=== PATIENT | female | born 1950 | race Two or more races ===

== ENCOUNTER 2017-01-02 18:52 | Emergency (ER) | payer OTHER ==
[2017-01-02 18:59] VITALS: BMI 28.9
--- NOTE | 2017-01-02 20:38 | PDOC ---
History of Present Illness - General History Source: Patient Exam Limitations: No Limitations - History of Present Illness Initial Comments: 01/02/17 21:14 The patient is a 66 year old female, with a significant past medical history of IBS, Diverticulitis, Fibromyalgia, who presents to the emergency department with LLQ abdominal pain for the past 2 days. Patient reports intermittent LLQ abdominal pain, 9/10 in severity, radiating to lower back with associated subjective fevers and nausea. Patient denies taking any medications for relief. Patient reports her pain has progressively worsened today and presents to the ED for further evaluation. Upon evaluation, patients vital signs are within normal limits. She denies chest pain, headache or dizziness. She denies fever, chills, vomit, diarrhea or constipation. She denies dysuria, frequency, urgency or hematuria. Patient denies sick contacts or recent travel. Allergies: NKA Past surgical history: Tubal ligation, Pilonidal cyst, Hysterectomy Social history: None PCP: Dr. Willingham <Nikkie Mccauley - Last Filed: 01/02/17 21:14> <Niraj Li - Last Filed: 01/03/17 01:41> - General Chief Complaint: Pain Stated Complaint: EVALUATION Time Seen by Provider: 01/02/17 20:20 Past History <Nikkie Mccauley - Last Filed: 01/02/17 21:14> - Past Medical History COPD: No GI Disorders: Yes (IBS, DIVERTICULITIS) Other medical history: FIBROMYALGIA, ARTHRITIS - Suicide/Smoking/Psychosocial Hx Smoking History: Never smoked Hx Alcohol Use: No Drug/Substance Use Hx: No Substance Use Type: None <Niraj Li - Last Filed: 01/03/17 01:41> - Past Medical History Allergies/Adverse Reactions: Allergies Allergy/AdvReac Type Severity Reaction Status Date / Time No Known Allergies Allergy Verified 01/02/17 18:59 Home Medications: Ambulatory Orders Ciprofloxacin [Cipro] 500 mg PO BID #14 tablet 10/07/15 Ibuprofen [Advil -] 400 mg PO TID 10/07/15 Metronidazole [Flagyl] 500 mg PO BID #14 tablet 10/07/15 [place]-3 Fatty Acids/Fish Oil [Fish Oil 1,000 mg Softgel] 1 each PO DAILY Oxycodone HCl/Acetaminophen [Percocet 5-325 mg Tablet] 1 - 2 tab PO Q6H #20 tablet MDD 4 10/07/15 Vit B Comp/C/FA/Iron/Vit E [Vitamin B Complex Tablet] 1 each PO DAILY 10/07/15 Levofloxacin [Levaquin -] 500 mg PO DAILY #10 tablet 01/03/17 Metronidazole [Flagyl -] 500 mg PO Q4HWA #40 tablet 01/03/17 Oxycodone HCl/Acetaminophen [Percocet 5-325 mg Tablet] 1 tab PO Q6H #10 tablet MDD 3 01/03/17 Review of Systems - Review of Systems Able to Perform ROS?: Yes Comments:: 01/02/17 21:14 CONSTITUTIONAL: No fever, no chills, no fatigue EYES: No visual changes ENT: No ear pain, no sore throat CARDIOVASCULAR: No chest pain, no palpitations RESPIRATORY: No cough, no SOB GI: +LLQ abdominal pain. + nausea, no vomiting, no constipation, no diarrhea GENITOURINARY: No dysuria, no frequency, no hematuria MUSKULOSKELETAL: No back pain, no joint pain, no myalgias SKIN: No rash NEURO: No headache <Nikkie Mccauley - Last Filed: 01/02/17 21:14> *Physical Exam - Vital Signs Last Vital Signs Temp Pulse Resp BP Pulse Ox 98.7 F 83 20 151/71 99 01/02/17 18:56 01/02/17 18:56 01/02/17 18:56 01/02/17 18:56 01/02/17 18:56 - Physical Exam Comments: 01/02/17 21:14 CONSTITUTIONAL: Well-appearing; well-nourished; in no apparent distress HEAD: Normocephalic; atraumatic EYES: PERRL; EOM intact ENMT: External appears normal; normal oropharynx NECK: Supple; nontender; no cervical lymphadenopathy CARD: Normal S1, S2; no murmurs, rubs, or gallops RESP: Normal chest excursion with respiration; breath sounds clear and equal bilaterally; no wheezes, rhonchi, or rales ABD:+Mild epigastric tenderness.+Moderate LLQ tenderness with voluntary guarding. Soft, non-distended; no palpable organomegaly, no palpable hernias EXT: Normal ROM in all four extremities; non-tender to palpation; distal pulses intact SKIN: Warm, dry, no rash NEURO: No focal neurological deficiencies. <Nikkie Mccauley - Last Filed: 01/02/17 21:14> - Vital Signs Last Vital Signs Temp Pulse Resp BP Pulse Ox 98.7 F 83 20 151/71 99 01/02/17 18:56 01/02/17 18:56 01/02/17 18:56 01/02/17 18:56 01/02/17 18:56 <Niraj Li - Last Filed: 01/03/17 01:41> ED Treatment Course - LABORATORY CBC & Chemistry Diagram: 01/02/17 22:00 01/02/17 22:00 <Niraj Li - Last Filed: 01/03/17 01:41> Medical Decision Making - Medical Decision Making 01/03/17 01:34 pt is awell apearing 66 y/o female who presentswith llq pain. cbc shows moderate leukocytosis. cmp shows minimal ast elev and alk phosh. ct of abd/ pelvis shows mild diverticulitis w/o fa or collection. pt nilsa po, pain well controled, will administer iv abx, will d/c w clears diet, po abx gi f/u. <Niraj Li - Last Filed: 01/03/17 01:41> *DC/Admit/Observation/Transfer - Attestations Scribe Attestion: 01/02/17 21:14 Documentation prepared by Nikkie Mccauley, acting as medical doctor nuclear medicine for Niraj Li MD <Nikkie Mccauley - Last Filed: 01/02/17 21:14> <Niraj Li - Last Filed: 01/03/17 01:41> Diagnosis at time of Disposition: Diverticulitis Qualifiers: Diverticulitis site: large intestine Diverticulitis bleeding: without bleeding Diverticulitis complication: without perforation or abscess Qualified Code(s): K57.32 - Diverticulitis of large intestine without perforation or abscess without bleeding - Discharge Dispostion Disposition: HOME Condition at time of disposition: Stable - Referrals Referrals: GI, three-4 days [Other] - Patient Instructions Printed Discharge Instructions: DI for Diverticulitis Additional Instructions: please keep clear diet, take medication as prescribed, f/u with GI, return for fever, persistant vomiting, severe pain Print Language: ALBANIAN
[2017-01-02] MEDS ORDERED: SODIUM CHLORIDE 1,000 ML IV STA (20:59)
[2017-01-02 22:12] LABS: BASOPHIL 0.7 % (0-2.0); MCH 31.1 pg (25.7-33.7); MCHC 33.3 g/dl (32.0-36.0); MEAN CELL VOLUME 93.5 fl (80-96); MEAN PLT VOLUME 9.2 fl (7.5-11.1); RDW 13.5 % (11.6-15.6); WHITE BLOOD COUNT 15.8 K/mm3 (4.0-10.0)
[2017-01-02 22:15] LABS: URINE APPEARANCE CLEAR; URINE BILIRUBIN NEGATIVE (NEGATIVE); URINE BLOOD NEGATIVE (NEGATIVE); URINE COLOR LTYELLOW; URINE GLUCOSE (UA) NEGATIVE (NEGATIVE); URINE KETONE NEGATIVE (NEGATIVE); URINE NITRITE NEGATIVE (NEGATIVE); URINE PROTEIN NEGATIVE (NEGATIVE); URINE UROBILINOGEN NEGATIVE mg/dL (0.2-1.0)
[2017-01-02 22:21] LABS: INR 0.96 (0.82-1.09); PROTHROMBIN TIME (PATIENT) 10.8 SEC (9.98-11.88)
[2017-01-02 22:35] LABS: ALBUMIN 3.6 g/dl (3.4-5.0); ANION GAP 8 (8-16); CO2 23 mmol/L (21-32); CREATININE 0.6 mg/dL (0.55-1.02); GLUCOSE,RANDOM 121 mg/dL (74-106); SGPT/ALT 53 U/L (12-78)
[2017-01-02 22:37] LABS: ALK PHOS 122 U/L (45-117); BILIRUBIN,TOTAL 0.4 mg/dL (0.2-1.0); TOT PROT 7.3 g/dl (6.4-8.2)
[2017-01-02 22:51] LABS: SGOT/AST 66 U/L (15-37)
[2017-01-02 23:03] LABS: PLATELET COUNT 374 K/MM3 (134-434)
[2017-01-02] MEDS ORDERED: ACETAMINOPHEN 325 MG TABLET (FP) PO ONE (23:54)
[2017-01-03] MEDS ORDERED: ACETAMINOPHEN 325 MG TABLET (FP) ONE (01:02)
[2017-01-03] MEDS ORDERED: PIPERACIL/TAZOB 3.375 GM 3.375 GM/50 ML PREMIX IVPB ONE (01:31)
[2017-01-03 02:54] VITALS: BP 103/57; PULSE 76; TEMP 98.6
--- NOTE | 2017-01-03 11:08 | EKG ---
Test Reason : Blood Pressure : / mmHG Vent. Rate : 072 BPM Atrial Rate : 072 BPM P-R Int : 140 ms QRS Dur : 080 ms QT Int : 410 ms P-R-T Axes : 020 063 061 degrees QTc Int : 448 ms POOR DATA QUALITY, INTERPRETATION MAY BE ADVERSELY AFFECTED NORMAL SINUS RHYTHM NONSPECIFIC ST ABNORMALITY ABNORMAL ECG WHEN COMPARED WITH ECG OF 15-OCT-2006 02:26, VENT. RATE HAS DECREASED BY 42 BPM Confirmed by YENI CONNELL MD ([id number]) on 01/03/2017 11:07:53 AM Referred By: Confirmed By:YENI CONNELL MD
[2017-01-03 11:33] LABS: URINE LEUK ESTERASE Negative (NEGATIVE)
== END 2017-01-03 02:54 | disposition home or self-care (01) ==
LOC: JER 18:52
PROC: 3E0337Z Introduction of Electrolytic and Water Balance Substance into Peripheral Vein, Percutaneous Approach (ICD-10-PCS; principal; 2017-01-02)
DX: K57.32 Diverticulitis of large intestine without perforation or abscess without bleeding (principal); K58.9 Irritable bowel syndrome, unspecified
CPT/HCPCS: 36415; 74176-TC; 80053; 81003; 83690; 85025; 85610; 87086; 93005; 93010; 99282-25

== ENCOUNTER 2017-01-14 13:12 | Emergency (ER) | payer OTHER ==
[2017-01-14 13:25] VITALS: PULSE 72; BMI 28.9
--- NOTE | 2017-01-14 13:34 | PDOC ---
History of Present Illness - General Chief Complaint: Pain, Acute Stated Complaint: abd pain Time Seen by Provider: 01/14/17 13:14 History Source: Patient Exam Limitations: No Limitations - History of Present Illness Initial Comments: 01/14/17 13:30 66-year-old female here today complaining of persistent left lower quadrant pain. Patient was seen on 01/03 and diagnosed with focal colitis at that time started on Cipro Flagyl. Since then patient states the pain is gotten progressively worse. Last night it became unbearable mostly in the left lower quadrant. Did have 1 episode of vomiting today. Nonbloody nonbilious. Does also have some dysuria and frequency as well as discoloration of her urine. No back pain no fevers or chills. Patient's primary doctor is Dr. jimenez Past History - Past Medical History Allergies/Adverse Reactions: Allergies Allergy/AdvReac Type Severity Reaction Status Date / Time No Known Allergies Allergy Verified 01/14/17 13:13 Home Medications: Ambulatory Orders Metronidazole [Flagyl] 500 mg PO BID #14 tablet 10/07/15 Amoxicillin/Potassium Clav [Augmentin 875-125 Tablet] 1 each PO BID #20 tablet 01/14/17 Oxycodone HCl/Acetaminophen [Percocet 5-325 mg Tablet] 1 tab PO Q6H PRN #15 tablet MDD 4 01/14/17 COPD: No GI Disorders: Yes (IBS, DIVERTICULITIS) - Suicide/Smoking/Psychosocial Hx Smoking History: Never smoked Information on smoking cessation initiated: No Hx Alcohol Use: No Drug/Substance Use Hx: No Substance Use Type: None Review of Systems - Review of Systems Constitutional: No: Chills, Diaphoresis, Fever Respiratory: No: Cough Cardiac (ROS): No: Chest Pain ABD/GI: Yes: Nausea (anything that so the story actually is a little ways that she was here), Vomiting ( 10 days ago to telemetry). No: Other : Yes: Burning, Dysuria ( okay and did a CAT scan and) Musculoskeletal: No: Back Pain, Gout, Joint Pain ( it showed colitis not diverticulitis or diverticulosis but no diverticulitis) Integumentary: No: Bruising Neurological: No: Headache, Numbness (. She thinks she thought she had diverticulitis several is right) All Other Systems: Reviewed and Negative (right) *Physical Exam - Vital Signs Last Vital Signs Temp Pulse Resp BP Pulse Ox 98.1 F 72 17 121/79 100 01/14/17 13:12 01/14/17 13:12 01/14/17 13:12 01/14/17 13:12 01/14/17 13:12 - Physical Exam General Appearance: Yes: Appropriately Dressed (so anything else in the history of a gallon of his) Respiratory/Chest: positive: Lungs Clear, Normal Breath Sounds. negative: Chest Tender (chills okay) Cardiovascular: positive: Regular Rhythm, Regular Rate, S1, S2 ( chills have salads) Female Pelvic Exam: negative: normal external exam Gastrointestinal/Abdominal: positive: Tender (E tenderness to the left lower quadrant), Flat, Soft Musculoskeletal: positive: Normal Inspection. negative: CVA Tenderness (, no rebound no guarding) Extremity: positive: Normal Capillary Refill Integumentary: positive: Normal Color, Dry, Warm Neurologic: positive: Fully Oriented, Alert, Normal Mood/Affect ED Treatment Course - LABORATORY CBC & Chemistry Diagram: 01/14/17 13:00 01/14/17 13:00 - RADIOLOGY Radiology Studies Ordered: Category Date Time Status ABDOMEN & PELVIS CT WITH CONTR [CT] Stat CT Scan 01/14/17 13:30 Ordered Medical Decision Making - Medical Decision Making 01/14/17 13:33 66-year-old female with recent diagnosis of colitis here with urinary symptoms persistent left lower quadrant pain nausea and vomiting 1. Differential is UTI or Hi-Lo, worsening colitis, development of diverticulitis or intra-abdominal abscess. Plan to repeat CT to evaluate for interval changes. UA and culture treat with fluids and antiemetics and reassessment will discuss with Dr. Mercedes *DC/Admit/Observation/Transfer Diagnosis at time of Disposition: Diverticulitis - Discharge Dispostion Disposition: HOME Condition at time of disposition: Improved - Prescriptions Prescriptions: Amoxicillin/Potassium Clav [Augmentin 875-125 Tablet] 1 each PO BID #20 tablet Oxycodone HCl/Acetaminophen [Percocet 5-325 mg Tablet] 1 tab PO Q6H PRN #15 tablet MDD 4 PRN Reason: Pain - Referrals Referrals: Seymour Meléndez MD [Staff Physician] - - Patient Instructions Printed Discharge Instructions: Diverticulitis Additional Instructions: clear liquid diet for 3 days. follow up with Dr. Rubio within 3 days, you do not need an appointment he can completely walk into the office. Discontinue Levaquin. You should start Augmentin 875 mg twice daily 10 days. Continue taking your Flagyl. Return for fever, vomiting, worsening pain or any symptoms or concerns - Post Discharge Activity
[2017-01-14 13:47] LABS: URINE APPEARANCE Clear; URINE BILIRUBIN 1+ (NEGATIVE); URINE BLOOD Negative (NEGATIVE); URINE GLUCOSE (UA) Negative (NEGATIVE); URINE KETONE Trace (NEGATIVE); URINE NITRITE Negative (NEGATIVE); URINE UROBILINOGEN 0.2 (0.2-1.0)
[2017-01-14 13:48] LABS: URINE COLOR YELLOW; URINE LEUK ESTERASE TRACE (NEGATIVE); URINE PROTEIN 1+ (NEGATIVE)
[2017-01-14 13:53] LABS: MCH 31.2 pg (25.7-33.7); MCHC 33.7 g/dl (32.0-36.0); MEAN CELL VOLUME 92.8 fl (80-96); MEAN PLT VOLUME 8.2 fl (7.5-11.1); PLATELET COUNT 568 K/MM3 (134-434); RDW 12.4 % (11.6-15.6); WHITE BLOOD COUNT 12.8 K/mm3 (4.0-10.8)
[2017-01-14] MEDS ORDERED: ONDANSETRON 4 MG/2 ML VIAL ONE (13:53)
[2017-01-14] MEDS ORDERED: ONDANSETRON 4 MG/2 ML VIAL IVPUSH ONE (13:54)
[2017-01-14] MEDS ORDERED: SODIUM CHLORIDE 0.9% 1000 ML INFUS.BAG IV ONE (13:54)
[2017-01-14] MEDS ORDERED: morphine SULFATE 4 MG/ML VIAL ONE (13:58)
[2017-01-14] MEDS ORDERED: morphine CARPU-JECT 4 MG/1 ML DISP.SYRIN IVPUSH ONE (14:10)
[2017-01-14 14:13] LABS: ALBUMIN 3.8 g/dl (3.5-5.0); ALK PHOS 99 U/L (32-92); ANION GAP 6 (8-16); BILIRUBIN,TOTAL 0.4 mg/dl (0.2-1.0); CALCIUM 9.6 mg/dl (8.4-10.2); CO2 26 mmol/L (22-28); CREATININE 0.6 mg/dl (0.6-1.3); GLUCOSE,RANDOM 107 mg/dl (74-106); SGOT/AST 14 U/L (10-42); SGPT/ALT 8 U/L (10-40); TOT PROT 6.6 g/dl (6.4-8.3)
[2017-01-14 15:28] LABS: URINE MUCUS 1+; URINE RBC 0-3 /hpf (0-3)
[2017-01-14] MEDS ORDERED: AMOX TR/POT CLAV 875MG/125MG TABLETS (FP) PO ONE (16:01)
[2017-01-14] MEDS ORDERED: metroNIDAZOLE 250 MG TABLET PO ONE (16:02)
[2017-01-14 16:05] VITALS: BP 156/70; TEMP 98.3
[2017-01-14] MEDS ORDERED: metroNIDAZOLE 250 MG TABLET ONE (16:06)
[2017-01-14] MEDS ORDERED: AMOX TR/POT CLAV 875MG/125MG TABLETS (FP) ONE (16:06)
[2017-01-14 19:08] LABS: PLATELET ESTIMATE INCREASED
[2017-01-14 19:11] LABS: PLATELET COMMENTS FEW LARGE PLATELETS
== END 2017-01-14 16:56 | disposition home or self-care (01) ==
LOC: FER 13:12
PROC: 3E0337Z Introduction of Electrolytic and Water Balance Substance into Peripheral Vein, Percutaneous Approach (ICD-10-PCS; principal; 2017-01-14)
PROC: 3E033NZ Introduction of Analgesics, Hypnotics, Sedatives into Peripheral Vein, Percutaneous Approach (ICD-10-PCS; 2017-01-14)
PROC: 3E033GC Introduction of Other Therapeutic Substance into Peripheral Vein, Percutaneous Approach (ICD-10-PCS; 2017-01-14)
DX: K57.92 Diverticulitis of intestine, part unspecified, without perforation or abscess without bleeding (principal)
CPT/HCPCS: 36415; 74177-TC; 80053; 81003; 81015; 85025; 87086; 99283-25

== ENCOUNTER 2017-01-18 09:05 | Inpatient (IN) | payer OTHER ==
--- NOTE | 2017-01-18 09:21 | PDOC ---
Attending Attestation - Resident Resident Name: LibradoIsaiah - HPI HPI: 01/18/17 18:35 Pt presents to the ED complaining of lower abdominal pain. Seen by PMD and diagnosed with diverticulitis, which has not improved at home despite levoquin and flagyl. - Physicial Exam PE: 01/18/17 18:36 Agree with resident exam. + mild diffuse abdominal tenderness. - Medical Decision Making 01/18/17 18:36 Pt presents to the ED with diverticulitis that failed outpatient management. Will check labs and admit to medicine for inpatient treatment of diverticulitis.
--- NOTE | 2017-01-18 09:22 | PDOC ---
History of Present Illness - General Chief Complaint: Pain, Acute Stated Complaint: ADMIT (PCP SENT) Time Seen by Provider: 01/18/17 09:18 - History of Present Illness Initial Comments: 01/18/17 09:19 66 yo F with h/o diverticulosis who presents with abdominal pain in setting of recently diagnosed diverticulitis. Patient reports persistent generalized, crampy, abdominal pain of one month with ongoing nausea of one month duration. Recently diagnosed with rectosigmoid diverticulitis (01/03) and descending colon diverticulitis (01/14). Denies fevers/chills, BPR, urinary complaints, dysuria, hematuria, flank pain, lightheadedness. Received Levaquin and Flagyl from first visit (01/03) , 01/14 augmentin 875 mg BID 10 days. Endorses allergy to Percocet with hives. CT AP x 2. Most recent () Development of diverticulitis in distal descending colon diverticutlitis. Improvement of rectosigmoid colon ( 01/03 ). PCP [facility]. Past History - Past Medical History Allergies/Adverse Reactions: Allergies Allergy/AdvReac Type Severity Reaction Status Date / Time codeine Allergy Intermediate Hives Verified 01/18/17 09:11 Home Medications: Ambulatory Orders Oxycodone HCl/Acetaminophen [Percocet 5-325 mg Tablet] 1 tab PO Q6H PRN #15 tablet MDD 4 01/14/17 Amoxicillin/Potassium Clav [Augmentin 875-125 Tablet] 1 each PO BID 01/18/17 COPD: No GI Disorders: Yes (IBS, DIVERTICULITIS) - Suicide/Smoking/Psychosocial Hx Smoking History: Never smoked Hx Alcohol Use: No Drug/Substance Use Hx: No Substance Use Type: None Review of Systems - Review of Systems Comments:: 01/18/17 09:20 GENERAL/CONSTITUTIONAL: No fever or chills. No weakness. HEAD, EYES, EARS, NOSE AND THROAT: No change in vision. No ear pain or discharge. No sore throat.- CARDIOVASCULAR: No chest pain or shortness of breath RESPIRATORY: No cough, wheezing, or hemoptysis. GASTROINTESTINAL: + Abdominal Pain and Nausea. Vomiting, diarrhea or constipation. GENITOURINARY: No dysuria, frequency, or change in urination. MUSCULOSKELETAL: No joint or muscle swelling or pain. No neck or back pain. SKIN: No rash NEUROLOGIC: No headache, vertigo, loss of consciousness, or change in strength/ sensation. ENDOCRINE: No increased thirst. No abnormal weight change HEMATOLOGIC/LYMPHATIC: No anemia, easy bleeding, or history of blood clots. ALLERGIC/IMMUNOLOGIC: No hives or skin allergy. *Physical Exam - Vital Signs Last Vital Signs Temp Pulse Resp BP Pulse Ox 97.7 F 58 L 19 133/69 99 01/18/17 09:12 01/18/17 09:12 01/18/17 09:12 01/18/17 09:12 01/18/17 09:12 - Physical Exam Comments: 01/18/17 09:20 GENERAL: Awake, alert, and fully oriented, in no acute distress HEAD: No signs of trauma, normocephalic, atraumatic EYES: PERRLA, EOMI, sclera anicteric, conjunctiva clear ENT: Hearing grossly normal, nares patent, oropharynx clear without exudates. Moist mucosa NECK: Normal ROM, no JVD, or masses LUNGS: No distress, speaks full sentences, clear to auscultation bilaterally HEART: Regular rate and rhythm, normal S1 and S2, no murmurs, rubs or gallops, peripheral pulses normal and equal bilaterally. ABDOMEN: LLQ>LUQ ttp. normoactive bowel sounds. No guarding, no rebound. No masses. Neg graf sign and McBurney point ttp. Neg CVA ttp. Neg suprpapubic ttp. EXTREMITIES : Normal inspection, Normal range of motion, no edema. No clubbing or cyanosis. SKIN: Warm, Dry, normal turgor, no rashes or lesions noted. ED Treatment Course - LABORATORY CBC & Chemistry Diagram: 01/18/17 09:50 01/18/17 09:50 Medical Decision Making - Medical Decision Making 01/18/17 11:45 66 yo F with h/o diverticulosis who presents with abdominal pain in setting of recently diagnosed diverticulitis. Reports persistent generalized, crampy, abdominal pain of one month with ongoing nausea of one month duration, despite multiple medication management. Received Levaquin and Flagyl from first visit ( 01/03), 01/14 Augmentin 875 mg BID [address] AP x 2 Most recent (01/14) Development of diverticulitis in distal descending colon diverticulitis. Improvement of rectosigmoid colon ( 01/03 ). Denies fevers/chills, BPR, urinary complaints, dysuria, hematuria, flank pain, lightheadedness. Physical exam with continued LLQ ttp. Will consult surgery, and ID for diverticulitis refractory to medical management. ED Course: CBC, CMP, PT/INR, CRP, ESR NS, NPO 01/18/17 11:[address] Fay and Dr. Wright Consulted/spoke to Dr. Willingham. 01/18/17 13:08 Dr. Willingham, Sumeet, and Adriana at bedside. Will admit to [facility]. Per Dr. Wright will order Zosyn 3.375 x 1. *DC/Admit/Observation/Transfer Diagnosis at time of Disposition: Diverticulitis - Discharge Dispostion Admit: Yes - Referrals - Patient Instructions - Post Discharge Activity
[2017-01-18 10:05] LABS: BASOPHIL 0.3 % (0-2.0); EOSINOPHIL 1.4 % (0-4.5); MCH 31.2 pg (25.7-33.7); MCHC 33.6 g/dl (32.0-36.0); MEAN CELL VOLUME 92.8 fl (80-96); MEAN PLT VOLUME 7.4 fl (7.5-11.1); NEUTROPHILS 55.6 % (42.8-82.8); PLATELET COUNT 592 K/MM3 (134-434); RDW 12.9 % (11.6-15.6); WHITE BLOOD COUNT 5.5 K/mm3 (4.0-10.0)
[2017-01-18 10:10] LABS: URINE APPEARANCE SLCLOUDY; URINE BILIRUBIN NEGATIVE (NEGATIVE); URINE BLOOD NEGATIVE (NEGATIVE); URINE COLOR AMBER; URINE GLUCOSE (UA) NEGATIVE (NEGATIVE); URINE KETONE NEGATIVE (NEGATIVE); URINE NITRITE NEGATIVE (NEGATIVE); URINE PROTEIN NEGATIVE (NEGATIVE)
[2017-01-18 10:30] LABS: ALBUMIN 3.4 g/dl (3.4-5.0); ALK PHOS 95 U/L (45-117); ANION GAP 7 (8-16); BILIRUBIN,TOTAL 0.8 mg/dL (0.2-1.0); CALCIUM 8.7 mg/dL (8.5-10.1); CO2 23 mmol/L (21-32); CREATININE 0.5 mg/dL (0.55-1.02); GLUCOSE,RANDOM 100 mg/dL (74-106); SGPT/ALT 13 U/L (12-78); TOT PROT 6.9 g/dl (6.4-8.2)
[2017-01-18 10:37] LABS: SGOT/AST 15 U/L (15-37)
[2017-01-18 10:45] LABS: INR 1.12 (0.82-1.09); PROTHROMBIN TIME (PATIENT) 12.6 SEC (9.98-11.88)
[2017-01-18 10:48] LABS: ACTIVATED PTT 32.1 SECONDS (26.9-34.4)
[2017-01-18] MEDS ORDERED: SODIUM CHLORIDE 1,000 ML IV STA (11:41)
[2017-01-18] MEDS ORDERED: ACETAMINOPHEN 1000 MG/100 ML VIAL (NON FORMULARY) IVPB PRN (12:11)
[2017-01-18] MEDS ORDERED: ONDANSETRON 4 MG/2 ML VIAL IVPB PRN (12:11)
--- NOTE | 2017-01-18 12:12 | HP ---
Admitting History and Physical - Primary Care Physician PCP: Rivera Willingham - Admission Chief Complaint: ABDOMINAL PAIN/ACUTE DIVERTICULITIS History of Present Illness: 66 YEAR OLD FEMALE WITH HISTORY OF FIBROMYALGIA, OATEOARTHRITIS, HERE WITH ABD PAIN CONTINUED OVER PAST 4 WEEKS WITH FAILURE ON ORAL ANTIBIOTICS FOR ACUTE DIVERTICULITIS. PATIENT WAS SENT FROM MY OFFICE BECAUSE SHE COULD NOT TOLERATE THE PAIN. History Source: Patient - Smoking History Smoking history: Never smoked - Alcohol/Substance Use Hx Alcohol Use: No Home Medications - Allergies Allergies/Adverse Reactions: Allergies Allergy/AdvReac Type Severity Reaction Status Date / Time codeine Allergy Intermediate Hives Verified 01/18/17 09:11 - Home Medications Home Medications: Ambulatory Orders Oxycodone HCl/Acetaminophen [Percocet 5-325 mg Tablet] 1 tab PO Q6H PRN #15 tablet MDD 4 01/14/17 Amoxicillin/Potassium Clav [Augmentin 875-125 Tablet] 1 each PO BID 01/18/17 Review of Systems - Review of Systems Constitutional: reports: Chills, Loss of Appetite, Night Sweats, Weakness Eyes: reports: No Symptoms HENT: reports: No Symptoms Neck: reports: No Symptoms Cardiovascular: reports: No Symptoms Respiratory: reports: No Symptoms Gastrointestinal: reports: Abdominal Pain, Indigestion Genitourinary: reports: No Symptoms Musculoskeletal: reports: No Symptoms Integumentary: reports: No Symptoms Neurological: reports: No Symptoms Endocrine: reports: No Symptoms Hematology/Lymphatic: reports: No Symptoms Psychiatric: reports: No Symptoms Physical Examination Vital Signs: Vital Signs Temperature 97.7 F 01/18/17 09:12 Pulse Rate 58 L 01/18/17 09:12 Respiratory Rate 19 01/18/17 09:12 Blood Pressure 133/69 01/18/17 09:12 O2 Sat by Pulse Oximetry (%) 99 01/18/17 09:12 Constitutional: Yes: Moderate Distress Eyes: Yes: WNL HENT: Yes: WNL Neck: Yes: WNL Cardiovascular: Yes: WNL Respiratory: Yes: WNL Gastrointestinal: Yes: Tenderness Renal/: Yes: WNL Musculoskeletal: Yes: Muscle Weakness Extremities: Yes: WNL Peripheral Pulses WNL: Yes Integumentary: Yes: WNL Wound/Incision: Yes: Clean/Dry Neurological: Yes: WNL ...Motor Strength: WNL Psychiatric: Yes: WNL Labs: CBC, BMP 01/18/17 09:50 01/18/17 09:50 Assessment/Plan ACUTE DIVERTICULITIS ABD PAIN PLAN: IV FLUIDS NO ANTIBIOTICS AT THIS TIME ID AND SURGERY EVAL PAIN CONTROL
[2017-01-18] MEDS ORDERED: FAMOTIDINE IV 20 MG/12 ML VIAL IVPUSH SCH ×2 (12:15→22:00)
[2017-01-18] MEDS ORDERED: FAMOTIDINE 20 MG/50 ML IVPB 20 MG/50 ML MG IVPB ONE (12:18)
[2017-01-18] MEDS ORDERED: PIPERACILLIN/TAZOB 3.375 GM/50 ML PRE-DOCKED IVPB ONE (12:26)
[2017-01-18] MEDS: DEXTROSE 5%-NORMAL SALINE 1,000 ML IV SCH ×2 (12:32→16:37)
--- NOTE | 2017-01-18 12:52 | CONSULT ---
Consult Consult Specialty:: General Surgery Referred by:: Dr. Willingham Reason for Consultation:: diverticulitis - History of Present Illness Chief Complaint: LLQ pain, chills, n/v History of Present Illness: 66yo F with fibromyalgia, IBS with constipation, diverticulosis, h/o diverticulitis 4-5 years ago, s/p tubal ligation and hysterectomy, had colonoscopy 12/11/16 with findings only of pandiverticulosis, then began having left lower quadrant pain a couple of weeks later. She does get this pain on and off; this time it's been for about a month. Initially, it was not associated with nausea or vomiting; she came to the ER 01/[address] scan showing rectosigmoid colitis but not clearly diverticulitis. WBC then was elevated, but she was afebrile. She was given Rx for Levaquin daily x10d and Flagyl q4H, which she finished. She still had pain, and then had an episode of vomiting, and returned to ER 01/14, when CT was repeated, showing some resolution of rectosigmoid inflammation but diverticulitis of the sigmoid and distal descending colon. She was given Augmentin bid and Percocet. She saw PMD Dr. Willingham yesterday with continued c/o LLQ pain, N/V and chills with night sweats. He gave her a Toradol injection, and she has felt somewhat better since, but still has LLQ pain. She was sent in for admission for IV antibiotics for failure of outpatient therapy for diverticulitis. She is also interested in surgery for colon resection to minimize her risk for recurrence in the future. She usually tends to constipation, and has not had stool for the last 3 days. She started a liquids-only diet 3 days ago as well. She also relates pain with urination recently, and sometimes very small amounts of urine. She endorses nausea recently with this illness, but only vomited yesterday a few times ( nonbilious, nonbloody) and a few days prior. She has not taken her usual medication for fibromyalgia for a couple days because of nausea, and threw up the Augmentin yesterday. Pain was excruciating before yesterday's shot, but is now about a 4-5. In the ER today, wbc is 5.5, lytes are normal, ESR/CRP are pending. UA is negative. ID Dr. Milligan and Dr. Willingham are also at bedside at the time of my exam. - History Source History Provided By: Patient, Caregiver (Dr. Willingham) Limitations to Obtaining History: Language Barrier (Andorran - Dr. Willingham assisted at bedside with some interpretation, pt does speak some Guyanese) - Past Medical History Gastrointestinal: Yes: Constipation, Diverticulitis, Diverticulosis, Irritable Bowel Disease Reproductive: Yes: Postmenopausal ...: No ...: 3 ...Para: 3 Musculoskeletal: Yes: Osteoarthritis Rheumatology: Yes: Fibromyalgia - Past Surgical History Past Surgical History: Yes: Colonoscopy (last 12/11/16 - found pandiverticulosis only), Hysterectomy, Tubal Ligation Additional Surgical History: pilonidal cyst many years ago - Alcohol/Substance Use Hx Alcohol Use: No History of Substance Use: reports: None - Smoking History Smoking history: Never smoked Have you smoked in the past 12 months: No - Social History ADL: Independent Home Medications - Allergies Allergies/Adverse Reactions: Allergies Allergy/AdvReac Type Severity Reaction Status Date / Time codeine Allergy Intermediate Hives Verified 01/18/17 09:11 - Home Medications Home Medications: Ambulatory Orders Oxycodone HCl/Acetaminophen [Percocet 5-325 mg Tablet] 1 tab PO Q6H PRN #15 tablet MDD 4 01/14/17 Amoxicillin/Potassium Clav [Augmentin 875-125 Tablet] 1 each PO BID 01/18/17 Home Medications (free text): and something for fibromyalgia, but not for last 2 -3 days with nausea and some vomiting Family Disease History - Family Disease History Family Disease History: [place]: Mother (colon - in [facility] now for tx, age 88) Review of Systems - Review of Systems Constitutional: reports: Chills, Diaphoresis, Fever (subjective), Night Sweats Eyes: denies: Blurred Vision, Recent Change in Vision HENT: denies: Difficult Swallowing, Hearing Loss, Nasal Congestion, Throat Pain Neck: denies: Swollen Glands, Tenderness Cardiovascular: denies: Chest Pain, Palpitations Respiratory: denies: Cough, SOB Gastrointestinal: reports: Abdominal Pain (with hpi), Constipation, Nausea ( with hpi), Vomiting (with hpi). denies: Diarrhea, Rectal Bleeding, Vomiting Blood Genitourinary: reports: Dysuria, Pain (with urination), Other (sometimes small amounts, sometimes more) Musculoskeletal: reports: Back Pain, Joint Pain (knees) Integumentary: denies: Change in Color, Rash Neurological: denies: Dizziness, Headache, Unsteady Gait Psychiatric: denies: Anxiety, Depression Pain Intensity: 5 (now, but was much worse yesterday) Physical Exam Vital Signs: Vital Signs Temperature 97.7 F 01/18/17 09:12 Pulse Rate 59 L 01/18/17 12:33 Respiratory Rate 16 01/18/17 12:33 Blood Pressure 121/50 01/18/17 12:33 O2 Sat by Pulse Oximetry (%) 96 01/18/17 12:33 Constitutional: Yes: Well Nourished, No Distress, Calm Eyes: Yes: Conjunctiva Clear, EOM Intact HENT: Yes: Atraumatic, Normocephalic Neck: Yes: Supple, Trachea Midline Cardiovascular: Yes: Regular Rate and Rhythm. No: Murmur Respiratory: Yes: Regular, CTA Bilaterally Gastrointestinal: Yes: Normal Bowel Sounds, Soft, Tenderness (LLQ, less suprapubic, some referred tenderness from RLQ to left side, no rebound/guarding) . No: Distention, Tenderness, Epigastrium, Tenderness, Rebound ...Rectal Exam: Yes: Deferred, Other (well-healed irregular scar in pilonidal area) Renal/: No: CVA Tenderness - Left, CVA Tenderness - Right Musculoskeletal: No: Joint Stiffness, Joint Swelling Extremities: No: Cool, Cyanosis Edema: No Peripheral Pulses WNL: Yes Integumentary: No: Jaundice, Rash Neurological: Yes: Alert, Oriented Psychiatric: Yes: Alert, Oriented Labs: CBC, BMP 01/18/17 09:50 01/18/17 09:50 CMP Sodium 139 mmol/L (136-145) 01/18/17 09:50 Potassium 4.4 mmol/L (3.5-5.1) 01/18/17 09:50 Chloride 109 mmol/L (98-107) H 01/18/17 09:50 Carbon Dioxide 23 mmol/L (21-32) 01/18/17 09:50 Anion Gap 7 (8-16) L 01/18/17 09:50 BUN 19 mg/dL (7-18) H 01/18/17 09:50 Creatinine 0.5 mg/dL (0.55-1.02) L 01/18/17 09:50 Creat Clearance w eGFR > 60 (>60) 01/18/17 09:50 Random Glucose 100 mg/dL (74-106) 01/18/17 09:50 Calcium 8.7 mg/dL (8.5-10.1) 01/18/17 09:50 Total Bilirubin 0.8 mg/dL (0.2-1.0) D 01/18/17 09:50 AST 15 U/L (15-37) D 01/18/17 09:50 ALT 13 U/L (12-78) D 01/18/17 09:50 Alkaline Phosphatase 95 U/L (45-117) D 01/18/17 09:50 Total Protein 6.9 g/dl (6.4-8.2) 01/18/17 09:50 Albumin 3.4 g/dl (3.4-5.0) 01/18/17 09:50 Urine Test Results Urine Color Antonia 01/18/17 09:50 Urine Appearance Slcloudy 01/18/17 09:50 Urine pH 5.0 (5.0-8.0) 01/18/17 09:50 Ur Specific [place] 1.020 (1.001-1.035) 01/18/17 09:50 Urine Protein Negative (NEGATIVE) 01/18/17 09:50 Urine Glucose (UA) Negative (NEGATIVE) 01/18/17 09:50 Urine Ketones Negative (NEGATIVE) 01/18/17 09:50 Urine Blood Negative (NEGATIVE) 01/18/17 09:50 Urine Nitrite Negative (NEGATIVE) 01/18/17 09:50 Urine Bilirubin Negative (NEGATIVE) 01/18/17 09:50 INR, PTT INR 1.12 (0.82-1.09) 01/18/17 09:50 ESR, CRP pending Imaging - Results Cat Scan: Report Reviewed (from 01/03 and 01/14 - diverticulitis with no abscess , appears slightly more proximal on second scan, from rectosigmoid area to sigmoid/distal descending), Image Reviewed Problem List - Problems (1) Diverticulitis large intestine w/o perforation or abscess w/o bleeding Assessment/Plan: Admitted to Dr. Tarsha keep NPO with IVF until pain/tenderness resolve IV antibiotics per ID - Zosyn GI/DVT prophylaxis pain meds prn ok for fibromyalgia med with few sips water daily pt had recent colonoscopy with findings only of diverticulosis pt is interested in surgery after resolution of acute episode to minimize risk of future attacks will need to have resolution of inflammation for at least several weeks prior to operation will follow in hospital and pt may then see me in office to discuss surgical options as outpatient gave her my card will put f/u info in d/c plan Code(s): K57.32 - DVTRCLI OF LG INT W/O PERFORATION OR ABSCESS W/O BLEEDING (2) Nausea and vomiting Assessment/Plan: zofran prn Code(s): R11.2 - NAUSEA WITH VOMITING, UNSPECIFIED Qualifiers: Vomiting type: unspecified Vomiting Intractability: non-intractable Qualified Code(s): R11.2 - Nausea with vomiting, unspecified (3) LLQ abdominal pain Code(s): R10.32 - LEFT LOWER QUADRANT PAIN (4) Irritable bowel syndrome with constipation Code(s): K58.1 - IRRITABLE BOWEL SYNDROME WITH CONSTIPATION (5) Fibromyalgia Assessment/Plan: ok for home med with sips water Code(s): M79.7 - FIBROMYALGIA
[2017-01-18] MEDS ORDERED: PIPERACILLIN/TAZOB 3.375 GM 3.375 GM/50 ML BAG IVPB ONE (13:43)
[2017-01-18 15:06] VITALS: BMI 29.0
--- NOTE | 2017-01-18 16:08 | CON.ID ---
Consult Consult Specialty:: Infectious Disease Reason for Consultation:: abd pain/nausea/chills - History of Present Illness History of Present Illness: This is a 66 y.o. female with history of fibromyalgia, diverticulosis, and OA with c/o persistent left lower abdominal pain that began approx. one month ago. At that time patient did not have n/v or diarrhea and was afebrile. Prior to that she had a colonoscopy on 12/11/16 with showed only diverticulosis. She was seen in the ER on 01/02/17 where she had leukocytosis and CT Abd revealed rectosigmoid inflammation without clear diverticulitis. She completed a 10 day course of levaquin/flagyl po however her pain did not resolve. She was seen again in the ER for pain and repeat CT showed sigmoid and distal colon diverticulitis and was given Augmentin. In the past few days her abd pain has been severe and c/o persistent nausea. She vomited once which she attributes to the antibiotic. In addition to the abd pain and nausea she has developed chills. Is only able to tolerate liquids in the past few days. States that she has frequent constipation. Currently her pain is 5/10 intensity after Toradol. - History Source History Provided By: Patient Limitations to Obtaining History: No Limitations - Past Medical History Gastrointestinal: Yes: Constipation, Diverticulitis, Diverticulosis, Irritable Bowel Disease ...: No Musculoskeletal: Yes: Osteoarthritis Rheumatology: Yes: Fibromyalgia - Past Surgical History Past Surgical History: Yes: Colonoscopy (last 12/11/16 - found pandiverticulosis only), Hysterectomy, Tubal Ligation Additional Surgical History: pilonidal cyst many years ago - Alcohol/Substance Use Hx Alcohol Use: No History of Substance Use: reports: None - Smoking History Smoking history: Never smoked Have you smoked in the past 12 months: No - Social History Usual Living Arrangement: Other ADL: Independent Home Medications - Allergies Allergies/Adverse Reactions: Allergies Allergy/AdvReac Type Severity Reaction Status Date / Time codeine Allergy Intermediate Hives Verified 01/18/17 09:11 - Home Medications Home Medications: Ambulatory Orders Oxycodone HCl/Acetaminophen [Percocet 5-325 mg Tablet] 1 tab PO Q6H PRN #15 tablet MDD 4 01/14/17 Amoxicillin/Potassium Clav [Augmentin 875-125 Tablet] 1 each PO BID 01/18/17 Family Disease History - Family Disease History Family Disease History: CA: Mother (colon - in [facility] now for tx, age 88) Review of Systems - Review of Systems Constitutional: reports: Chills Eyes: reports: No Symptoms HENT: reports: No Symptoms Neck: reports: No Symptoms Cardiovascular: reports: No Symptoms Respiratory: reports: No Symptoms Gastrointestinal: reports: Abdominal Pain, Constipation, Nausea, Vomiting Genitourinary: reports: Dysuria Breasts: reports: No Symptoms Reported Musculoskeletal: reports: Other (chronic knee/lt hip pain) Integumentary: reports: No Symptoms Neurological: reports: No Symptoms Endocrine: reports: No Symptoms Hematology/Lymphatic: reports: No Symptoms Psychiatric: reports: No Symptoms Pain Intensity: 5 Physical Exam Vital Signs: Vital Signs Temperature 98.3 F 01/18/17 15:02 Pulse Rate 58 L 01/18/17 15:02 Respiratory Rate 20 01/18/17 15:02 Blood Pressure 136/62 01/18/17 15:02 O2 Sat by Pulse Oximetry (%) 97 01/18/17 13:56 Constitutional: Yes: No Distress, Calm HENT: Yes: Atraumatic Neck: Yes: Supple Cardiovascular: Yes: Regular Rate and Rhythm Respiratory: Yes: CTA Bilaterally Gastrointestinal: Yes: Normal Bowel Sounds, Soft, Tenderness (LLQ, mild suprapubic) ...Rectal Exam: Yes: Deferred Extremities: Yes: WNL Edema: No Integumentary: Yes: WNL Neurological: Yes: Alert, Oriented Psychiatric: Yes: Alert Labs: CBC, BMP 01/18/17 09:50 01/18/17 09:50 Laboratory Tests 01/18/17 01/18/17 01/18/17 09:50 09:50 09:50 WBC 5.5 D RBC 3.92 Hgb 12.2 Hct 36.4 MCV 92.8 MCH 31.2 MCHC 33.6 RDW 12.9 Plt Count 592 H D MPV 7.4 L D Neutrophils % 55.6 D Lymphocytes % 33.0 D Monocytes % 9.7 Eosinophils % 1.4 Basophils % 0.3 ESR PT with INR 12.60 H INR 1.12 PTT (Actin FS) 32.1 Sodium 139 Potassium 4.4 Chloride 109 H Carbon Dioxide 23 Anion Gap 7 L BUN 19 H Creatinine 0.5 L Creat Clearance w eGFR > 60 Random Glucose 100 Calcium 8.7 Total Bilirubin 0.8 D AST 15 D ALT 13 D Alkaline Phosphatase 95 D C-Reactive Protein Total Protein 6.9 Albumin 3.4 Urine Color Urine Appearance Urine pH Ur Specific Harper Urine Protein Urine Glucose (UA) Urine Ketones Urine Blood Urine Nitrite Urine Bilirubin Urine Urobilinogen Blood Type Antibody Screen 01/18/17 01/18/17 01/18/17 09:50 09:50 12:35 WBC RBC Hgb Hct MCV MCH MCHC RDW Plt Count MPV Neutrophils % Lymphocytes % Monocytes % Eosinophils % Basophils % ESR PT with INR INR PTT (Actin FS) Sodium Potassium Chloride Carbon Dioxide Anion Gap BUN Creatinine Creat Clearance w eGFR Random Glucose Calcium Total Bilirubin AST ALT Alkaline Phosphatase C-Reactive Protein 2.6 H Total Protein Albumin Urine Color Antonia Urine Appearance Slcloudy Urine pH 5.0 Ur Specific [place] 1.020 Urine Protein Negative Urine Glucose (UA) Negative Urine Ketones Negative Urine Blood Negative Urine Nitrite Negative Urine Bilirubin Negative Urine Urobilinogen 2.0 H Blood Type A POSITIVE Antibody Screen Negative 01/18/17 12:35 WBC RBC Hgb Hct MCV MCH MCHC RDW Plt Count MPV Neutrophils % Lymphocytes % Monocytes % Eosinophils % Basophils % ESR 45 H PT with INR INR PTT (Actin FS) Sodium Potassium Chloride Carbon Dioxide Anion Gap BUN Creatinine Creat Clearance w eGFR Random Glucose Calcium Total Bilirubin AST ALT Alkaline Phosphatase C-Reactive Protein Total Protein Albumin Urine Color Urine Appearance Urine pH Ur Specific Harper Urine Protein Urine Glucose (UA) Urine Ketones Urine Blood Urine Nitrite Urine Bilirubin Urine Urobilinogen Blood Type Antibody Screen Problem List - Problems (1) Diverticulitis large intestine w/o perforation or abscess w/o bleeding Code(s): K57.32 - DVTRCLI OF LG INT W/O PERFORATION OR ABSCESS W/O BLEEDING (2) Fibromyalgia Code(s): M79.7 - FIBROMYALGIA (3) Irritable bowel syndrome with constipation Code(s): K58.1 - IRRITABLE BOWEL SYNDROME WITH CONSTIPATION (4) LLQ abdominal pain Code(s): R10.32 - LEFT LOWER QUADRANT PAIN Assessment/Plan 66 y.o. female with history of pandiverticulosis with episodes of abd pain in the past, fibromyalgia, and OA admitted for persistent LLQ pain/chills/nausea for the past month despite outpatient oral antibiotics. Recent CT Abd with evidence of sigmoid/descending colon diverticulitis. -- empiric Zosyn IV started -- bowel rest, IVF -- surgery on case -- monitor vitals will f/u Thanks
[2017-01-18 19:00] LABS: URINE LEUK ESTERASE Negative (NEGATIVE)
[2017-01-18] MEDS ORDERED: PT OWN MED DRAWER 7, Y5N ONE (21:04)
[2017-01-18] MEDS: PIPERACILLIN/TAZOB 3.375 GM 3.375 GM in DEXTROSE 5%-WATER - 50 ML IVPB SCH (21:08)
[2017-01-18] MEDS: FAMOTIDINE IV 20 MG/12 ML VIAL IVPUSH SCH (22:09)
[2017-01-19] MEDS: PIPERACILLIN/TAZOB 3.375 GM 3.375 GM in DEXTROSE 5%-WATER - 50 ML IVPB SCH ×4 (02:50→21:09)
[2017-01-19] MEDS ORDERED: PT OWN MED DRAWER 7, Y5N ONE ×2 (09:59→11:22)
[2017-01-19] MEDS: FAMOTIDINE IV 20 MG/12 ML VIAL IVPUSH SCH ×2 (10:10→21:09)
--- NOTE | 2017-01-19 13:48 | PN ---
Progress Note, Physician Chief Complaint: AWAKE ALERT STILL HAVING PAIN - Current Medication List Current Medications: Active Medications Acetaminophen (Ofirmev Injection -) 1,000 mg IVPB Q6H PRN PRN Reason: FEVER OR PAIN Dextrose/Sodium Chloride (D5-Ns -) 1,000 mls @ 83 mls/hr IV ASDIR [facility] Last Admin: 01/18/17 16:37 Dose: 83 mls/hr Piperacillin Sod/Tazobactam (Sod 3.375 gm/ Dextrose) 50 mls @ 100 mls/hr IVPB Q6H-IV [facility] PRN Reason: Protocol Last Admin: 01/19/17 10:50 Dose: 100 mls/hr Famotidine (Pepcid 20 Mg/12 Ml Push) 20 mg in 12 mls @ 144 mls/hr IVPUSH BID [facility] Last Admin: 01/19/17 10:10 Dose: 144 mls/hr Ondansetron HCl (Zofran Injection) 8 mg IVPB Q6H PRN PRN Reason: NAUSEA - Objective Vital Signs: Vital Signs Temperature 97.8 F 01/19/17 09:03 Pulse Rate 64 01/19/17 09:03 Respiratory Rate 18 01/19/17 09:03 Blood Pressure 137/79 01/19/17 09:03 O2 Sat by Pulse Oximetry (%) 98 01/18/17 21:00 Constitutional: Yes: Mild Distress Eyes: Yes: WNL HENT: Yes: WNL Neck: Yes: WNL Cardiovascular: Yes: WNL Respiratory: Yes: WNL Gastrointestinal: Yes: Tenderness, Rebound Genitourinary: Yes: WNL Musculoskeletal: Yes: WNL Extremities: Yes: WNL Edema: No Peripheral Pulses WNL: Yes Integumentary: Yes: WNL Wound/Incision: Yes: Clean/Dry Neurological: Yes: WNL ...Motor Strength: WNL Psychiatric: Yes: WNL Labs: CBC, BMP 01/18/17 09:50 01/18/17 09:50 INR, PTT INR 1.12 (0.82-1.09) 01/18/17 09:50 Problem List - Problems (1) Diverticulitis Code(s): K57.92 - DVTRCLI OF INTEST, PART UNSP, W/O PERF OR ABSCESS W/O BLEED Qualifiers: Diverticulitis site: large intestine Diverticulitis complication: unspecified complication status (2) Diverticulitis large intestine w/o perforation or abscess w/o bleeding Code(s): K57.32 - DVTRCLI OF LG INT W/O PERFORATION OR ABSCESS W/O BLEEDING (3) Fibromyalgia Code(s): M79.7 - FIBROMYALGIA Assessment/Plan ACUTE DIVERTICULITIS ABD PAIN PLAN: IV FLUIDS NO ANTIBIOTICS AT THIS TIME ID AND SURGERY EVAL PAIN CONTROL DVT PROPHYLAXIS
--- NOTE | 2017-01-19 13:52 | PN ---
Progress Note, Physician Chief Complaint: LLQ pain History of Present Illness: Pt states her pain is better, getting less, but still has a little. Has not used any pain meds so far. Has felt urge for BM but not had one yet. Pt is hungry. No nausea, no fevers. - Current Medication List Current Medications: Active Medications Acetaminophen (Ofirmev Injection -) 1,000 mg IVPB Q6H PRN PRN Reason: FEVER OR PAIN Enoxaparin Sodium (Lovenox -) 40 mg SQ DAILY [facility] Dextrose/Sodium Chloride (D5-Ns -) 1,000 mls @ 83 mls/hr IV ASDIR [facility] Last Admin: 01/18/17 16:37 Dose: 83 mls/hr Piperacillin Sod/Tazobactam (Sod 3.375 gm/ Dextrose) 50 mls @ 100 mls/hr IVPB Q6H-IV [facility] PRN Reason: Protocol Last Admin: 01/19/17 10:50 Dose: 100 mls/hr Famotidine (Pepcid 20 Mg/12 Ml Push) 20 mg in 12 mls @ 144 mls/hr IVPUSH BID [facility] Last Admin: 01/19/17 10:10 Dose: 144 mls/hr Ondansetron HCl (Zofran Injection) 8 mg IVPB Q6H PRN PRN Reason: NAUSEA - Objective Vital Signs: Vital Signs Temperature 97.8 F 01/19/17 09:03 Pulse Rate 64 01/19/17 09:03 Respiratory Rate 18 01/19/17 09:03 Blood Pressure 137/79 01/19/17 09:03 O2 Sat by Pulse Oximetry (%) 98 01/18/17 21:00 Constitutional: Yes: Well Nourished, No Distress, Calm Eyes: Yes: Conjunctiva Clear, EOM Intact HENT: Yes: Atraumatic, Normocephalic Gastrointestinal: Yes: Soft, Tenderness (LLQ and slightly less suprapubic without rebound or guarding). No: Distention ...Rectal Exam: Yes: Deferred Musculoskeletal: No: Joint Stiffness, Joint Swelling Extremities: No: Cool, Cyanosis Edema: No Peripheral Pulses WNL: Yes Integumentary: No: Jaundice, Rash Neurological: Yes: Alert, Oriented Psychiatric: Yes: Alert, Oriented Labs: ESR 45, CRP 2.4 Problem List - Problems (1) Diverticulitis large intestine w/o perforation or abscess w/o bleeding Assessment/Plan: continue NPO with IVF until pain/tenderness resolve IV antibiotics per ID - Zosyn GI/DVT prophylaxis pain meds prn ok for fibromyalgia med with few sips water daily encouraged OOB/ambulation Code(s): K57.32 - DVTRCLI OF LG INT W/O PERFORATION OR ABSCESS W/O BLEEDING (2) Nausea and vomiting Assessment/Plan: zofran prn resolved Code(s): R11.2 - NAUSEA WITH VOMITING, UNSPECIFIED Qualifiers: Qualified Code(s): R11.2 - Nausea with vomiting, unspecified (3) LLQ abdominal pain Assessment/Plan: improving Code(s): R10.32 - LEFT LOWER QUADRANT PAIN (4) Irritable bowel syndrome with constipation Code(s): K58.1 - IRRITABLE BOWEL SYNDROME WITH CONSTIPATION (5) Fibromyalgia Assessment/Plan: ok for home med with sips water Code(s): M79.7 - FIBROMYALGIA
--- NOTE | 2017-01-19 15:31 | PN ---
Progress Note, Physician History of Present Illness: Pt states she feels better. Abdominal pain is less than yesterday. No current n/ v/d. No other complaints. - Current Medication List Current Medications: Active Medications Acetaminophen (Ofirmev Injection -) 1,000 mg IVPB Q6H PRN PRN Reason: FEVER OR PAIN Enoxaparin Sodium (Lovenox -) 40 mg SQ DAILY [facility] Dextrose/Sodium Chloride (D5-Ns -) 1,000 mls @ 83 mls/hr IV [facility] Last Admin: 01/18/17 16:37 Dose: 83 mls/hr Piperacillin Sod/Tazobactam (Sod 3.375 gm/ Dextrose) 50 mls @ 100 mls/hr IVPB Q6H-IV [facility] PRN Reason: Protocol Last Admin: 01/19/17 10:50 Dose: 100 mls/hr Famotidine (Pepcid 20 Mg/12 Ml Push) 20 mg in 12 mls @ 144 mls/hr IVPUSH BID [facility] Last Admin: 01/19/17 10:10 Dose: 144 mls/hr Ondansetron HCl (Zofran Injection) 8 mg IVPB Q6H PRN PRN Reason: NAUSEA - Objective Vital Signs: Vital Signs Temperature 97.8 F 01/19/17 09:03 Pulse Rate 64 01/19/17 09:03 Respiratory Rate 18 01/19/17 09:03 Blood Pressure 137/79 01/19/17 09:03 O2 Sat by Pulse Oximetry (%) 98 01/18/17 21:00 Constitutional: Yes: No Distress, Calm Neck: Yes: Supple Cardiovascular: Yes: Regular Rate and Rhythm Respiratory: Yes: CTA Bilaterally Gastrointestinal: Yes: Normal Bowel Sounds, Soft, Tenderness (LLQ pain with deep palpation) Genitourinary: Yes: WNL Musculoskeletal: Yes: WNL Extremities: Yes: WNL Edema: No Labs: CBC, BMP 01/18/17 09:50 01/18/17 09:50 INR, PTT INR 1.12 (0.82-1.09) 01/18/17 09:50 U/A - neg nitrites/leukocytosis Problem List - Problems (1) Diverticulitis large intestine w/o perforation or abscess w/o bleeding Code(s): K57.32 - DVTRCLI OF LG INT W/O PERFORATION OR ABSCESS W/O BLEEDING (2) Fibromyalgia Code(s): M79.7 - FIBROMYALGIA (3) Irritable bowel syndrome with constipation Code(s): K58.1 - IRRITABLE BOWEL SYNDROME WITH CONSTIPATION (4) LLQ abdominal pain Code(s): R10.32 - LEFT LOWER QUADRANT PAIN Assessment/Plan 66 y.o. female with history of diverticulosis and persistent LLQ pain - feeling a bit better today - cont Zosyn IV - surgery following
[2017-01-19] MEDS: ENOXAPARIN NA (PORCINE) 40 MG/0.4 ML DISP.SYRIN SQ SCH (15:48)
[2017-01-19] MEDS: DEXTROSE 5%-NORMAL SALINE 1,000 ML IV SCH (15:48)
[2017-01-20] MEDS: PIPERACILLIN/TAZOB 3.375 GM 3.375 GM in DEXTROSE 5%-WATER - 50 ML IVPB SCH ×4 (02:54→21:22)
--- NOTE | 2017-01-20 05:24 | PN ---
Progress Note, Physician Chief Complaint: abdominal pain History of Present Illness: She reprots that pain is better "little by little". She reports normal flatus and she had a BM last night. She is hungry. She has been afebrile - Current Medication List Current Medications: Active Medications Acetaminophen (Ofirmev Injection -) 1,000 mg IVPB Q6H PRN PRN Reason: FEVER OR PAIN Enoxaparin Sodium (Lovenox -) 40 mg SQ DAILY [facility] Last Admin: 01/19/17 15:48 Dose: 40 mg Dextrose/Sodium Chloride (D5-Ns -) 1,000 mls @ 83 mls/hr IV ASDIR [facility] Last Admin: 01/19/17 15:48 Dose: 83 mls/hr Piperacillin Sod/Tazobactam (Sod 3.375 gm/ Dextrose) 50 mls @ 100 mls/hr IVPB Q6H-IV [facility] PRN Reason: Protocol Last Admin: 01/20/17 02:54 Dose: 100 mls/hr Famotidine (Pepcid 20 Mg/12 Ml Push) 20 mg in 12 mls @ 144 mls/hr IVPUSH BID [facility] Last Admin: 01/19/17 21:09 Dose: 144 mls/hr Ondansetron HCl (Zofran Injection) 8 mg IVPB Q6H PRN PRN Reason: NAUSEA - Objective Vital Signs: Vital Signs Temperature 97.8 F 01/19/17 22:00 Pulse Rate 68 01/19/17 22:00 Respiratory Rate 20 01/19/17 22:00 Blood Pressure 134/70 01/19/17 22:00 O2 Sat by Pulse Oximetry (%) 96 01/19/17 21:00 Vital Signs Period Temp Pulse Resp BP Sys/Valderrama Pulse Ox Last 24 Hr 97.8 F-98.2 F 50-72 18-20 133-149/67-81 96-96 Constitutional: Yes: Well Nourished, No Distress Eyes: Yes: Conjunctiva Clear, EOM Intact HENT: Yes: Atraumatic, Normocephalic Neck: Yes: Supple, Trachea Midline Cardiovascular: Yes: Regular Rate and Rhythm, S1, S2 Respiratory: Yes: Regular, CTA Bilaterally Gastrointestinal: Yes: Normal Bowel Sounds, Soft, Tenderness (minimal tenderness left abdomen on deep palpation). No: Tenderness, Epigastrium, Tenderness, Rebound ...Rectal Exam: Yes: Deferred Genitourinary: No: CVA Tenderness - Left, CVA Tenderness - Right Extremities: No: Cool, Cyanosis Edema: No Peripheral Pulses WNL: Yes Integumentary: No: Jaundice, Rash Neurological: Yes: Alert, Oriented Psychiatric: Yes: Alert, Oriented Labs: CBC, BMP 01/20/17 07:00 01/20/17 07:00 Problem List - Problems (1) Diverticulitis Assessment/Plan: Resolving episode of acute on chronic diverticulitis continue NPO with IVF until pain/tenderness resolves IV antibiotics per ID - Zosyn GI/DVT prophylaxis pain meds prn encouraged OOB/ambulation Clear liquids in AM Code(s): K57.92 - DVTRCLI OF INTEST, PART UNSP, W/O PERF OR ABSCESS W/O BLEED Qualifiers: Diverticulitis site: large intestine Diverticulitis complication: unspecified complication status (2) Diverticulitis large intestine w/o perforation or abscess w/o bleeding Code(s): K57.32 - DVTRCLI OF LG INT W/O PERFORATION OR ABSCESS W/O BLEEDING (3) Irritable bowel syndrome with constipation Code(s): K58.1 - IRRITABLE BOWEL SYNDROME WITH CONSTIPATION (4) LLQ abdominal pain Code(s): R10.32 - LEFT LOWER QUADRANT PAIN
[2017-01-20 08:42] LABS: BASOPHIL 1.9 % (0-2.0); EOSINOPHIL 3.1 % (0-4.5); MCH 31.4 pg (25.7-33.7); MCHC 33.5 g/dl (32.0-36.0); MEAN CELL VOLUME 93.7 fl (80-96); MEAN PLT VOLUME 7.7 fl (7.5-11.1); PLATELET COUNT 509 K/MM3 (134-434); RDW 12.9 % (11.6-15.6); WHITE BLOOD COUNT 4.6 K/mm3 (4.0-10.0)
[2017-01-20 08:49] LABS: ANION GAP 5 (8-16); CALCIUM 7.9 mg/dL (8.5-10.1); CO2 24 mmol/L (21-32); CREATININE 0.5 mg/dL (0.55-1.02); GLUCOSE,RANDOM 110 mg/dL (74-106); MAGNESIUM 2.1 mg/dL (1.8-2.4); PHOSPHOROUS 2.2 mg/dL (2.5-4.9)
[2017-01-20] MEDS ORDERED: PT OWN MED DRAWER 7, Y5N ONE ×2 (09:22→14:50)
[2017-01-20] MEDS: DEXTROSE 5%-NORMAL SALINE 1,000 ML IV SCH ×2 (09:28→14:58)
[2017-01-20] MEDS: ENOXAPARIN NA (PORCINE) 40 MG/0.4 ML DISP.SYRIN SQ SCH (09:34)
[2017-01-20] MEDS: FAMOTIDINE IV 20 MG/12 ML VIAL IVPUSH SCH ×2 (09:34→21:22)
--- NOTE | 2017-01-20 11:58 | PN ---
Progress Note, Physician Chief Complaint: AWAKE FEELING SLIGHTLY BETTER NO N/V - Current Medication List Current Medications: Active Medications Acetaminophen (Ofirmev Injection -) 1,000 mg IVPB Q6H PRN PRN Reason: FEVER OR PAIN Enoxaparin Sodium (Lovenox -) 40 mg SQ DAILY [facility] Last Admin: 01/20/17 09:34 Dose: 40 mg Dextrose/Sodium Chloride (D5-Ns -) 1,000 mls @ 83 mls/hr IV ASDIR [facility] Last Admin: 01/20/17 09:28 Dose: 83 mls/hr Piperacillin Sod/Tazobactam (Sod 3.375 gm/ Dextrose) 50 mls @ 100 mls/hr IVPB Q6H-IV [facility] PRN Reason: Protocol Last Admin: 01/20/17 09:34 Dose: 100 mls/hr Famotidine (Pepcid 20 Mg/12 Ml Push) 20 mg in 12 mls @ 144 mls/hr IVPUSH BID [facility] Last Admin: 01/20/17 09:34 Dose: 144 mls/hr Ondansetron HCl (Zofran Injection) 8 mg IVPB Q6H PRN PRN Reason: NAUSEA - Objective Vital Signs: Vital Signs Temperature 98.2 F 01/20/17 09:11 Pulse Rate 50 L 01/20/17 09:11 Respiratory Rate 18 01/20/17 09:11 Blood Pressure 133/74 01/20/17 09:11 O2 Sat by Pulse Oximetry (%) 96 01/19/17 21:00 Constitutional: Yes: Mild Distress Eyes: Yes: WNL HENT: Yes: WNL Neck: Yes: WNL Cardiovascular: Yes: WNL Respiratory: Yes: WNL Gastrointestinal: Yes: Tenderness Genitourinary: Yes: WNL Musculoskeletal: Yes: WNL Extremities: Yes: WNL Edema: No Peripheral Pulses WNL: Yes Integumentary: Yes: WNL Wound/Incision: Yes: Clean/Dry Neurological: Yes: WNL ...Motor Strength: WNL Psychiatric: Yes: WNL Labs: CBC, BMP 01/20/17 07:00 01/20/17 07:00 INR, PTT INR 1.12 (0.82-1.09) 01/18/17 09:50 Problem List - Problems (1) Diverticulitis Code(s): K57.92 - DVTRCLI OF INTEST, PART UNSP, W/O PERF OR ABSCESS W/O BLEED Qualifiers: Diverticulitis site: large intestine Diverticulitis complication: unspecified complication status (2) Diverticulitis large intestine w/o perforation or abscess w/o bleeding Code(s): K57.32 - DVTRCLI OF LG INT W/O PERFORATION OR ABSCESS W/O BLEEDING (3) Fibromyalgia Code(s): M79.7 - FIBROMYALGIA Assessment/Plan NPO BOWEL REST FOR TODAY CHECK ESR/CRP TOMORROW START CLEAR DIET IV ABX SURGERY EVAL AND F/U APPRECIATED
--- NOTE | 2017-01-20 16:07 | PN ---
Progress Note, Physician History of Present Illness: Pt feels better. Reports minimal abd pain. Had BM. No nausea, vomiting, fever, or chills - Current Medication List Current Medications: Active Medications Acetaminophen (Ofirmev Injection -) 1,000 mg IVPB Q6H PRN PRN Reason: FEVER OR PAIN Enoxaparin Sodium (Lovenox -) 40 mg SQ DAILY [facility] Last Admin: 01/20/17 09:34 Dose: 40 mg Dextrose/Sodium Chloride (D5-Ns -) 1,000 mls @ 83 mls/hr IV ASDIR [facility] Last Admin: 01/20/17 14:58 Dose: 83 mls/hr Piperacillin Sod/Tazobactam (Sod 3.375 gm/ Dextrose) 50 mls @ 100 mls/hr IVPB Q6H-IV [facility] PRN Reason: Protocol Last Admin: 01/20/17 14:59 Dose: 100 mls/hr Famotidine (Pepcid 20 Mg/12 Ml Push) 20 mg in 12 mls @ 144 mls/hr IVPUSH BID [facility] Last Admin: 01/20/17 09:34 Dose: 144 mls/hr Ondansetron HCl (Zofran Injection) 8 mg IVPB Q6H PRN PRN Reason: NAUSEA - Objective Vital Signs: Vital Signs Temperature 97.8 F 01/20/17 14:39 Pulse Rate 59 L 01/20/17 14:39 Respiratory Rate 18 01/20/17 14:39 Blood Pressure 146/74 01/20/17 14:39 O2 Sat by Pulse Oximetry (%) 96 01/20/17 09:00 Constitutional: Yes: No Distress, Calm Neck: Yes: Supple Cardiovascular: Yes: Regular Rate and Rhythm Respiratory: Yes: CTA Bilaterally Gastrointestinal: Yes: Normal Bowel Sounds, Soft Genitourinary: Yes: WNL Labs: CBC, BMP 01/20/17 07:00 01/20/17 07:00 INR, PTT INR 1.12 (0.82-1.09) 01/18/17 09:50 Problem List - Problems (1) Diverticulitis large intestine w/o perforation or abscess w/o bleeding Code(s): K57.32 - DVTRCLI OF LG INT W/O PERFORATION OR ABSCESS W/O BLEEDING (2) Fibromyalgia Code(s): M79.7 - FIBROMYALGIA (3) Irritable bowel syndrome with constipation Code(s): K58.1 - IRRITABLE BOWEL SYNDROME WITH CONSTIPATION (4) LLQ abdominal pain Code(s): R10.32 - LEFT LOWER QUADRANT PAIN Assessment/Plan 66 y.o. female with history of diverticulosis admitted for persistent LLQ pain despite po antibiotics - feeling better, abd pain resolved - cont Zosyn IV for now, plan switch to po antibiotics if continues to improve, tolerating diet - surgery following, to start liquid diet
[2017-01-21] MEDS: PIPERACILLIN/TAZOB 3.375 GM 3.375 GM in DEXTROSE 5%-WATER - 50 ML IVPB SCH ×4 (02:19→21:33)
[2017-01-21] MEDS: DEXTROSE 5%-NORMAL SALINE 1,000 ML IV SCH (03:39)
[2017-01-21 08:32] LABS: ANION GAP 7 (8-16); CO2 24 mmol/L (21-32); CREATININE 0.5 mg/dL (0.55-1.02); GLUCOSE,RANDOM 115 mg/dL (74-106)
[2017-01-21] MEDS ORDERED: PT OWN MED DRAWER 7, Y5N ONE ×3 (08:48→15:54)
[2017-01-21] MEDS: ENOXAPARIN NA (PORCINE) 40 MG/0.4 ML DISP.SYRIN SQ SCH (11:21)
[2017-01-21] MEDS: FAMOTIDINE IV 20 MG/12 ML VIAL IVPUSH SCH ×2 (11:25→22:00)
--- NOTE | 2017-01-21 12:03 | PN ---
Progress Note, Physician Chief Complaint: LLQ pain History of Present Illness: Pt states her pain is gone, not using any pain meds. Ambulated from bathroom to bed. No nausea, no fevers or chills. Had a little diarrhea, has had BMs. Tolerated clears for breakfast, lunch is just here. No increase in pain with po intake. - Current Medication List Current Medications: Active Medications Acetaminophen (Ofirmev Injection -) 1,000 mg IVPB Q6H PRN PRN Reason: FEVER OR PAIN Enoxaparin Sodium (Lovenox -) 40 mg SQ DAILY [facility] Last Admin: 01/21/17 11:21 Dose: 40 mg Dextrose/Sodium Chloride (D5-Ns -) 1,000 mls @ 83 mls/hr IV ASDIR [facility] Last Admin: 01/21/17 03:39 Dose: 83 mls/hr Piperacillin Sod/Tazobactam (Sod 3.375 gm/ Dextrose) 50 mls @ 100 mls/hr IVPB Q6H-IV [facility] PRN Reason: Protocol Last Admin: 01/21/17 08:48 Dose: 100 mls/hr Famotidine (Pepcid 20 Mg/12 Ml Push) 20 mg in 12 mls @ 144 mls/hr IVPUSH BID [facility] Last Admin: 01/21/17 11:25 Dose: 144 mls/hr Ondansetron HCl (Zofran Injection) 8 mg IVPB Q6H PRN PRN Reason: NAUSEA - Objective Vital Signs: Vital Signs Temperature 98.2 F 01/21/17 05:31 Pulse Rate 45 L 01/21/17 05:31 Respiratory Rate 20 01/21/17 05:31 Blood Pressure 115/45 01/21/17 05:31 O2 Sat by Pulse Oximetry (%) 99 01/20/17 21:00 Constitutional: Yes: Well Nourished, No Distress, Calm Eyes: Yes: Conjunctiva Clear, EOM Intact Gastrointestinal: Yes: Soft, Tenderness (minimal LLQ with no guarding or rebound , much improved). No: Distention, Tenderness, Epigastrium Musculoskeletal: No: Joint Stiffness, Joint Swelling Extremities: No: Cool, Cyanosis Edema: No Integumentary: No: Jaundice, Rash Neurological: Yes: Alert, Oriented Psychiatric: Yes: Alert, Oriented Labs: CBC, BMP 01/20/17 07:00 01/21/17 07:15 ESR 12, normal; CRP 0.5, almost normal Problem List - Problems (1) Diverticulitis large intestine w/o perforation or abscess w/o bleeding Assessment/Plan: tolerating clear liquids will advance to full liquids for dinner ok to stop IVF after lunch and encourage po hydration antibiotics per ID - Zosyn plan to change to Augmentin in am if doing well with po GI/DVT prophylaxis pain meds prn - would use tylenol/ibuprofen only at this point encourage OOB/ambulation Code(s): K57.32 - DVTRCLI OF LG INT W/O PERFORATION OR ABSCESS W/O BLEEDING (2) LLQ abdominal pain Assessment/Plan: significantly improved, nearly resolved Code(s): R10.32 - LEFT LOWER QUADRANT PAIN (3) Irritable bowel syndrome with constipation Code(s): K58.1 - IRRITABLE BOWEL SYNDROME WITH CONSTIPATION (4) Fibromyalgia Assessment/Plan: home meds ok Code(s): M79.7 - FIBROMYALGIA
--- NOTE | 2017-01-21 15:19 | PN ---
Progress Note, Physician History of Present Illness: Pt states she feels much better. No abd tenderness, no nausea, off pain meds. Has been having looser BMs but no abd cramping. Remains afebrile. Tolerating clear liquids. - Current Medication List Current Medications: Active Medications Acetaminophen (Ofirmev Injection -) 1,000 mg IVPB Q6H PRN PRN Reason: FEVER OR PAIN Enoxaparin Sodium (Lovenox -) 40 mg SQ DAILY [facility] Last Admin: 01/21/17 11:21 Dose: 40 mg Piperacillin Sod/Tazobactam (Sod 3.375 gm/ Dextrose) 50 mls @ 100 mls/hr IVPB Q6H-IV [facility] PRN Reason: Protocol Last Admin: 01/21/17 08:48 Dose: 100 mls/hr Famotidine (Pepcid 20 Mg/12 Ml Push) 20 mg in 12 mls @ 144 mls/hr IVPUSH BID [facility] Last Admin: 01/21/17 11:25 Dose: 144 mls/hr Ondansetron HCl (Zofran Injection) 8 mg IVPB Q6H PRN PRN Reason: NAUSEA - Objective Vital Signs: Vital Signs Temperature 97.9 F 01/21/17 15:02 Pulse Rate 64 01/21/17 15:02 Respiratory Rate 20 01/21/17 15:02 Blood Pressure 144/84 01/21/17 15:02 O2 Sat by Pulse Oximetry (%) 99 01/21/17 09:00 Constitutional: Yes: No Distress, Calm Neck: Yes: Supple Cardiovascular: Yes: Regular Rate and Rhythm Respiratory: Yes: Regular Gastrointestinal: Yes: Normal Bowel Sounds, Soft Genitourinary: Yes: WNL Extremities: Yes: WNL Integumentary: Yes: WNL Neurological: Yes: Alert, Oriented Labs: CBC, BMP 01/20/17 07:00 01/21/17 07:15 INR, PTT INR 1.12 (0.82-1.09) 01/18/17 09:50 Problem List - Problems (1) Diverticulitis large intestine w/o perforation or abscess w/o bleeding Code(s): K57.32 - DVTRCLI OF LG INT W/O PERFORATION OR ABSCESS W/O BLEEDING (2) Fibromyalgia Code(s): M79.7 - FIBROMYALGIA (3) Irritable bowel syndrome with constipation Code(s): K58.1 - IRRITABLE BOWEL SYNDROME WITH CONSTIPATION (4) LLQ abdominal pain Code(s): R10.32 - LEFT LOWER QUADRANT PAIN Assessment/Plan 66 y.o. female with history of diverticulosis admitted for persistent LLQ pain despite po antibiotics - feeling better, resolving abd pain - cont Zosyn IV . May switch to augmentin upon discharge once tolerates diet pt stable
[2017-01-21] MEDS ORDERED: POTASSIUM CHLORIDE TABS 20 MEQ TABLET.ER (FP) PO ONE (18:09)
--- NOTE | 2017-01-21 18:10 | PN ---
Progress Note, Physician Chief Complaint: AWAKE ALERT FEELING BETTER SAD BECAUSE HER MOTHER IS TERMINALLY ILL - Current Medication List Current Medications: Active Medications Acetaminophen (Ofirmev Injection -) 1,000 mg IVPB Q6H PRN PRN Reason: FEVER OR PAIN Enoxaparin Sodium (Lovenox -) 40 mg SQ DAILY [facility] Last Admin: 01/21/17 11:21 Dose: 40 mg Piperacillin Sod/Tazobactam (Sod 3.375 gm/ Dextrose) 50 mls @ 100 mls/hr IVPB Q6H-IV [facility] PRN Reason: Protocol Last Admin: 01/21/17 16:01 Dose: 100 mls/hr Famotidine (Pepcid 20 Mg/12 Ml Push) 20 mg in 12 mls @ 144 mls/hr IVPUSH BID [facility] Last Admin: 01/21/17 11:25 Dose: 144 mls/hr Ondansetron HCl (Zofran Injection) 8 mg IVPB Q6H PRN PRN Reason: NAUSEA - Objective Vital Signs: Vital Signs Temperature 97.9 F 01/21/17 15:02 Pulse Rate 64 01/21/17 15:02 Respiratory Rate 20 01/21/17 15:02 Blood Pressure 144/84 01/21/17 15:02 O2 Sat by Pulse Oximetry (%) 99 01/21/17 09:00 Constitutional: Yes: Mild Distress Eyes: Yes: WNL HENT: Yes: WNL Neck: Yes: WNL Cardiovascular: Yes: WNL Respiratory: Yes: WNL Gastrointestinal: Yes: Tenderness Genitourinary: Yes: WNL Musculoskeletal: Yes: WNL Extremities: Yes: WNL Edema: No Peripheral Pulses WNL: Yes Integumentary: Yes: WNL Wound/Incision: Yes: Clean/Dry Neurological: Yes: WNL Labs: CBC, BMP 01/20/17 07:00 01/21/17 07:15 INR, PTT INR 1.12 (0.82-1.09) 01/18/17 09:50 Problem List - Problems (1) Diverticulitis Code(s): K57.92 - DVTRCLI OF INTEST, PART UNSP, W/O PERF OR ABSCESS W/O BLEED Qualifiers: Diverticulitis site: large intestine Diverticulitis complication: unspecified complication status (2) Diverticulitis large intestine w/o perforation or abscess w/o bleeding Code(s): K57.32 - DVTRCLI OF LG INT W/O PERFORATION OR ABSCESS W/O BLEEDING (3) Fibromyalgia Code(s): M79.7 - FIBROMYALGIA Assessment/Plan IV ABX START DIET ADVANCE TOLERATED VALIUM 5MG X 1 FOR ANXIETY SURGICAL RESECTION IN 4-6 WEEKS
[2017-01-21] MEDS ORDERED: diazePAM 5 MG TABLET PO ONE ×2 (18:17→21:30)
[2017-01-21] MEDS: NAPH,MB-DB/K PH,MBDB POWDER PACKET PO SCH ×2 (18:46→22:00)
[2017-01-22] MEDS: PIPERACILLIN/TAZOB 3.375 GM 3.375 GM in DEXTROSE 5%-WATER - 50 ML IVPB SCH (02:56)
[2017-01-22 05:46] VITALS: BP 120/70; PULSE 60; TEMP 98.1
[2017-01-22] MEDS ORDERED: AMOX TR/POT CLAV 500MG/125MG TABLETS (FP) PO SCH (07:30)
[2017-01-22] MEDS ORDERED: LACTOBACILLUS ACIDOPHILUS 1 EACH TAB (FP) PO SCH ×2 (07:30→08:00)
--- NOTE | 2017-01-22 07:33 | DS ---
Physical Examination Vital Signs: Vital Signs Temperature 98.1 F 01/22/17 05:44 Pulse Rate 60 01/22/17 05:44 Respiratory Rate 20 01/22/17 05:44 Blood Pressure 120/70 01/22/17 05:44 O2 Sat by Pulse Oximetry (%) 96 01/21/17 20:30 Findings/Remarks: TOLERATING FULL DIET Constitutional: Yes: No Distress Eyes: Yes: WNL HENT: Yes: WNL Neck: Yes: WNL Cardiovascular: Yes: WNL Respiratory: Yes: WNL Gastrointestinal: Yes: WNL Renal/: Yes: WNL Musculoskeletal: Yes: WNL Extremities: Yes: WNL Edema: No Peripheral Pulses WNL: Yes Integumentary: Yes: WNL Wound/Incision: Yes: Clean/Dry Neurological: Yes: WNL ...Motor Strength: WNL Psychiatric: Yes: WNL Labs: CBC, BMP 01/20/17 07:00 01/21/17 07:15 Discharge Summary Reason For Visit: DIVERTICULITIS LARGE INTESTINE W/O PERFORATION Current Active Problems Diverticulitis (Acute) Diverticulitis large intestine w/o perforation or abscess w/o bleeding (Acute) Fibromyalgia (Acute) Irritable bowel syndrome with constipation (Acute) LLQ abdominal pain (Acute) Nausea and vomiting (Acute) Procedures: Principal: CT ABD Hospital Course: ADMITTED FOR ACUTE DIVERTICULITIS AND FAILED ON OUTPATIENT ORAL THERAPY, ADMITTED KEPT NPO, IVF AND IV ABX, IMPROVED AND WILL HAVE SURGICAL RESECTION IN 4-6 WEEKS Condition: Fair - Instructions Diet, Activity, Other Instructions: Drink plenty of noncaffeinated fluids daily. Eat lightly, advance slowly as tolerated to your usual diet. You should try to take in 25-30 grams of fiber daily with plenty of water. Call Dr. West Fay at [facility], , for an appointment in about a month to discuss surgical options for your diverticulitis. Clinic is held in the Diagnostic Center on the first floor of [facility] on Wednesdays. Referrals: West Fay MD [Staff Physician] - 1 Month Rivera Willingham MD [Primary Care Provider] - Disposition: HOME - Home Medications Comprehensive Discharge Medication List: Ambulatory Orders Oxycodone HCl/Acetaminophen [Percocet 5-325 mg Tablet] 1 tab PO Q6H PRN #15 tablet MDD 4 01/14/17 Amoxicillin/Potassium Clav [Augmentin 875-125 Tablet] 1 each PO BID 01/18/17
[2017-01-22 09:03] LABS: ANION GAP 6 (8-16); CALCIUM 8.3 mg/dL (8.5-10.1); CO2 26 mmol/L (21-32); CREATININE 0.5 mg/dL (0.55-1.02); GLUCOSE,RANDOM 92 mg/dL (74-106); MAGNESIUM 2.1 mg/dL (1.8-2.4); PHOSPHOROUS 2.9 mg/dL (2.5-4.9)
[2017-01-22] MEDS: FAMOTIDINE IV 20 MG/12 ML VIAL IVPUSH SCH (09:29)
== END 2017-01-22 10:10 | disposition home or self-care (01) | DRG 392 ==
LOC: JER 09:05 → JERBED 12:23 → J6S 14:53
PROVIDERS: ADMIT Family Medicine; ATTEND Family Medicine
DX: K57.32 Diverticulitis of large intestine without perforation or abscess without bleeding (principal); M79.7 Fibromyalgia; K58.1 Irritable bowel syndrome with constipation; Z98.51 Tubal ligation status
CPT/HCPCS: 36415; 80048; 80053; 81003; 83735; 84100; 85025; 85610; 85651; 85730; 86140; 86850; 86900; 86901; 99282-25

== ENCOUNTER 2017-05-24 08:00 | Inpatient (IN) | payer OTHER ==
[2017-05-30 08:34] VITALS: BMI 28.3
[2017-06-06 16:57] VITALS: BP 113/68; PULSE 87; TEMP 99.5
== END 2017-06-06 18:29 | disposition home health service (06) | DRG 330 ==
LOC: JSAMEDAYSX 05-31 06:43 → EDSTATUS 05-31 08:00 → J8W 06-01
PROVIDERS: ADMIT Family Medicine; ATTEND Family Medicine
PROC: 0DBM0ZZ Excision of Descending Colon, Open Approach (ICD-10-PCS; principal; 2017-05-31)
PROC: 0DBN4ZZ Excision of Sigmoid Colon, Percutaneous Endoscopic Approach (ICD-10-PCS; 2017-05-31)
PROC: 0DNN0ZZ Release Sigmoid Colon, Open Approach (ICD-10-PCS; 2017-05-31)
PROC: 0DTN0ZZ Resection of Sigmoid Colon, Open Approach (ICD-10-PCS; 2017-05-31)
PROC: 0DNN4ZZ Release Sigmoid Colon, Percutaneous Endoscopic Approach (ICD-10-PCS; 2017-05-31)
PROC: 0DNU4ZZ Release Omentum, Percutaneous Endoscopic Approach (ICD-10-PCS; 2017-05-31)
PROC: 0D1B0Z4 Bypass Ileum to Cutaneous, Open Approach (ICD-10-PCS; 2017-05-31)
PROC: 8E0W4CZ Robotic Assisted Procedure of Trunk Region, Percutaneous Endoscopic Approach (ICD-10-PCS; 2017-05-31)
DX: K57.32 Diverticulitis of large intestine without perforation or abscess without bleeding (principal); D62 Acute posthemorrhagic anemia; K63.2 Fistula of intestine; K66.0 Peritoneal adhesions (postprocedural) (postinfection); Z53.31 Laparoscopic surgical procedure converted to open procedure; K58.1 Irritable bowel syndrome with constipation; M79.7 Fibromyalgia; E78.5 Hyperlipidemia, unspecified; Z90.710 Acquired absence of both cervix and uterus
CPT/HCPCS: 36415; 74018-TC-FY; 80048; 80053; 81003; 82607; 82728; 82746; 83540; 83550; 84439; 84443; 85025; 85027; 86140; 86850; 86900; 86901; 88305-TC; 88307-TC; 94010; 94760; 97116-GP; 97161-GP; J0131

== ENCOUNTER 2017-06-12 13:34 | Inpatient (IN) | payer OTHER ==
[~2017-06-12 13:34] MED LIST: ONDANSETRON 4 MG/2 ML VIAL IVPUSH PRN
[2017-06-12 13:54] VITALS: BMI 27.9
[2017-06-12 15:19] LABS: BASO % 0.7 % (0-2.0); EOS % 1.5 % (0-4.5); HEMATOCRIT 28.4 % (32.4-45.2); HEMOGLOBIN 9.7 GM/dL (10.7-15.3); MCH 31.9 pg (25.7-33.7); MONO % 6.2 % (3.8-10.2); NEUT % 76.6 % (42.8-82.8); RBC 3.03 M/mm3 (3.60-5.2); RDW 13.8 % (11.6-15.6); WHITE BLOOD COUNT 10.8 K/mm3 (4.0-10.0)
[2017-06-12 15:37] LABS: INR 1.09 (0.82-1.09); PROTHROMBIN TIME (PATIENT) 12.3 SEC (9.7-13.0)
[2017-06-12 15:42] LABS: ANION GAP 6 (8-16); BILIRUBIN,TOTAL 0.3 mg/dL (0.2-1.0); BLOOD UREA NITROGEN 15 mg/dL (7-18); CALCIUM 9.3 mg/dL (8.5-10.1); CHLORIDE 109 mmol/L (98-107); CO2 25 mmol/L (21-32); CREATININE 0.4 mg/dL (0.55-1.02); GLUCOSE,RANDOM 108 mg/dL (74-106); POTASSIUM 4.6 mmol/L (3.5-5.1); SGOT/AST 25 U/L (15-37); SGPT/ALT 23 U/L (12-78); SODIUM 140 mmol/L (136-145)
[2017-06-12 15:43] LABS: ALK PHOS 229 U/L (45-117); TOT PROT 6.7 g/dl (6.4-8.2)
--- NOTE | 2017-06-12 15:51 | PDOC ---
Attending Attestation - HPI HPI: 06/12/17 15:51 The patient is a 66 year old female, with a significant past medical history of diverticulitis, who presents to the emergency department sent by PCP for evaluation of anemia s/p sigmoid colectomy and diverting loop ileostomy on . The patient reports she was evaluated by her PCP for pallor and weakness s/ p procedures on 05/31/17. At the time, patient had blood work done, which revealed a hemoglobin of 8, and was recommended to follow up in the ED for further evaluation. Patient reports mild abdominal discomfort, but denies any nausea, vomiting, diarrhea, or constipation. She denies any fever or chills. - Medical Decision Making 06/12/17 15:51 Documentation prepared by Vik Thomas, acting as certified medical technician assistant for Niraj Li MD. <Vik Thomas - Last Filed: 06/12/17 15:51> - Resident Resident Name: Rich [place] - ED Attending Attestation I have performed the following: I have examined & evaluated the patient, The case was reviewed & discussed with the resident, I agree w/resident's findings & plan, Exceptions are as noted - Physicial Exam PE: 06/16/17 01:55 pt seen and evaal on day of arrival. this H&P is being recorded after eval. pt awake, alert, afebrile nc, atr cta rrr sft, + mild rlq ttp, + colostmy in the rlq - Medical Decision Making 06/16/17 01:56 pt is 66 y/o female s/p partial colectomy presents with abd pain and anemia. pts cbc showsimroved hct. will obtain ct abd-pelvis. will reascess. <Niraj Li - Last Filed: 06/16/17 01:57>
--- NOTE | 2017-06-12 16:06 | PDOC ---
History of Present Illness - General Chief Complaint: Revisit, Lab Variance Stated Complaint: BLOOD TRANSFUSION (PCP SENT) Time Seen by Provider: 06/12/17 14:35 History Source: Patient, Family Exam Limitations: No Limitations - History of Present Illness Initial Comments: 06/12/17 16:01 66F with pmh of diverticulitis s/p sigmoid colectomy and diverting loop ileostomy and colostomy bag on 05/31/17, who presents to the emergency department sent by PCP for evaluation of anemia The patient reports she was evaluated by her surgeon Dr. Dragan Saldaña for pallor and weakness s/p procedures on . At the time, patient had blood work done on 06/05, which revealed a hemoglobin of 8, and was recommended to follow up in the ED for further evaluation. Patient reports mild abdominal discomfort, back pain, but denies any nausea, vomiting, diarrhea, or constipation. She denies any fever or chills. 06/12/17 16:08 Past History - Past Medical History Allergies/Adverse Reactions: Allergies Allergy/AdvReac Type Severity Reaction Status Date / Time codeine Allergy Intermediate Hives Verified 06/12/17 14:31 Home Medications: Ambulatory Orders Multivitamin [Poly-Vitamin] 1 each PO DAILY 05/30/17 Acetaminophen [Tylenol .Regular Strength -] 650 mg PO Q6H PRN #120 tablet Pantoprazole Sodium [Protonix -] 20 mg PO DAILY #30 tablet.ec 06/05/17 Pregabalin [Lyrica -] 100 mg PO BID #60 capsule MDD 2 06/05/17 Walker [Ultra-Light Rollator] 1 each MC PRN PRN #1 each 06/05/17 Oxycodone HCl 5 mg PO TID PRN #15 tablet MDD 3 06/06/17 Anemia: No Asthma: No Cancer: No Cardiac Disorders: No CVA: No COPD: No CHF: No Dementia: No Diabetes: No GI Disorders: Yes (IBS, DIVERTICULITIS) Disorders: No HTN: No Hypercholesterolemia: No Liver Disease: No Seizures: No Thyroid Disease: No - Surgical History Abdominal Surgery: No Appendectomy: No Cardiac Surgery: No Cholecystectomy: No Lung Surgery: No Neurologic Surgery: No Orthopedic Surgery: No - Immunization History Immunization Up to Date: Yes - Suicide/Smoking/Psychosocial Hx Smoking History: Never smoked Have you smoked in the past 12 months: No Information on smoking cessation initiated: No Hx Alcohol Use: No Drug/Substance Use Hx: No Substance Use Type: None Hx Substance Use Treatment: No Review of Systems - Review of Systems Able to Perform ROS?: Yes Is the patient limited Japanese proficient: No Constitutional: Yes: See HPI, Weakness HEENTM: No: Symptoms Reported Respiratory: No: Symptoms reported Cardiac (ROS): No: Symptoms Reported ABD/GI: Yes: See HPI : No: Symptoms Reported Musculoskeletal: No: Symptoms Reported Integumentary: No: Symptoms Reported Neurological: No: Symptoms reported *Physical Exam - Vital Signs Last Vital Signs Temp Pulse Resp BP Pulse Ox 97.9 F 79 17 110/65 99 06/12/17 13:49 06/12/17 13:49 06/12/17 13:49 06/12/17 13:49 06/12/17 13:49 - Physical Exam General Appearance: Yes: Mild Distress, Other (pale) HEENT: positive: EOMI, JERMAIN, Normal ENT Inspection Respiratory/Chest: positive: Lungs Clear, Normal Breath Sounds. negative: Chest Tender, Respiratory Distress Cardiovascular: positive: Regular Rhythm, Regular Rate, S1, S2 Gastrointestinal/Abdominal: positive: Normal Bowel Sounds, Tender (in LLQ), Flat , Soft. negative: Distended Musculoskeletal: positive: Normal Inspection Extremity: positive: Normal Inspection, Normal Range of Motion Integumentary: positive: Dry, Warm, Pale Neurologic: positive: Fully Oriented, Alert, Normal Mood/Affect ED Treatment Course - LABORATORY CBC & Chemistry Diagram: 06/12/17 15:08 06/12/17 15:08 - ADDITIONAL ORDERS Additional order review: Laboratory Results 06/12/17 15:08 Sodium 140 Potassium 4.6 Chloride 109 H Carbon Dioxide 25 Anion Gap 6 L BUN 15 Creatinine 0.4 L Creat Clearance w eGFR > 60 Random Glucose 108 H Calcium 9.3 Total Bilirubin 0.3 D AST 25 ALT 23 Alkaline Phosphatase 229 H Total Protein 6.7 Albumin 3.0 L 06/12/17 15:08 RBC 3.03 L D MCV 94.0 MCHC 34.0 RDW 13.8 MPV 7.0 L Neutrophils % 76.6 D Lymphocytes % 15.0 D Monocytes % 6.2 Eosinophils % 1.5 Basophils % 0.7 - RADIOLOGY Radiology Studies Ordered: Category Date Time Status ABDOMEN & PELVIS CT WITH CONTR [CT] Stat CT Scan 06/12/17 14:50 Ordered Medical Decision Making - Medical Decision Making 06/12/17 16:11 66F here for evaluation of anemia s/p bowel resection. Will order basic labs, PT/PTT, type and screen CT abdomen and pelvis pending with IV contrast. 06/12/17 18:27 CT abdomen and pelvis: IMPRESSION: Status post interval sigmoid surgery in comparison to a prior CT study of 2016. Right lower abdominal ostomy. An open wound is seen along the left lower anterior pelvis which appears to communicate with a small amount of nonspecific fluid within and immediately deep to the abdominal wall musculature. Nonspecific mesenteric soft tissue stranding is seen within the lower pelvis which may be on a postsurgical or infectious basis. Development of a 4.6 x 4.5 x 3 cm mildly lobulated slightly hypodense structure is seen within the right mid abdomen possibly representing a subacute hematoma or phlegmon. Interval development of mild Spoke to Dr Saldaña who ask for the patient to be admitted. Microblogged [facility] to admit. *DC/Admit/Observation/Transfer Diagnosis at time of Disposition: SBO (small bowel obstruction) - Discharge Dispostion Condition at time of disposition: Guarded Admit: Yes - Referrals Referrals: Rivera Willingham MD [Primary Care Provider] - - Patient Instructions - Post Discharge Activity
[2017-06-12] MEDS: LACTATED RINGERS SOLUTION 1,000 ML/1,000 ML INFUS.BAG IV SCH (17:00)
[2017-06-12] MEDS ORDERED: PIPERACILLIN/TAZOB 3.375 GM 3.375 GM in DEXTROSE 5%-WATER - 50 ML IVPB ONE (18:29)
[2017-06-12] MEDS ORDERED: ONDANSETRON 4 MG/2 ML VIAL IVPUSH ONE (18:32)
--- NOTE | 2017-06-12 18:34 | PDOC ---
*Physical Exam - Vital Signs Last Vital Signs Temp Pulse Resp BP Pulse Ox 97.9 F 79 17 110/65 99 06/12/17 13:49 06/12/17 13:49 06/12/17 13:49 06/12/17 13:49 06/12/17 13:49 - Physical Exam Comments: 06/12/17 18:30 Gen: awake, alert abd: ostomy RLQ with fluid and air in the bag, incisions c/d/i, well healing, no drainage from sites, no surroudning erythema, mild ttp over incisions ext: no edema ED Treatment Course - LABORATORY CBC & Chemistry Diagram: 06/12/17 15:08 06/12/17 15:08 - ADDITIONAL ORDERS Additional order review: Laboratory Results 06/12/17 06/12/17 06/12/17 15:08 15:08 14:50 PT with INR 12.30 INR 1.09 PTT (Actin FS) 22.0 L D Sodium 140 Potassium 4.6 Chloride 109 H Carbon Dioxide 25 Anion Gap 6 L BUN 15 Creatinine 0.4 L Creat Clearance w eGFR > 60 Random Glucose 108 H Calcium 9.3 Total Bilirubin 0.3 D AST 25 ALT 23 Alkaline Phosphatase 229 H Total Protein 6.7 Albumin 3.0 L Blood Type A POSITIVE Antibody Screen Negative 06/12/17 15:08 RBC 3.03 L D MCV 94.0 MCHC 34.0 RDW 13.8 MPV 7.0 L Neutrophils % 76.6 D Lymphocytes % 15.0 D Monocytes % 6.2 Eosinophils % 1.5 Basophils % 0.7 Medical Decision Making - Medical Decision Making 06/12/17 18:31 a/p: 66yo female signed out pending CT abd/pelvis -s/p colon surgery - diverting loop ileostomy with sigmoidectomy with Dr. Saldaña -abd pain, nausea -decreased flatus, last bm this AM -CT shows mild distal sbo -per Dr. saldaña - admit to medicine, zosyn, npo, LR, will see patient in consult -microblog sent to [facility] - austyn Willingham 06/12/17 19:06 pt accepted by [facility] *DC/Admit/Observation/Transfer Diagnosis at time of Disposition: SBO (small bowel obstruction) - Discharge Dispostion Condition at time of disposition: Guarded Admit: Yes - Referrals Referrals: Rivera Willingham MD [Primary Care Provider] - - Patient Instructions - Post Discharge Activity
[2017-06-12] MEDS ORDERED: PIPERACILLIN/TAZOB 3.375 GM 3.375 GM/50 ML BAG IVPB ONE (18:44)
[2017-06-12] MEDS ORDERED: ONDANSETRON 4 MG/2 ML VIAL ONE (18:44)
[2017-06-12 19:38] LABS: PLATELET COUNT 1040 K/MM3 (134-434); PLATELET ESTIMATE INCREASED
--- NOTE | 2017-06-12 20:04 | HP ---
CHIEF COMPLAINT: PCP: HISTORY OF PRESENT ILLNESS:The patient is a 66 year old female, with a significant past medical history of diverticulitis, who presents to the emergency department sent by PCP for evaluation of anemia s/p sigmoid colectomy and diverting loop ileostomy on 05/31/17. The patient reports she was evaluated by her PCP for pallor and weakness s/p procedures on 05/31/17. At the time, patient had blood work done, which revealed a hemoglobin of 8, and was recommended to follow up in the ED for further evaluation. Patient reports mild abdominal discomfort, but denies any nausea, vomiting, diarrhea, or constipation. She denies any fever or chills. While in the ER her hgb was found to be 9.7, v/s stable, and underwent a CT of abd/pelvic with a finding of a Status post interval sigmoid surgery in comparison to a prior CT study of 01/14/2017. Right lower abdominal ostomy. An open wound is seen along the left lower anterior pelvis which appears to communicate with a small amount of nonspecific fluid within and immediately deep to the abdominal wall musculature. Nonspecific mesenteric soft tissue stranding is seen within the lower pelvis which may be on a postsurgical or infectious basis. Development of a 4.6 x 4.5 x 3 cm mildly lobulated slightly hypodense structure is seen within the right mid abdomen possibly representing a subacute hematoma or phlegmon. Interval development of mild dilatation suggestive of a SBO. Recent Travel: none PAST MEDICAL HISTORY: diverticulosis, fibromylagia PAST SURGICAL HISTORY: diverterting colostomy Social History:none Smoking: Alcohol: Drugs: Family History: Allergies codeine Allergy (Intermediate, Verified 06/12/17 14:31) Hives pt was taking oxycodone for pain with no reaction per son and patient (was on T3 at home HOME MEDICATIONS: Home Medications Medication Instructions Recorded Multivitamin [Poly-Vitamin] 1 each PO DAILY 05/30/17 Acetaminophen [Tylenol .Regular 650 mg PO Q6H PRN #120 tablet 06/05/17 Strength -] Pantoprazole Sodium [Protonix -] 20 mg PO DAILY #30 tablet.ec 06/05/17 Pregabalin [Lyrica -] 100 mg PO BID #60 capsule MDD 2 06/05/17 Walker [Ultra-Light Rollator] 1 each MC PRN PRN #1 each 06/05/17 Oxycodone HCl 5 mg PO TID PRN #15 tablet MDD 3 06/06/17 REVIEW OF SYSTEMS CONSTITUTIONAL: Absent: fever, chills, diaphoresis, generalized weakness, malaise, loss of appetite, weight change HEENT: Absent: rhinorrhea, nasal congestion, throat pain, throat swelling, difficulty swallowing, mouth swelling, ear pain, eye pain, visual changes CARDIOVASCULAR: Absent: chest pain, syncope, palpitations, irregular heart rate, lightheadedness , peripheral edema RESPIRATORY: Absent: cough, shortness of breath, dyspnea with exertion, orthopnea, wheezing, stridor, hemoptysis GASTROINTESTINAL: Absent: +abdominal pain,- abdominal distension, -nausea, -vomiting, -diarrhea, - constipation, -melena, -hematochezia + ostomy bag GENITOURINARY: Absent: dysuria, frequency, urgency, hesitancy, hematuria, flank pain, genital pain MUSCULOSKELETAL: Absent: myalgia, arthralgia, joint swelling, back pain, neck pain SKIN: Absent: rash, itching, pallor HEMATOLOGIC/IMMUNOLOGIC: Absent: easy bleeding, easy bruising, lymphadenopathy, frequent infections ENDOCRINE: Absent: unexplained weight gain, unexplained weight loss, heat intolerance, cold intolerance NEUROLOGIC: Absent: headache, focal weakness or paresthesias, dizziness, unsteady gait, seizure, mental status changes, bladder or bowel incontinence PSYCHIATRIC: Absent: anxiety, depression, suicidal or homicidal ideation, hallucinations. PHYSICAL EXAMINATION Vital Signs - 24 hr 06/12/17 06/12/17 13:49 18:38 Temperature 97.9 F 97.8 F Pulse Rate 79 Pulse Rate [ 77 Right] Respiratory 17 18 Rate Blood Pressure 110/65 Blood Pressure 103/56 [Right Arm] O2 Sat by Pulse 99 96 Oximetry (%) GENERAL: Awake, alert, and fully oriented, in no acute distress. HEAD: Normal with no signs of trauma. EYES: Pupils equal, round and reactive to light, extraocular movements intact, sclera anicteric, conjunctiva clear. No lid lag. EARS, NOSE, THROAT: Ears normal, nares patent, oropharynx clear without exudates. Moist mucous membranes. NECK: Normal range of motion, supple without lymphadenopathy, JVD, or masses. LUNGS: Breath sounds equal, clear to auscultation bilaterally. No wheezes, and no crackles. No accessory muscle use. HEART: Regular rate and rhythm, normal S1 and S2 without murmur, rub or gallop. ABDOMEN: Soft, + diffuse tender, not distended, normoactive bowel sounds, no guarding, no rebound, no masses. with an ostomy bag with brownish liquid in it, No hepatomegaly or splenomegaly. MUSCULOSKELETAL: Normal range of motion at all joints. No bony deformities or tenderness. No CVA tenderness. UPPER EXTREMITIES: 2+ pulses, warm, well-perfused. No cyanosis. No clubbing. No peripheral edema. LOWER EXTREMITIES: 2+ pulses, warm, well-perfused. No calf tenderness. No peripheral edema. NEUROLOGICAL: Cranial nerves II-XII intact. Normal speech. Normal gait. PSYCHIATRIC: Cooperative. Good eye contact. Appropriate mood and affect. SKIN: Warm, dry, normal turgor, no rashes or lesions noted, normal capillary refill. Laboratory Results - last 24 hr 06/12/17 06/12/17 06/12/17 14:50 15:08 15:08 WBC 10.8 H RBC 3.03 L D Hgb 9.7 L D Hct 28.4 L D MCV 94.0 MCH 31.9 MCHC 34.0 RDW 13.8 Plt Count 1040 H D MPV 7.0 L Neutrophils % 76.6 D Lymphocytes % 15.0 D Monocytes % 6.2 Eosinophils % 1.5 Basophils % 0.7 Platelet Estimate Increased PT with INR 12.30 INR 1.09 PTT (Actin FS) 22.0 L D Sodium Potassium Chloride Carbon Dioxide Anion Gap BUN Creatinine Creat Clearance w eGFR Random Glucose Calcium Total Bilirubin AST ALT Alkaline Phosphatase Total Protein Albumin Blood Type A POSITIVE Antibody Screen Negative 06/12/17 15:08 WBC RBC Hgb Hct MCV MCH MCHC RDW Plt Count MPV Neutrophils % Lymphocytes % Monocytes % Eosinophils % Basophils % Platelet Estimate PT with INR INR PTT (Actin FS) Sodium 140 Potassium 4.6 Chloride 109 H Carbon Dioxide 25 Anion Gap 6 L BUN 15 Creatinine 0.4 L Creat Clearance w eGFR > 60 Random Glucose 108 H Calcium 9.3 Total Bilirubin 0.3 D AST 25 ALT 23 Alkaline Phosphatase 229 H Total Protein 6.7 Albumin 3.0 L Blood Type Antibody Screen ASSESSMENT/PLAN: Problem List - Problem (1) SBO (small bowel obstruction) Assessment/Plan: -NPO -IVF for hydration -monitor electrolytes in AM -serial abdominal exams -monitor colostomy output -monitor pain Code(s): K56.609 - UNSP INTESTNL OBST, UNSP TO PARTIAL VERSUS COMPLETE OBST (2) Colostomy present Assessment/Plan: -monitor output -strict I/P -to be seen in AM by Dr. Saldaña - Code(s): Z93.3 - COLOSTOMY STATUS (3) Diverticulitis Code(s): K57.92 - DVTRCLI OF INTEST, PART UNSP, W/O PERF OR ABSCESS W/O BLEED Qualifiers: Diverticulitis site: large intestine Diverticulitis complication: unspecified complication status (4) Fibromyalgia Assessment/Plan: -PRN pain management -had been seen by Dr. Hauser in the past Code(s): M79.7 - FIBROMYALGIA Visit type - Emergency Visit Emergency Visit: Yes ED Registration Date: 06/12/17 Care time: The patient presented to the Emergency Department on the above date and was hospitalized for further evaluation of their emergent condition. - New Patient This patient is new to me today: Yes Date on this admission: 06/12/17 - Critical Care Critical Care patient: No Hospitalist Screening - Colonoscopy Questionnaire Colonoscopy Questionnaire: Colonoscopy Questionnaire - Patient: 50 - 75 years old and never had a screening colonoscopy: Yes History of colon or rectal polyps, or CA: No History of IBD, Crohn's disease or UC: Yes History of abdominal radiation therapy as a child: No - Relative: 1 with colon or rectal CA, or polyps at age 60 or younger: No Colon or rectal CA diagnosed at age 45 or younger: No Multiple relatives with colon or rectal CA: No - Outcome: Screening Result: Positive Screen
[2017-06-12] MEDS: HEPARIN NA (PORCINE) 5,000 UNITS/ML 1ML VIAL SQ SCH (22:38)
[2017-06-12] MEDS: PREGABALIN 50 MG CAPSULE PO SCH (22:38)
[2017-06-13] MEDS ORDERED: PIPERACILLIN/TAZOB 3.375 GM 3.375 GM in DEXTROSE 5%-WATER - 50 ML IVPB SCH (02:00)
[2017-06-13] MEDS ORDERED: DEXTROSE 5%-WATER - 50 ML IVPB ONE ×4 (02:58→18:08)
[2017-06-13] MEDS ORDERED: PIPERACILLIN/TAZOBACTAM 3.375 GM VIAL IVPB ONE ×4 (02:58→18:08)
[2017-06-13] MEDS: PIPERACILLIN/TAZOB 3.375 GM 3.375 GM in DEXTROSE 5%-WATER - 50 ML IVPB SCH ×4 (03:02→19:40)
[2017-06-13] MEDS: HEPARIN NA (PORCINE) 5,000 UNITS/ML 1ML VIAL SQ SCH ×3 (06:08→22:39)
[2017-06-13] MEDS: LACTATED RINGERS SOLUTION 1,000 ML/1,000 ML INFUS.BAG IV SCH ×2 (06:09→17:00)
[2017-06-13 07:35] LABS: BASO % 1.2 % (0-2.0); EOS % 2.6 % (0-4.5); HEMOGLOBIN 9.1 GM/dL (10.7-15.3); LYMPH % 19.9 % (8-40); MCH 31.4 pg (25.7-33.7); MCHC 33.7 g/dl (32.0-36.0); MEAN CELL VOLUME 93.4 fl (80-96); MEAN PLT VOLUME 6.7 fl (7.5-11.1); NEUT % 68.3 % (42.8-82.8); PLATELET COUNT 1028 K/MM3 (134-434); RBC 2.89 M/mm3 (3.60-5.2); RDW 13.8 % (11.6-15.6); WHITE BLOOD COUNT 10.5 K/mm3 (4.0-10.0)
[2017-06-13 07:42] LABS: INR 1.09 (0.82-1.09); PROTHROMBIN TIME (PATIENT) 12.3 SEC (9.7-13.0)
[2017-06-13 07:46] LABS: ALBUMIN 2.6 g/dl (3.4-5.0); ANION GAP 8 (8-16); BLOOD UREA NITROGEN 10 mg/dL (7-18); CALCIUM 8.9 mg/dL (8.5-10.1); CHLORIDE 107 mmol/L (98-107); CO2 24 mmol/L (21-32); CREATININE 0.5 mg/dL (0.55-1.02); GLUCOSE,RANDOM 99 mg/dL (74-106); MAGNESIUM 2.3 mg/dL (1.8-2.4); PHOSPHOROUS 4.6 mg/dL (2.5-4.9); POTASSIUM 4.8 mmol/L (3.5-5.1); SGOT/AST 18 U/L (15-37); SGPT/ALT 17 U/L (12-78); SODIUM 139 mmol/L (136-145)
[2017-06-13 07:48] LABS: ALK PHOS 181 U/L (45-117); BILIRUBIN,TOTAL 0.4 mg/dL (0.2-1.0); TOT PROT 5.7 g/dl (6.4-8.2)
[2017-06-13 07:52] LABS: LIPASE 270 U/L (73-393)
[2017-06-13] MEDS ORDERED: FOLIC ACID INJECTION - 1 MG, THIAMINE HCL 100 MG, MULTIVIT INJECTION ADULT 10 ML in SOD... IVPB ONE (09:50)
--- NOTE | 2017-06-13 09:55 | PN ---
Progress Note, Physician Chief Complaint: AWAKE ALERT +DISTRESS NPO EVENTS REVIEWED - Current Medication List Current Medications: Active Medications Heparin Sodium (Porcine) (Heparin -) 5,000 unit SQ TID [facility] Last Admin: 06/13/17 06:08 Dose: 5,000 unit Lactated Ringer's (Lactated Ringers Solution) 1,000 ml in 1,000 mls @ 125 mls/ hr IV ASDIR [facility] Last Admin: 06/13/17 06:09 Dose: 125 mls/hr Piperacillin Sod/Tazobactam (Sod 3.375 gm/ Dextrose) 50 mls @ 100 mls/hr IVPB Q8H-IV [facility] PRN Reason: Protocol Piperacillin Sod/Tazobactam (Sod 3.375 gm/ Dextrose) 50 mls @ 100 mls/hr IVPB Q8H-IV [facility] Stop: 06/13/17 10:29 Last Admin: 06/13/17 03:02 Dose: 100 mls/hr Morphine Sulfate (Morphine Sulfate) 2 mg IVPUSH Q4H PRN PRN Reason: PAIN LEVEL 4 - 6 Ondansetron HCl (Zofran Injection) 4 mg IVPUSH Q6H PRN PRN Reason: NAUSEA Oxycodone HCl (Roxicodone -) 5 mg PO TID PRN PRN Reason: PAIN LEVEL 1 - 3 Pantoprazole Sodium (Protonix -) 20 mg PO DAILY [facility] Pregabalin (Lyrica -) 100 mg PO BID [facility] Last Admin: 06/12/17 22:38 Dose: 100 mg - Objective Vital Signs: Vital Signs Temperature 98.2 F 06/13/17 06:00 Pulse Rate 76 06/13/17 06:00 Respiratory Rate 18 06/13/17 06:00 Blood Pressure 126/68 06/13/17 06:00 O2 Sat by Pulse Oximetry (%) 97 06/12/17 20:00 Constitutional: Yes: Mild Distress Eyes: Yes: WNL HENT: Yes: WNL Neck: Yes: WNL Cardiovascular: Yes: WNL Respiratory: Yes: WNL Gastrointestinal: Yes: Other (COLOSTOMY LLQ ABD, =STOOL NO BLOOD) Genitourinary: Yes: WNL Musculoskeletal: Yes: Muscle Weakness Extremities: Yes: WNL Edema: No Peripheral Pulses WNL: Yes Integumentary: Yes: Pressure Ulcer, Rash, Skin Tear (COLOSTOMY SITE) Wound/Incision: Yes: Dressing Dry and Intact, Draining Neurological: Yes: WNL ...Motor Strength: WNL Psychiatric: Yes: Other Labs: CBC, BMP 06/13/17 06:26 06/13/17 06:26 INR, PTT INR 1.09 (0.82-1.09) 06/13/17 06:26 Problem List - Problems (1) Weakness Code(s): R53.1 - WEAKNESS (2) Infected wound Code(s): T14.8XXA - OTHER INJURY OF UNSPECIFIED BODY REGION, INITIAL ENCOUNTER; L08.9 - LOCAL INFECTION OF THE SKIN AND SUBCUTANEOUS TISSUE, UNSP (3) Anemia Code(s): D64.9 - ANEMIA, UNSPECIFIED Qualifiers: Anemia type: unspecified type Qualified Code(s): D64.9 - Anemia, unspecified (4) Colostomy present Code(s): Z93.3 - COLOSTOMY STATUS (5) Fibromyalgia Code(s): M79.7 - FIBROMYALGIA (6) LLQ abdominal pain Code(s): R10.32 - LEFT LOWER QUADRANT PAIN (7) Nausea and vomiting Code(s): R11.2 - NAUSEA WITH VOMITING, UNSPECIFIED Qualifiers: Vomiting type: unspecified Vomiting Intractability: non-intractable Qualified Code(s): R11.2 - Nausea with vomiting, unspecified Assessment/Plan BANANA BAG FOR VITAMINS START LOW FIBER DIET GIVEN IV ABX , AWAIT CULTURES NOT DONE ID CONSULT DVT PROPHYLAXIS INCENTIVE SPIROMETRY
[2017-06-13] MEDS: PANTOPRAZOLE 20 MG TABLET (FP) PO SCH (10:00)
[2017-06-13] MEDS: PREGABALIN 50 MG CAPSULE PO SCH ×2 (10:00→22:39)
--- NOTE | 2017-06-13 16:04 | CON.ID ---
Consult Consult Specialty:: infectious diseases Referred by:: Reason for Consultation:: wound infection - History of Present Illness Chief Complaint: weakness, fatigue History of Present Illness: 66 year old female, past medical history of diverticulitis, admitted for evaluation of anemia s/p sigmoid colectomy and diverting loop ileostomy on . patients family in the room who is giving most of the history. He laso mentions that there is a lot of drainage from the wound on the left side of the abdomen . Patient came in with elevation of wbc and weakness ,she does mention that she is not having flatus. denies any fever or chills but does mention that she was having abd discomfort - History Source History Provided By: Patient, Family Member Limitations to Obtaining History: Language Barrier - Past Medical History Gastrointestinal: Yes: Constipation, Diverticulitis, Diverticulosis, Irritable Bowel Disease ...: No Musculoskeletal: Yes: Osteoarthritis Rheumatology: Yes: Fibromyalgia - Past Surgical History Past Surgical History: Yes: Colonoscopy (last 12/11/16 - found pandiverticulosis only), Hysterectomy, Tubal Ligation - Alcohol/Substance Use Hx Alcohol Use: No History of Substance Use: reports: None - Smoking History Smoking history: Never smoked Have you smoked in the past 12 months: No - Social History Usual Living Arrangement: Other ADL: Independent Home Medications - Allergies Allergies/Adverse Reactions: Allergies Allergy/AdvReac Type Severity Reaction Status Date / Time codeine Allergy Intermediate Hives Verified 06/12/17 14:31 - Home Medications Home Medications: Ambulatory Orders Multivitamin [Poly-Vitamin] 1 each PO DAILY 05/30/17 Acetaminophen [Tylenol .Regular Strength -] 650 mg PO Q6H PRN #120 tablet Pantoprazole Sodium [Protonix -] 20 mg PO DAILY #30 tablet.ec 06/05/17 Pregabalin [Lyrica -] 100 mg PO BID #60 capsule MDD 2 06/05/17 Walker [Ultra-Light Rollator] 1 each MC PRN PRN #1 each 06/05/17 Oxycodone HCl 5 mg PO TID PRN #15 tablet MDD 3 06/06/17 Family Disease History - Family Disease History Family Disease History: CA: Mother (colon - in [facility] now for tx, age 88) Review of Systems - Review of Systems Constitutional: reports: No Symptoms Eyes: reports: No Symptoms HENT: reports: No Symptoms Neck: reports: No Symptoms Cardiovascular: reports: No Symptoms Respiratory: reports: No Symptoms Gastrointestinal: reports: Abdominal Pain, Other Genitourinary: reports: No Symptoms Musculoskeletal: reports: No Symptoms Integumentary: reports: No Symptoms Neurological: reports: No Symptoms Endocrine: reports: No Symptoms Hematology/Lymphatic: reports: No Symptoms Psychiatric: reports: No Symptoms Physical Exam Vital Signs: Vital Signs Temperature 98.0 F 06/13/17 14:17 Pulse Rate 81 06/13/17 14:17 Respiratory Rate 20 06/13/17 14:17 Blood Pressure 119/57 06/13/17 14:17 O2 Sat by Pulse Oximetry (%) 94 L 06/13/17 09:00 Constitutional: Yes: Well Nourished, Calm, Mild Distress Eyes: Yes: Conjunctiva Clear HENT: Yes: Atraumatic, Normocephalic Cardiovascular: Yes: Regular Rate and Rhythm Respiratory: Yes: Regular, CTA Bilaterally Gastrointestinal: Yes: Normal Bowel Sounds, Soft, Other (colostomy in place greenish discharge some gas in the bag mild cellulitits around the colostomy bag ) Musculoskeletal: Yes: WNL Extremities: Yes: WNL Wound/Incision: Yes: Other (left wound draining a lot) Neurological: Yes: Alert, Oriented Psychiatric: Yes: Alert, Oriented Labs: CBC, BMP 06/13/17 06:26 06/13/17 06:26 Imaging - Results Cat Scan: Report Reviewed, Image Reviewed Assessment/Plan patient coming with abd pain and anemia looking at the wound and the ct scan--patient has communication of the wound which is draining quite a lot of turbid fluid also abd sounds are very sluggish i suspect that there is a chance of infection and the fluid could be infected Problem List - Problems (1) Weakness Code(s): R53.1 - WEAKNESS (2) Infected wound Code(s): T14.8XXA - OTHER INJURY OF UNSPECIFIED BODY REGION, INITIAL ENCOUNTER; L08.9 - LOCAL INFECTION OF THE SKIN AND SUBCUTANEOUS TISSUE, UNSP (3) Anemia Code(s): D64.9 - ANEMIA, UNSPECIFIED Qualifiers: Anemia type: unspecified type Qualified Code(s): D64.9 - Anemia, unspecified (4) Colostomy present Code(s): Z93.3 - COLOSTOMY STATUS (5) Fibromyalgia Code(s): M79.7 - FIBROMYALGIA (6) LLQ abdominal pain Code(s): R10.32 - LEFT LOWER QUADRANT PAIN (7) Nausea and vomiting Code(s): R11.2 - NAUSEA WITH VOMITING, UNSPECIFIED Qualifiers: Vomiting type: unspecified Vomiting Intractability: non-intractable Qualified Code(s): R11.2 - Nausea with vomiting, unspecified plan i am going to start abx on the patient ordered cx from the wound once we have the report we will decide further mgmt might have to repeat imaging studies to see the status of collection in couple of days
[2017-06-13] MEDS: morphine SULFATE 4 MG/ML VIAL IVPUSH PRN (18:40)
--- NOTE | 2017-06-13 18:40 | CONSULT ---
Consult Consult Specialty:: Surgery - History of Present Illness Chief Complaint: abdominal wound drainage, anorexia,and weakness History of Present Illness: 66 y.o. female s/p robotic assisted partial colectomy converted to open completion colectomy and diverting loop ileostomy on 05/31/17. Admitted for generalized weakness and dizziness, nausea and anorexia, and persistent abdominal wound drainage of sanguinopurulent fluid for 7 days. Denies fever or vomiting. Noted reddish brown stool on day of admission. - History Source History Provided By: Patient, Family Member Limitations to Obtaining History: Language Barrier - Past Medical History Gastrointestinal: Yes: Constipation, Diverticulitis, Diverticulosis, Irritable Bowel Disease ...: No Musculoskeletal: Yes: Osteoarthritis Rheumatology: Yes: Fibromyalgia - Past Surgical History Past Surgical History: Yes: Colonoscopy (last 12/11/16 - found pandiverticulosis only), Hysterectomy, Tubal Ligation - Alcohol/Substance Use Hx Alcohol Use: No History of Substance Use: reports: None - Smoking History Smoking history: Never smoked Have you smoked in the past 12 months: No - Social History Usual Living Arrangement: Other ADL: Independent Home Medications - Allergies Allergies/Adverse Reactions: Allergies Allergy/AdvReac Type Severity Reaction Status Date / Time codeine Allergy Intermediate Hives Verified 06/12/17 14:31 - Home Medications Home Medications: Ambulatory Orders Multivitamin [Poly-Vitamin] 1 each PO DAILY 05/30/17 Acetaminophen [Tylenol .Regular Strength -] 650 mg PO Q6H PRN #120 tablet Pantoprazole Sodium [Protonix -] 20 mg PO DAILY #30 tablet.ec 06/05/17 Pregabalin [Lyrica -] 100 mg PO BID #60 capsule MDD 2 06/05/17 Walker [Ultra-Light Rollator] 1 each MC PRN PRN #1 each 06/05/17 Oxycodone HCl 5 mg PO TID PRN #15 tablet MDD 3 06/06/17 Family Disease History - Family Disease History Family Disease History: CA: Mother (colon - in [facility] now for tx, age 88) Physical Exam Vital Signs: Vital Signs Temperature 98.0 F 06/13/17 14:17 Pulse Rate 81 06/13/17 14:17 Respiratory Rate 20 06/13/17 14:17 Blood Pressure 119/57 06/13/17 14:17 O2 Sat by Pulse Oximetry (%) 94 L 06/13/17 09:00 Constitutional: Yes: Anxious, Pallor Eyes: Yes: Conjunctiva Clear (slightly pale) HENT: Yes: Normocephalic Neck: Yes: Supple Cardiovascular: Yes: Regular Rate and Rhythm Respiratory: Yes: CTA Bilaterally Gastrointestinal: Yes: Soft, Abdomen, Obese, Other (ileostomy viable with liquid brown effluent) ...Rectal Exam: Yes: Deferred Wound/Incision: Yes: Draining (reddish brown non foul-smelling fluid), Other (4 cm opening at left lateral aspect of Pfannensteil wound) Neurological: Yes: Alert, Oriented Labs: CBC, BMP 06/13/17 06:26 06/13/17 06:26 Imaging - Results Cat Scan: Report Reviewed, Image Reviewed Problem List - Problems (1) Infected wound Assessment/Plan: Post-op wound infection (SSI) wound exploration and drainage of deep subcutaneous fluid collection done at bedside, with copious sterile NS irrigation and gauze packing continue antibiotics per ID recommendation Daily wound care Code(s): T14.8XXA - OTHER INJURY OF UNSPECIFIED BODY REGION, INITIAL ENCOUNTER; L08.9 - LOCAL INFECTION OF THE SKIN AND SUBCUTANEOUS TISSUE, UNSP (2) SBO (small bowel obstruction) Assessment/Plan: Doubt SBO as patient has a functioning ileostomy Likely reflex ileus from intra-abdominal hematoma (bleeding from omentum following extensive lysis of adhesions) Resume diet with protein supplement Code(s): K56.609 - UNSP INTESTNL OBST, UNSP TO PARTIAL VERSUS COMPLETE OBST
[2017-06-14] MEDS ORDERED: DEXTROSE 5%-WATER - 50 ML IVPB ONE ×3 (00:45→16:31)
[2017-06-14] MEDS ORDERED: PIPERACILLIN/TAZOBACTAM 3.375 GM VIAL IVPB ONE ×4 (00:45→16:31)
[2017-06-14] MEDS: PIPERACILLIN/TAZOB 3.375 GM 3.375 GM in DEXTROSE 5%-WATER - 50 ML IVPB SCH ×3 (01:41→18:08)
[2017-06-14] MEDS: LACTATED RINGERS SOLUTION 1,000 ML/1,000 ML INFUS.BAG IV SCH ×4 (01:42→22:11)
[2017-06-14] MEDS: HEPARIN NA (PORCINE) 5,000 UNITS/ML 1ML VIAL SQ SCH ×3 (05:34→22:10)
[2017-06-14 07:34] LABS: HEMATOCRIT 25.1 % (32.4-45.2); HEMOGLOBIN 8.5 GM/dL (10.7-15.3); MCH 32.1 pg (25.7-33.7); MEAN CELL VOLUME 94.2 fl (80-96); MEAN PLT VOLUME 6.4 fl (7.5-11.1); PLATELET COUNT 977 K/MM3 (134-434); RBC 2.67 M/mm3 (3.60-5.2); RDW 13.7 % (11.6-15.6); WHITE BLOOD COUNT 9.6 K/mm3 (4.0-10.0)
[2017-06-14 08:28] LABS: ALBUMIN 2.5 g/dl (3.4-5.0); ANION GAP 8 (8-16); BLOOD UREA NITROGEN 11 mg/dL (7-18); CALCIUM 8.3 mg/dL (8.5-10.1); CHLORIDE 109 mmol/L (98-107); CO2 24 mmol/L (21-32); GLUCOSE,RANDOM 107 mg/dL (74-106); PHOSPHOROUS 3.4 mg/dL (2.5-4.9); POTASSIUM 4.6 mmol/L (3.5-5.1); SGOT/AST 20 U/L (15-37); SODIUM 141 mmol/L (136-145)
[2017-06-14 08:31] LABS: ALK PHOS 176 U/L (45-117); BILIRUBIN,TOTAL 0.2 mg/dL (0.2-1.0); CREATININE 0.5 mg/dL (0.55-1.02); SGPT/ALT 15 U/L (12-78); TOT PROT 5.5 g/dl (6.4-8.2)
[2017-06-14] MEDS: PREGABALIN 50 MG CAPSULE PO SCH ×2 (09:06→22:10)
[2017-06-14] MEDS: PANTOPRAZOLE 20 MG TABLET (FP) PO SCH (09:06)
[2017-06-14] MEDS ORDERED: PT OWN MED DRAWER 7, Y5N ONE ×2 (11:40→16:54)
--- NOTE | 2017-06-14 12:39 | PN ---
Progress Note, Physician Chief Complaint: patient seen and examined eating lunch - Current Medication List Current Medications: Active Medications Heparin Sodium (Porcine) (Heparin -) 5,000 unit SQ TID [facility] Last Admin: 06/14/17 05:34 Dose: 5,000 unit Lactated Ringer's (Lactated Ringers Solution) 1,000 ml in 1,000 mls @ 125 mls/ hr IV ASDIR [facility] Last Admin: 06/14/17 01:42 Dose: 125 mls/hr Piperacillin Sod/Tazobactam (Sod 3.375 gm/ Dextrose) 50 mls @ 100 mls/hr IVPB Q8H-IV [facility] PRN Reason: Protocol Last Admin: 06/14/17 09:06 Dose: 100 mls/hr Morphine Sulfate (Morphine Sulfate) 2 mg IVPUSH Q4H PRN PRN Reason: PAIN LEVEL 4 - 6 Last Admin: 06/13/17 18:40 Dose: 2 mg Ondansetron HCl (Zofran Injection) 4 mg IVPUSH Q6H PRN PRN Reason: NAUSEA Oxycodone HCl (Roxicodone -) 5 mg PO TID PRN PRN Reason: PAIN LEVEL 1 - 3 Pantoprazole Sodium (Protonix -) 20 mg PO DAILY [facility] Last Admin: 06/14/17 09:06 Dose: 20 mg Pregabalin (Lyrica -) 100 mg PO BID [facility] Last Admin: 06/14/17 09:06 Dose: 100 mg - Objective Vital Signs: Vital Signs Temperature 98.1 F 06/14/17 09:09 Pulse Rate 77 06/14/17 09:09 Respiratory Rate 18 06/14/17 09:09 Blood Pressure 102/48 06/14/17 09:09 O2 Sat by Pulse Oximetry (%) 98 06/14/17 09:00 Constitutional: Yes: Calm Cardiovascular: Yes: Regular Rate and Rhythm, S1, S2 Respiratory: Yes: CTA Bilaterally Gastrointestinal: Yes: Soft, Hypoactive Bowel Sounds, Other (left wound draining serosanginous discharge right colosotmy bag with greenish liquid) Edema: No Neurological: Yes: Alert, Oriented Labs: CBC, BMP 06/14/17 06:40 06/14/17 06:40 INR, PTT INR 1.09 (0.82-1.09) 06/13/17 06:26 Problem List - Problems (1) Infected wound Assessment/Plan: iv abx per ID wbc trending down pain control dvt ppx Code(s): T14.8XXA - OTHER INJURY OF UNSPECIFIED BODY REGION, INITIAL ENCOUNTER; L08.9 - LOCAL INFECTION OF THE SKIN AND SUBCUTANEOUS TISSUE, UNSP (2) Anemia Assessment/Plan: iron panel stool occult blood Code(s): D64.9 - ANEMIA, UNSPECIFIED Qualifiers: Anemia type: unspecified type Qualified Code(s): D64.9 - Anemia, unspecified (3) Colostomy present Assessment/Plan: surgery on board Code(s): Z93.3 - COLOSTOMY STATUS
--- NOTE | 2017-06-14 14:12 | PN ---
Progress Note, Physician History of Present Illness: patient stable now had episode of dizziness - Current Medication List Current Medications: Active Medications Bacitracin (Bacitracin -) 1 applic TP BID [facility] Heparin Sodium (Porcine) (Heparin -) 5,000 unit SQ TID [facility] Last Admin: 06/14/17 05:34 Dose: 5,000 unit Lactated Ringer's (Lactated Ringers Solution) 1,000 ml in 1,000 mls @ 125 mls/ hr IV ASDIR [facility] Last Admin: 06/14/17 13:14 Dose: 125 mls/hr Piperacillin Sod/Tazobactam (Sod 3.375 gm/ Dextrose) 50 mls @ 100 mls/hr IVPB Q8H-[facility] PRN Reason: Protocol Last Admin: 06/14/17 09:06 Dose: 100 mls/hr Morphine Sulfate (Morphine Sulfate) 2 mg IVPUSH Q4H PRN PRN Reason: PAIN LEVEL 4 - 6 Last Admin: 06/13/17 18:40 Dose: 2 mg Ondansetron HCl (Zofran Injection) 4 mg IVPUSH Q6H PRN PRN Reason: NAUSEA Oxycodone HCl (Roxicodone -) 5 mg PO TID PRN PRN Reason: PAIN LEVEL 1 - 3 Pantoprazole Sodium (Protonix -) 20 mg PO DAILY [facility] Last Admin: 06/14/17 09:06 Dose: 20 mg Pregabalin (Lyrica -) 100 mg PO BID [facility] Last Admin: 06/14/17 09:06 Dose: 100 mg - Objective Vital Signs: Vital Signs Temperature 99.0 F 06/14/17 13:33 Pulse Rate 80 06/14/17 13:33 Respiratory Rate 18 06/14/17 13:33 Blood Pressure 105/66 06/14/17 13:33 O2 Sat by Pulse Oximetry (%) 98 06/14/17 09:00 Constitutional: Yes: No Distress, Calm Cardiovascular: Yes: Regular Rate and Rhythm Respiratory: Yes: Regular, CTA Bilaterally Gastrointestinal: Yes: Soft, Other (ostomy in place) Musculoskeletal: Yes: WNL Extremities: Yes: WNL Wound/Incision: Yes: Dressing Dry and Intact Neurological: Yes: Alert, Oriented Labs: CBC, BMP 06/14/17 06:40 06/14/17 06:40 INR, PTT INR 1.09 (0.82-1.09) 06/13/17 06:26 Assessment/Plan Problem List - Problems (1) Weakness Code(s): R53.1 - WEAKNESS (2) Infected wound Code(s): T14.8XXA - OTHER INJURY OF UNSPECIFIED BODY REGION, INITIAL ENCOUNTER; L08.9 - LOCAL INFECTION OF THE SKIN AND SUBCUTANEOUS TISSUE, UNSP (3) Anemia Code(s): D64.9 - ANEMIA, UNSPECIFIED Qualifiers: Anemia type: unspecified type Qualified Code(s): D64.9 - Anemia, unspecified (4) Colostomy present Code(s): Z93.3 - COLOSTOMY STATUS (5) Fibromyalgia Code(s): M79.7 - FIBROMYALGIA (6) LLQ abdominal pain Code(s): R10.32 - LEFT LOWER QUADRANT PAIN (7) Nausea and vomiting Code(s): R11.2 - NAUSEA WITH VOMITING, UNSPECIFIED Qualifiers: Vomiting type: unspecified Vomiting Intractability: non-intractable Qualified Code(s): R11.2 - Nausea with vomiting, unspecified plan continue abx await for cx of the wound rest as per the team monitor pressures
[2017-06-14] MEDS: BACITRACIN 15 GM TUBE TOPICAL OINTMENT TP SCH ×2 (14:16→22:09)
[2017-06-14] MEDS: morphine SULFATE 4 MG/ML VIAL IVPUSH PRN ×2 (14:20→19:17)
[2017-06-14] MEDS: oxyCODONE HCL 5 MG TABLET PO PRN (22:10)
[2017-06-15] MEDS ORDERED: PIPERACILLIN/TAZOBACTAM 3.375 GM VIAL IVPB ONE ×3 (02:41→17:34)
[2017-06-15] MEDS ORDERED: DEXTROSE 5%-WATER - 50 ML IVPB ONE ×3 (02:42→17:34)
[2017-06-15] MEDS: PIPERACILLIN/TAZOB 3.375 GM 3.375 GM in DEXTROSE 5%-WATER - 50 ML IVPB SCH ×3 (02:56→18:06)
[2017-06-15] MEDS: LACTATED RINGERS SOLUTION 1,000 ML/1,000 ML INFUS.BAG IV SCH ×2 (06:11→16:25)
[2017-06-15] MEDS: HEPARIN NA (PORCINE) 5,000 UNITS/ML 1ML VIAL SQ SCH ×3 (06:12→21:51)
[2017-06-15] MEDS ORDERED: PT OWN MED DRAWER 7, Y5N ONE ×2 (09:25→17:35)
[2017-06-15] MEDS: PANTOPRAZOLE 20 MG TABLET (FP) PO SCH (09:28)
[2017-06-15] MEDS: PREGABALIN 50 MG CAPSULE PO SCH ×2 (09:28→21:51)
[2017-06-15] MEDS: BACITRACIN 15 GM TUBE TOPICAL OINTMENT TP SCH ×2 (09:29→21:50)
[2017-06-15 10:36] LABS: BASO % 1.2 % (0-2.0); EOS % 4.1 % (0-4.5); HEMATOCRIT 25.2 % (32.4-45.2); HEMOGLOBIN 8.5 GM/dL (10.7-15.3); LYMPH % 24.4 % (8-40); MCH 31.3 pg (25.7-33.7); MCHC 33.7 g/dl (32.0-36.0); MEAN CELL VOLUME 92.7 fl (80-96); MEAN PLT VOLUME 6.4 fl (7.5-11.1); MONO % 8.7 % (3.8-10.2); NEUT % 61.6 % (42.8-82.8); PLATELET COUNT 992 K/MM3 (134-434); RBC 2.71 M/mm3 (3.60-5.2); RDW 13.6 % (11.6-15.6)
[2017-06-15 11:00] LABS: ALBUMIN 2.4 g/dl (3.4-5.0); ANION GAP 5 (8-16); BILIRUBIN,TOTAL 0.3 mg/dL (0.2-1.0); BLOOD UREA NITROGEN 7 mg/dL (7-18); CALCIUM 8.1 mg/dL (8.5-10.1); CHLORIDE 110 mmol/L (98-107); CO2 25 mmol/L (21-32); CREATININE 0.4 mg/dL (0.55-1.02); GLUCOSE,RANDOM 117 mg/dL (74-106); POTASSIUM 4.2 mmol/L (3.5-5.1); SGOT/AST 16 U/L (15-37); SGPT/ALT 14 U/L (12-78); SODIUM 140 mmol/L (136-145); TOT PROT 5.5 g/dl (6.4-8.2)
[2017-06-15 11:03] LABS: ALK PHOS 187 U/L (45-117)
--- NOTE | 2017-06-15 12:26 | PN ---
Progress Note, Physician Chief Complaint: Abdominal pain History of Present Illness: NAD, in bed, feels much better today seen by ID and Surgery on IV abx - Current Medication List Current Medications: Active Medications Bacitracin (Bacitracin -) 1 applic TP BID [facility] Last Admin: 06/15/17 09:29 Dose: 1 applic Heparin Sodium (Porcine) (Heparin -) 5,000 unit SQ TID [facility] Last Admin: 06/15/17 06:12 Dose: 5,000 unit Lactated Ringer's (Lactated Ringers Solution) 1,000 ml in 1,000 mls @ 125 mls/ hr IV ASDIR [facility] Last Admin: 06/15/17 06:11 Dose: 125 mls/hr Piperacillin Sod/Tazobactam (Sod 3.375 gm/ Dextrose) 50 mls @ 100 mls/hr IVPB Q8H-[facility] PRN Reason: Protocol Last Admin: 06/15/17 09:30 Dose: 100 mls/hr Morphine Sulfate (Morphine Sulfate) 2 mg IVPUSH Q4H PRN PRN Reason: PAIN LEVEL 4 - 6 Last Admin: 06/14/17 19:17 Dose: 2 mg Ondansetron HCl (Zofran Injection) 4 mg IVPUSH Q6H PRN PRN Reason: NAUSEA Oxycodone HCl (Roxicodone -) 5 mg PO TID PRN PRN Reason: PAIN LEVEL 1 - 3 Last Admin: 06/14/17 22:10 Dose: 5 mg Pantoprazole Sodium (Protonix -) 20 mg PO DAILY [facility] Last Admin: 06/15/17 09:28 Dose: 20 mg Pregabalin (Lyrica -) 100 mg PO BID [facility] Last Admin: 06/15/17 09:28 Dose: 100 mg - Objective Vital Signs: Vital Signs Temperature 98.1 F 06/15/17 09:00 Pulse Rate 79 06/15/17 09:00 Respiratory Rate 18 06/15/17 09:00 Blood Pressure 105/60 06/15/17 09:00 O2 Sat by Pulse Oximetry (%) 98 06/14/17 21:00 Constitutional: Yes: Well Nourished, No Distress, Calm Cardiovascular: Yes: Regular Rate and Rhythm Respiratory: Yes: Regular Gastrointestinal: Yes: Normal Bowel Sounds, Soft, Other (colostomy present) Musculoskeletal: Yes: WNL Extremities: Yes: WNL Edema: No Peripheral Pulses WNL: Yes Neurological: Yes: Alert, Oriented Psychiatric: Yes: Alert, Oriented Labs: CBC, BMP 06/15/17 10:17 06/15/17 10:17 INR, PTT INR 1.09 (0.82-1.09) 06/13/17 06:26 Problem List - Problems (1) Infected wound Assessment/Plan: -ID conult appreciated -IV abx -monitor labs Code(s): T14.8XXA - OTHER INJURY OF UNSPECIFIED BODY REGION, INITIAL ENCOUNTER; L08.9 - LOCAL INFECTION OF THE SKIN AND SUBCUTANEOUS TISSUE, UNSP (2) Anemia Assessment/Plan: -monitor trend -Iron profile pending Code(s): D64.9 - ANEMIA, UNSPECIFIED Qualifiers: Anemia type: unspecified type Qualified Code(s): D64.9 - Anemia, unspecified (3) Colostomy present Assessment/Plan: -seen by Surgery Code(s): Z93.3 - COLOSTOMY STATUS Assessment/Plan see problem list
--- NOTE | 2017-06-15 12:27 | PN ---
Progress Note (short form) - Note Progress Note: Patient has better appetite and no longer nauseated Denies abdominal pain Afebrile, VSS Abd: soft, wound clean with serosanguinous discharge and no fluid collection on probing sucutaneous pocket ileostomy with brown liquid stool C/S: P. aeroginosa A/P: SSI - subcu abdominal wound - continue daily wound care and antibiotics intra-abdominal hematoma - ileus resolved, no intervention necessary high protein diet Problem List - Problems (1) Infected wound Code(s): T14.8XXA - OTHER INJURY OF UNSPECIFIED BODY REGION, INITIAL ENCOUNTER; L08.9 - LOCAL INFECTION OF THE SKIN AND SUBCUTANEOUS TISSUE, UNSP (2) SBO (small bowel obstruction) Code(s): K56.609 - UNSP INTESTNL OBST, UNSP TO PARTIAL VERSUS COMPLETE OBST
--- NOTE | 2017-06-15 16:10 | PN ---
Progress Note, Physician History of Present Illness: Pt states she feels well. Afebrile, without new complaints. Dressing over Lt abd changed this a.m. Family at bedside. - Current Medication List Current Medications: Active Medications Bacitracin (Bacitracin -) 1 applic TP BID [facility] Last Admin: 06/15/17 09:29 Dose: 1 applic Heparin Sodium (Porcine) (Heparin -) 5,000 unit SQ TID [facility] Last Admin: 06/15/17 14:33 Dose: 5,000 unit Lactated Ringer's (Lactated Ringers Solution) 1,000 ml in 1,000 mls @ 125 mls/ hr IV ASDIR [facility] Last Admin: 06/15/17 06:11 Dose: 125 mls/hr Piperacillin Sod/Tazobactam (Sod 3.375 gm/ Dextrose) 50 mls @ 100 mls/hr IVPB Q8H-IV [facility] PRN Reason: Protocol Last Admin: 06/15/17 09:30 Dose: 100 mls/hr Morphine Sulfate (Morphine Sulfate) 2 mg IVPUSH Q4H PRN PRN Reason: PAIN LEVEL 4 - 6 Last Admin: 06/14/17 19:17 Dose: 2 mg Ondansetron HCl (Zofran Injection) 4 mg IVPUSH Q6H PRN PRN Reason: NAUSEA Oxycodone HCl (Roxicodone -) 5 mg PO TID PRN PRN Reason: PAIN LEVEL 1 - 3 Last Admin: 06/14/17 22:10 Dose: 5 mg Pantoprazole Sodium (Protonix -) 20 mg PO DAILY [facility] Last Admin: 06/15/17 09:28 Dose: 20 mg Pregabalin (Lyrica -) 100 mg PO BID [facility] Last Admin: 06/15/17 09:28 Dose: 100 mg - Objective Vital Signs: Vital Signs Temperature 98.4 F 06/15/17 14:27 Pulse Rate 85 06/15/17 14:14 Respiratory Rate 18 06/15/17 14:14 Blood Pressure 113/63 06/15/17 14:14 O2 Sat by Pulse Oximetry (%) 98 06/15/17 09:00 Constitutional: Yes: No Distress, Calm Cardiovascular: Yes: Regular Rate and Rhythm Respiratory: Yes: Regular Gastrointestinal: Yes: Normal Bowel Sounds, Soft, Other (ostomy) Genitourinary: Yes: WNL Extremities: Yes: WNL Wound/Incision: Yes: Other (Lt abd wound with packing) Neurological: Yes: Alert, Oriented Labs: CBC, BMP 06/15/17 10:17 06/15/17 10:17 INR, PTT INR 1.09 (0.82-1.09) 06/13/17 06:26 Microbiology 06/13/17 14:30 Abdomen Gram Stain - Final 06/13/17 14:30 Abdomen Wound Culture - Preliminary Presumptive Ps Aeruginosa Group D Strep Or Entero Coccus Problem List - Problems (1) Infected wound Code(s): T14.8XXA - OTHER INJURY OF UNSPECIFIED BODY REGION, INITIAL ENCOUNTER; L08.9 - LOCAL INFECTION OF THE SKIN AND SUBCUTANEOUS TISSUE, UNSP (2) SBO (small bowel obstruction) Code(s): K56.609 - UNSP INTESTNL OBST, UNSP TO PARTIAL VERSUS COMPLETE OBST (3) Colostomy present Code(s): Z93.3 - COLOSTOMY STATUS Assessment/Plan 66 y.o. female with PMH of diverticulitis s/p colectomy Infected Abd wound - Pseudomonas/Group D strep or enterococcus -afebrile, stable - continue Zosyn, f/u culture susceptibilities - continue wound care
[2017-06-15] MEDS: oxyCODONE HCL 5 MG TABLET PO PRN (18:55)
[2017-06-16] MEDS: LACTATED RINGERS SOLUTION 1,000 ML/1,000 ML INFUS.BAG IV SCH ×4 (00:38→20:56)
[2017-06-16] MEDS ORDERED: DEXTROSE 5%-WATER - 50 ML IVPB ONE ×3 (01:23→17:20)
[2017-06-16] MEDS ORDERED: PIPERACILLIN/TAZOBACTAM 3.375 GM VIAL IVPB ONE ×3 (01:23→17:19)
[2017-06-16] MEDS: PIPERACILLIN/TAZOB 3.375 GM 3.375 GM in DEXTROSE 5%-WATER - 50 ML IVPB SCH ×3 (02:28→17:26)
[2017-06-16] MEDS: HEPARIN NA (PORCINE) 5,000 UNITS/ML 1ML VIAL SQ SCH ×3 (06:06→21:04)
[2017-06-16 06:53] LABS: BASO % 1.4 % (0-2.0); EOS % 4.1 % (0-4.5); HEMATOCRIT 24.7 % (32.4-45.2); HEMOGLOBIN 8.4 GM/dL (10.7-15.3); LYMPH % 32.7 % (8-40); MCH 31.8 pg (25.7-33.7); MCHC 34.1 g/dl (32.0-36.0); MEAN CELL VOLUME 93.2 fl (80-96); MEAN PLT VOLUME 6.6 fl (7.5-11.1); MONO % 10.7 % (3.8-10.2); NEUT % 51.1 % (42.8-82.8); PLATELET COUNT 965 K/MM3 (134-434); RBC 2.65 M/mm3 (3.60-5.2); RDW 13.7 % (11.6-15.6); WHITE BLOOD COUNT 6.4 K/mm3 (4.0-10.0)
[2017-06-16 07:53] LABS: ALBUMIN 2.4 g/dl (3.4-5.0); ANION GAP 5 (8-16); BLOOD UREA NITROGEN 7 mg/dL (7-18); CALCIUM 8.3 mg/dL (8.5-10.1); CHLORIDE 109 mmol/L (98-107); CO2 27 mmol/L (21-32); GLUCOSE,RANDOM 92 mg/dL (74-106); POTASSIUM 4.5 mmol/L (3.5-5.1); SODIUM 141 mmol/L (136-145)
[2017-06-16 07:57] LABS: ALK PHOS 188 U/L (45-117); BILIRUBIN,TOTAL 0.3 mg/dL (0.2-1.0); CREATININE 0.5 mg/dL (0.55-1.02); SGOT/AST 24 U/L (15-37); SGPT/ALT 15 U/L (12-78); TOT PROT 5.4 g/dl (6.4-8.2)
[2017-06-16 08:07] LABS: SERUM IRON SATURATION 10 % (15-55); TOTAL IRON BINDING CAPACITY 239 ug/dL (250-450); UIBC 214 ug/dL (118-369)
[2017-06-16] MEDS: PREGABALIN 50 MG CAPSULE PO SCH ×2 (09:18→21:04)
[2017-06-16] MEDS: PANTOPRAZOLE 20 MG TABLET (FP) PO SCH (09:18)
[2017-06-16] MEDS: AMINO ACIDS/PROTEIN HYDROLYS 30 ML LIQUID.PKT PO SCH ×2 (09:19→17:26)
[2017-06-16] MEDS: BACITRACIN 15 GM TUBE TOPICAL OINTMENT TP SCH ×2 (09:19→21:04)
--- NOTE | 2017-06-16 11:01 | PN ---
Progress Note (short form) - Note Progress Note: Patient's appetite remains good Has minimal abdominal pain Afebrile, VSS Abd: soft, wound clean with minimal serosanguinous discharge ileostomy with brown liquid stool wbc = 6.4 k C/S: P. aeroginosa and enterococcus A/P: SSI - subcu abdominal wound - continue daily wound care and antibiotics ileus resolved, no intervention necessary high protein diet D/C planning Problem List - Problems (1) Infected wound Code(s): T14.8XXA - OTHER INJURY OF UNSPECIFIED BODY REGION, INITIAL ENCOUNTER; L08.9 - LOCAL INFECTION OF THE SKIN AND SUBCUTANEOUS TISSUE, UNSP (2) SBO (small bowel obstruction) Code(s): K56.609 - UNSP INTESTNL OBST, UNSP TO PARTIAL VERSUS COMPLETE OBST
--- NOTE | 2017-06-16 11:38 | PN ---
Progress Note, Physician Chief Complaint: Abdominal pain History of Present Illness: NAD, in bed, feels much better today seen by ID and Surgery on IV abx microbiology: Microbiology 06/13/17 14:30 Abdomen Gram Stain - Final 06/13/17 14:30 Abdomen Wound Culture - Preliminary Pseudomonas Aeruginosa Group D Strep Or Entero Coccus - Current Medication List Current Medications: Active Medications Amino Acids (Prosource No Carb Liquid Pkt) 30 ml PO BID@0800,1730 [facility] Last Admin: 06/16/17 09:19 Dose: 30 ml Bacitracin (Bacitracin -) 1 applic TP BID [facility] Last Admin: 06/16/17 09:19 Dose: 1 applic Heparin Sodium (Porcine) (Heparin -) 5,000 unit SQ TID [facility] Last Admin: 06/16/17 06:06 Dose: 5,000 unit Lactated Ringer's (Lactated Ringers Solution) 1,000 ml in 1,000 mls @ 125 mls/ hr IV ASDIR [facility] Last Admin: 06/16/17 09:20 Dose: 125 mls/hr Piperacillin Sod/Tazobactam (Sod 3.375 gm/ Dextrose) 50 mls @ 100 mls/hr IVPB Q8H-IV [facility] PRN Reason: Protocol Last Admin: 06/16/17 09:19 Dose: 100 mls/hr Morphine Sulfate (Morphine Sulfate) 2 mg IVPUSH Q4H PRN PRN Reason: PAIN LEVEL 4 - 6 Last Admin: 06/14/17 19:17 Dose: 2 mg Ondansetron HCl (Zofran Injection) 4 mg IVPUSH Q6H PRN PRN Reason: NAUSEA Oxycodone HCl (Roxicodone -) 5 mg PO TID PRN PRN Reason: PAIN LEVEL 1 - 3 Last Admin: 06/15/17 18:55 Dose: 5 mg Pantoprazole Sodium (Protonix -) 20 mg PO DAILY [facility] Last Admin: 06/16/17 09:18 Dose: 20 mg Pregabalin (Lyrica -) 100 mg PO BID [facility] Last Admin: 06/16/17 09:18 Dose: 100 mg - Objective Vital Signs: Vital Signs Temperature 97.8 F 06/16/17 05:00 Pulse Rate 69 06/16/17 05:00 Respiratory Rate 16 06/16/17 05:00 Blood Pressure 102/59 06/16/17 05:00 O2 Sat by Pulse Oximetry (%) 98 06/15/17 21:00 Constitutional: Yes: Well Nourished, No Distress, Calm Cardiovascular: Yes: Regular Rate and Rhythm Respiratory: Yes: Regular Gastrointestinal: Yes: Normal Bowel Sounds, Soft, Other (colostomy) Musculoskeletal: Yes: WNL Extremities: Yes: WNL Edema: No Peripheral Pulses WNL: Yes Neurological: Yes: Alert, Oriented Psychiatric: Yes: Alert, Oriented Labs: CBC, BMP 06/16/17 06:30 06/16/17 06:30 INR, PTT INR 1.09 (0.82-1.09) 06/13/17 06:26 Problem List - Problems (1) Infected wound Assessment/Plan: -ID conult appreciated -IV abx- Change to PO in AM and d/c home -monitor labs Code(s): T14.8XXA - OTHER INJURY OF UNSPECIFIED BODY REGION, INITIAL ENCOUNTER; L08.9 - LOCAL INFECTION OF THE SKIN AND SUBCUTANEOUS TISSUE, UNSP (2) Anemia Assessment/Plan: -stable -monitor trend -Iron depletion -Venofer x 1 -ferrous sulfate daily Code(s): D64.9 - ANEMIA, UNSPECIFIED Qualifiers: Anemia type: unspecified type Qualified Code(s): D64.9 - Anemia, unspecified (3) Colostomy present Assessment/Plan: -seen by Surgery Code(s): Z93.3 - COLOSTOMY STATUS Assessment/Plan see problem list
--- NOTE | 2017-06-16 11:43 | DS ---
Physical Examination Vital Signs: Vital Signs Temperature 97.8 F 06/16/17 05:00 Pulse Rate 69 06/16/17 05:00 Respiratory Rate 16 06/16/17 05:00 Blood Pressure 102/59 06/16/17 05:00 O2 Sat by Pulse Oximetry (%) 98 06/15/17 21:00 Constitutional: Yes: Well Nourished, No Distress, Calm Cardiovascular: Yes: Regular Rate and Rhythm Respiratory: Yes: Regular Gastrointestinal: Yes: Normal Bowel Sounds, Soft, Other (colostomy) Musculoskeletal: Yes: WNL Extremities: Yes: WNL Edema: No Peripheral Pulses WNL: Yes Neurological: Yes: Alert, Oriented Psychiatric: Yes: Alert, Oriented Labs: CBC, BMP 06/16/17 06:30 06/16/17 06:30 Discharge Summary Reason For Visit: SMALL BOWEL OBSTRUCTION Current Active Problems Infected wound (Acute) SBO (small bowel obstruction) (Acute) Weakness (Acute) Hospital Course: The patient is a 66 year old female, with a significant past medical history of diverticulitis, who presents to the emergency department sent by PCP for evaluation of anemia s/p sigmoid colectomy and diverting loop ileostomy on . The patient reports she was evaluated by her PCP for pallor and weakness s/ p procedures on 05/31/17. At the time, patient had blood work done, which revealed a hemoglobin of 8, and was recommended to follow up in the ED for further evaluation. Patient reports mild abdominal discomfort, but denies any nausea, vomiting, diarrhea, or constipation. She denies any fever or chills. While in the ER her hgb was found to be 9.7, v/s stable, and underwent a CT of abd/pelvic with a finding of a Status post interval sigmoid surgery in comparison to a prior CT study of 01/14/2017. Right lower abdominal ostomy. An open wound is seen along the left lower anterior pelvis which appears to communicate with a small amount of nonspecific fluid within and immediately deep to the abdominal wall musculature. Nonspecific mesenteric soft tissue stranding is seen within the lower pelvis which may be on a postsurgical or infectious basis. Development of a 4.6 x 4.5 x 3 cm mildly lobulated slightly hypodense structure is seen within the right mid abdomen possibly representing a subacute hematoma or phlegmon. Interval development of mild dilatation suggestive of a SBO. Microbiology 06/13/17 14:30 Abdomen Gram Stain - Final 06/13/17 14:30 Abdomen Wound Culture - Preliminary Pseudomonas Aeruginosa Group D Strep Or Entero Coccus She was given IV Zosyn---> changed to po abx Condition: Stable - Instructions Diet, Activity, Other Instructions: low fiber, high protein diet Referrals: Rivera Willingham MD [Primary Care Provider] - Disposition: VNS/HOME HEALTH CARE - Home Medications Comprehensive Discharge Medication List: Ambulatory Orders Multivitamin [Poly-Vitamin] 1 each PO DAILY 05/30/17 Acetaminophen [Tylenol .Regular Strength -] 650 mg PO Q6H PRN #120 tablet Pantoprazole Sodium [Protonix -] 20 mg PO DAILY #30 tablet.ec 06/05/17 Pregabalin [Lyrica -] 100 mg PO BID #60 capsule MDD 2 06/05/17 Walker [Ultra-Light Rollator] 1 each [facility] PRN PRN #1 each 06/05/17 Oxycodone HCl 5 mg PO TID PRN #15 tablet MDD 3 06/06/17
[2017-06-16] MEDS ORDERED: IRON SUCROSE INJECTION 300 MG in SODIUM CHLORIDE 235 ML IVPB ONE (14:00)
--- NOTE | 2017-06-16 14:48 | PN ---
Progress Note, Physician History of Present Illness: Pt states she feels well. Minimal abd pain. Remains afebrile. - Current Medication List Current Medications: Active Medications Amino Acids (Prosource No Carb Liquid Pkt) 30 ml PO BID@0800,1730 [facility] Last Admin: 06/16/17 09:19 Dose: 30 ml Bacitracin (Bacitracin -) 1 applic TP BID [facility] Last Admin: 06/16/17 09:19 Dose: 1 applic Ferrous Sulfate (Feosol -) 325 mg PO DAILY [facility] Heparin Sodium (Porcine) (Heparin -) 5,000 unit SQ TID [facility] Last Admin: 06/16/17 13:40 Dose: 5,000 unit Lactated Ringer's (Lactated Ringers Solution) 1,000 ml in 1,000 mls @ 125 mls/ hr IV ASDIR [facility] Last Admin: 06/16/17 09:20 Dose: 125 mls/hr Piperacillin Sod/Tazobactam (Sod 3.375 gm/ Dextrose) 50 mls @ 100 mls/hr IVPB Q8H-IV [facility] PRN Reason: Protocol Last Admin: 06/16/17 09:19 Dose: 100 mls/hr Iron Sucrose 300 mg/ Sodium (Chloride) 250 mls @ 250 mls/hr IVPB ONCE ONE Stop: 06/16/17 14:59 Last Admin: 06/16/17 13:40 Dose: 250 mls/hr Morphine Sulfate (Morphine Sulfate) 2 mg IVPUSH Q4H PRN PRN Reason: PAIN LEVEL 4 - 6 Last Admin: 06/14/17 19:17 Dose: 2 mg Ondansetron HCl (Zofran Injection) 4 mg IVPUSH Q6H PRN PRN Reason: NAUSEA Oxycodone HCl (Roxicodone -) 5 mg PO TID PRN PRN Reason: PAIN LEVEL 1 - 3 Last Admin: 06/15/17 18:55 Dose: 5 mg Pantoprazole Sodium (Protonix -) 20 mg PO DAILY [facility] Last Admin: 06/16/17 09:18 Dose: 20 mg Pregabalin (Lyrica -) 100 mg PO BID [facility] Last Admin: 06/16/17 09:18 Dose: 100 mg - Objective Vital Signs: Vital Signs Temperature 98.3 F 06/16/17 13:56 Pulse Rate 74 04/29/18 13:43 Respiratory Rate 18 06/16/17 13:43 Blood Pressure 105/54 06/16/17 13:43 O2 Sat by Pulse Oximetry (%) 98 06/15/17 21:00 Constitutional: Yes: No Distress, Calm Cardiovascular: Yes: Regular Rate and Rhythm Respiratory: Yes: Regular Gastrointestinal: Yes: Normal Bowel Sounds, Soft, Other (ostomy functional) Genitourinary: Yes: WNL Extremities: Yes: WNL Wound/Incision: Yes: Other (wound with packing, dressing intact) Neurological: Yes: Alert, Oriented Labs: CBC, BMP 06/16/17 06:30 06/16/17 06:30 INR, PTT INR 1.09 (0.82-1.09) 06/13/17 06:26 Microbiology 06/13/17 14:30 Abdomen Gram Stain - Final 06/13/17 14:30 Abdomen Wound Culture - Preliminary Pseudomonas Aeruginosa Group D Strep Or Entero Coccus Pending Organism Problem List - Problems (1) Infected wound Code(s): T14.8XXA - OTHER INJURY OF UNSPECIFIED BODY REGION, INITIAL ENCOUNTER; L08.9 - LOCAL INFECTION OF THE SKIN AND SUBCUTANEOUS TISSUE, UNSP (2) SBO (small bowel obstruction) Code(s): K56.609 - UNSP INTESTNL OBST, UNSP TO PARTIAL VERSUS COMPLETE OBST (3) Colostomy present Code(s): Z93.3 - COLOSTOMY STATUS (4) Diverticulitis Code(s): K57.92 - DVTRCLI OF INTEST, PART UNSP, W/O PERF OR ABSCESS W/O BLEED Qualifiers: Diverticulitis site: large intestine Diverticulitis complication: unspecified complication status Assessment/Plan 66 y.o. female with PMH of diverticulitis s/p colectomy Infected Abd wound - Pseudomonas/Group D strep or enterococcus - f/u susceptibilities for enterococcus isolate - plan is for d/c on po antibiotics in a.m. if pt remains stable - continue Zosyn for today - wbc normal, plts trending down, pt afebrile - continue wound care
[2017-06-17] MEDS ORDERED: DEXTROSE 5%-WATER - 50 ML IVPB ONE ×2 (02:04→09:29)
[2017-06-17] MEDS ORDERED: PIPERACILLIN/TAZOBACTAM 3.375 GM VIAL IVPB ONE ×2 (02:04→09:29)
[2017-06-17] MEDS: PIPERACILLIN/TAZOB 3.375 GM 3.375 GM in DEXTROSE 5%-WATER - 50 ML IVPB SCH ×2 (02:45→09:58)
[2017-06-17] MEDS: HEPARIN NA (PORCINE) 5,000 UNITS/ML 1ML VIAL SQ SCH ×2 (06:15→14:23)
[2017-06-17] MEDS: LACTATED RINGERS SOLUTION 1,000 ML/1,000 ML INFUS.BAG IV SCH (06:15)
[2017-06-17] MEDS: PANTOPRAZOLE 20 MG TABLET (FP) PO SCH (09:58)
[2017-06-17] MEDS: PREGABALIN 50 MG CAPSULE PO SCH (09:58)
[2017-06-17] MEDS: BACITRACIN 15 GM TUBE TOPICAL OINTMENT TP SCH (09:58)
[2017-06-17] MEDS: AMINO ACIDS/PROTEIN HYDROLYS 30 ML LIQUID.PKT PO SCH (09:58)
[2017-06-17] MEDS ORDERED: FERROUS SO4 325 MG TABLET (FP) PO SCH (10:00)
--- NOTE | 2017-06-17 13:10 | PN ---
Progress Note, Physician History of Present Illness: patient stable no new issues says she is doing better - Current Medication List Current Medications: Active Medications Amino Acids (Prosource No Carb Liquid Pkt) 30 ml PO BID@0800,1730 [facility] Last Admin: 06/17/17 09:58 Dose: 30 ml Bacitracin (Bacitracin -) 1 applic TP BID [facility] Last Admin: 06/17/17 09:58 Dose: 1 applic Ferrous Sulfate (Feosol -) 325 mg PO DAILY [facility] Last Admin: 06/17/17 09:58 Dose: 325 mg Heparin Sodium (Porcine) (Heparin -) 5,000 unit SQ TID [facility] Last Admin: 06/17/17 06:15 Dose: 5,000 unit Lactated Ringer's (Lactated Ringers Solution) 1,000 ml in 1,000 mls @ 125 mls/ hr IV ASDIR [facility] Last Admin: 06/17/17 06:15 Dose: 125 mls/hr Piperacillin Sod/Tazobactam (Sod 3.375 gm/ Dextrose) 50 mls @ 100 mls/hr IVPB Q8H-IV [facility] PRN Reason: Protocol Last Admin: 06/17/17 09:58 Dose: 100 mls/hr Morphine Sulfate (Morphine Sulfate) 2 mg IVPUSH Q4H PRN PRN Reason: PAIN LEVEL 4 - 6 Last Admin: 06/14/17 19:17 Dose: 2 mg Ondansetron HCl (Zofran Injection) 4 mg IVPUSH Q6H PRN PRN Reason: NAUSEA Oxycodone HCl (Roxicodone -) 5 mg PO TID PRN PRN Reason: PAIN LEVEL 1 - 3 Last Admin: 06/15/17 18:55 Dose: 5 mg Pantoprazole Sodium (Protonix -) 20 mg PO DAILY [facility] Last Admin: 06/17/17 09:58 Dose: 20 mg Pregabalin (Lyrica -) 100 mg PO BID [facility] Last Admin: 06/17/17 09:58 Dose: 100 mg - Objective Vital Signs: Vital Signs Temperature 98.3 F 06/17/17 09:00 Pulse Rate 74 06/17/17 09:00 Respiratory Rate 16 06/17/17 09:00 Blood Pressure 101/56 06/17/17 09:00 O2 Sat by Pulse Oximetry (%) 99 06/16/17 21:00 Constitutional: Yes: No Distress, Calm Cardiovascular: Yes: Regular Rate and Rhythm Respiratory: Yes: Regular, CTA Bilaterally Gastrointestinal: Yes: Normal Bowel Sounds, Soft, Other (osteomy in place) Musculoskeletal: Yes: WNL Extremities: Yes: WNL Wound/Incision: Yes: Dressing Dry and Intact Neurological: Yes: Alert, Oriented Psychiatric: Yes: Alert, Oriented Labs: CBC, BMP 06/16/17 06:30 06/16/17 06:30 INR, PTT INR 1.09 (0.82-1.09) 06/13/17 06:26 Assessment/Plan Problem List - Problems (1) Weakness Code(s): R53.1 - WEAKNESS (2) Infected wound Code(s): T14.8XXA - OTHER INJURY OF UNSPECIFIED BODY REGION, INITIAL ENCOUNTER; L08.9 - LOCAL INFECTION OF THE SKIN AND SUBCUTANEOUS TISSUE, UNSP (3) Anemia Code(s): D64.9 - ANEMIA, UNSPECIFIED Qualifiers: Anemia type: unspecified type Qualified Code(s): D64.9 - Anemia, unspecified (4) Colostomy present Code(s): Z93.3 - COLOSTOMY STATUS (5) Fibromyalgia Code(s): M79.7 - FIBROMYALGIA (6) LLQ abdominal pain Code(s): R10.32 - LEFT LOWER QUADRANT PAIN (7) Nausea and vomiting Code(s): R11.2 - NAUSEA WITH VOMITING, UNSPECIFIED Qualifiers: Vomiting type: unspecified Vomiting Intractability: non-intractable Qualified Code(s): R11.2 - Nausea with vomiting, unspecified plan continue abx wound cx result noted if patient is going home patient should go home on oral ampicillin 1 gm every 8 hourly for 10 days with levaquin 750 mg daily for another 10 days need to have imaging studies in 2 weeks to see resolution of collection surgery to continue following rest as per the team
[2017-06-17 15:43] VITALS: BP 145/79; PULSE 85; TEMP 98.2
== END 2017-06-17 16:27 | disposition home health service (06) | DRG 863 ==
LOC: JER 13:34 → JERBED 19:01 → J5S 21:32
PROVIDERS: ADMIT Internal Medicine; ATTEND Family Medicine
PROC: 0J980ZX Drainage of Abdomen Subcutaneous Tissue and Fascia, Open Approach, Diagnostic (ICD-10-PCS; principal; 2017-06-13)
DX: T81.4XXA Infection following a procedure, initial encounter (principal); K56.609 Unspecified intestinal obstruction, unspecified as to partial versus complete obstruction; K56.7 Ileus, unspecified; K57.92 Diverticulitis of intestine, part unspecified, without perforation or abscess without bleeding; B99.8 Other infectious disease; Y83.8 Other surgical procedures as the cause of abnormal reaction of the patient, or of later complication, without mention of misadventure at the time of the procedure; Y92.89 Other specified places as the place of occurrence of the external cause; D64.9 Anemia, unspecified; M79.7 Fibromyalgia; R11.2 Nausea with vomiting, unspecified; R10.32 Left lower quadrant pain; L08.9 Local infection of the skin and subcutaneous tissue, unspecified; R63.0 Anorexia; Z68.28 Body mass index [BMI] 28.0-28.9, adult; K57.90 Diverticulosis of intestine, part unspecified, without perforation or abscess without bleeding; K59.09 Other constipation; K58.8 Other irritable bowel syndrome; M19.90 Unspecified osteoarthritis, unspecified site; B95.2 Enterococcus as the cause of diseases classified elsewhere; F41.9 Anxiety disorder, unspecified; Z93.3 Colostomy status
CPT/HCPCS: 36415; 74177-TC; 80053; 82272; 82728; 83540; 83550; 83690; 83735; 84100; 85025; 85027; 85610; 85730; 86850; 86900; 86901; 87070; 87186; 87205; 94010; 99282-25; J1644; J1756; J7030

== ENCOUNTER 2017-07-26 04:52 | Inpatient (IN) | payer OTHER ==
[2017-07-24 08:57] VITALS: BMI 28.3
--- NOTE | 2017-07-26 13:21 | HP ---
Admitting History and Physical - Admission Chief Complaint: s/p sigmoid colectomy, diverting loop ileostomy History of Present Illness: 66 y.o. female 8 weeks s/p sigmoid resection and diverting loop ileostomy for chronic diverticulitis. BE with gastrograffin showed intact anastomosis - Past Medical History Gastrointestinal: Yes: Constipation, Diverticulitis, Diverticulosis, Irritable Bowel Disease Musculoskeletal: Yes: Osteoarthritis Rheumatology: Yes: Fibromyalgia - Past Surgical History Past Surgical History: Yes: Colonoscopy (last 12/11/16 - found pandiverticulosis only), Hysterectomy, Tubal Ligation - Smoking History Smoking history: Never smoked Have you smoked in the past 12 months: No - Alcohol/Substance Use Hx Alcohol Use: No History of Substance Use: reports: None - Social History ADL: Independent Home Medications - Allergies Allergies/Adverse Reactions: Allergies Allergy/AdvReac Type Severity Reaction Status Date / Time No Known Drug Allergies Allergy Verified 07/26/17 13:37 - Home Medications Home Medications: Ambulatory Orders Acetaminophen [Tylenol .Regular Strength -] 650 mg PO Q6H PRN #120 tablet Pregabalin [Lyrica -] 100 mg PO BID #60 capsule MDD 2 06/05/17 Ferrous Sulfate [Feosol] 325 mg PO DAILY ud 06/17/17 Family Disease History - Family Disease History Family Disease History: CA: Mother (colon - in [facility] now for tx, age 88) Review of Systems - Review of Systems Eyes: reports: No Symptoms HENT: reports: No Symptoms Neck: reports: No Symptoms Cardiovascular: reports: No Symptoms Respiratory: reports: No Symptoms Gastrointestinal: reports: No Symptoms Musculoskeletal: reports: Joint Pain (left elbow) Integumentary: reports: No Symptoms Neurological: reports: No Symptoms Physical Examination Constitutional: Yes: Well Nourished Eyes: Yes: Conjunctiva Clear HENT: Yes: Normocephalic Neck: Yes: Supple Cardiovascular: Yes: Regular Rate and Rhythm Respiratory: Yes: CTA Bilaterally Gastrointestinal: Yes: Soft (ileostomy viable with minimal edema) ...Rectal Exam: Yes: Deferred Musculoskeletal: Yes: Joint Swelling (left elbow) Wound/Incision: Yes: Other (well healed Pfannensteil wound) Neurological: Yes: Alert, Oriented Psychiatric: Yes: Alert, Oriented Imaging - Results Other: Report Reviewed, Image Reviewed (BE with gastrograffin) Problem List - Problems (1) Colostomy present Code(s): Z93.3 - COLOSTOMY STATUS (2) Diverticulitis Code(s): K57.92 - DVTRCLI OF INTEST, PART UNSP, W/O PERF OR ABSCESS W/O BLEED Qualifiers: Diverticulitis site: large intestine Diverticulitis complication: unspecified complication status Assessment/Plan ileostomy reversal under GA perioperative antibiotics DVT prophylaxis
[2017-07-26] MEDS ORDERED: ROCURONIUM BROMIDE 50 MG/5 ML VIAL ONE ×2 (14:39→16:31)
[2017-07-26] MEDS ORDERED: PROPOFOL 20 ML ONE (14:39)
[2017-07-26] MEDS ORDERED: fentaNYL CITRATE 250 MCG/5 ML VIAL ONE (14:39)
[2017-07-26] MEDS ORDERED: MIDAZOLAM HCL 2 MG/2 ML SINGLE DOSE VIAL ONE (14:39)
[2017-07-26] MEDS ORDERED: LIDOCAINE HCL/PF 2% SDV 5ML VIAL ONE (14:40)
[2017-07-26] MEDS ORDERED: DEXAMETHASONE SOD PHOSPHATE 4 MG/1 ML VIAL ONE (14:40)
[2017-07-26] MEDS ORDERED: ceFAZolin SODIUM 1 GM VIAL ONE (14:57)
[2017-07-26] MEDS ORDERED: cefOXitin SODIUM 2 GM VIAL (RESTRICTED TO ID) IVPB ONE (15:20)
[2017-07-26] MEDS ORDERED: BUPIVACAINE HCL/PF 0.25% (2.5MG/ML) 10 ML VIAL IJ ONE (15:41)
[2017-07-26] MEDS ORDERED: PROMETHAZINE HCL 25 MG/1 ML VIAL IVPUSH PRN (16:25)
[2017-07-26] MEDS ORDERED: ONDANSETRON 4 MG/2 ML VIAL IVPUSH PRN (16:25)
[2017-07-26] MEDS ORDERED: ACETAMINOPHEN 1000 MG/100 ML VIAL (NON FORMULARY) IVPB PRN (16:26)
[2017-07-26] MEDS ORDERED: LACTATED RINGERS SOLUTION 1,000 ML IV SCH (16:30)
[2017-07-26] MEDS ORDERED: ACETAMINOPHEN 325 MG TABLET (FP) PO PRN (17:07)
[2017-07-26] MEDS ORDERED: oxyCODONE HCL 5 MG TABLET PO PRN ×3 (17:07→17:26)
[2017-07-26] MEDS ORDERED: DESFLURANE GAS 240 ML BOTTLE IH ONE (17:10)
[2017-07-26] MEDS ORDERED: DEXTROSE 5%-0.45% SALINE 1,000 ML IV SCH (17:15)
[2017-07-26] MEDS ORDERED: NEOSTIGMINE METHYLSULFATE 0.5 MG/ML - 10 ML MDV ONE (17:17)
[2017-07-26] MEDS ORDERED: GLYCOPYRROLATE 0.2 MG/1 ML VIAL ONE (17:18)
--- NOTE | 2017-07-26 17:23 | OP ---
<Brian Quinones - Last Filed: 07/26/17 17:22> Operative Note - Note: Operative Date: 07/26/17 Pre-Operative Diagnosis: s/p ileostomy Operation: Ilieostomy reversal Surgeon: Dragan Saldaña Greenskeeper Laborer: Brian Quinones Anesthesia: General Estimated Blood Loss (mls): 100 Fluid Volume Replaced (mls): 1,700 Operative Report Dictated: Yes <Dragan Saldaña - Last Filed: 07/26/17 17:40> Operative Note - Note: Pre-Operative Diagnosis: s/p sigmoid colectomy and diverting loop ileostomy Operation: Ileostomy reversal, small bowel resection, and lysis of adhesions Post-Operative Diagnosis: Other (small bowel adhesions) Anesthesia: General
--- NOTE | 2017-07-26 17:24 | SURG ---
Surgery Shop Blacksmith Note Shop Blacksmith: Brian Quinones PA-C Date of Service: 07/26/17 Diagnosis: s/p ileostomy Procedure: Ileostomy reversal I was present for the entirety of the operative procedure. For further detail, please refer to operative report.
[2017-07-26] MEDS ORDERED: KETOROLAC TROMETHAMINE 15 MG/ML VIAL IVPUSH PRN (17:28)
[2017-07-26] MEDS ORDERED: ACETAMINOPHEN INJECTION 100 ML IVPB ONE (17:40)
[2017-07-26] MEDS: ACETAMINOPHEN 1000 MG/100 ML VIAL (NON FORMULARY) IVPB SCH ×2 (17:40→23:03)
[2017-07-26] MEDS ORDERED: HYDROmorphone *PCA* 10MG/50ML DISP.SYRIN PCA ONE (17:47)
[2017-07-26] MEDS ORDERED: HYDROmorphone *PCA* 10MG/50ML DISP.SYRIN PCA SCH (18:00)
--- NOTE | 2017-07-26 18:43 | OP ---
DATE OF OPERATION: 07/26/2017 PROCEDURE: Ileostomy reversal with small bowel resection and lysis of adhesions. PREOPERATIVE DIAGNOSIS: Status post sigmoid resection with diverting loop ileostomy. POSTOPERATIVE DIAGNOSIS: Status post diverting loop ileostomy and intraabdominal adhesions. SURGEON: Dragan Saldaña M.D. TOOL REPAIRER BENCH: Cesar Barron ANESTHESIA: General endotracheal anesthesia. FINDINGS AND PROCEDURE: This is a 66-year-old female who underwent sigmoid colon resection with diverting loop ileostomy for chronic diverticular disease 8 weeks prior. So patient now presents for ileostomy reversal after barium enema showing intact and patent colorectal anastomosis. Consent was obtained after discussing the risks, benefits, and alternatives to the procedure. Patient was brought to the operating room and placed in a supine position. General endotracheal anesthesia was then administered. The ileostomy stomas were closed with a continuous silk 3-0 sutures. The abdomen was prepped and draped in the usual sterile fashion. Using 0.25% Marcaine, local anesthesia was administered around the incision site. A 5-cm elliptical incision incorporating the loop ileostomy was made using scalpel blade number 15. Dissection was carried down to the subcutaneous tissue. Further dissection with Bovie cautery was done down to the subcutaneous tissue until the fascia was encountered. Careful dissection of the margin of the fascia to the bowel wall was done using the Metzenbaum scissors.The dense adhesions of the bowel wall to the fascial margins as well as the posterior abdominal wall was taken down sharply using Metzenbaum scissors. After adequate mobilization was done, the ileostomy stump was amputated to about 5 cm on each side by passing a CLAY linear cutting 60 blue load device. After that, a [id number] anastomosis using the linear cutting CLAY 60 blue load stapler and the TA60 stapler was done. After the anastomosis was deemed satisfactory, the loop of bowel was then returned back to the peritoneal cavity. The wound was closed with continuous Vicryl 0 suture for the peritoneum and continuous Prolene 0 suture for the fascia. The wound skin was left open and packed with 2-inch iodoform strips. The wound was then covered with sterile dressing. The patient was successfully extubated and transferred to the postanesthesia care unit in satisfactory condition. Estimated blood loss was about 100 mL, wound class clean/contaminated. Patient received 2 g of cefoxitin prior to the start of the procedure. Kvng [id number] MTDD
[2017-07-26] MEDS: DEXTROSE 5%-0.45% SALINE 1,000 ML IV SCH ×2 (19:45→22:06)
[2017-07-26] MEDS ORDERED: PREGABALIN 100 MG CAPSULE PO SCH (22:00)
[2017-07-26] MEDS: HEPARIN NA (PORCINE) 5,000 UNITS/ML 1ML VIAL SQ SCH (22:56)
[2017-07-26] MEDS: PREGABALIN 50 MG CAPSULE PO SCH (22:56)
[2017-07-26] MEDS: CEFOXITIN SODIUM 1 GM in DEXTROSE 5%-WATER - 100 ML IVPB SCH (23:38)
[2017-07-27] MEDS: ACETAMINOPHEN 1000 MG/100 ML VIAL (NON FORMULARY) IVPB SCH ×2 (05:26→12:15)
[2017-07-27] MEDS: HEPARIN NA (PORCINE) 5,000 UNITS/ML 1ML VIAL SQ SCH ×3 (05:26→21:03)
[2017-07-27] MEDS: CEFOXITIN SODIUM 1 GM in DEXTROSE 5%-WATER - 100 ML IVPB SCH (06:09)
--- NOTE | 2017-07-27 07:05 | PN ---
Progress Note, Physician Chief Complaint: Ileostomy reversal History of Present Illness: S/P ileostomy reversal yesterday Surgeron: Dr Dragan Saldaña NAD in bed, self ambulatory On [employer] pump Tolerating clear liquids - Current Medication List Current Medications: Active Medications Acetaminophen (Tylenol -) 650 mg PO Q4H PRN PRN Reason: FEVER Acetaminophen (Ofirmev Injection -) 1,000 mg IVPB Q6H [facility] Stop: 07/27/17 12:01 Last Admin: 07/27/17 05:26 Dose: 1,000 mg Ferrous Sulfate (Feosol -) 325 mg PO DAILY [facility] Heparin Sodium (Porcine) (Heparin -) 5,000 unit SQ TID [facility] Last Admin: 07/27/17 05:26 Dose: 5,000 unit Hydromorphone HCl (Dilaudid Ballistician -) 10 mg [employer] [facility]; Protocol Stop: 08/02/17 17:59 Last Admin: 07/26/17 17:50 Dose: 10 mg Lactated Ringer's (Lactated Ringers Solution) 1,000 mls @ 125 mls/hr IV ASDIR [facility] Last Admin: 07/26/17 22:06 Dose: Not Given Cefoxitin Sodium 1 gm/ (Dextrose) 100 mls @ 200 mls/hr IVPB Q8H [facility]; Protocol Stop: 07/27/17 07:29 Last Admin: 07/27/17 06:09 Dose: 200 mls/hr Dextrose/Sodium Chloride (D5-1/2ns -) 1,000 mls @ 75 mls/hr IV ASDIR [facility] Last Admin: 07/26/17 22:06 Dose: Not Given Ondansetron HCl (Zofran Injection) 4 mg IVPUSH Q6H PRN PRN Reason: NAUSEA AND/OR VOMITING Pregabalin (Lyrica -) 100 mg PO BID [facility] Last Admin: 07/26/17 22:56 Dose: 100 mg - Objective Vital Signs: Vital Signs Temperature 99.5 F 07/27/17 06:15 Pulse Rate 70 07/27/17 06:15 Respiratory Rate 20 07/27/17 06:15 Blood Pressure 122/60 07/27/17 06:15 O2 Sat by Pulse Oximetry (%) 98 07/26/17 21:00 Constitutional: Yes: Well Nourished, No Distress, Calm Cardiovascular: Yes: Regular Rate and Rhythm Respiratory: Yes: Regular Gastrointestinal: Yes: Normal Bowel Sounds, Soft Musculoskeletal: Yes: WNL Extremities: Yes: WNL Wound/Incision: Yes: Dressing Dry and Intact Neurological: Yes: Alert, Oriented Psychiatric: Yes: Alert, Oriented Problem List - Problems (1) Surgical abdomen Assessment/Plan: s/p ileostomy reversal -on [employer] Hydromorphone -Acetaminophen 650 Q6H PRN -Clear liquid diet -IVF -Post op abx Code(s): R10.0 - ACUTE ABDOMEN (2) Anemia Assessment/Plan: Post op labs this AM Has HAYDEN Will give Venofer if needed Code(s): D64.9 - ANEMIA, UNSPECIFIED Qualifiers: Anemia type: unspecified type Qualified Code(s): D64.9 - Anemia, unspecified (3) Fibromyalgia Assessment/Plan: on Lyrica 100 mg po BID Code(s): M79.7 - FIBROMYALGIA Assessment/Plan see problem list DVT prophylaxis
[2017-07-27 07:37] LABS: HEMATOCRIT 32.4 % (32.4-45.2); HEMOGLOBIN 10.9 GM/dL (10.7-15.3); MCH 30.9 pg (25.7-33.7); MCHC 33.6 g/dl (32.0-36.0); MEAN CELL VOLUME 91.9 fl (80-96); MEAN PLT VOLUME 7.4 fl (7.5-11.1); PLATELET COUNT 387 K/MM3 (134-434); RBC 3.52 M/mm3 (3.60-5.2); RDW 13.8 % (11.6-15.6); WHITE BLOOD COUNT 12.4 K/mm3 (4.0-10.0)
[2017-07-27 08:19] LABS: CHLORIDE 104 mmol/L (98-107); POTASSIUM 3.9 mmol/L (3.5-5.1); SODIUM 136 mmol/L (136-145)
[2017-07-27 08:31] LABS: ANION GAP 9 (8-16); BLOOD UREA NITROGEN 9 mg/dL (7-18); CALCIUM 8.1 mg/dL (8.5-10.1); CO2 23 mmol/L (21-32); CREATININE 0.7 mg/dL (0.55-1.02); GLUCOSE,RANDOM 130 mg/dL (74-106)
[2017-07-27] MEDS: AMINO ACIDS/PROTEIN HYDROLYS 30 ML LIQUID.PKT PO SCH ×2 (08:49→18:00)
[2017-07-27] MEDS: ONDANSETRON 4 MG/2 ML VIAL IVPUSH PRN (08:49)
[2017-07-27] MEDS ORDERED: IRON SUCROSE INJECTION 300 MG in SODIUM CHLORIDE 235 ML IVPB ONE (09:30)
[2017-07-27] MEDS: MULTIVITAMINS (DAILY MVI) TABLET (FP) PO SCH ×2 (10:00→17:59)
[2017-07-27] MEDS ORDERED: FERROUS SO4 325 MG TABLET (FP) PO SCH (10:00)
[2017-07-27] MEDS: ASCORBIC ACID 500 MG TABLET (FP) PO SCH ×2 (10:00→21:03)
[2017-07-27] MEDS: ZINC SULFATE 220 MG CAPSULE (FP) PO SCH ×2 (10:00→21:02)
[2017-07-27] MEDS: PREGABALIN 50 MG CAPSULE PO SCH ×2 (10:00→21:02)
--- NOTE | 2017-07-27 15:43 | PN ---
Progress Note (short form) - Note Progress Note: S/P ILEOSTOMY REVERSAL POD # 1 VOMITED ONCE TODAY CURRENTLY NOT NAUSEATED AFEBRILE, VSS Abd: soft, wound clean with no active bleeding wbc = 12k A/P: POST-OP ILEUS KEEP PATIENT ON CLEAR LIQUIDS OOB, IS DVT and GI prophylaxis Problem List - Problems (1) Colostomy present Code(s): Z93.3 - COLOSTOMY STATUS (2) Diverticulitis Code(s): K57.92 - DVTRCLI OF INTEST, PART UNSP, W/O PERF OR ABSCESS W/O BLEED Qualifiers: Diverticulitis site: large intestine Diverticulitis complication: unspecified complication status
[2017-07-27] MEDS: PANTOPRAZOLE 40 MG TABLET (FP) PO SCH (17:59)
[2017-07-27] MEDS: ACETAMINOPHEN 500 MG TABLET (FP) PO PRN (17:59)
[2017-07-27] MEDS ORDERED: ACETAMINOPHEN 325 MG TABLET (FP) PO PRN (23:00)
[2017-07-28] MEDS: DEXTROSE 5%-0.45% SALINE 1,000 ML IV SCH ×2 (02:00→14:32)
[2017-07-28] MEDS: HEPARIN NA (PORCINE) 5,000 UNITS/ML 1ML VIAL SQ SCH ×3 (06:21→21:26)
[2017-07-28 06:43] LABS: BASO % 0.6 % (0-2.0); EOS % 0.1 % (0-4.5); HEMATOCRIT 29.6 % (32.4-45.2); HEMOGLOBIN 10.2 GM/dL (10.7-15.3); LYMPH % 18.4 % (8-40); MCH 31.3 pg (25.7-33.7); MCHC 34.4 g/dl (32.0-36.0); MEAN CELL VOLUME 90.9 fl (80-96); MEAN PLT VOLUME 7.3 fl (7.5-11.1); MONO % 10.2 % (3.8-10.2); NEUT % 70.7 % (42.8-82.8); PLATELET COUNT 344 K/MM3 (134-434); RBC 3.25 M/mm3 (3.60-5.2); WHITE BLOOD COUNT 10.1 K/mm3 (4.0-10.0)
--- NOTE | 2017-07-28 06:58 | PN ---
Progress Note (short form) - Note Progress Note: Post Anesthesia Note: S/P reversal of colostomy post op day one. Patient is doing well, tolerating PO , HOG RINGER overnight for post op pain. HOG RINGER discontinued by surgical team today, pain controlled, no nausea or vomiting overnight, patient complained of some nausea after dinner, resolved now. No adverse effects from anesthesia. Dept of anesthesia will sign off care at this time
[2017-07-28] MEDS ORDERED: IRON SUCROSE INJECTION 300 MG in SODIUM CHLORIDE 235 ML IVPB ONE (07:13)
--- NOTE | 2017-07-28 07:15 | PN ---
Progress Note, Physician Chief Complaint: Ileostomy reversal History of Present Illness: S/P ileostomy reversal yesterday Surgeron: Dr Dragan Saldaña NAD in bed, self ambulatory [employer]ARAGE LABORER pump discontinued Tolerating clear liquids, advance as per surgery team recommendation - Current Medication List Current Medications: Active Medications Acetaminophen (Tylenol -) 1,000 mg PO Q6H PRN PRN Reason: PAIN LEVEL 1 - 3 Last Admin: 07/27/17 17:59 Dose: 1,000 mg Amino Acids (Prosource No Carb Liquid Pkt) 30 ml PO BID@0800,1730 [facility] Last Admin: 07/27/17 18:00 Dose: 30 ml Ascorbic Acid (Vitamin C -) 500 mg PO BID [facility] Last Admin: 07/27/17 21:03 Dose: 500 mg Heparin Sodium (Porcine) (Heparin -) 5,000 unit SQ TID [facility] Last Admin: 07/28/17 06:21 Dose: 5,000 unit Dextrose/Sodium Chloride (D5-1/2ns -) 1,000 mls @ 75 mls/hr IV ASDIR [facility] Last Admin: 07/28/17 02:00 Dose: 75 mls/hr Multivitamins/Minerals/Vitamin C (Tab-A-Vit -) 1 tab PO DAILY [facility] Last Admin: 07/27/17 17:59 Dose: 1 tab Ondansetron HCl (Zofran Injection) 4 mg IVPUSH Q6H PRN PRN Reason: NAUSEA AND/OR VOMITING Last Admin: 07/27/17 08:49 Dose: 4 mg Pantoprazole Sodium (Protonix -) 40 mg PO DAILY [facility] Last Admin: 07/27/17 17:59 Dose: 40 mg Pregabalin (Lyrica -) 100 mg PO BID [facility] Last Admin: 07/27/17 21:02 Dose: 100 mg Zinc Sulfate (Orazinc -) 220 mg PO BID [facility] Last Admin: 07/27/17 21:02 Dose: 220 mg - Objective Vital Signs: Vital Signs Temperature 99.3 F 07/28/17 02:05 Pulse Rate 80 07/28/17 02:05 Respiratory Rate 20 07/28/17 02:05 Blood Pressure 120/75 07/28/17 02:05 O2 Sat by Pulse Oximetry (%) 95 07/27/17 21:00 Constitutional: Yes: Well Nourished, No Distress, Calm Cardiovascular: Yes: Regular Rate and Rhythm Respiratory: Yes: Regular Gastrointestinal: Yes: Normal Bowel Sounds, Soft Musculoskeletal: Yes: WNL Extremities: Yes: WNL Edema: No Peripheral Pulses WNL: Yes Neurological: Yes: Alert, Oriented Psychiatric: Yes: Alert, Oriented Labs: CBC, BMP 07/28/17 06:00 Problem List - Problems (1) Surgical abdomen Assessment/Plan: s/p ileostomy reversal -GARAGE LABORER Hydromorphone discontinued -Acetaminophen 650 Q6H PRN -Clear liquid diet -IVF -Post op abx discontinued Code(s): R10.0 - ACUTE ABDOMEN (2) Anemia Assessment/Plan: -H/H stable -history of HAYDEN -Venofer Code(s): D64.9 - ANEMIA, UNSPECIFIED Qualifiers: Anemia type: unspecified type Qualified Code(s): D64.9 - Anemia, unspecified (3) Fibromyalgia Assessment/Plan: on Lyrica 100 mg po BID Code(s): M79.7 - FIBROMYALGIA Assessment/Plan see problem list DVT prophylaxis Pt self ambulatory Plan D/C upon surgery discretion
[2017-07-28 07:24] LABS: ANION GAP 6 (8-16); CALCIUM 7.9 mg/dL (8.5-10.1); CHLORIDE 109 mmol/L (98-107); CO2 25 mmol/L (21-32); POTASSIUM 3.2 mmol/L (3.5-5.1); SODIUM 140 mmol/L (136-145)
[2017-07-28 07:27] LABS: BLOOD UREA NITROGEN 6 mg/dL (7-18); CREATININE 0.3 mg/dL (0.55-1.02); GLUCOSE,RANDOM 118 mg/dL (74-106)
[2017-07-28] MEDS: AMINO ACIDS/PROTEIN HYDROLYS 30 ML LIQUID.PKT PO SCH ×2 (08:59→17:38)
[2017-07-28] MEDS: PREGABALIN 50 MG CAPSULE PO SCH ×2 (08:59→21:25)
[2017-07-28] MEDS: PANTOPRAZOLE 40 MG TABLET (FP) PO SCH (09:00)
[2017-07-28] MEDS: MULTIVITAMINS (DAILY MVI) TABLET (FP) PO SCH (09:00)
[2017-07-28] MEDS: ACETAMINOPHEN 500 MG TABLET (FP) PO PRN (09:00)
[2017-07-28] MEDS: ZINC SULFATE 220 MG CAPSULE (FP) PO SCH ×2 (09:00→21:26)
[2017-07-28] MEDS: ASCORBIC ACID 500 MG TABLET (FP) PO SCH ×2 (09:03→21:26)
[2017-07-28] MEDS: POTASSIUM CHLORIDE ORAL LIQUID 20 MEQ/15 ML PO SCH (14:32)
--- NOTE | 2017-07-28 15:12 | PN ---
Progress Note (short form) - Note Progress Note: S/P ILEOSTOMY REVERSAL POD # 2 HAD SOFT BM AND PASSING FLATUS AFEBRILE, VSS Abd: soft, wound clean with no active bleeding wbc = 1OK A/P: POST-OP ILEUS RESOLVED ADVANCE DIET TO FULL LIQUIDS OOB, IS DVT and GI prophylaxis D/C PLANNING IN AM WITH VNS Problem List - Problems (1) Colostomy present Code(s): Z93.3 - COLOSTOMY STATUS (2) Diverticulitis Code(s): K57.92 - DVTRCLI OF INTEST, PART UNSP, W/O PERF OR ABSCESS W/O BLEED Qualifiers: Diverticulitis site: large intestine Diverticulitis complication: unspecified complication status
[2017-07-28] MEDS ORDERED: oxyCODONE HCL 5 MG TABLET PO PRN (15:21)
[2017-07-28] MEDS ORDERED: ACETAMINOPHEN 325 MG TABLET (FP) PO PRN (15:22)
[2017-07-29] MEDS: HEPARIN NA (PORCINE) 5,000 UNITS/ML 1ML VIAL SQ SCH ×3 (06:50→21:06)
[2017-07-29] MEDS: DEXTROSE 5%-0.45% SALINE 1,000 ML IV SCH (08:37)
[2017-07-29] MEDS: AMINO ACIDS/PROTEIN HYDROLYS 30 ML LIQUID.PKT PO SCH ×2 (08:38→16:59)
[2017-07-29] MEDS: PREGABALIN 50 MG CAPSULE PO SCH ×2 (09:14→21:06)
[2017-07-29] MEDS: ASCORBIC ACID 500 MG TABLET (FP) PO SCH ×2 (09:15→21:06)
[2017-07-29] MEDS: MULTIVITAMINS (DAILY MVI) TABLET (FP) PO SCH (09:15)
[2017-07-29] MEDS: POTASSIUM CHLORIDE ORAL LIQUID 20 MEQ/15 ML PO SCH (09:15)
[2017-07-29] MEDS: ZINC SULFATE 220 MG CAPSULE (FP) PO SCH ×2 (09:15→21:06)
[2017-07-29] MEDS: PANTOPRAZOLE 40 MG TABLET (FP) PO SCH (09:15)
[2017-07-29] MEDS: ACETAMINOPHEN 500 MG TABLET (FP) PO PRN ×2 (09:19→15:22)
--- NOTE | 2017-07-29 09:20 | PN ---
Progress Note, Physician - Current Medication List Current Medications: Active Medications Acetaminophen (Tylenol -) 1,000 mg PO Q6H PRN PRN Reason: PAIN LEVEL 1 - 3 Last Admin: 07/28/17 09:00 Dose: 1,000 mg Acetaminophen (Tylenol -) 325 mg PO Q4H PRN PRN Reason: PAIN SCALE 6-10 Amino Acids (Prosource No Carb Liquid Pkt) 30 ml PO BID@0800,1730 [facility] Last Admin: 07/29/17 08:38 Dose: 30 ml Ascorbic Acid (Vitamin C -) 500 mg PO BID [facility] Last Admin: 07/28/17 21:26 Dose: 500 mg Heparin Sodium (Porcine) (Heparin -) 5,000 unit SQ TID [facility] Last Admin: 07/29/17 06:50 Dose: 5,000 unit Multivitamins/Minerals/Vitamin C (Tab-A-Vit -) 1 tab PO DAILY [facility] Last Admin: 07/28/17 09:00 Dose: 1 tab Ondansetron HCl (Zofran Injection) 4 mg IVPUSH Q6H PRN PRN Reason: NAUSEA AND/OR VOMITING Last Admin: 07/27/17 08:49 Dose: 4 mg Oxycodone HCl (Roxicodone -) 5 mg PO Q4H PRN PRN Reason: PAIN SCALE 6-10 Last Admin: 07/28/17 20:40 Dose: 5 mg Pantoprazole Sodium (Protonix -) 40 mg PO DAILY [facility] Last Admin: 07/28/17 09:00 Dose: 40 mg Potassium Chloride (Potassium Chloride Oral Liquid) 40 meq PO DAILY [facility] Last Admin: 07/28/17 14:32 Dose: 40 meq Pregabalin (Lyrica -) 100 mg PO BID [facility] Last Admin: 07/28/17 21:25 Dose: 100 mg Zinc Sulfate (Orazinc -) 220 mg PO BID [facility] Last Admin: 07/28/17 21:26 Dose: 220 mg - Objective Vital Signs: Vital Signs Temperature 99.0 F 07/29/17 09:05 Pulse Rate 82 07/29/17 09:05 Respiratory Rate 20 07/29/17 09:05 Blood Pressure 121/66 07/29/17 09:05 O2 Sat by Pulse Oximetry (%) 96 07/28/17 20:39 Respiratory: Yes: Regular, CTA Bilaterally Gastrointestinal: Yes: Normal Bowel Sounds, Soft, Tenderness Wound/Incision: Yes: Dressing Dry and Intact Labs: CBC, BMP 07/28/17 06:00 07/28/17 06:00 Assessment/Plan - Problems (1) Surgical abdomen Assessment/Plan: -s/p ileostomy reversal -CERTIFIER Hydromorphone discontinued -Acetaminophen 650 Q6H PRN -Clear liquid diet -IVF -DVT prophylaxis -Pt self ambulatory -Plan D/C upon surgery discretion -Post op abx discontinued Code(s): R10.0 - ACUTE ABDOMEN (2) Anemia Assessment/Plan: -H/H stable -history of HAYDEN -Venofer Code(s): D64.9 - ANEMIA, UNSPECIFIED Qualifiers: Anemia type: unspecified type Qualified Code(s): D64.9 - Anemia, unspecified (3) Fibromyalgia Assessment/Plan: on Lyrica 100 mg po BID Code(s): M79.7 - FIBROMYALGIA
[2017-07-29] MEDS: ONDANSETRON 4 MG/2 ML VIAL IVPUSH PRN (11:36)
--- NOTE | 2017-07-29 14:41 | PN ---
Progress Note (short form) - Note Progress Note: 66yo F s/p revision of colostomy seen at bedside. Pt had a BM yesterday and is passing flatus. Pt denies n/v, fever, chills. Pt complaining of some mild abd pain. Pt tolerating PO. Last Vital Signs Temp Pulse Resp BP Pulse Ox 99.2 F 78 20 116/63 95 07/29/17 13:53 07/29/17 13:53 07/29/17 13:53 07/29/17 13:53 07/29/17 09:00 CBC, BMP 07/28/17 06:00 07/28/17 06:00 PE: Gen: A&O x3 Resp: breathing comfortably Abd: soft, nondistended, RUQ wound is clean with no erythema or discharge, dressing changed to wet to dry. Problem List - Problems (1) Colostomy present Assessment/Plan: Plan: -Set up VNS for home dressing changes. -consider discharge home today or tomorrow. -DVT prophylaxis -OOB Case discussed with Dr. Saldaña who agrees with plan. Code(s): Z93.3 - COLOSTOMY STATUS
[2017-07-30] MEDS: HEPARIN NA (PORCINE) 5,000 UNITS/ML 1ML VIAL SQ SCH ×3 (05:33→21:52)
[2017-07-30 06:51] LABS: BASO % 0.7 % (0-2.0); HEMOGLOBIN 10.4 GM/dL (10.7-15.3); MCH 30.9 pg (25.7-33.7); MCHC 33.6 g/dl (32.0-36.0); MEAN CELL VOLUME 91.9 fl (80-96); MEAN PLT VOLUME 7.5 fl (7.5-11.1); MONO % 7.3 % (3.8-10.2); PLATELET COUNT 396 K/MM3 (134-434); RBC 3.38 M/mm3 (3.60-5.2); RDW 14.2 % (11.6-15.6); WHITE BLOOD COUNT 10.7 K/mm3 (4.0-10.0)
[2017-07-30 08:05] LABS: CHLORIDE 107 mmol/L (98-107); POTASSIUM 3.3 mmol/L (3.5-5.1); SODIUM 142 mmol/L (136-145)
[2017-07-30] MEDS: AMINO ACIDS/PROTEIN HYDROLYS 30 ML LIQUID.PKT PO SCH ×2 (08:25→16:44)
[2017-07-30 08:51] LABS: ALBUMIN 2.8 g/dl (3.4-5.0); ALK PHOS 126 U/L (45-117); ANION GAP 10 (8-16); BILIRUBIN,TOTAL 0.6 mg/dL (0.2-1.0); BLOOD UREA NITROGEN 7 mg/dL (7-18); CALCIUM 8.1 mg/dL (8.5-10.1); CO2 25 mmol/L (21-32); CREATININE 0.3 mg/dL (0.55-1.02); GLUCOSE,RANDOM 93 mg/dL (74-106); SGOT/AST 21 U/L (15-37); SGPT/ALT 25 U/L (12-78); TOT PROT 5.7 g/dl (6.4-8.2)
[2017-07-30] MEDS: PREGABALIN 50 MG CAPSULE PO SCH ×2 (09:18→21:52)
[2017-07-30] MEDS: MULTIVITAMINS (DAILY MVI) TABLET (FP) PO SCH (09:19)
[2017-07-30] MEDS: ZINC SULFATE 220 MG CAPSULE (FP) PO SCH ×2 (09:19→21:52)
[2017-07-30] MEDS: PANTOPRAZOLE 40 MG TABLET (FP) PO SCH (09:19)
[2017-07-30] MEDS: ASCORBIC ACID 500 MG TABLET (FP) PO SCH ×2 (09:19→21:52)
[2017-07-30] MEDS: POTASSIUM CHLORIDE ORAL LIQUID 20 MEQ/15 ML PO SCH (09:19)
[2017-07-30] MEDS: ONDANSETRON *ODT* 4 MG TABLET SL PRN (10:30)
--- NOTE | 2017-07-30 11:21 | PN ---
Progress Note, Physician Chief Complaint: Ileostomy reversal History of Present Illness: S/P ileostomy reversal yesterday Surgeron: Dr Dragan JACINTO in bed, self ambulatory c/o of nausea - Current Medication List Current Medications: Active Medications Acetaminophen (Tylenol -) 1,000 mg PO Q6H PRN PRN Reason: PAIN LEVEL 1 - 3 Last Admin: 07/29/17 15:22 Dose: 1,000 mg Acetaminophen (Tylenol -) 325 mg PO Q4H PRN PRN Reason: PAIN SCALE 6-10 Last Admin: 07/30/17 06:50 Dose: 325 mg Amino Acids (Prosource No Carb Liquid Pkt) 30 ml PO BID@0800,1730 [facility] Last Admin: 07/30/17 08:25 Dose: 30 ml Ascorbic Acid (Vitamin C -) 500 mg PO BID [facility] Last Admin: 07/30/17 09:19 Dose: 500 mg Heparin Sodium (Porcine) (Heparin -) 5,000 unit SQ TID [facility] Last Admin: 07/30/17 05:33 Dose: 5,000 unit Multivitamins/Minerals/Vitamin C (Tab-A-Vit -) 1 tab PO DAILY [facility] Last Admin: 07/30/17 09:19 Dose: 1 tab Ondansetron HCl (Zofran Odt -) 4 mg SL Q6H PRN PRN Reason: NAUSEA AND/OR VOMITING Last Admin: 07/30/17 10:30 Dose: 4 mg Oxycodone HCl (Roxicodone -) 5 mg PO Q4H PRN PRN Reason: PAIN SCALE 6-10 Last Admin: 07/28/17 20:40 Dose: 5 mg Pantoprazole Sodium (Protonix -) 40 mg PO DAILY [facility] Last Admin: 07/30/17 09:19 Dose: 40 mg Potassium Chloride (Potassium Chloride Oral Liquid) 40 meq PO DAILY [facility] Last Admin: 07/30/17 09:19 Dose: 40 meq Pregabalin (Lyrica -) 100 mg PO BID [facility] Last Admin: 07/30/17 09:18 Dose: 100 mg Zinc Sulfate (Orazinc -) 220 mg PO BID [facility] Last Admin: 07/30/17 09:19 Dose: 220 mg - Objective Vital Signs: Vital Signs Temperature 98.7 F 07/30/17 09:21 Pulse Rate 76 07/30/17 09:21 Respiratory Rate 20 07/30/17 09:21 Blood Pressure 124/64 07/30/17 09:21 O2 Sat by Pulse Oximetry (%) 96 07/30/17 09:00 Constitutional: Yes: Well Nourished, No Distress, Calm Cardiovascular: Yes: Regular Rate and Rhythm Respiratory: Yes: Regular Gastrointestinal: Yes: Normal Bowel Sounds Labs: CBC, BMP 07/30/17 06:00 07/30/17 06:00 Problem List - Problems (1) Surgical abdomen Assessment/Plan: s/p ileostomy reversal -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
--- NOTE | 2017-07-30 15:19 | PN ---
Progress Note (short form) - Note Progress Note: 66yo F s/p Ileostomy reversal POD #4, pt seen sitting at bedside. Pt admits small BM yesterday as well as passing flatus. Pt tolerating PO and complains of mild abd pain around incision. Last Vital Signs Temp Pulse Resp BP Pulse Ox 98.4 F 78 18 108/62 96 07/30/17 15:06 07/30/17 15:06 07/30/17 15:06 07/30/17 15:06 07/30/17 09:00 CBC, BMP 07/30/17 06:00 07/30/17 06:00 PE: Gen: A&O x 3 Resp: breathing comfortably Abd: soft, nondistended, mild tenderness RUQ, Incision is clean with good granulation tissue, no erythema or discharge. Packing changed at bedside. Ext: no edema Problem List - Problems (1) Colostomy present Assessment/Plan: Plan: -Pt appears to be doing well, passing flatus and tolerating PO can be discharged with VNS services for dressing changes -OOB/ambulate -DVT PPX Code(s): Z93.3 - COLOSTOMY STATUS
--- NOTE | 2017-07-30 17:39 | DS ---
Physical Examination Vital Signs: Vital Signs Temperature 98.4 F 07/30/17 15:06 Pulse Rate 78 07/30/17 15:06 Respiratory Rate 18 07/30/17 15:06 Blood Pressure 108/62 07/30/17 15:06 O2 Sat by Pulse Oximetry (%) 96 07/30/17 09:00 Constitutional: Yes: Well Nourished, No Distress, Calm Cardiovascular: Yes: Regular Rate and Rhythm Respiratory: Yes: Regular Gastrointestinal: Yes: Normal Bowel Sounds, Soft Musculoskeletal: Yes: WNL Extremities: Yes: WNL Edema: No Peripheral Pulses WNL: Yes Wound/Incision: Yes: Dressing Dry and Intact Neurological: Yes: Alert, Oriented Psychiatric: Yes: Alert, Oriented Labs: CBC, BMP 07/30/17 06:00 07/30/17 06:00 Discharge Summary Reason For Visit: SIGMOID DIVERTICULITIS Current Active Problems Surgical abdomen (Acute) Hospital Course: 66 y.o. female 8 weeks s/p sigmoid resection and diverting loop ileostomy for chronic diverticulitis. BE with gastrograffin showed intact anastomosis Condition: Stable - Instructions Diet, Activity, Other Instructions: Dr Saldaña Discharge Instructions Dear GA WANG, Post Operative Instructions Physical activity Resume your normal everyday activity as tolerated no heavy lifting or exercise until seen by your surgeon. You may walk unlimited amounts of and climb stairs. You may resume driving the car when you feel safe and comfortable behind the wheel. Wound care You may shower before VNS nurse comes who will change dressing and packing. Diet There are no dietary restrictions. Eat healthy, high-fiber foods. Drink 6 to 8 glasses of liquid each day. This will assist in keeping your bowels are regular. Pain management You may take Tylenol or acetaminophen or Ibuprofen (for example, Motrin, Advil etc.) Any pain prescription medication ordered should be taken as prescribed for moderate to severe pain. Call Dr. Saldaña for any of the following: Severe pain not relieved by medication Fever of 101 or higher Excessive bleeding or drainage on dressing Inability to urinate Call the office at [phone] for an appointment in seven days. Referrals: Dragan Saldaña MD [Staff Physician] - Rivera Willingham MD [Staff Physician] - Disposition: VNS/HOME HEALTH CARE - Home Medications Comprehensive Discharge Medication List: Ambulatory Orders Acetaminophen [Tylenol .Regular Strength -] 650 mg PO Q6H PRN #120 tablet Pregabalin [Lyrica -] 100 mg PO BID #60 capsule MDD 2 06/05/17 Ferrous Sulfate [Feosol] 325 mg PO DAILY ud 06/17/17 Acetaminophen [Tylenol .Regular Strength -] 325 mg PO Q4H PRN tablet 07/30/17 Ascorbic Acid [Vitamin C -] 500 mg PO BID #60 tablet 07/30/17 Multivitamins [Multivit ([facility] Formulary)] 1 tab PO DAILY #30 tab 07/30/17 Ondansetron [Zofran Odt -] 4 mg SL TID #21 od.tablet 07/30/17 Pantoprazole Sodium [Protonix -] 40 mg PO DAILY #30 tablet.ec 07/30/17 Potassium Chloride 40 meq PO DAILY #60 tablet.er 07/30/17 Zinc Sulfate [Orazinc -] 220 mg PO BID #60 capsule 07/30/17
[2017-07-30] MEDS ORDERED: INSULIN (NOVOLOG) ASPART 100 UNITS/ML 10ML VIAL ONE (22:18)
[2017-07-31] MEDS: HEPARIN NA (PORCINE) 5,000 UNITS/ML 1ML VIAL SQ SCH ×2 (06:10→14:20)
[2017-07-31 09:22] LABS: CHLORIDE 107 mmol/L (98-107); POTASSIUM 3.6 mmol/L (3.5-5.1); SODIUM 142 mmol/L (136-145)
[2017-07-31] MEDS: AMINO ACIDS/PROTEIN HYDROLYS 30 ML LIQUID.PKT PO SCH ×2 (09:58→17:21)
[2017-07-31] MEDS: MULTIVITAMINS (DAILY MVI) TABLET (FP) PO SCH (09:58)
[2017-07-31] MEDS: ASCORBIC ACID 500 MG TABLET (FP) PO SCH (09:58)
[2017-07-31] MEDS: PANTOPRAZOLE 40 MG TABLET (FP) PO SCH (09:58)
[2017-07-31] MEDS: ZINC SULFATE 220 MG CAPSULE (FP) PO SCH (09:58)
[2017-07-31] MEDS: PREGABALIN 50 MG CAPSULE PO SCH (09:59)
[2017-07-31] MEDS: POTASSIUM CHLORIDE ORAL LIQUID 20 MEQ/15 ML PO SCH (10:06)
--- NOTE | 2017-07-31 10:16 | PATH ---
Surgical Pathology Report Patient Name: GA WANG Med. Rec. #: [id number] /Age/Gender: 1950 (Age: 66) / F Account: [id number] Location: [facility] MED/SURG Taken: 07/26/2017 Received: 07/29/2017 Reported: 07/31/2017 Physicians: Dragan Saldaña M.D. Specimen(s) Received PORTION OF SMALL BOWEL Clinical History Sigmoid diverticulitis Reversal colostomy Final Diagnosis PORTION OF SMALL BOWEL, REVERSAL OF COLOSTOMY: SKIN AND COLONIC MUCOSA WITH CHRONIC INFLAMMATION, VASCULAR CONGESTION, AND HEMORRHAGE CONSISTENT WITH COLOSTOMY. PORTION OF SMALL BOWEL WITH MILD CHRONIC INFLAMMATION, FOCAL GIANT CELL REACTION, VASCULAR CONGESTION, AND HEMORRHAGE. SURGICAL MARGINS ARE VIABLE. Electronically Signed Ling Garner M.D. Gross Description Received in formalin labeled "portion of small bowel" are 2 segments of bowel measuring 5 x 4 cm and 4 x 2.5 cm. The smaller segment has an attached skin which measures 5 x 1 cm. The larger segment has stapled ends and adhesed 2 cm adipose tissue. Sectioning of the bowel shows unremarkable mucosa without identifiable lesions. 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 GENNY/07/29/2017 jacquelyn/07/29/2017
[2017-07-31 10:44] LABS: ANION GAP 10 (8-16); BLOOD UREA NITROGEN 8 mg/dL (7-18); CALCIUM 8.5 mg/dL (8.5-10.1); CO2 25 mmol/L (21-32); CREATININE 0.3 mg/dL (0.55-1.02); GLUCOSE,RANDOM 101 mg/dL (74-106)
[2017-07-31] MEDS: ONDANSETRON *ODT* 4 MG TABLET SL PRN (12:46)
--- NOTE | 2017-07-31 13:27 | PN ---
Progress Note, Physician Chief Complaint: Ileostomy reversal History of Present Illness: S/P ileostomy reversal yesterday Surgeron: Dr Dragan Saldaña NAD in bed, self ambulatory feels better today - Current Medication List Current Medications: Active Medications Acetaminophen (Tylenol -) 1,000 mg PO Q6H PRN PRN Reason: PAIN LEVEL 1 - 3 Last Admin: 07/29/17 15:22 Dose: 1,000 mg Acetaminophen (Tylenol -) 325 mg PO Q4H PRN PRN Reason: PAIN SCALE 6-10 Last Admin: 07/30/17 06:50 Dose: 325 mg Amino Acids (Prosource No Carb Liquid Pkt) 30 ml PO BID@0800,1730 [facility] Last Admin: 07/31/17 09:58 Dose: 30 ml Ascorbic Acid (Vitamin C -) 500 mg PO BID [facility] Last Admin: 07/31/17 09:58 Dose: 500 mg Heparin Sodium (Porcine) (Heparin -) 5,000 unit SQ TID [facility] Last Admin: 07/31/17 06:10 Dose: 5,000 unit Multivitamins/Minerals/Vitamin C (Tab-A-Vit -) 1 tab PO DAILY [facility] Last Admin: 07/31/17 09:58 Dose: 1 tab Ondansetron HCl (Zofran Odt -) 4 mg SL Q6H PRN PRN Reason: NAUSEA AND/OR VOMITING Last Admin: 07/31/17 12:46 Dose: 4 mg Oxycodone HCl (Roxicodone -) 5 mg PO Q4H PRN PRN Reason: PAIN SCALE 6-10 Last Admin: 07/28/17 20:40 Dose: 5 mg Pantoprazole Sodium (Protonix -) 40 mg PO DAILY [facility] Last Admin: 07/31/17 09:58 Dose: 40 mg Potassium Chloride (Potassium Chloride Oral Liquid) 40 meq PO DAILY [facility] Last Admin: 07/31/17 10:06 Dose: Not Given Pregabalin (Lyrica -) 100 mg PO BID [facility] Last Admin: 07/31/17 09:59 Dose: 100 mg Zinc Sulfate (Orazinc -) 220 mg PO BID [facility] Last Admin: 07/31/17 09:58 Dose: 220 mg - Objective Vital Signs: Vital Signs Temperature 98.4 F 07/31/17 10:00 Pulse Rate 76 07/31/17 10:00 Respiratory Rate 18 07/31/17 10:00 Blood Pressure 135/57 07/31/17 10:00 O2 Sat by Pulse Oximetry (%) 95 07/30/17 21:00 Constitutional: Yes: Well Nourished, No Distress, Calm Cardiovascular: Yes: Regular Rate and Rhythm Respiratory: Yes: Regular Gastrointestinal: Yes: Normal Bowel Sounds, Soft Musculoskeletal: Yes: WNL Extremities: Yes: WNL Edema: No Peripheral Pulses WNL: Yes Neurological: Yes: Alert, Oriented Psychiatric: Yes: Alert, Oriented Labs: CBC, BMP 07/30/17 06:00 07/31/17 07:09 Problem List - Problems (1) Surgical abdomen Assessment/Plan: s/p ileostomy reversal -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
[2017-07-31 16:59] VITALS: BP 131/64; PULSE 73; TEMP 99.9
[2017-07-31] MEDS: ACETAMINOPHEN 500 MG TABLET (FP) PO PRN (17:22)
== END 2017-07-31 19:21 | disposition home health service (06) | DRG 330 ==
LOC: JASU-SURG 04:52 → JSAMEDAYSX 04:53 → J8W 20:24
PROVIDERS: ADMIT Family Medicine; ATTEND Family Medicine
PROC: 0DNN0ZZ Release Sigmoid Colon, Open Approach (ICD-10-PCS; 2017-07-26)
PROC: 0DBB0ZZ Excision of Ileum, Open Approach (ICD-10-PCS; principal; 2017-07-26 14:30)
DX: Z43.2 Encounter for attention to ileostomy (principal); K57.92 Diverticulitis of intestine, part unspecified, without perforation or abscess without bleeding; K91.30 Postprocedural intestinal obstruction, unspecified as to partial versus complete; K58.9 Irritable bowel syndrome, unspecified; M79.7 Fibromyalgia; M19.90 Unspecified osteoarthritis, unspecified site; K59.09 Other constipation; K57.90 Diverticulosis of intestine, part unspecified, without perforation or abscess without bleeding; K66.0 Peritoneal adhesions (postprocedural) (postinfection); D64.9 Anemia, unspecified; Y83.8 Other surgical procedures as the cause of abnormal reaction of the patient, or of later complication, without mention of misadventure at the time of the procedure; E87.6 Hypokalemia
CPT/HCPCS: 36415; 80048; 80053; 85025; 85027; 88304-TC; 94760; 97116-GP; 97161-GP; J0131; J1644; J1756; Q0162

== ENCOUNTER 2017-08-14 19:53 | Emergency (ER) | payer OTHER ==
--- NOTE | 2017-08-14 20:15 | PDOC ---
Rapid Medical Evaluation Time Seen by Provider: 08/14/17 20:04 Medical Evaluation: Allergies Allergy/AdvReac Type Severity Reaction Status Date / Time No Known Drug Allergies Allergy Verified 07/26/17 13:37 08/14/17 20:11 I have performed a brief in-person evaluation of this patient. The patient presents with a chief complaint of: abd pain with n/v- colostomy takedown 07/26/17 Pertinent physical exam findings: tender adbomen to RLQ and LLQ. Last BM today I have ordered the following: labs, CTAP The patient will proceed to the ED for further evaluation. Discharge Disposition - Diagnosis Abdominal pain - Referrals - Patient Instructions - Post Discharge Activity
[2017-08-14 20:17] VITALS: BP 154/72; PULSE 60; TEMP 97.4; BMI 27.1
--- NOTE | 2017-08-14 20:43 | PDOC ---
History of Present Illness - General History Source: Patient, Old Records Exam Limitations: No Limitations - History of Present Illness Initial Comments: 08/14/17 21:01 The patient is a 67 year old female with a past medical history of diverticulitis who presents to the emergency department with chronic abdominal pain for 20 days. The patient states that she had her colostomy reversed on by Dr. Dragan Saldaña. Since her surgery she has had chronic diffuse abdominal pain with associated bloating and constipation. She reports that her abdominal pain is recently worsening causing her to present to the Emergency Department today. She denies any urinary complaints. Surgeon: Dr. Dragan Saldaña PMD: Dr. Willingham <Juan Sheffield - Last Filed: 08/14/17 23:25> - General History Source: Patient <Rupesh Owen - Last Filed: 08/15/17 00:45> - General Chief Complaint: Pain, Acute Stated Complaint: PAIN Time Seen by Provider: 08/14/17 20:04 Past History <Juan Sheffield - Last Filed: 08/14/17 23:25> - Past Medical History Anemia: No Asthma: No Cancer: No Cardiac Disorders: No CVA: No COPD: No CHF: No DVT: No Dementia: No Diabetes: No GI Disorders: Yes (IBS, DIVERTICULITIS) Disorders: No HTN: No Hypercholesterolemia: No Liver Disease: No Seizures: No Thyroid Disease: No - Surgical History Abdominal Surgery: Yes (sigmoid colectomy/colostomy 05/2017) Appendectomy: No Cardiac Surgery: No Cholecystectomy: No GI Surgery: Yes (reversal of colostomy 07/2017) Lung Surgery: No Neurologic Surgery: No Orthopedic Surgery: No - Immunization History Immunization Up to Date: Yes - Suicide/Smoking/Psychosocial Hx Smoking History: Never smoked Have you smoked in the past 12 months: No Information on smoking cessation initiated: No Hx Alcohol Use: No Drug/Substance Use Hx: No Substance Use Type: None Hx Substance Use Treatment: No <Rupesh Owen - Last Filed: 08/15/17 00:45> - Past Medical History Allergies/Adverse Reactions: Allergies Allergy/AdvReac Type Severity Reaction Status Date / Time No Known Drug Allergies Allergy Verified 07/26/17 13:37 Home Medications: Ambulatory Orders Acetaminophen [Tylenol .Regular Strength -] 650 mg PO Q6H PRN #120 tablet Pregabalin [Lyrica -] 100 mg PO BID #60 capsule MDD 2 06/05/17 Ferrous Sulfate [Feosol] 325 mg PO DAILY ud 06/17/17 Acetaminophen [Tylenol .Regular Strength -] 325 mg PO Q4H PRN tablet 07/30/17 Ascorbic Acid [Vitamin C -] 500 mg PO BID #60 tablet 07/30/17 Multivitamins [Multivit ([facility] Formulary)] 1 tab PO DAILY #30 tab 07/30/17 Ondansetron [Zofran Odt -] 4 mg SL TID #21 od.tablet 07/30/17 Pantoprazole Sodium [Protonix -] 40 mg PO DAILY #30 tablet.ec 07/30/17 Potassium Chloride 40 meq PO DAILY #60 tablet.er 07/30/17 Zinc Sulfate [Orazinc -] 220 mg PO BID #60 capsule 07/30/17 Review of Systems - Review of Systems Able to Perform ROS?: Yes Comments:: 08/14/17 21:01 CONSTITUTIONAL: Absent: fever, no chills, no fatigue EYES: Absent: visual changes ENT: Absent: ear pain, no sore throat CARDIOVASCULAR: Absent: chest pain, no palpitations RESPIRATORY: Absent: cough, no SOB GI: (+) Abdominal pain, bloating, constipation Absent: no nausea, no vomiting, no diarrhea GENITOURINARY: Absent: dysuria, no frequency, no hematuria MUSCULOSKELETAL: Absent: back pain, no arthralgia, no myalgia SKIN: Absent: rash <MikhailusoJuan - Last Filed: 08/14/17 23:25> *Physical Exam - Vital Signs Last Vital Signs Temp Pulse Resp BP Pulse Ox 97.4 F L 60 20 154/72 100 08/14/17 20:11 08/14/17 20:11 08/14/17 20:11 08/14/17 20:11 08/14/17 20:11 - Physical Exam Comments: 08/14/17 21:02 GENERAL: Well-appearing, well-nourished. No apparent distress. HEENT: Normocephalic, atraumatic. PERRL, EOM intact. CARDIOVASCULAR: Normal S1, S2. Regular rate and rhythm. PULMONARY: Clear to auscultation bilaterally. ABDOMEN: (+) Soft, distended, diffusely tender. EXTREMITIES: Normal ROM in all four extremities. No gross deformities. SKIN: Warm, dry. No rash NEUROLOGICAL: No focal neurological deficits. <Juan Sheffield - Last Filed: 08/14/17 23:25> - Vital Signs Last Vital Signs Temp Pulse Resp BP Pulse Ox 97.4 F L 60 20 154/72 100 08/14/17 20:11 08/14/17 20:11 08/14/17 20:11 08/14/17 20:11 08/14/17 20:11 <Rupesh Owen - Last Filed: 08/15/17 00:45> ED Treatment Course - LABORATORY CBC & Chemistry Diagram: 08/14/17 20:40 08/14/17 20:40 - RADIOLOGY Radiograph Interpretation: 08/14/17 23:25 EXAM#: TYPE/EXAM: RESULT: [id number] CT/ABDOMEN PELVIS CT WITH CONTR HISTORY PROVIDED: Abdominal pain. Sequential axial images were obtained from the domes of the diaphragms through the symphysis pubis following the administration of intravenous contrast material. The lung bases are clear. The liver, spleen, pancreas, adrenal glands and kidneys demonstrate no significant abnormalities. The gallbladder is clear. There is no evidence of intra-abdominal or retroperitoneal lymphadenopathy or fluid collections. There is no evidence of pneumoperitoneum, bowel obstruction or intra-abdominal abscess. The patient is S /P recent abdominal surgery with reanastomosis of small bowel loops within the right lower quadrant. There is postoperative scarring identified about the anastomotic site with no evidence of a localized abscess or bowel obstruction related to the surgery. Postoperative scarring of the anterior abdominal wall is also noted, again without a discrete abscess. Examination of the pelvis demonstrates no evidence of pelvic masses, fluid collections or lymphadenopathy. There is a moderate amount of retained fecal material noted throughout the colon. IMPRESSION: 1. Postoperative scarring within the right lower quadrant and about the lower anterior abdominal wall without evidence of abscess. 2. Fecal retention with no acute pathology within the abdomen or pelvis. Please see above discussion. Reported By: Keith Bowens MD 08/14/17 [id number] <Juan Sheffield - Last Filed: 08/14/17 23:25> - LABORATORY CBC & Chemistry Diagram: 08/14/17 20:40 08/14/17 20:40 <Rupesh Owen - Last Filed: 08/15/17 00:45> Medical Decision Making - Medical Decision Making 08/15/17 00:43 Dr. Owen: The scribe's documentation has been prepared under my direction and personally reviewed by me in its entirery. I confirm that the note above accurately reflects all work, treatment, procedures, and medical decision making performed by me. Pt to follow up with pc and her general surgeon if symptoms don't improve. Pt found to have moderate fecal retention. Will discharge. <Rupesh Owen - Last Filed: 08/15/17 00:45> *DC/Admit/Observation/Transfer - Attestations Scribe Attestion: 08/14/17 21:02 Documentation prepared by Juan Sheffield, acting as medical lab tech instructor for Rupesh Owen DO. <Juan Sehffield - Last Filed: 08/14/17 23:25> - Discharge Dispostion Decision to Admit order: No <Rupesh Owen - Last Filed: 08/15/17 00:45> Diagnosis at time of Disposition: Abdominal pain Qualifiers: Abdominal location: generalized Qualified Code(s): R10.84 - Generalized abdominal pain Constipation Qualifiers: Constipation type: other constipation type Qualified Code(s): K59.09 - Other constipation - Discharge Dispostion Disposition: HOME Condition at time of disposition: Stable - Patient Instructions Printed Discharge Instructions: Increased Dietary Fiber May Improve Constipation Conditions With Pelvic Manuelito, DI for Constipation Additional Instructions: Please purchase and use Miralax three times a daily, Dulcolax three times a day. Purchase and use Fleets enemas twice a daily, until you get results and eventually feel better. Increase your water intake.. eat fruits and vegetables. Follow up with your doctor if symptoms don't improve.
[2017-08-14] MEDS ORDERED: SODIUM CHLORIDE 1,000 ML IV STA (20:44)
[2017-08-14] MEDS ORDERED: morphine CARPU-JECT 2 MG/1 ML DISP.SYRIN IVPUSH ONE (20:44)
[2017-08-14] MEDS ORDERED: ONDANSETRON 4 MG/2 ML VIAL IVPUSH STA (20:44)
[2017-08-14] MEDS ORDERED: ONDANSETRON 4 MG/2 ML VIAL ONE (21:05)
[2017-08-14] MEDS ORDERED: morphine SULFATE 4 MG/ML VIAL ONE (21:05)
[2017-08-14 21:09] LABS: BASO % 0.5 % (0-2.0); EOS % 0.4 % (0-4.5); HEMATOCRIT 39.6 % (32.4-45.2); HEMOGLOBIN 12.7 GM/dL (10.7-15.3); LYMPH % 9.7 % (8-40); MCH 29.9 pg (25.7-33.7); MCHC 32.1 g/dl (32.0-36.0); MEAN PLT VOLUME 7.5 fl (7.5-11.1); MONO % 5.7 % (3.8-10.2); NEUT % 83.7 % (42.8-82.8); PLATELET COUNT 639 K/MM3 (134-434); RBC 4.26 M/mm3 (3.60-5.2); RDW 15.2 % (11.6-15.6); WHITE BLOOD COUNT 14.2 K/mm3 (4.0-10.0)
[2017-08-14 21:22] LABS: INR 1.11 (0.82-1.09); PROTHROMBIN TIME (PATIENT) 12.5 SEC (9.7-13.0)
[2017-08-14 21:33] LABS: ALBUMIN 3.8 g/dl (3.4-5.0); ALK PHOS 93 U/L (45-117); ANION GAP 11 (8-16); BILIRUBIN,TOTAL 0.3 mg/dL (0.2-1.0); BLOOD UREA NITROGEN 10 mg/dL (7-18); CALCIUM 9.3 mg/dL (8.5-10.1); CHLORIDE 108 mmol/L (98-107); CO2 23 mmol/L (21-32); CREATININE 0.5 mg/dL (0.55-1.02); GLUCOSE,RANDOM 129 mg/dL (74-106); POTASSIUM 3.4 mmol/L (3.5-5.1); SGOT/AST 13 U/L (15-37); SGPT/ALT 15 U/L (12-78); SODIUM 142 mmol/L (136-145); TOT PROT 7.1 g/dl (6.4-8.2)
[2017-08-14] MEDS ORDERED: LACTULOSE 20 GM/30 ML UDC (FOR ORAL USE ONLY) PO ONE (23:27)
[2017-08-15] MEDS ORDERED: morphine CARPU-JECT 2 MG/1 ML DISP.SYRIN IVPUSH ONE (00:45)
[2017-08-15] MEDS ORDERED: MORPHINE SULFATE 2 MG/ML VIAL ONE (01:47)
[2017-08-15] MEDS ORDERED: LACTULOSE 20 GM/30 ML UDC (FOR ORAL USE ONLY) ONE (01:48)
== END 2017-08-15 01:08 | disposition home or self-care (01) ==
LOC: JER 19:53
DX: R10.84 Generalized abdominal pain (principal); Z87.19 Personal history of other diseases of the digestive system
CPT/HCPCS: 36415; 74177-TC; 80053; 83605; 85025; 85610; 99283-25; J7030

== ENCOUNTER 2018-03-05 18:06 | Inpatient (IN) | payer OTHER ==
[2018-03-05] MEDS ORDERED: ONDANSETRON 4 MG/2 ML VIAL IVPUSH ONE (18:16)
[2018-03-05] MEDS ORDERED: SODIUM CHLORIDE 1,000 ML IV STA (18:16)
--- NOTE | 2018-03-05 18:16 | PDOC ---
Rapid Medical Evaluation Medical Evaluation: Allergies Allergy/AdvReac Type Severity Reaction Status Date / Time No Known Drug Allergies Allergy Verified 07/26/17 13:37 I have performed a brief in-person evaluation of this patient. The patient presents with a chief complaint of: Hx of sigmoid colectomy/ colostomy 05/2017 with reversal on 07/2017 presents c/o generalized abd pain from last night along with NBNB emesis; denies diarrhea; had small BM today Pertinent physical exam findings: Actively vomiting in triage I have ordered the following: Labs, IVF, Zofran, CT A/P The patient will proceed to the ED for further evaluation. 03/05/18 18:13 Discharge Disposition - Discharge Dispostion Condition at time of disposition: Stable - Referrals Referrals: Rivera Willingham MD [Primary Care Provider] - - Patient Instructions - Post Discharge Activity
[2018-03-05] MEDS ORDERED: ONDANSETRON 4 MG/2 ML VIAL ONE (18:39)
--- NOTE | 2018-03-05 19:01 | PDOC ---
History of Present Illness - General Chief Complaint: Pain, Acute Stated Complaint: ABD PAIN Time Seen by Provider: 03/05/18 18:16 - History of Present Illness Initial Comments: The patient is a 67F w/ a history of diverticulitis s/p sigmoid colectomy w/ colostomy s/p reversal who presents for evaluation of 1d of abdominal pain w/ associated many episodes of NBNB vomiting. She describes the pain as severe cramping that is more intense in the epigastric and suprapubic regions. She states that it comes and goes approximately every minute, has tried simethicone , naproxen, and tylenol with little relief today. She reports that she has a history of abdominal pain near her surgical incisions but reports that this pain is different from before. She also reports recent dysuria, frequency. She denies hematuria or history of frequent UTIs. Denies recent fevers/chills, COSTA, vision changes, chest pain, SOB, diarrhea, blood in stool 03/05/18 19:17 03/05/18 19:47 Past History - Past Medical History Allergies/Adverse Reactions: Allergies Allergy/AdvReac Type Severity Reaction Status Date / Time No Known Drug Allergies Allergy Verified 03/05/18 18:33 Home Medications: Ambulatory Orders Acetaminophen/Caffeine [Excedrin Tension Headache Cplt] 1 each PO DAILY PRN Naproxen Sodium 220 mg PO DAILY PRN 03/05/18 Simethicone [Gas Relief 80] 80 mg PO DAILY PRN 03/05/18 Anemia: No Asthma: No Cancer: No Cardiac Disorders: No CVA: No COPD: No CHF: No DVT: No Dementia: No Diabetes: No GI Disorders: Yes (IBS, DIVERTICULITIS) Disorders: No HTN: No Hypercholesterolemia: No Liver Disease: No Seizures: No Thyroid Disease: No - Surgical History Abdominal Surgery: Yes (sigmoid colectomy/colostomy 05/2017) Appendectomy: No Cardiac Surgery: No Cholecystectomy: No GI Surgery: Yes (reversal of colostomy 07/2017) Lung Surgery: No Neurologic Surgery: No Orthopedic Surgery: No - Reproductive History Is Patient Now?: No - Immunization History Immunization Up to Date: Yes - Suicide/Smoking/Psychosocial Hx Smoking History: Never smoked Have you smoked in the past 12 months: No Information on smoking cessation initiated: No Hx Alcohol Use: No Drug/Substance Use Hx: No Substance Use Type: None Hx Substance Use Treatment: No Review of Systems - Review of Systems Able to Perform ROS?: Yes Comments:: GENERAL/CONSTITUTIONAL: No fever or chills. No weakness HEAD, EYES, EARS, NOSE AND THROAT: No change in vision. No ear pain or discharge. No sore throat CARDIOVASCULAR: No chest pain or shortness of breath RESPIRATORY: Denies cough, hemoptysis GASTROINTESTINAL: per HPI GENITOURINARY: + dysuria, frequency MUSCULOSKELETAL: No joint or muscle swelling or pain. No neck or back pain SKIN: No rash NEUROLOGIC: No headache, vertigo, loss of consciousness, or change in strength/ sensation ENDOCRINE: No increased thirst. No abnormal weight change HEMATOLOGIC/LYMPHATIC: No anemia, easy bleeding, or history of blood clots ALLERGIC/IMMUNOLOGIC: No hives or skin allergy 03/05/18 19:01 Is the patient limited [place] Islander proficient: No *Physical Exam - Vital Signs Last Vital Signs Temp Pulse Resp BP Pulse Ox 98.4 F 90 16 173/67 H 100 03/05/18 18:13 03/05/18 18:13 03/05/18 18:13 03/05/18 18:13 03/05/18 18:13 - Physical Exam Comments: GENERAL: Awake, alert, and fully oriented, in no acute distress HEAD: No signs of trauma, normocephalic, atraumatic EYES: PERRLA, EOMI, sclera anicteric, conjunctiva clear ENT: Hearing grossly normal, nares patent, oropharynx clear without exudates. Moist mucosa LUNGS: No distress, speaks full sentences, clear to auscultation bilaterally HEART: Regular rate and rhythm, normal S1 and S2, no murmurs appreciated, peripheral pulses normal and equal bilaterally ABDOMEN: Soft, diffuse TTP worse in the epigastric and suprapubic regions, non- distended, no rebound or guarding, normoactive bowel sounds RECTAL: Normal tone. No hemorrhoids or fissures. No blood on glove. Formed stool in rectal vault. EXTREMITIES : Normal inspection, Normal range of motion, no edema. No clubbing or cyanosis NEUROLOGICAL: Cranial nerves II through XII grossly intact. Normal speech, no focal sensorimotor deficits SKIN: Warm, Dry 03/05/18 19:01 Moderate Sedation - Procedure Monitoring Vital Signs: Procedure Monitoring Vital Signs Temperature 98.4 F 03/05/18 18:13 Pulse Rate 90 03/05/18 18:13 Respiratory Rate 16 03/05/18 18:13 Blood Pressure 173/67 H 03/05/18 18:13 O2 Sat by Pulse Oximetry (%) 100 03/05/18 18:13 ED Treatment Course - LABORATORY CBC & Chemistry Diagram: 03/05/18 18:59 03/05/18 19:00 - Medications Given in the ED: ED Medications Discontinued Medications Generic Name Dose Route Start Last Admin Trade Name Stefania PRN Reason Stop Dose Admin Ondansetron HCl 4 mg 03/05/18 18:16 03/05/18 18:59 Zofran Injection IVPUSH 03/05/18 18:17 4 mg ONCE ONE Administration Medical Decision Making - Medical Decision Making The patient is a 67F w/ a history of sigmoid diverticulitis s/p colectomy and colostomy takedown in 2018 and hysterectomy who presents for evaluation of 1d of generalized abdominal pain with copious vomiting since last night. W/ patient's extensive surgical history, concern for obstruction ED Course CMP, CBC, UA, FOBT CT A&P w/ IV contrast 03/05/18 19:41 Leukocytosis to 16, 10-14 baseline No anemia 03/05/18 19:56 FOBT neg 03/05/18 20:46 UA w/o evidence of UTI 03/05/18 22:24 CT w/ evidence of SBO Plan for admission for SBO NPO NGT placed Surgery consulted Ofirmev, Morphine, IVF, Zosyn Patient reports pain and nausea improved Dispo: Admit *DC/Admit/Observation/Transfer Diagnosis at time of Disposition: Small bowel obstruction Abdominal pain Qualifiers: Abdominal location: unspecified location Qualified Code(s): R10.9 - Unspecified abdominal pain Nausea and vomiting Qualifiers: Vomiting type: unspecified Vomiting Intractability: non-intractable Qualified Code(s): R11.2 - Nausea with vomiting, unspecified - Discharge Dispostion Condition at time of disposition: Good Decision to Admit order: Yes - Referrals - Patient Instructions - Post Discharge Activity
--- NOTE | 2018-03-05 19:03 | PDOC ---
Attending Attestation - Resident Resident Name: Prashanth Nuñez - ED Attending Attestation I have performed the following: I have examined & evaluated the patient, The case was reviewed & discussed with the resident, I agree w/resident's findings & plan, Exceptions are as noted - Medical Decision Making 03/05/18 19:03 I, Dr. Alivia Hurtado, DO, attest that this document has been prepared under my direction and personally reviewed by me in its entirety. I further attest, that it accurately reflects all work, treatment, procedures and medical decision -making performed by me. 03/05/18 20:32 a/p: 67yo female with diffuse abd pain and dysuria -hx of diverticular disease with multiple abd surgeries -labs show wbc of 16 -dysuria- concern for uti, pyelo -also concern for poss obstruction with 1 episode of n/v -will send for CT abd/pelvis -will monitor and reassess -most likely will need obs vs admission 03/05/18 23:13 pt with SBO on ct surgery is Dr. Saldaña case discussed with Dr. Saldaña who recommends medicine admit, ngt, npo, will see the patient in consult <Aliiva Hurtado - Last Filed: 03/05/18 23:13> - HPI HPI: This patient is a 67 year old Congolese speaking female, with PMHx of diverticulitis s/p sigmoid colectomy w/ colostomy bag, s/p reversal (2018), who presents for evaluation of 1 day of abdominal pain and multiple episodes of vomiting (nbnb) with associated nausea. She describes the pain severe cramping, worse in epigastric and suprapubic region, intermittent. She reports taking medications (simethicone, naproxen, and tylenol) with little relief today. She reports that she has a history of abdominal pain near her surgical incisions but reports that this pain is different from before. She also reports pain upon urination in her abdomen as well as frequency.She denies hematuria or history of frequent UTIs. 03/05/18 20:05 - Physicial Exam PE: GENERAL: Awake, alert, and fully oriented, in no acute distress HEAD: No signs of trauma EYES: PERRLA, EOMI, sclera anicteric, conjunctiva clear LUNGS: Breath sounds equal, clear to auscultation bilaterally. No wheezes, and no crackles HEART: Regular rate and rhythm, normal S1 and S2, no murmurs, rubs or gallops ABDOMEN: Soft, diffusely tender throughout but worse at surgical site, normoactive bowel sounds. No guarding, no rebound. No masses EXTREMITIES: Normal range of motion, no edema. No clubbing or cyanosis. No cords, erythema, or tenderness NEUROLOGICAL: Cranial nerves II through XII grossly intact. Normal speech, normal gait SKIN: Warm, Dry, normal turgor, no rashes or lesions noted. <Lidya Cyr - Last Filed: 03/06/18 00:10> Attestations - Attestations 03/06/18 00:10 Documentation prepared by Lidya Cyr, acting as diagnostic medical sonographer for Alivia Hurtado DO <Lidya Cyr - Last Filed: 03/06/18 00:10>
[2018-03-05 19:22] LABS: BASO % 0.3 % (0-2.0); EOS % 0.3 % (0-4.5); HEMATOCRIT 45.3 % (32.4-45.2); HEMOGLOBIN 15.2 GM/dL (10.7-15.3); LYMPH % 17.7 % (8-40); MCH 31.5 pg (25.7-33.7); MCHC 33.7 g/dl (32.0-36.0); MEAN CELL VOLUME 93.4 fl (80-96); MONO % 5.4 % (3.8-10.2); NEUT % 76.3 % (42.8-82.8); PLATELET COUNT 451 K/MM3 (134-434); RBC 4.85 M/mm3 (3.60-5.2); RDW 13.7 % (11.6-15.6); WHITE BLOOD COUNT 16.1 K/mm3 (4.0-10.0)
[2018-03-05] MEDS ORDERED: ACETAMINOPHEN 1000 MG/100 ML VIAL (NON FORMULARY) IVPB ONE (19:42)
[2018-03-05] MEDS ORDERED: morphine CARPU-JECT 4 MG/1 ML DISP.SYRIN IVPUSH ONE (19:42)
[2018-03-05] MEDS ORDERED: morphine SULFATE 4 MG/ML VIAL ONE (19:48)
[2018-03-05] MEDS ORDERED: ACETAMINOPHEN INJECTION 100 ML IVPB ONE (19:48)
[2018-03-05 20:48] LABS: URINE APPEARANCE SLCLOUDY; URINE BILIRUBIN NEGATIVE (<2.0 mg/dL); URINE COLOR YELLOW; URINE GLUCOSE (UA) NEGATIVE (NEGATIVE); URINE KETONE TRACE (NEGATIVE); URINE LEUK ESTERASE NEGATIVE (NEGATIVE); URINE NITRITE NEGATIVE (NEGATIVE); URINE PROTEIN NEGATIVE (NEGATIVE); URINE UROBILINOGEN NEGATIVE mg/dL (0.2-1.0)
[2018-03-05 21:01] LABS: ALK PHOS 106 U/L (45-117); ANION GAP 11 MMOL/L (8-16); BILIRUBIN,TOTAL 0.3 mg/dL (0.2-1); BLOOD UREA NITROGEN 16 mg/dL (7-18); CALCIUM 9.5 mg/dL (8.5-10.1); CHLORIDE 105 mmol/L (98-107); CO2 23 mmol/L (21-32); CREATININE 0.6 mg/dL (0.55-1.3); GLUCOSE,RANDOM 141 mg/dL (74-106); LIPASE 115 U/L (73-393); POTASSIUM 4.1 mmol/L (3.5-5.1); SGOT/AST 15 U/L (15-37); SGPT/ALT 17 U/L (13-61); SODIUM 139 mmol/L (136-145); TOT PROT 7.6 g/dl (6.4-8.2)
[2018-03-05] MEDS ORDERED: PIPERACILLIN/TAZOB 4.5 GM 4.5 GM in DEXTROSE 5%-WATER 100 ML IVPB ONE (22:22)
[2018-03-05] MEDS ORDERED: PIPERACILLIN/TAZOB 4.5 GM 4.5 GM/100 ML BAG IVPB ONE (23:19)
[2018-03-05] MEDS: LACTATED RINGERS SOLUTION 1,000 ML/1,000 ML INFUS.BAG IV SCH (23:47)
--- NOTE | 2018-03-06 02:46 | HP ---
CHIEF COMPLAINT: abdominal pain, nausea and vomitting X 1 day. PCP:Dr. Willingham HISTORY OF PRESENT ILLNESS: 67 year old Citizen Of [place] speaking female with past medical history significant for diverticulitis s/p sigmoid colectomy w/ colostomy bag, s/p reversal (2018) who presented for evaluation of one day of abdominal pain and multiple episodes of vomiting and associated nausea. She reports taking medications (simethicone, naproxen, and tylenol) with little relief. CT scan of abdomen and pelvis showed a small bowel obstruction. In the ER a nasogastric tube was placed. She was started on IV fluids LR at 125 cc/hr and given one dosage of zosyn. Patient is currently afebrile and hypertensive on presentation. Labs notable for WBC 16.1, normal lactic acid, liver enzymes, lipase and total bilirubin. Recent Travel: Denies PAST MEDICAL/SURGICAL HISTORY: diverticulitis s/p sigmoid colectomy w/ colostomy bag, s/p reversal (2018) Social History: Smoking:denies Alcohol:denies Drugs: denies Family History: Allergies No Known Drug Allergies Allergy (Verified 03/05/18 18:33) HOME MEDICATIONS: Home Medications Medication Instructions Recorded Acetaminophen/Caffeine [Excedrin 1 each PO DAILY PRN 03/05/18 Tension Headache Cplt] Naproxen Sodium 220 mg PO DAILY PRN 03/05/18 Simethicone [Gas Relief 80] 80 mg PO DAILY PRN 03/05/18 REVIEW OF SYSTEMS CONSTITUTIONAL: Absent: fever, chills, diaphoresis, generalized weakness, malaise, loss of appetite, weight change HEENT: Absent: rhinorrhea, nasal congestion, throat pain, throat swelling, difficulty swallowing, mouth swelling, ear pain, eye pain, visual changes CARDIOVASCULAR: Absent: chest pain, syncope, palpitations, irregular heart rate, lightheadedness , peripheral edema RESPIRATORY: Absent: cough, shortness of breath, dyspnea with exertion, orthopnea, wheezing, stridor, hemoptysis GASTROINTESTINAL: Absent: abdominal pain, abdominal distension, nausea, vomiting, diarrhea, constipation, melena, hematochezia GENITOURINARY: Absent: dysuria, frequency, urgency, hesitancy, hematuria, flank pain, genital pain MUSCULOSKELETAL: Absent: myalgia, arthralgia, joint swelling, back pain, neck pain SKIN: Absent: rash, itching, pallor HEMATOLOGIC/IMMUNOLOGIC: Absent: easy bleeding, easy bruising, lymphadenopathy, frequent infections ENDOCRINE: Absent: unexplained weight gain, unexplained weight loss, heat intolerance, cold intolerance NEUROLOGIC: Absent: headache, focal weakness or paresthesias, dizziness, unsteady gait, seizure, mental status changes, bladder or bowel incontinence PSYCHIATRIC: Absent: anxiety, depression, suicidal or homicidal ideation, hallucinations. PHYSICAL EXAMINATION Vital Signs - 24 hr 03/05/18 18:13 Temperature 98.4 F Pulse Rate 90 Respiratory 16 Rate Blood Pressure 173/67 H O2 Sat by Pulse 100 Oximetry (%) GENERAL: awake, alert, and fully oriented, in no acute distress HEAD: normal with no signs of trauma. EYES: pupils equal, round and reactive to light, extraocular movements intact EARS, NOSE, THROAT: ears normal, nares patent, oropharynx clear without exudates. Moist mucous membranes. NECK: normal range of motion, supple w LUNGS:breath sounds equal, clear to auscultation bilaterally. No wheezes, and no crackles. No accessory muscle use. HEART: regular rate and rhythm, normal S1 and S2 without murmur ABDOMEN: soft, nontender, not distended, normoactive bowel sounds, no guarding, no rebound, no masses, no acute abdomen MUSCULOSKELETAL: normal range of motion at all joints. No bony deformities or tenderness UPPER EXTREMITIES: 2+ pulses, warm, well-perfused. No cyanosis. No clubbing. No peripheral edema. LOWER EXTREMITIES: 2+ pulses, warm, well-perfused. No calf tenderness. No peripheral edema. NEUROLOGICAL: normal speech. Normal gait. PSYCHIATRIC: cooperative. Good eye contact. SKIN: Warm, dry, normal turgor, no rashes or lesions noted, normal capillary refill. Laboratory Results - last 24 hr 03/05/18 03/05/18 03/05/18 18:59 19:00 19:33 WBC 16.1 H RBC 4.85 Hgb 15.2 Hct 45.3 H MCV 93.4 MCH 31.5 MCHC 33.7 RDW 13.7 Plt Count 451 H D MPV 8.0 Absolute Neuts (auto) 12.3 H Neutrophils % 76.3 Lymphocytes % 17.7 D Monocytes % 5.4 Eosinophils % 0.3 Basophils % 0.3 Nucleated RBC % 0 Sodium 139 Potassium 4.1 Chloride 105 Carbon Dioxide 23 Anion Gap 11 BUN 16 Creatinine 0.6 Creat Clearance w eGFR > 60 Random Glucose 141 H Lactic Acid Calcium 9.5 Total Bilirubin 0.3 AST 15 ALT 17 Alkaline Phosphatase 106 Total Protein 7.6 Albumin 4.0 Lipase 115 Urine Color Yellow Urine Appearance Slcloudy Urine pH 5.0 D Ur Specific Harrison 1.029 Urine Protein Negative Urine Glucose (UA) Negative Urine Ketones Trace H Urine Blood Negative Urine Nitrite Negative Urine Bilirubin Negative Urine Urobilinogen Negative Ur Leukocyte Esterase Negative Stool Occult Blood 03/05/18 03/05/18 19:34 22:24 WBC RBC Hgb Hct MCV MCH MCHC RDW Plt Count MPV Absolute Neuts (auto) Neutrophils % Lymphocytes % Monocytes % Eosinophils % Basophils % Nucleated RBC % Sodium Potassium Chloride Carbon Dioxide Anion Gap BUN Creatinine Creat Clearance w eGFR Random Glucose Lactic Acid 1.1 Calcium Total Bilirubin AST ALT Alkaline Phosphatase Total Protein Albumin Lipase Urine Color Urine Appearance Urine pH Ur Specific Harrison Urine Protein Urine Glucose (UA) Urine Ketones Urine Blood Urine Nitrite Urine Bilirubin Urine Urobilinogen Ur Leukocyte Esterase Stool Occult Blood Negative ASSESSMENT/PLAN: 67 year old Citizen Of [place] speaking female with past medical history significant for diverticulitis s/p sigmoid colectomy w/ colostomy bag, s/p reversal (2018) who presented for evaluation of one day of abdominal pain and multiple episodes of vomiting and associated nausea. CT scan of abdomen showed a small bowel obstruction. SBO with history diverticulitis s/p sigmoid colectomy w/ colostomy bag, s/p reversal (2018) Continue with nasogastric tube. Surgery- Dr. Dragan Saldaña consulted. NPO, Continue with IV fluids. Leukocytosis in setting of SBO Recieved one dosage of IV Zosyn in the ER. UA is negative. Repeat CBC in am. Patient has been afebrile. ID consulted- Dr. Villegas for evaluation and management. Visit type - Emergency Visit Emergency Visit: Yes ED Registration Date: 03/05/18 Care time: The patient presented to the Emergency Department on the above date and was hospitalized for further evaluation of their emergent condition. - New Patient This patient is new to me today: Yes Date on this admission: 03/06/18 - Critical Care Critical Care patient: No
--- NOTE | 2018-03-06 11:13 | PN ---
Progress Note, Physician Chief Complaint: SBO abdominal pain dysuria History of Present Illness: Previous notes and events reviewed awake and alert NAD denies chest pain, SOB, abdominal pain, vomiting WBC elev 16.1 - Current Medication List Current Medications: Active Medications Lactated Ringer's (Lactated Ringers Solution) 1,000 ml in 1,000 mls @ 125 mls/ hr IV ASDIR [facility] Last Admin: 03/05/18 23:47 Dose: 125 mls/hr Simethicone (Mylicon -) 80 mg PO DAILY PRN PRN Reason: GAS - Objective Vital Signs: Vital Signs Temperature 98.1 F 03/06/18 09:18 Pulse Rate 16 L 03/06/18 09:18 Respiratory Rate 16 03/06/18 09:18 Blood Pressure 128/71 03/06/18 09:18 O2 Sat by Pulse Oximetry (%) 99 03/06/18 07:02 Constitutional: Yes: Well Nourished, No Distress, Calm Eyes: Yes: Conjunctiva Clear, PERRL HENT: Yes: Atraumatic Neck: Yes: Supple Cardiovascular: Yes: Regular Rate and Rhythm Respiratory: Yes: Regular, CTA Bilaterally Gastrointestinal: Yes: Normal Bowel Sounds, Soft, Tenderness (generalized) Musculoskeletal: Yes: WNL Extremities: Yes: WNL Edema: No Integumentary: Yes: Other (healed surgical scar lower abdomen) Wound/Incision: Yes: Clean/Dry Neurological: Yes: Alert, Oriented Psychiatric: Yes: Alert Labs: CBC, BMP 03/05/18 18:59 03/05/18 19:00 - ....Imaging Cat Scan: Report Reviewed <Diamante Christensen - Last Filed: 03/06/18 11:08> - Current Medication List Current Medications: Active Medications Acetaminophen (Ofirmev Injection -) 1,000 mg IVPB Q6H PRN PRN Reason: FEVER Lactated Ringer's (Lactated Ringers Solution) 1,000 ml in 1,000 mls @ 125 mls/ hr IV ASDIR [facility] Last Admin: 03/07/18 13:01 Dose: 125 mls/hr Ketorolac Tromethamine (Toradol Injection -) 15 mg IVPUSH Q6H PRN PRN Reason: PAIN LEVEL 6-10 Stop: 03/12/18 16:03 Last Admin: 03/07/18 16:17 Dose: 15 mg Pantoprazole Sodium (Protonix Iv) 40 mg IVPB DAILY [facility] Last Admin: 03/07/18 16:21 Dose: 40 mg Simethicone (Mylicon -) 80 mg PO DAILY PRN PRN Reason: GAS Last Admin: 03/07/18 17:23 Dose: 80 mg - Objective Vital Signs: Vital Signs Temperature 98.2 F 03/07/18 17:26 Pulse Rate 58 L 03/07/18 17:26 Respiratory Rate 20 03/07/18 17:26 Blood Pressure 135/70 03/07/18 17:26 O2 Sat by Pulse Oximetry (%) 95 03/07/18 09:00 Labs: CBC, BMP 03/07/18 06:00 03/07/18 06:00 <Rivera Willingham - Last Filed: 03/07/18 21:12> Problem List - Problems (1) Abdominal pain Code(s): R10.9 - UNSPECIFIED ABDOMINAL PAIN Qualifiers: Abdominal location: unspecified location Qualified Code(s): R10.9 - Unspecified abdominal pain (2) Nausea and vomiting Code(s): R11.2 - NAUSEA WITH VOMITING, UNSPECIFIED Qualifiers: Vomiting type: unspecified Vomiting Intractability: non-intractable Qualified Code(s): R11.2 - Nausea with vomiting, unspecified (3) SBO (small bowel obstruction) Code(s): K56.609 - UNSP INTESTNL OBST, UNSP TO PARTIAL VERSUS COMPLETE OBST <Diamante Christensen - Last Filed: 03/06/18 11:08> Assessment/Plan -GI consult -NGT in place -cont NPO -IVF for hydration -simethicone PRN for gas -ID consult for leukocytosis -wbc elev, will monitor -urine culture pending -SCD for dvt ppx -BGM due to NPO status <Diamante Christensen - Last Filed: 03/06/18 11:08> I HAVE SEEN THE PATIENT AND EXAMINED HER AND I AGREE WITH THE ABOVE NOTE <Rivera Willingham - Last Filed: 03/07/18 21:12>
[2018-03-06 11:56] VITALS: BMI 28.0
--- NOTE | 2018-03-06 11:56 | EKG ---
Test Reason : Blood Pressure : / mmHG Vent. Rate : 058 BPM Atrial Rate : 058 BPM P-R Int : 144 ms QRS Dur : 086 ms QT Int : 474 ms P-R-T Axes : 025 038 054 degrees QTc Int : 465 ms SINUS BRADYCARDIA LOW VOLTAGE QRS BORDERLINE ECG WHEN COMPARED WITH ECG OF 02-JAN-2017 22:20, NO SIGNIFICANT CHANGE WAS FOUND Confirmed by YENI CONNELL MD ([id number]) on 03/06/2018 11:55:41 AM Referred By: Confirmed By:YENI CONNELL MD
[2018-03-06] MEDS: LACTATED RINGERS SOLUTION 1,000 ML/1,000 ML INFUS.BAG IV SCH ×3 (11:58→23:00)
--- NOTE | 2018-03-06 14:11 | PN ---
Progress Note (short form) - Note Progress Note: ID CONSULT DICTATED SBO LEUKOCYTOSIS ? LEUKEMOID RXN HX WOUND INFECTION POLYMICROBIAL UTI OBTAIN BC REPEAT CBC EMPIRIC ZOSYN SURGICAL F/U
--- NOTE | 2018-03-06 15:23 | CONS ---
INFECTIOUS DISEASE CONSULTATION DATE OF CONSULTATION: DATE OF DICTATION: 03/06/2018 HISTORY OF PRESENT ILLNESS: The patient is a 67-year-old female evaluated for leukocytosis. The patient is status post sigmoid colectomy/colostomy in May 2017 followed by reversal in July 2017, but now presents with abdominal pain. She presented to the hospital on March 05, 2018, with generalized abdominal pain which began the night prior to her admission. She also had developed nonbloody, nonbilious vomiting. Patient reports having a small bowel movement on the day of admission. She presented to the hospital where a CAT scan of the abdomen and pelvis showed a small-bowel obstruction, which appears to be in the area of the surgical anastomosis of the right lower quadrant. She was noted to have an elevated white blood cell count. In addition, she had reported urinary tract symptoms, including dysuria and frequency. At the present time, she is awake and alert. An NG tube is in place. She denies any abdominal pain. She has been afebrile. PAST MEDICAL HISTORY: Positive for recurrent sigmoid diverticulitis. PAST SURGICAL HISTORY: Status post sigmoid colectomy and colostomy in May 2017 followed by reversal in July 2017. ALLERGIES: No known allergies. MEDICATIONS: Naproxen and simethicone. SOCIAL HISTORY: The patient lives in the community. She is a nonsmoker, nondrinker. SYSTEMS REVIEW: Neurologic: No loss of consciousness, seizure activity, focal weakness. Cardiac: Negative chest pain or palpitations. Respiratory: Negative cough or sputum production. Gastrointestinal: As per HPI. Genitourinary: Positive for urinary frequency and dysuria. LABORATORY DATA: White count 16.1, 76 neutrophils, 17 lymphocytes, 5 monocytes, hematocrit 49.3, platelet count 451. Creatinine 0.6. Liver enzymes normal. Urinalysis: Negative leukocyte esterase. PHYSICAL EXAMINATION: General: She is awake. She is supine in bed, in no acute distress. NG tube is in place. Vital Signs: Temperature 98, blood pressure 121/66, pulse 60, regular, respirations 20 per minute. Eyes: Sclerae are anicteric. Heart: Heart sounds S1, S2. Lungs: Diminished breath sounds at the bases bilaterally. Abdomen: Soft. There is mild diffuse tenderness worse in the left lower quadrant. A healed surgical scar present right lower quadrant and in the suprapubic area. Extremities: Negative for edema. IMPRESSION: 1. Small-bowel obstruction. 2. Leukocytosis. Possible leukemoid reaction secondary to small-bowel obstruction. 3. Rule out urinary tract infection. Previous notes reviewed. It appears her postoperative course was complicated by a surgical wound infection polymicrobial. Pending blood cultures, would empirically cover intra-abdominal and genitourinary potential sources of infection with Zosyn 3.375 g IV piggyback every 8 hours. Repeat CBC. Surgical followup. Thank you for the kind referral. JOHNNA DESAI M.D. [id number]
[2018-03-06] MEDS ORDERED: DEXTROSE 5%-WATER - 50 ML IVPB ONE (16:47)
[2018-03-06] MEDS ORDERED: PIPERACILLIN/TAZOBACTAM 3.375 GM VIAL IVPB ONE (16:47)
[2018-03-06] MEDS: PIPERACILLIN/TAZOB 3.375 GM 3.375 GM in DEXTROSE 5%-WATER - 50 ML IVPB SCH (17:28)
--- NOTE | 2018-03-06 17:32 | CONSULT ---
Consult Consult Specialty:: Surgery Reason for Consultation:: small bowel obstruction - History of Present Illness Chief Complaint: abdominal pain History of Present Illness: 67 y.o. female s/p sigmoidectomy , ileostomy, and subsequent reversal in 2018 admitted for abdominal pain, n & v x one day. CT A/P showed partial small bowel obstruction. Admitted for conservative management i.e., NPO, IVF, and NGT decompression, and IV abx. Currently passing flatus but no BM. Abdominal pain is no longer present. - History Source History Provided By: Patient Limitations to Obtaining History: No Limitations - Past Medical History Gastrointestinal: Yes: Constipation, Diverticulitis, Diverticulosis, Irritable Bowel Disease ...: No Musculoskeletal: Yes: Osteoarthritis Rheumatology: Yes: Fibromyalgia - Past Surgical History Past Surgical History: Yes: Colonoscopy (last 12/11/16 - found pandiverticulosis only), Hysterectomy, Tubal Ligation - Alcohol/Substance Use Hx Alcohol Use: No History of Substance Use: reports: None - Smoking History Smoking history: Never smoked Have you smoked in the past 12 months: No - Social History Usual Living Arrangement: Other ADL: Independent Home Medications - Allergies Allergies/Adverse Reactions: Allergies Allergy/AdvReac Type Severity Reaction Status Date / Time No Known Drug Allergies Allergy Verified 03/05/18 18:33 - Home Medications Home Medications: Ambulatory Orders Acetaminophen/Caffeine [Excedrin Tension Headache Cplt] 1 each PO DAILY PRN Naproxen Sodium 220 mg PO DAILY PRN 03/05/18 Simethicone [Gas Relief 80] 80 mg PO DAILY PRN 03/05/18 Family Disease History - Family Disease History Family Disease History: CA: Mother (colon - in [facility] now for tx, age 88) Physical Exam Vital Signs: Vital Signs Temperature 98 F 03/06/18 13:22 Pulse Rate 60 03/06/18 13:22 Respiratory Rate 20 03/06/18 13:22 Blood Pressure 121/66 03/06/18 13:22 O2 Sat by Pulse Oximetry (%) 96 03/06/18 11:44 Constitutional: Yes: Well Nourished, No Distress Eyes: Yes: Conjunctiva Clear HENT: Yes: Normocephalic Neck: Yes: Supple Cardiovascular: Yes: Regular Rate and Rhythm Respiratory: Yes: CTA Bilaterally Gastrointestinal: Yes: Soft, Distention (absent), Tenderness (absent) ...Rectal Exam: Yes: Deferred Integumentary: Yes: WNL Neurological: Yes: Alert, Oriented Labs: CBC, BMP 03/05/18 18:59 03/05/18 19:00 Imaging - Results Cat Scan: Report Reviewed, Image Reviewed Problem List - Problems (1) SBO (small bowel obstruction) Assessment/Plan: Partial SBO likely resolving F/U FUA in am continue NGT, IVF, and ABX Code(s): K56.609 - UNSP INTESTNL OBST, UNSP TO PARTIAL VERSUS COMPLETE OBST
[2018-03-07] MEDS ORDERED: PIPERACILLIN/TAZOBACTAM 3.375 GM VIAL IVPB ONE ×3 (00:45→14:49)
[2018-03-07] MEDS ORDERED: DEXTROSE 5%-WATER - 50 ML IVPB ONE ×3 (00:45→14:49)
[2018-03-07] MEDS: PIPERACILLIN/TAZOB 3.375 GM 3.375 GM in DEXTROSE 5%-WATER - 50 ML IVPB SCH ×2 (01:08→10:00)
[2018-03-07 07:15] LABS: HEMATOCRIT 40.2 % (32.4-45.2); HEMOGLOBIN 13.6 GM/dL (10.7-15.3); MCH 31.7 pg (25.7-33.7); MCHC 33.9 g/dl (32.0-36.0); MEAN CELL VOLUME 93.3 fl (80-96); MEAN PLT VOLUME 7.7 fl (7.5-11.1); PLATELET COUNT 348 K/MM3 (134-434); RBC 4.31 M/mm3 (3.60-5.2); RDW 13.4 % (11.6-15.6); WHITE BLOOD COUNT 6.6 K/mm3 (4.0-10.0)
[2018-03-07 07:37] LABS: ALBUMIN 3.1 g/dl (3.4-5.0); ALK PHOS 84 U/L (45-117); ANION GAP 9 MMOL/L (8-16); BILIRUBIN,TOTAL 0.8 mg/dL (0.2-1); BLOOD UREA NITROGEN 8 mg/dL (7-18); CALCIUM 8.4 mg/dL (8.5-10.1); CHLORIDE 108 mmol/L (98-107); CO2 26 mmol/L (21-32); CREATININE 0.5 mg/dL (0.55-1.3); GLUCOSE,RANDOM 84 mg/dL (74-106); POTASSIUM 3.8 mmol/L (3.5-5.1); SGOT/AST 12 U/L (15-37); SGPT/ALT 12 U/L (13-61); SODIUM 143 mmol/L (136-145)
--- NOTE | 2018-03-07 10:17 | PN ---
Progress Note, Physician Chief Complaint: partial SBO History of Present Illness: Continues to pass flatus and denies abdominal pain - Current Medication List Current Medications: Active Medications Lactated Ringer's (Lactated Ringers Solution) 1,000 ml in 1,000 mls @ 125 mls/ hr IV [facility] Last Admin: 03/06/18 23:00 Dose: Not Given Piperacillin Sod/Tazobactam (Sod 3.375 gm/ Dextrose) 50 mls @ 100 mls/hr IVPB Q8H-IV [facility]; Protocol Last Admin: 03/07/18 10:00 Dose: 100 mls/hr Simethicone (Mylicon -) 80 mg PO DAILY PRN PRN Reason: GAS - Objective Vital Signs: Vital Signs Temperature 97.9 F 03/07/18 08:22 Pulse Rate 64 03/07/18 08:22 Respiratory Rate 18 03/07/18 08:22 Blood Pressure 122/73 03/07/18 08:22 O2 Sat by Pulse Oximetry (%) 97 03/06/18 21:00 Constitutional: Yes: No Distress Gastrointestinal: Yes: Soft, Tenderness (none) Labs: CBC, BMP 03/07/18 06:00 03/07/18 06:00 - ....Imaging X-ray: Image Reviewed (no small bowel dilatation) Problem List - Problems (1) SBO (small bowel obstruction) Assessment/Plan: Resolved partial SBO d/c NGT - done clear liquid diet then advance as tolerated D/C planning if patient tolerates diet will f/u as OP Code(s): K56.609 - UNSP INTESTNL OBST, UNSP TO PARTIAL VERSUS COMPLETE OBST
[2018-03-07] MEDS: LACTATED RINGERS SOLUTION 1,000 ML/1,000 ML INFUS.BAG IV SCH ×3 (13:01→23:00)
--- NOTE | 2018-03-07 15:43 | PN ---
Progress Note, Physician History of Present Illness: NGT REMOVED C/O ABDOMINAL PAIN NO BM AFEBRILE WBC NOW WNL BC , URINE C/S (-) - Current Medication List Current Medications: Active Medications Lactated Ringer's (Lactated Ringers Solution) 1,000 ml in 1,000 mls @ 125 mls/ hr IV [facility]IR [facility] Last Admin: 03/07/18 13:01 Dose: 125 mls/hr Piperacillin Sod/Tazobactam (Sod 3.375 gm/ Dextrose) 50 mls @ 100 mls/hr IVPB Q8H-IV [facility]; Protocol Last Admin: 03/07/18 10:00 Dose: 100 mls/hr Simethicone (Mylicon -) 80 mg PO DAILY PRN PRN Reason: GAS - Objective Vital Signs: Vital Signs Temperature 98.1 F 03/07/18 13:48 Pulse Rate 77 03/07/18 13:48 Respiratory Rate 20 03/07/18 13:48 Blood Pressure 137/77 03/07/18 13:48 O2 Sat by Pulse Oximetry (%) 95 03/07/18 09:00 Constitutional: Yes: No Distress Eyes: Yes: Conjunctiva Clear Cardiovascular: Yes: Regular Rate and Rhythm, S1, S2 Respiratory: Yes: CTA Bilaterally Gastrointestinal: Yes: Soft. No: Tenderness Labs: CBC, BMP 03/07/18 06:00 03/07/18 06:00 Assessment/Plan SBO MGT PER SURGERY LEUKOCYTOSIS RESOLVED D/C ANTIBIOTICS OBSERVE OFF
[2018-03-07] MEDS ORDERED: ACETAMINOPHEN 1000 MG/100 ML VIAL (NON FORMULARY) IVPB PRN (16:02)
[2018-03-07] MEDS ORDERED: PANTOPRAZOLE SODIUM 40 MG in SODIUM CHLORIDE 100 ML IVPB SCH (16:15)
[2018-03-07] MEDS: KETOROLAC TROMETHAMINE 15 MG/ML VIAL IVPUSH PRN (16:17)
[2018-03-07] MEDS: PANTOPRAZOLE SODIUM 40 MG VIAL IVPB SCH (16:21)
[2018-03-07] MEDS: SIMETHICONE 80 MG TAB.CHEW (FP) PO PRN (17:23)
[2018-03-08] MEDS: LACTATED RINGERS SOLUTION 1,000 ML/1,000 ML INFUS.BAG IV SCH ×2 (07:03→18:08)
[2018-03-08 08:27] LABS: ANION GAP 9 MMOL/L (8-16); BLOOD UREA NITROGEN 7 mg/dL (7-18); CALCIUM 8.4 mg/dL (8.5-10.1); CHLORIDE 109 mmol/L (98-107); CO2 25 mmol/L (21-32); CREATININE 0.4 mg/dL (0.55-1.3); GLUCOSE,RANDOM 87 mg/dL (74-106); POTASSIUM 3.8 mmol/L (3.5-5.1); SODIUM 143 mmol/L (136-145)
[2018-03-08] MEDS: PANTOPRAZOLE SODIUM 40 MG VIAL IVPB SCH (09:40)
[2018-03-08] MEDS: KETOROLAC TROMETHAMINE 15 MG/ML VIAL IVPUSH PRN ×2 (10:40→18:15)
[2018-03-08] MEDS: SIMETHICONE 80 MG TAB.CHEW (FP) PO PRN (10:41)
[2018-03-08] MEDS ORDERED: ONDANSETRON 4 MG/2 ML VIAL IVPUSH PRN (11:56)
--- NOTE | 2018-03-08 11:57 | PN ---
Progress Note, Physician Chief Complaint: SBO History of Present Illness: C/o abdominal pain unable to pass flatus denies N/V NGT dc'd yesterday by surgery vomiting x 1 after trial of clear liquids yesterday NPO now-no NGT On IVF+PPI+Zofran - Current Medication List Current Medications: Active Medications Acetaminophen (Ofirmev Injection -) 1,000 mg IVPB Q6H PRN PRN Reason: FEVER Lactated Ringer's (Lactated Ringers Solution) 1,000 ml in 1,000 mls @ 125 mls/ hr IV [facility] Last Admin: 03/08/18 07:03 Dose: 125 mls/hr Ketorolac Tromethamine (Toradol Injection -) 15 mg IVPUSH Q6H PRN PRN Reason: PAIN LEVEL 6-10 Stop: 03/12/18 16:03 Last Admin: 03/08/18 10:40 Dose: 15 mg Ondansetron HCl (Zofran Injection) 4 mg IVPUSH Q6H PRN PRN Reason: NAUSEA AND/OR VOMITING Pantoprazole Sodium (Protonix Iv) 40 mg IVPB DAILY [facility] Last Admin: 03/08/18 09:40 Dose: 40 mg Simethicone (Mylicon -) 80 mg PO DAILY PRN PRN Reason: GAS Last Admin: 03/08/18 10:41 Dose: 80 mg - Objective Vital Signs: Vital Signs Temperature 97.9 F 03/08/18 09:27 Pulse Rate 59 L 03/08/18 09:27 Respiratory Rate 18 03/08/18 09:27 Blood Pressure 131/66 03/08/18 09:27 O2 Sat by Pulse Oximetry (%) 97 03/08/18 09:00 Constitutional: Yes: Well Nourished, No Distress, Calm Cardiovascular: Yes: Regular Rate and Rhythm Respiratory: Yes: Regular Gastrointestinal: Yes: Hypoactive Bowel Sounds, Tenderness (diffuse), Other ( guarded) Musculoskeletal: Yes: WNL Extremities: Yes: WNL Edema: No Peripheral Pulses WNL: Yes Neurological: Yes: Alert, Oriented Psychiatric: Yes: Alert, Oriented Labs: CBC, BMP 03/07/18 06:00 03/08/18 06:45 Problem List - Problems (1) Abdominal pain Assessment/Plan: -repeat KUB -NPO -If KUB negative-would do CT abd -NGT if sbo Code(s): R10.9 - UNSPECIFIED ABDOMINAL PAIN Qualifiers: Abdominal location: unspecified location Qualified Code(s): R10.9 - Unspecified abdominal pain (2) Nausea and vomiting Assessment/Plan: -Zofran 4 mg IV Q6HPRN Code(s): R11.2 - NAUSEA WITH VOMITING, UNSPECIFIED Qualifiers: Vomiting type: unspecified Vomiting Intractability: non-intractable Qualified Code(s): R11.2 - Nausea with vomiting, unspecified (3) SBO (small bowel obstruction) Assessment/Plan: -KUB Code(s): K56.609 - UNSP INTESTNL OBST, UNSP TO PARTIAL VERSUS COMPLETE OBST Assessment/Plan see problem list
[2018-03-09] MEDS: PANTOPRAZOLE SODIUM 40 MG VIAL IVPB SCH (09:32)
[2018-03-09] MEDS: LACTATED RINGERS SOLUTION 1,000 ML/1,000 ML INFUS.BAG IV SCH (09:49)
[2018-03-09 13:14] LABS: BASO % 0.8 % (0-2.0); EOS % 0.3 % (0-4.5); HEMATOCRIT 40.7 % (32.4-45.2); HEMOGLOBIN 13.8 GM/dL (10.7-15.3); LYMPH % 13.9 % (8-40); MCH 31.8 pg (25.7-33.7); MCHC 33.9 g/dl (32.0-36.0); MEAN CELL VOLUME 93.8 fl (80-96); MEAN PLT VOLUME 7.8 fl (7.5-11.1); MONO % 5.3 % (3.8-10.2); NEUT % 79.7 % (42.8-82.8); PLATELET COUNT 343 K/MM3 (134-434); RBC 4.34 M/mm3 (3.60-5.2); RDW 13.4 % (11.6-15.6); WHITE BLOOD COUNT 7.4 K/mm3 (4.0-10.0)
[2018-03-09 13:32] LABS: ALBUMIN 3.3 g/dl (3.4-5.0); ALK PHOS 87 U/L (45-117); ANION GAP 16 MMOL/L (8-16); BILIRUBIN,TOTAL 0.7 mg/dL (0.2-1); BLOOD UREA NITROGEN 8 mg/dL (7-18); CALCIUM 8.6 mg/dL (8.5-10.1); CHLORIDE 108 mmol/L (98-107); CO2 18 mmol/L (21-32); CREATININE 0.4 mg/dL (0.55-1.3); GLUCOSE,RANDOM 63 mg/dL (74-106); POTASSIUM 3.8 mmol/L (3.5-5.1); SGOT/AST 16 U/L (15-37); SGPT/ALT 14 U/L (13-61); SODIUM 142 mmol/L (136-145); TOT PROT 6.2 g/dl (6.4-8.2)
[2018-03-09] MEDS: D5-NS + 20 MEQ KCL - 20 MEQ/1,000 ML INFUS.BAG IV SCH (14:24)
--- NOTE | 2018-03-09 15:07 | PN ---
Progress Note, Physician Chief Complaint: partial SBO History of Present Illness: Developed abdominal pain post NGT removal the other day. Repeat AXR showed mildly dilated loops of SB at LUQ. CT A/P showed no evidence of SBO. Ngt reinserted with minimal drainage. Fleet enema administered and patient had 2 bm' s. Currently is hungry and has no abdominal pain. - Current Medication List Current Medications: Active Medications Acetaminophen (Ofirmev Injection -) 1,000 mg IVPB Q6H PRN PRN Reason: FEVER Dextrose/Sodium Chloride (Dextrose 5%-Normal Saline+20 Meq Kcl -) 20 meq in 1, 000 mls @ 75 mls/hr IV [facility] Last Admin: 03/09/18 14:24 Dose: 75 mls/hr Ketorolac Tromethamine (Toradol Injection -) 15 mg IVPUSH Q6H PRN PRN Reason: PAIN LEVEL 6-10 Stop: 03/12/18 16:03 Last Admin: 03/08/18 18:15 Dose: 15 mg Ondansetron HCl (Zofran Injection) 4 mg IVPUSH Q6H PRN PRN Reason: NAUSEA AND/OR VOMITING Pantoprazole Sodium (Protonix Iv) 40 mg IVPB DAILY [facility] Last Admin: 03/09/18 09:32 Dose: 40 mg Simethicone (Mylicon -) 80 mg PO DAILY PRN PRN Reason: GAS Last Admin: 03/08/18 10:41 Dose: 80 mg - Objective Vital Signs: Vital Signs Temperature 98.2 F 03/09/18 13:27 Pulse Rate 91 H 03/09/18 13:27 Respiratory Rate 20 03/09/18 13:27 Blood Pressure 121/61 03/09/18 13:27 O2 Sat by Pulse Oximetry (%) 98 03/09/18 09:00 Constitutional: Yes: No Distress Gastrointestinal: Yes: Soft, Tenderness (absent.) Labs: CBC, BMP 03/09/18 12:28 03/09/18 12:28 Problem List - Problems (1) SBO (small bowel obstruction) Assessment/Plan: Incomplete resolution of partial SBO but currently responding to conservative measures. Constipation resolved. D/C NGT -done May resume clear liquid diet. Code(s): K56.609 - UNSP INTESTNL OBST, UNSP TO PARTIAL VERSUS COMPLETE OBST
[2018-03-10 08:34] LABS: ANION GAP 6 MMOL/L (8-16); BLOOD UREA NITROGEN 4 mg/dL (7-18); CALCIUM 8.3 mg/dL (8.5-10.1); CHLORIDE 111 mmol/L (98-107); CO2 24 mmol/L (21-32); CREATININE 0.4 mg/dL (0.55-1.3); GLUCOSE,RANDOM 115 mg/dL (74-106); POTASSIUM 3.9 mmol/L (3.5-5.1); SODIUM 141 mmol/L (136-145)
[2018-03-10] MEDS: PANTOPRAZOLE SODIUM 40 MG VIAL IVPB SCH (09:41)
--- NOTE | 2018-03-10 13:57 | DS ---
Physical Examination Vital Signs: Vital Signs Temperature 98.7 F 03/10/18 10:00 Pulse Rate 76 03/10/18 10:00 Respiratory Rate 18 03/10/18 10:00 Blood Pressure 147/78 03/10/18 10:00 O2 Sat by Pulse Oximetry (%) 96 03/10/18 09:00 Findings/Remarks: Patient is a 67 y/o female patient with past medical history of sigmoidectomy, ileostomy, and subsequent reversal in 2018. Patient presented to ER with complaints of abdominal pain associated with nausea and vomiting x one day. Abdominal xray done and showed partial SBO. Patient was admitted for conservatie manage, NPO, IVF, NGT to [facility]. Abdominal CT scan 03/08/18 shows improvement to SBO. NGT removed 03/09/18 and has been tolerating clear liquid PO intake. Constitutional: Yes: Well Nourished, No Distress, Calm Eyes: Yes: Conjunctiva Clear Neck: Yes: Supple Cardiovascular: Yes: Regular Rate and Rhythm Respiratory: Yes: Regular, CTA Bilaterally Gastrointestinal: Yes: Normal Bowel Sounds, Soft Musculoskeletal: Yes: WNL Extremities: Yes: WNL Edema: No Integumentary: Yes: WNL Neurological: Yes: Alert, Oriented Psychiatric: Yes: Alert, Oriented Labs: CBC, BMP 03/09/18 12:28 03/10/18 06:30 <Diamante Christensen - Last Filed: 03/10/18 13:52> Vital Signs: Vital Signs Temperature 98.2 F 03/10/18 17:20 Pulse Rate 56 L 03/10/18 17:20 Respiratory Rate 18 03/10/18 17:20 Blood Pressure 124/71 03/10/18 17:20 O2 Sat by Pulse Oximetry (%) 96 03/10/18 09:00 Labs: CBC, BMP 03/09/18 12:28 03/10/18 06:30 <Rivera Willingham - Last Filed: 03/10/18 20:52> Discharge Summary Reason For Visit: SMALL BOWEL OBSTRUCTION NAUSEA VOMMITING ABDOMINAL Current Active Problems Abdominal pain (Acute) Nausea and vomiting (Acute) SBO (small bowel obstruction) (Acute) Procedures: Principal: CXR, EKG, Abdominal CT scan, Abdominal Xray - Home Medications Comprehensive Discharge Medication List: Ambulatory Orders Acetaminophen/Caffeine [Excedrin Tension Headache Cplt] 1 each PO DAILY PRN Naproxen Sodium 220 mg PO DAILY PRN 03/05/18 Pantoprazole Sodium [Protonix -] 40 mg PO DAILY #30 tablet.ec 03/10/18 Simethicone [Gas Relief 80] 80 mg PO DAILY PRN #30 tab.chew 03/10/18 <FerminDiamante Anne - Last Filed: 03/10/18 13:52> Current Active Problems Abdominal pain (Acute) Nausea and vomiting (Acute) SBO (small bowel obstruction) (Acute) - Home Medications Comprehensive Discharge Medication List: Ambulatory Orders Acetaminophen/Caffeine [Excedrin Tension Headache Cplt] 1 each PO DAILY PRN Naproxen Sodium 220 mg PO DAILY PRN 03/05/18 Pantoprazole Sodium [Protonix -] 40 mg PO DAILY #30 tablet.ec 03/10/18 Simethicone [Gas Relief 80] 80 mg PO DAILY PRN #30 tab.chew 03/10/18 <Rivera Willingham - Last Filed: 03/10/18 20:52> Condition: Good - Instructions Diet, Activity, Other Instructions: Follow up with PMD within 3-4 days of discharge Follow up with Surgery Dr. Saldaña in 2 weeks Follow up with GI specialist Dr. Noonan in 2 weeks continue with medications as prescribed if develop severe abdominal pain, persistent nausea/vomiting call PMD or go to ER Referrals: Rivera Willingham MD [Primary Care Provider] - Alfonso Noonan MD [Staff Physician] - Dragan Saldaña MD [Staff Physician] - Disposition: HOME
[2018-03-10] MEDS: D5-NS + 20 MEQ KCL - 20 MEQ/1,000 ML INFUS.BAG IV SCH (16:45)
[2018-03-11] MEDS: D5-NS + 20 MEQ KCL - 20 MEQ/1,000 ML INFUS.BAG IV SCH (06:02)
[2018-03-11 08:38] LABS: ANION GAP 7 MMOL/L (8-16); CALCIUM 8.4 mg/dL (8.5-10.1); CHLORIDE 111 mmol/L (98-107); CO2 26 mmol/L (21-32); CREATININE 0.4 mg/dL (0.55-1.3); GLUCOSE,RANDOM 113 mg/dL (74-106); POTASSIUM 3.9 mmol/L (3.5-5.1); SODIUM 144 mmol/L (136-145)
[2018-03-11 08:48] LABS: BLOOD UREA NITROGEN 2 mg/dL (7-18)
[2018-03-11] MEDS: PANTOPRAZOLE SODIUM 40 MG VIAL IVPB SCH (09:30)
[2018-03-11 15:11] VITALS: BP 130/68; PULSE 66; TEMP 98
[2018-03-12] MEDS ORDERED: PANTOPRAZOLE 40 MG TABLET (FP) PO SCH (10:00)
== END 2018-03-11 18:19 | disposition home or self-care (01) | DRG 390 ==
LOC: JER 18:06 → JERBED 23:34 → J7W 03-06 10:07
PROVIDERS: ADMIT Internal Medicine; ATTEND Family Medicine
PROC: 0D9670Z Drainage of Stomach with Drainage Device, Via Natural or Artificial Opening (ICD-10-PCS; principal; 2018-03-05)
DX: K56.699 Other intestinal obstruction unspecified as to partial versus complete obstruction (principal); R11.2 Nausea with vomiting, unspecified; K58.8 Other irritable bowel syndrome; D72.829 Elevated white blood cell count, unspecified; K57.90 Diverticulosis of intestine, part unspecified, without perforation or abscess without bleeding; K59.09 Other constipation; M79.7 Fibromyalgia; M19.90 Unspecified osteoarthritis, unspecified site; R10.9 Unspecified abdominal pain
CPT/HCPCS: 36415; 71045-TC-FY; 74018-TC-FY; 74019-TC-FY; 74176-TC; 74177-TC; 80048; 80053; 81003; 82272; 82962; 83036; 83605; 83690; 85025; 85027; 86850; 86900; 86901; 87040; 87086; 93005; 93010; 99285-25; J0131; J7030

== ENCOUNTER 2018-03-14 19:12 | Emergency (ER) | payer OTHER ==
--- NOTE | 2018-03-14 19:20 | PDOC ---
Rapid Medical Evaluation Time Seen by Provider: 03/14/18 19:16 Medical Evaluation: Allergies Allergy/AdvReac Type Severity Reaction Status Date / Time No Known Drug Allergies Allergy Verified 03/05/18 18:33 03/14/18 19:16 Pt c/o: nausea and vomiting, abd pain w/ hx of obstruction, admitted last week Pt on brief exam: bs+ x 4, gen abd tenderness Patient ordered for: kub, cbc, comp, zofran iv, iv Pt to proceed to the ED Discharge Disposition - Diagnosis Nausea and vomiting - Referrals Referrals: Rivera Willingham MD [Primary Care Provider] - - Patient Instructions - Post Discharge Activity
[2018-03-14 20:00] LABS: BASO % 0.9 % (0-2.0); HEMATOCRIT 39.9 % (32.4-45.2); HEMOGLOBIN 14.2 GM/dL (10.7-15.3); LYMPH % 26.3 % (8-40); MCH 33.3 pg (25.7-33.7); MCHC 35.7 g/dl (32.0-36.0); MEAN CELL VOLUME 93.3 fl (80-96); MEAN PLT VOLUME 9.1 fl (7.5-11.1); MONO % 7.2 % (3.8-10.2); NEUT % 64.6 % (42.8-82.8); PLATELET COUNT 447 K/MM3 (134-434); RBC 4.27 M/mm3 (3.60-5.2); RDW 13.4 % (11.6-15.6); WHITE BLOOD COUNT 10.8 K/mm3 (4.0-10.0)
--- NOTE | 2018-03-14 20:02 | PDOC ---
Attending Attestation - HPI HPI: 03/14/18 21:58 The patient is a 67-year-old female with a past medical history significant for diverticulitis s/p sigmoid colectomy w/ colostomy bag, s/p reversal (2018) and recent SBO dx presents to the emergency department with abdominal pain. The patient presents with 2 days of abdominal pain thats similar to SBO symptoms. The patient reports the pain is 8/10 in severity and punching in quality. The patient reports associated symptoms of nausea and decreased PO intake secondary to nausea. The patient recalls her meals today were salad, rice, eggs, crackers , and coffee. The patient reports taking Gabapentin for the pain, without relief. The patient reports she had 3 episodes of loose, large quantity bowel movement. The patient states shes bleaching a lot but isnt passing gas. Denies fever, chills, chest pain or urinary symptoms. Allergies: NKDA PCP: Dr. Willingham. - Physicial Exam PE: 03/14/18 21:58 GENERAL: The patient is afebrile and appears comfortable. Awake, alert, and fully oriented, in no acute distress HEAD: No signs of trauma EYES: PERRLA, EOMI, sclera anicteric, conjunctiva clear ENT: Auricles normal inspection, hearing grossly normal, nares patent, oropharynx clear without exudates. Moist mucosa NECK: Normal ROM, supple, no lymphadenopathy, JVD, or masses LUNGS: Breath sounds equal, clear to auscultation bilaterally. No wheezes, and no crackles HEART: Regular rate and rhythm, normal S1 and S2, no murmurs, rubs or gallops ABDOMEN: +gassy/bubbly bowel sounds, minimal rebound, slight pain with palpation to the lower quarant, no upper quadrant pain, no flank pain. Soft no rebound. No masses EXTREMITIES: Normal range of motion, no edema. No clubbing or cyanosis. No cords, erythema, or tenderness NEUROLOGICAL: Cranial nerves II through XII grossly intact. Normal speech, normal gait SKIN: Warm, Dry, normal turgor, no rashes or lesions noted. - Medical Decision Making 03/14/18 21:58 Documentation prepared by Sparkle Contreras, acting as hospital medical biller for Aury Perea MD. <Sparkle Contreras - Last Filed: 03/14/18 21:58> - Resident Resident Name: Enedelia Wallace - ED Attending Attestation I have performed the following: I have examined & evaluated the patient, The case was reviewed & discussed with the resident, I agree w/resident's findings & plan - Medical Decision Making 03/14/18 22:14 UA normal. CBC normal; WBC slight elevated 10+, as it was when she came with an SBO; Pt's exam is normal. She has some gassy and bubbly abd sounds. She last had copious diarrhea yesterday; today she will be given a glycerine supp. to see that she is able to pass gas from below. Pt states that she has been belching, but not passing gas from below. 03/14/18 22:16 Chem was hemolyzed and is pending. 03/14/18 22:51 chem is still pending 03/14/18 23:47 Abd pelvis FUA is normal 03/15/18 00:52 Pt is feeling well and she is stable for d/c home with her son. <Aury Perea - Last Filed: 03/15/18 00:52> Heart Score/ECG Review - ECG Intrepretation Rhythm: Regular Rhythm - [place]: Normal - P and TX Delta Wave(s) Present: No WPW: No - QRS Poor R Wave Progression: No Q Wave Present: No - ST and T Early Repolarization: No Non Specific ST-T Wave changes: No - ECG Impressions Normal ECG: Yes Non-specific ST Elevation: No Ischemic Changes: Yes (septal flipped T's ) <Aury Perea - Last Filed: 03/15/18 00:52>
[2018-03-14 20:26] LABS: URINE APPEARANCE SLCLOUDY; URINE BILIRUBIN NEGATIVE (<2.0 mg/dL); URINE COLOR YELLOW; URINE GLUCOSE (UA) NEGATIVE (NEGATIVE); URINE KETONE NEGATIVE (NEGATIVE); URINE LEUK ESTERASE NEGATIVE (NEGATIVE); URINE NITRITE NEGATIVE (NEGATIVE); URINE PROTEIN NEGATIVE (NEGATIVE); URINE UROBILINOGEN NEGATIVE mg/dL (0.2-1.0)
--- NOTE | 2018-03-14 20:38 | PDOC ---
History of Present Illness - General Chief Complaint: Pain Stated Complaint: PAIN Time Seen by Provider: 03/14/18 19:16 History Source: Patient - History of Present Illness Initial Comments: 03/14/18 20:28 The patient is a 67 year old female with a PMH of diverticulis (s/p sigmoidectomy, ileostomy w/ileostomy reversal in 2017) presents to the ED c/o 2 day h/o of abdominal pain. Pain is diffuse, "punching/sharp," 8/10, intermittent and has no relation to eating, breathing, or moving. Endorses some nausea w/o vomiting. Tolerating PO intake, however limited appetite 2/2 to symptoms. Last BM was yesterday and was watery, non-bloody. H/o recent admission with SBO diagnosis As per EMR, patient was evaluated in our ED on 03/07 with abdominal pain, N/V. CT scan showed SBO. Patient discharged with conservative management and GI follow-up. NKDA Surgical: hysterectomy, sigmoidectomy, ileostomy Past History - Past Medical History Allergies/Adverse Reactions: Allergies Allergy/AdvReac Type Severity Reaction Status Date / Time No Known Drug Allergies Allergy Verified 03/14/18 19:17 Home Medications: Ambulatory Orders Acetaminophen/Caffeine [Excedrin Tension Headache Cplt] 1 each PO DAILY PRN Naproxen Sodium 220 mg PO DAILY PRN 03/05/18 Pantoprazole Sodium [Protonix -] 40 mg PO DAILY #30 tablet.ec 03/10/18 Simethicone [Gas Relief 80] 80 mg PO DAILY PRN #30 tab.chew 03/10/18 Anemia: Yes Asthma: No Cancer: No Cardiac Disorders: No CVA: No COPD: No CHF: No DVT: No Dementia: No Diabetes: No GI Disorders: Yes (IBS, DIVERTICULITIS) Disorders: No HTN: No Hypercholesterolemia: Yes Liver Disease: No Seizures: No Thyroid Disease: No - Surgical History Abdominal Surgery: Yes (sigmoid colectomy/colostomy 05/2017) Appendectomy: No Cardiac Surgery: No Cholecystectomy: No GI Surgery: Yes (reversal of colostomy 07/2017) Lung Surgery: No Neurologic Surgery: No Orthopedic Surgery: No - Immunization History Immunization Up to Date: Yes - Suicide/Smoking/Psychosocial Hx Smoking History: Never smoked Have you smoked in the past 12 months: No Hx Alcohol Use: No Drug/Substance Use Hx: No Substance Use Type: None Hx Substance Use Treatment: No Review of Systems - Review of Systems Constitutional: No: Chills, Fever HEENTM: No: Recent change in vision, Double Vision Respiratory: No: Cough, Shortness of Breath Cardiac (ROS): No: Chest Pain, Lightheadedness, Palpitations, Syncope ABD/GI: Yes: Nausea, Abdominal cramping. No: Constipated, Diarrhea, Vomiting : Yes: Other (B/L flank pain). No: Burning, Dysuria *Physical Exam - Vital Signs Last Vital Signs Temp Pulse Resp BP Pulse Ox 97.7 F 76 18 130/76 98 03/14/18 19:15 03/14/18 19:15 03/14/18 19:15 03/14/18 19:15 03/14/18 19:15 - Physical Exam General Appearance: Yes: Nourished, Thin HEENT: positive: Normal Voice, Hearing Grossly Normal Neck: positive: Trachea midline, Supple Respiratory/Chest: positive: Lungs Clear, Normal Breath Sounds. negative: Labored Respiration, Rapid RR, Wheezing Cardiovascular: positive: S1, S2. negative: Edema, JVD, Murmur Gastrointestinal/Abdominal: positive: Normal Bowel Sounds, Soft, Other (LLQ TTP) Musculoskeletal: negative: CVA Tenderness (R), CVA Tenderness (L) Extremity: positive: Normal Capillary Refill, Normal Inspection Integumentary: positive: Normal Color, Dry, Warm Neurologic: positive: Fully Oriented, Alert Moderate Sedation - Procedure Monitoring Vital Signs: Procedure Monitoring Vital Signs Temperature 97.7 F 03/14/18 19:15 Pulse Rate 76 03/14/18 19:15 Respiratory Rate 18 03/14/18 19:15 Blood Pressure 130/76 03/14/18 19:15 O2 Sat by Pulse Oximetry (%) 98 03/14/18 19:15 ED Treatment Course - LABORATORY CBC & Chemistry Diagram: 03/14/18 19:35 03/14/18 22:02 - ADDITIONAL ORDERS Additional order review: 03/14/18 19:35 RBC 4.27 MCV 93.3 MCHC 35.7 RDW 13.4 MPV 9.1 D Neutrophils % 64.6 Lymphocytes % 26.3 D Monocytes % 7.2 Eosinophils % 1.0 D Basophils % 0.9 Medical Decision Making - Medical Decision Making 03/14/18 20:38 67 year old female s/p recently diagnosed SBO presents wtih abdominal pain. VS unremarkable. Peritoneal signs (rebound) in LLQ. Triage orders include CBC, CMP , Lipase and KUB. Will add on upright abdomen and reasess. 03/14/18 20:59 Patient reassessed @ bedside. Symptomatically improved s/p Morphine. 03/14/18 23:54 Upright abdominal XR negative for air fluid levels. Will discharge patient home with supportive care. I discussed the physical exam findings, ancillary test results and final diagnoses with the patient. I answered all of the patient's questions. The patient was satisfied with the care received and felt comfortable with the discharge plan and treatment plan. The patient will return to the Emergency Department with any new, persistent or worsening symptoms. *DC/Admit/Observation/Transfer Diagnosis at time of Disposition: Nausea and vomiting, Abdominal pain - Discharge Dispostion Disposition: HOME Condition at time of disposition: Good Decision to Admit order: No - Referrals Referrals: Rivera Willingham MD [Primary Care Provider] - - Patient Instructions Additional Instructions: You were evaluated today for your abdominal pain. An x-ray of your abdomen showed no concerning findings. At this time you are safe for discharge home. You can take Tylenol (up to 4000 mg daily) alternating with Motrin (up to 3200 mg daily) for your pain. Please make an appointment with a lotus notes developer. We have provided a referral for you or you can call your insurance company for a list of doctors. Return to the Emergency Department for any new/worsening/concerning symptoms. - Post Discharge Activity
[2018-03-14] MEDS ORDERED: SODIUM CHLORIDE 0.9% 500 ML INFUS.BAG IV ONE (21:00)
[2018-03-14] MEDS ORDERED: morphine CARPU-JECT 4 MG/1 ML DISP.SYRIN IVPUSH ONE (21:00)
[2018-03-14] MEDS ORDERED: GLYCERIN 1 RECTAL SUPPOSITORY, ADULT PR ONE (22:03)
[2018-03-14] MEDS ORDERED: morphine SULFATE 4 MG/ML VIAL ONE (22:04)
[2018-03-14 22:51] LABS: ALBUMIN 3.5 g/dl (3.4-5.0); ALK PHOS 86 U/L (45-117); ANION GAP 8 MMOL/L (8-16); BILIRUBIN,TOTAL 0.2 mg/dL (0.2-1); BLOOD UREA NITROGEN 12 mg/dL (7-18); CALCIUM 8.3 mg/dL (8.5-10.1); CHLORIDE 108 mmol/L (98-107); CO2 25 mmol/L (21-32); CREATININE 0.5 mg/dL (0.55-1.3); GLUCOSE,RANDOM 110 mg/dL (74-106); LIPASE 234 U/L (73-393); POTASSIUM 3.5 mmol/L (3.5-5.1); SGOT/AST 15 U/L (15-37); SGPT/ALT 19 U/L (13-61); SODIUM 142 mmol/L (136-145); TOT PROT 6.5 g/dl (6.4-8.2)
[2018-03-14] MEDS ORDERED: MAGNESIUM SULF 50% (8.12 MEQ/2 ML-1 GM VIAL) IVPB ONE (23:01)
[2018-03-14] MEDS ORDERED: POTASSIUM CHLORIDE TABS 20 MEQ TABLET.ER (FP) PO ONE (23:01)
[2018-03-15] MEDS ORDERED: POTASSIUM CHLORIDE TABS 20 MEQ TABLET.ER (FP) PO ONE (00:55)
[2018-03-15] MEDS ORDERED: MAGNESIUM 1GM/D5W - 1 GM/100 ML IVPB IVPB ONE (00:56)
[2018-03-15] MEDS ORDERED: GLYCERIN 1 RECTAL SUPPOSITORY, PEDIATRIC RC ONE (00:56)
[2018-03-15 03:08] VITALS: BMI 26.5
[2018-03-15 03:10] VITALS: BP 134/68; PULSE 71; TEMP 98.3
--- NOTE | 2018-03-15 13:08 | EKG ---
Test Reason : Blood Pressure : / mmHG Vent. Rate : 059 BPM Atrial Rate : 059 BPM P-R Int : 148 ms QRS Dur : 082 ms QT Int : 476 ms P-R-T Axes : 051 054 065 degrees QTc Int : 471 ms SINUS BRADYCARDIA LOW VOLTAGE QRS BORDERLINE ECG WHEN COMPARED WITH ECG OF 06-MAR-2018 03:38, NO SIGNIFICANT CHANGE WAS FOUND Confirmed by JOHNNA BHATT MD ([id number]) on 03/15/2018 1:07:47 PM Referred By: Confirmed By:JOHNNA BHATT MD
== END 2018-03-15 02:57 | disposition home or self-care (01) ==
LOC: JER 19:12
PROC: 3E033NZ Introduction of Analgesics, Hypnotics, Sedatives into Peripheral Vein, Percutaneous Approach (ICD-10-PCS; principal; 2018-03-14)
PROC: 3E033GC Introduction of Other Therapeutic Substance into Peripheral Vein, Percutaneous Approach (ICD-10-PCS; 2018-03-14)
DX: R10.84 Generalized abdominal pain (principal); R11.2 Nausea with vomiting, unspecified; E78.00 Pure hypercholesterolemia, unspecified; Z87.19 Personal history of other diseases of the digestive system
CPT/HCPCS: 36415; 74018-TC-FY; 74019-TC-FY; 80053; 81003; 82550; 83690; 83735; 84484; 85025; 87086; 93005; 93010; 96374; 96375; 99284-25

== ENCOUNTER 2018-04-24 01:37 | Inpatient (IN) | payer OTHER ==
--- NOTE | 2018-04-24 02:10 | PDOC ---
History of Present Illness - General Chief Complaint: Pain Stated Complaint: ABD PAIN Time Seen by Provider: 04/24/18 02:10 History Source: Patient, Family Exam Limitations: No Limitations - History of Present Illness Initial Comments: 04/24/18 02:22 67 year old female with PMH chronic diverticulitis, IBS, SBO, hypokalemia, sigmoid colectomy (05/2017), GERD, fibromyalgia presented to ED for diffuse abdominal pain and vomiting since 2300 last night. Pt stated she vomited 4X, denied blood. Pt denied fever, chills, diarrhea, blood in stool, chest pain, shortness of breath. Pt stated she had 4 normal bowel movements yesterday. Pt stated she ate clear soup for dinner. Allergies: NKDA Past History - Past Medical History Allergies/Adverse Reactions: Allergies Allergy/AdvReac Type Severity Reaction Status Date / Time No Known Drug Allergies Allergy Verified 04/24/18 02:14 Home Medications: Ambulatory Orders Gabapentin 300 mg PO QID PRN 04/24/18 Anemia: Yes Asthma: No Cancer: No Cardiac Disorders: No CVA: No COPD: No CHF: No DVT: No Dementia: No Diabetes: No GI Disorders: Yes (IBS, DIVERTICULITIS) Disorders: No HTN: No Hypercholesterolemia: Yes Liver Disease: No Seizures: No Thyroid Disease: No - Surgical History Abdominal Surgery: Yes (sigmoid colectomy/colostomy 05/2017) Appendectomy: No Cardiac Surgery: No Cholecystectomy: No GI Surgery: Yes (reversal of colostomy 07/2017) Lung Surgery: No Neurologic Surgery: No Orthopedic Surgery: No - Immunization History Immunization Up to Date: Yes - Suicide/Smoking/Psychosocial Hx Smoking History: Never smoked Have you smoked in the past 12 months: No Hx Alcohol Use: No Drug/Substance Use Hx: No Substance Use Type: None Hx Substance Use Treatment: No Review of Systems - Review of Systems Able to Perform ROS?: Yes Comments:: 04/24/18 02:24 General: denied fever, chills, generalized weakness. HEENT: denied sore throat, rhinorrhea, ear pain. Heart: denied chest pain, palpitations, syncope, diaphoresis. Respiratory: denied shortness of breath, cough, sputum production, hemoptysis. Abdomen: admitted to abdominal pain, nausea, vomiting. denied diarrhea, constipation, blood in stool. : denied dysuria, increased urinary frequency, hematuria, urinary incontinence , flank pain. Back: denied back pain. Musculoskeletal: denied joint pain, muscle pain, joint swelling. Neurological: denied headache, dizziness, numbness, tingling, weakness. Skin: denied rash, laceration, abrasion. *Physical Exam - Physical Exam Comments: 04/24/18 02:24 Constitutional: Well-nourished, Well-developed, appearing stated age. appears in pain. HEENT: head is normocephalic, atraumatic. EOMI. PERRLA. Neck: supple. Full ROM. Heart: regular rhythm. no murmurs, rubs or gallops. Lungs: clear to auscultation bilaterally. no crackles, rhonchi or wheezing. no stridor. Abdomen: soft, flat. diffusely tender. increased bowel sounds. no rebound, guarding, masses. Extremities: peripheral pulses intact. no lower extremity edema. Neurological: CN 2-12 grossly intact. moves all four extremities. Psych: awake, alert, oriented x3. follows commands. answers questions appropriately. Procedures - NG Lavage Progress: 04/24/18 06:15 NG tube was placed in jelly lubricant, pt was instructed to drink water, and NG tube was advanced through left nostril without difficulty until stomach contents were aspirated. Pt tolerated the procedure well. Pending CXR for placement. ED Treatment Course - LABORATORY CBC & Chemistry Diagram: 04/24/18 02:30 04/24/18 02:30 Medical Decision Making - Medical Decision Making 04/24/18 02:25 67 year old female with above PMH presented to ED for abdominal pain, nausea, vomiting since 2300 yesterday. Recent hospital course: admitted 02/[address] Dragan Saldaña consulted. Initial Vital Signs Temp Pulse Resp BP Pulse Ox 97.6 F 59 L 19 124/64 100 04/24/18 01:37 04/24/18 01:37 04/24/18 01:37 04/24/18 01:37 04/24/18 01:37 Afebrile. No tachycardia. No tachypnea. No hypotension. No hypoxia on room air. Labs ordered: CBC, CMP, troponin, lipase, T/S, coags Imaging ordered: CT abdomen/pelvis Medications ordered: normal saline bolus 1000 cc, pepcid, maalox, zofran EKG performed at 0304: rate 63, regular rhythm, normal axis, PAC, QTc 507, nonspecific ST changes. 04/24/18 03:18 CBC WBC 17.1 K/mm3 (4.0-10.0) H 04/24/18 02:30 RBC 4.77 M/mm3 (3.60-5.2) 04/24/18 02:30 Hgb 15.3 GM/dL (10.7-15.3) 04/24/18 02:30 Hct 44.6 % (32.4-45.2) 04/24/18 02:30 MCV 93.5 fl (80-96) 04/24/18 02:30 MCH 32.1 pg (25.7-33.7) 04/24/18 02:30 MCHC 34.4 g/dl (32.0-36.0) 04/24/18 02:30 RDW 13.5 % (11.6-15.6) 04/24/18 02:30 Plt Count 406 K/MM3 (134-434) 04/24/18 02:30 MPV 7.8 fl (7.5-11.1) D 04/24/18 02:30 Absolute Neuts (auto) 14.7 K/mm3 (1.5-8.0) H 04/24/18 02:30 Neutrophils % 85.8 % (42.8-82.8) H D 04/24/18 02:30 Lymphocytes % 9.0 % (8-40) D 04/24/18 02:30 Monocytes % 4.3 % (3.8-10.2) 04/24/18 02:30 Eosinophils % 0.2 % (0-4.5) 04/24/18 02:30 Basophils % 0.7 % (0-2.0) 04/24/18 02:30 Nucleated RBC % 0 % (0-0) 04/24/18 02:30 Leukocytosis with left shift. No anemia. CMP Sodium 140 mmol/L (136-145) 04/24/18 02:30 Potassium 4.4 mmol/L (3.5-5.1) 04/24/18 02:30 Chloride 103 mmol/L (98-107) 04/24/18 02:30 Carbon Dioxide 27 mmol/L (21-32) 04/24/18 02:30 Anion Gap 11 MMOL/L (8-16) 04/24/18 02:30 BUN 21 mg/dL (7-18) H 04/24/18 02:30 Creatinine 0.8 mg/dL (0.55-1.3) 04/24/18 02:30 Creat Clearance w eGFR > 60 (>60) 04/24/18 02:30 Random Glucose 128 mg/dL (74-106) H 04/24/18 02:30 Lactic Acid 3.5 mmol/L (0.4-2.0) H* 04/24/18 02:30 Calcium 9.5 mg/dL (8.5-10.1) 04/24/18 02:30 Phosphorus 4.0 mg/dL (2.5-4.9) 04/24/18 02:30 Magnesium 1.8 mg/dL (1.8-2.4) 04/24/18 02:30 Total Bilirubin 0.5 mg/dL (0.2-1) 04/24/18 02:30 AST 23 U/L (15-37) 04/24/18 02:30 ALT 19 U/L (13-61) 04/24/18 02:30 Alkaline Phosphatase 103 U/L (45-117) 04/24/18 02:30 Troponin I < 0.02 ng/ml (0.00-0.05) 04/24/18 02:30 Total Protein 7.4 g/dl (6.4-8.2) 04/24/18 02:30 Albumin 3.8 g/dl (3.4-5.0) 04/24/18 02:30 Lipase 121 U/L (73-393) 04/24/18 02:30 No electrolyte abnormalities. Dehydration. Lactic acidosis. No transaminitis. Normal troponin. Normal lipase. Medications ordered: normal saline 1000 cc bolus 04/24/18 04:[address] Pt reassessed, reported no improvement of pain or nausea. Medications ordered: morphine 4 mg, reglan 10 mg 04/24/18 04:42 Radiologist called, reported SBO, transition point at ileal ileal anastomosis. Will place NG tube. 04/24/18 04:51 No NG tubes in ED. Central supply called, no NG tubes there. 04/24/18 04:58 Dr. Dragan Saldaña's office attempted to be called [phone], went to voicemail. 04/24/18 05:09 NG tube located at [facility]. Security sent to milk pickup driver NG tube. I spoke with IAN Spence about the case, pt to be admitted under Dr. Willingham's service. Pending admission. Pt and son informed of results and need for admission. They agree with plan for care. Repeat lactate ordered. 04/24/18 05:37 Dr. Dragan Saldaña's office called again [phone], went to voicemail. 04/24/18 05:54 NG tube in transit to ED. 04/24/18 06:09 NG tube placed without difficulty. Imaging ordered: CXR Medications ordered: normal saline bolus 1000 cc 04/24/18 06:34 NG tube appears to be in place. - Pending official report 04/24/18 06:43 Repeat Lactate 3.4 - Third normal saline 1000 bag running now 04/24/18 06:46 Dr. Dragan Saldaña attempted to be contacted a third time, office number went to voicemail. Dr. Meléndez attempted to be paged, office number went to voicemail. IAN Spence notified via [employer]. *DC/Admit/Observation/Transfer Diagnosis at time of Disposition: Leukocytosis, Lactic acidosis, SBO (small bowel obstruction) - Discharge Dispostion Condition at time of disposition: Stable Decision to Admit order: Yes - Referrals - Patient Instructions - Post Discharge Activity
--- NOTE | 2018-04-24 02:14 | PDOC ---
Attending Attestation - Resident Resident Name: Adeline Del Valle - ED Attending Attestation I have performed the following: I have examined & evaluated the patient, The case was reviewed & discussed with the resident, I agree w/resident's findings & plan - HPI HPI: 04/24/18 04:55 67-year-old female with history of abdominal surgery and bowel obstruction with abdominal pain, generalized 8 out of 10 in intensity - Physicial Exam PE: 04/24/18 04:56 Agree with resident's exam - Medical Decision Making 04/24/18 04:56 67-year-old female with abdominal pain and history of bowel obstruction Patient's abdomen remains diffusely tender with rebound tenderness and guarding which is increased since arrival CT scan is consistent with small bowel obstruction We are currently searching for an NG tube Call placed to hospitalist service for admission
[2018-04-24] MEDS ORDERED: ONDANSETRON 4 MG/2 ML VIAL IVPUSH ONE (02:22)
[2018-04-24] MEDS ORDERED: FAMOTIDINE 20 MG/50 ML IVPB 20 MG/50 ML MG IVPB ONE ×2 (02:22→02:43)
[2018-04-24] MEDS ORDERED: MAG HYDROX/AL HYDROX/SIMETH 30 ML UNIT-DOSE CUP PO ONE (02:22)
[2018-04-24] MEDS ORDERED: SODIUM CHLORIDE 1,000 ML IV STA ×3 (02:22→06:14)
[2018-04-24] MEDS ORDERED: MAG HYDROX/AL HYDROX/SIMETH 30 ML UNIT-DOSE CUP ONE (02:42)
[2018-04-24] MEDS ORDERED: ONDANSETRON 4 MG/2 ML VIAL ONE (02:43)
[2018-04-24 02:56] LABS: BASO % 0.7 % (0-2.0); EOS % 0.2 % (0-4.5); HEMATOCRIT 44.6 % (32.4-45.2); HEMOGLOBIN 15.3 GM/dL (10.7-15.3); MCH 32.1 pg (25.7-33.7); MCHC 34.4 g/dl (32.0-36.0); MEAN CELL VOLUME 93.5 fl (80-96); MEAN PLT VOLUME 7.8 fl (7.5-11.1); MONO % 4.3 % (3.8-10.2); NEUT % 85.8 % (42.8-82.8); PLATELET COUNT 406 K/MM3 (134-434); RBC 4.77 M/mm3 (3.60-5.2); RDW 13.5 % (11.6-15.6); WHITE BLOOD COUNT 17.1 K/mm3 (4.0-10.0)
[2018-04-24 03:10] LABS: INR 0.92 (0.83-1.09); PROTHROMBIN TIME (PATIENT) 10.8 SEC (9.7-13.0)
[2018-04-24 03:13] LABS: ACTIVATED PTT 24.3 SECONDS (25.2-36.5)
[2018-04-24 03:36] LABS: ALBUMIN 3.8 g/dl (3.4-5.0); ALK PHOS 103 U/L (45-117); ANION GAP 11 MMOL/L (8-16); BILIRUBIN,TOTAL 0.5 mg/dL (0.2-1); BLOOD UREA NITROGEN 21 mg/dL (7-18); CALCIUM 9.5 mg/dL (8.5-10.1); CHLORIDE 103 mmol/L (98-107); CO2 27 mmol/L (21-32); CREATININE 0.8 mg/dL (0.55-1.3); GLUCOSE,RANDOM 128 mg/dL (74-106); LIPASE 121 U/L (73-393); MAGNESIUM 1.8 mg/dL (1.8-2.4); POTASSIUM 4.4 mmol/L (3.5-5.1); SGOT/AST 23 U/L (15-37); SGPT/ALT 19 U/L (13-61); SODIUM 140 mmol/L (136-145); TOT PROT 7.4 g/dl (6.4-8.2)
[2018-04-24] MEDS ORDERED: morphine CARPU-JECT 4 MG/1 ML DISP.SYRIN IVPUSH ONE (04:02)
[2018-04-24] MEDS ORDERED: METOCLOPRAMIDE HCL INJECTION 10 MG/2 ML VIAL IVPUSH ONE (04:03)
[2018-04-24] MEDS ORDERED: METOCLOPRAMIDE HCL INJECTION 10 MG/2 ML VIAL ONE (04:15)
[2018-04-24] MEDS ORDERED: morphine SULFATE 4 MG/ML VIAL ONE (04:16)
--- NOTE | 2018-04-24 05:10 | HP ---
Admitting History and Physical - Primary Care Physician PCP: Rivera Willingham - Admission Chief Complaint: Abdominal Pain, Vomiting History of Present Illness: This is a 67 y/o woman with a PMHx of SBO, Diverticulits s/p Colostomy/ Colostomy reversal, Fibromyalgia. Who presents to the ED for generalized abdominal pain with nausea and vomiting non-bilious non bloody since 1800 last night. Patient's son who is at bedside provided HPI. Patient is primarily Indonesian speaking. Per the son patient has seen her surgeon Dr. Saldaña last month for a follow up and was given Motrin 800mg prn. Per the son the patient took a dose yesterday without relief. Patient reports having soft brown BMs daily. However last night patient reports having 4 beige soft stools. Patient reports having chills without fever. Her last meal was Quinoa and Fish that her spouse had without illness. History Source: Patient Limitations to Obtaining History: Language Barrier (Indonesian) - Past Medical History Gastrointestinal: Yes: Constipation, Diverticulitis, Diverticulosis, Irritable Bowel Disease Musculoskeletal: Yes: Osteoarthritis Rheumatology: Yes: Fibromyalgia - Past Surgical History Past Surgical History: Yes: Colonoscopy (last 12/11/16 - found pandiverticulosis only), Colostomy (Colostomy Reversal), Hysterectomy, Tubal Ligation - Smoking History Smoking history: Never smoked Have you smoked in the past 12 months: No - Alcohol/Substance Use Hx Alcohol Use: No History of Substance Use: reports: None - Social History Usual Living Arrangement: Yes: With Spouse, With Child ADL: Independent History of Recent Travel: No Home Medications - Allergies Allergies/Adverse Reactions: Allergies Allergy/AdvReac Type Severity Reaction Status Date / Time No Known Drug Allergies Allergy Verified 04/24/18 02:14 - Home Medications Home Medications: Ambulatory Orders Gabapentin 300 mg PO QID PRN 04/24/18 Family Disease History - Family Disease History Family Disease History: Heart Disease: Father (), Brother, [place]: Mother ( colon - in [facility] now for tx, age 88) Review of Systems - Review of Systems Constitutional: reports: Loss of Appetite Eyes: reports: No Symptoms HENT: reports: No Symptoms Neck: reports: No Symptoms Cardiovascular: reports: No Symptoms Respiratory: reports: No Symptoms Gastrointestinal: reports: Abdominal Pain, Nausea, Vomiting Genitourinary: reports: No Symptoms Breasts: reports: No Symptoms Reported Musculoskeletal: reports: No Symptoms Integumentary: reports: No Symptoms Neurological: reports: No Symptoms Endocrine: reports: No Symptoms Hematology/Lymphatic: reports: No Symptoms Psychiatric: reports: No Symptoms Physical Examination Vital Signs: Vital Signs Temperature 97.6 F 04/24/18 01:37 Pulse Rate 59 L 04/24/18 01:37 Respiratory Rate 04/24/18 01:37 Blood Pressure 124/64 04/24/18 01:37 O2 Sat by Pulse Oximetry (%) 100 04/24/18 01:37 Constitutional: Yes: No Distress, Calm Eyes: Yes: WNL, Conjunctiva Clear (pale), EOM Intact HENT: Yes: WNL, Atraumatic, Normocephalic Neck: Yes: WNL, Supple, Trachea Midline Cardiovascular: Yes: WNL, Regular Rate and Rhythm, S1, S2 Respiratory: Yes: WNL, Regular, CTA Bilaterally Gastrointestinal: Yes: Hypoactive Bowel Sounds, Tenderness, Tenderness, Epigastrium ...Rectal Exam: Yes: WNL Renal/: Yes: WNL Breast(s): Yes: WNL Musculoskeletal: Yes: WNL Extremities: Yes: WNL Edema: No Peripheral Pulses WNL: Yes Neurological: Yes: WNL, Alert, Oriented, Cran Nerves II-XII Intact ...Motor Strength: WNL Psychiatric: Yes: WNL, Alert, Oriented Labs: CBC, BMP 04/24/18 02:30 04/24/18 02:30 Laboratory Results - last 24 hr 04/24/18 04/24/18 04/24/18 02:30 02:30 02:30 WBC 17.1 H RBC 4.77 Hgb 15.3 Hct 44.6 MCV 93.5 MCH 32.1 MCHC 34.4 RDW 13.5 Plt Count 406 MPV 7.8 D Absolute Neuts (auto) 14.7 H Neutrophils % 85.8 H D Lymphocytes % 9.0 D Monocytes % 4.3 Eosinophils % 0.2 Basophils % 0.7 Nucleated RBC % 0 PT with INR 10.80 INR 0.92 PTT (Actin FS) 24.3 L Sodium 140 Potassium 4.4 Chloride 103 Carbon Dioxide 27 Anion Gap 11 BUN 21 H Creatinine 0.8 Creat Clearance w eGFR > 60 Random Glucose 128 H Lactic Acid Calcium 9.5 Phosphorus 4.0 Magnesium 1.8 Total Bilirubin 0.5 AST 23 ALT 19 Alkaline Phosphatase 103 Troponin I < 0.02 Total Protein 7.4 Albumin 3.8 Lipase 121 04/24/18 02:30 WBC RBC Hgb Hct MCV MCH MCHC RDW Plt Count MPV Absolute Neuts (auto) Neutrophils % Lymphocytes % Monocytes % Eosinophils % Basophils % Nucleated RBC % PT with INR INR PTT (Actin FS) Sodium Potassium Chloride Carbon Dioxide Anion Gap BUN Creatinine Creat Clearance w eGFR Random Glucose Lactic Acid 3.5 H* Calcium Phosphorus Magnesium Total Bilirubin AST ALT Alkaline Phosphatase Troponin I Total Protein Albumin Lipase Intake & Output 04/21/18 04/22/18 04/23/18 04/24/18 23:59 23:59 23:59 23:59 Weight 66.224 kg Imaging - Results Chest X-ray: Pending Cat Scan: Report Reviewed, Image Reviewed EKG: Image Reviewed Problem List - Problems (1) SBO (small bowel obstruction) Assessment/Plan: Patient reports generalized abdominal pain x last night with N/V/D CTAP- SBO +leukocytosis +Lactic Acid fluid bolus, Zofran given in ED IV hydration Zofran prn Appreciate Surgical Consult NPO Monitor CBC, BMP Trend Lactic Acid Code(s): K56.609 - UNSP INTESTNL OBST, UNSP TO PARTIAL VERSUS COMPLETE OBST (2) Abdominal pain Assessment/Plan: See above Code(s): R10.9 - UNSPECIFIED ABDOMINAL PAIN (3) Lactic acidosis Assessment/Plan: NS Bolus Will trend Code(s): E87.2 - ACIDOSIS (4) Nausea and vomiting Assessment/Plan: Secondary to SBO Zofran IV Hydration Monitor BMP Code(s): R11.2 - NAUSEA WITH VOMITING, UNSPECIFIED Qualifiers: Assessment/Plan This is a 67 y/o woman admitted for SBO, Abdominal Pain for further evaluation of their emergent condition. Plan: See Problem List FEN D51/2NS@75ml/hr Replete lytes prn NPO DVT ppx OOB SCDs Heparin SQ Code Status: Full Code Dispo: Requires Inpatient Care Visit type - Emergency Visit Emergency Visit: Yes ED Registration Date: 04/24/18 Care time: The patient presented to the Emergency Department on the above date and was hospitalized for further evaluation of their emergent condition. - New Patient This patient is new to me today: Yes Date on this admission: 04/24/18 - Critical Care Critical Care patient: No
[2018-04-24] MEDS ORDERED: ONDANSETRON 4 MG/2 ML VIAL IVPUSH PRN (05:12)
[2018-04-24 06:36] LABS: URINE APPEARANCE CLEAR; URINE BILIRUBIN NEGATIVE (<2.0 mg/dL); URINE COLOR STRAW; URINE GLUCOSE (UA) NEGATIVE (NEGATIVE); URINE KETONE NEGATIVE (NEGATIVE); URINE LEUK ESTERASE NEGATIVE (NEGATIVE); URINE NITRITE NEGATIVE (NEGATIVE); URINE PROTEIN NEGATIVE (NEGATIVE); URINE UROBILINOGEN NEGATIVE mg/dL (0.2-1.0)
[2018-04-24] MEDS ORDERED: SODIUM CHLORIDE 500 ML IV STA (07:14)
[2018-04-24] MEDS ORDERED: MORPHINE SULFATE 2 MG/ML VIAL IVPUSH PRN (07:14)
[2018-04-24 10:21] VITALS: BMI 23.6
[2018-04-24] MEDS: SODIUM CHLORIDE 1,000 ML IV SCH ×2 (12:00→22:28)
--- NOTE | 2018-04-24 13:07 | PN ---
Progress Note, Physician Chief Complaint: patient is NPO with ng tube feeling better now still has aching abdominal pain - Current Medication List Current Medications: Active Medications Sodium Chloride (Normal Saline -) 1,000 mls @ 100 mls/hr IV [facility] Morphine Sulfate (Morphine Sulfate) 2 mg IVPUSH Q4H PRN PRN Reason: PAIN LEVEL 7 - 10 Ondansetron HCl (Zofran Injection) 4 mg IVPUSH Q6H PRN PRN Reason: NAUSEA AND/OR VOMITING - Objective Vital Signs: Vital Signs Temperature 98.1 F 04/24/18 10:13 Pulse Rate 74 04/24/18 10:13 Respiratory Rate 20 04/24/18 10:13 Blood Pressure 136/76 04/24/18 10:13 O2 Sat by Pulse Oximetry (%) 95 04/24/18 07:59 Constitutional: Yes: Calm HENT: Yes: Other (ng tube) Cardiovascular: Yes: Regular Rate and Rhythm, S1, S2 Respiratory: Yes: CTA Bilaterally Gastrointestinal: Yes: Hypoactive Bowel Sounds, Tenderness Edema: No Neurological: Yes: Alert, Oriented Labs: CBC, BMP 04/24/18 02:30 04/24/18 02:30 INR, PTT INR 0.92 (0.83-1.09) 04/24/18 02:30 Problem List - Problems (1) Abdominal pain Assessment/Plan: CTAP offical report is pending trend wbc and lactic acid surgical and ID consult ivf mprphine zofran PPI scds Code(s): R10.9 - UNSPECIFIED ABDOMINAL PAIN (2) Lactic acidosis Assessment/Plan: ivf Code(s): E87.2 - ACIDOSIS (3) SBO (small bowel obstruction) Assessment/Plan: surgical consult NPO ivf Code(s): K56.609 - UNSP INTESTNL OBST, UNSP TO PARTIAL VERSUS COMPLETE OBST
--- NOTE | 2018-04-24 14:01 | EKG ---
Test Reason : Blood Pressure : / mmHG Vent. Rate : 063 BPM Atrial Rate : 063 BPM P-R Int : 148 ms QRS Dur : 088 ms QT Int : 496 ms P-R-T Axes : 050 061 073 degrees QTc Int : 507 ms SINUS RHYTHM WITH PREMATURE ATRIAL COMPLEXES LOW VOLTAGE QRS PROLONGED QT ABNORMAL ECG WHEN COMPARED WITH ECG OF 14-MAR-2018 23:10, PREMATURE ATRIAL COMPLEXES ARE NOW PRESENT Confirmed by KO MARTINES, YENI ([id number]) on 04/24/2018 2:00:49 PM Referred By: Confirmed By:YENI CONNELL MD
[2018-04-24 14:10] LABS: BASO % 0.3 % (0-2.0); HEMATOCRIT 37.7 % (32.4-45.2); HEMOGLOBIN 12.6 GM/dL (10.7-15.3); LYMPH % 10.1 % (8-40); MCHC 33.4 g/dl (32.0-36.0); MEAN CELL VOLUME 92.7 fl (80-96); MEAN PLT VOLUME 7.4 fl (7.5-11.1); MONO % 6.6 % (3.8-10.2); PLATELET COUNT 358 K/MM3 (134-434); RBC 4.06 M/mm3 (3.60-5.2); RDW 13.8 % (11.6-15.6); WHITE BLOOD COUNT 11.6 K/mm3 (4.0-10.0)
--- NOTE | 2018-04-24 17:27 | PN ---
Progress Note (short form) - Note Progress Note: ID consult dictated imp/reccd recurrent SBO lactic acidosis ct scan prelim with dilated sb loops, stranding in the pelvis, ?thickened bladderwall pror history of sigmoidectomy with ileostomy followed by reversal with wound infection 2017 (pseudomonas) recent admission in February for SBO ivf/blood cultures zosyn (empiric) official ct scan reading pending surgery evaluation pending Problem List - Problems (1) Leukocytosis Code(s): D72.829 - ELEVATED WHITE BLOOD CELL COUNT, UNSPECIFIED (2) Lactic acidosis Code(s): E87.2 - ACIDOSIS (3) SBO (small bowel obstruction) Code(s): K56.609 - UNSP INTESTNL OBST, UNSP TO PARTIAL VERSUS COMPLETE OBST
[2018-04-24] MEDS ORDERED: DEXTROSE 5%-WATER - 50 ML IVPB ONE (17:49)
[2018-04-24] MEDS ORDERED: PIPERACILLIN/TAZOBACTAM 3.375 GM VIAL IVPB ONE (17:49)
[2018-04-24] MEDS: PIPERACILLIN/TAZOB 3.375 GM 3.375 GM in DEXTROSE 5%-WATER - 50 ML IVPB SCH (18:01)
--- NOTE | 2018-04-24 18:18 | CONSULT ---
Consult Consult Specialty:: Surgery Reason for Consultation:: SBO - History of Present Illness Chief Complaint: abdominal pain, nausea and vomiting History of Present Illness: 67 Y.O. female known to undersigned with recurrent partial SBO likely from post- op adhesions. Had sigmoid colectomy with diverting ileostomy in June 2017 for chronic diverticulitis. Ileostomy reversal was done in July 2017. Patient subsequently developed recurrent partial SBO requiring hospital admissions the last episode being in February 2018. Ngt decompression done with minimal drainage. - History Source History Provided By: Patient, Family Member Limitations to Obtaining History: No Limitations - Past Medical History Gastrointestinal: Yes: Constipation, Diverticulitis, Diverticulosis, Irritable Bowel Disease ...: No Musculoskeletal: Yes: Osteoarthritis Rheumatology: Yes: Fibromyalgia - Past Surgical History Past Surgical History: Yes: Colonoscopy (last 12/11/16 - found pandiverticulosis only), Colostomy (ileostomy), Hysterectomy, Tubal Ligation - Alcohol/Substance Use Hx Alcohol Use: No History of Substance Use: reports: None - Smoking History Smoking history: Never smoked Have you smoked in the past 12 months: No - Social History Usual Living Arrangement: Other ADL: Independent History of Recent Travel: No Home Medications - Allergies Allergies/Adverse Reactions: Allergies Allergy/AdvReac Type Severity Reaction Status Date / Time No Known Drug Allergies Allergy Verified 04/24/18 02:14 - Home Medications Home Medications: Ambulatory Orders Gabapentin 300 mg PO QID PRN 04/24/18 Family Disease History - Family Disease History Family Disease History: Heart Disease: Father (), Brother, [place]: Mother ( colon - in [facility] now for tx, age 88) Physical Exam Vital Signs: Vital Signs Temperature 98.1 F 04/24/18 10:13 Pulse Rate 74 04/24/18 10:13 Respiratory Rate 20 04/24/18 10:13 Blood Pressure 136/76 04/24/18 10:13 O2 Sat by Pulse Oximetry (%) 95 04/24/18 07:59 Constitutional: Yes: Well Nourished, No Distress Eyes: Yes: Conjunctiva Clear HENT: Yes: Normocephalic Neck: Yes: Supple Cardiovascular: Yes: Regular Rate and Rhythm Respiratory: Yes: CTA Bilaterally Gastrointestinal: Yes: Soft, Tenderness (at RLQ) ...Rectal Exam: Yes: Deferred Labs: CBC, BMP 04/24/18 13:50 04/24/18 02:30 Imaging - Results Cat Scan: Image Reviewed Problem List - Problems (1) Partial small bowel obstruction Assessment/Plan: Recurrent partial SBO Continue NGT decompression IVF hydration Discussion with patient and family done regarding the option of surgical intervention due to short intervals of partial SBO Advised laparoscopic lysis of adhesions to prevent recurrent partial SBO and relieve chronic pain Patient is undecided at this time. Will follow. Code(s): K56.600 - PARTIAL INTESTINAL OBSTRUCTION, UNSPECIFIED TO CAUSE
[2018-04-25] MEDS ORDERED: DEXTROSE 5%-WATER - 50 ML IVPB ONE ×3 (02:34→16:23)
[2018-04-25] MEDS ORDERED: PIPERACILLIN/TAZOBACTAM 3.375 GM VIAL IVPB ONE ×3 (02:34→16:23)
[2018-04-25] MEDS: PIPERACILLIN/TAZOB 3.375 GM 3.375 GM in DEXTROSE 5%-WATER - 50 ML IVPB SCH ×3 (02:43→17:33)
[2018-04-25 06:54] LABS: BASO % 0.6 % (0-2.0); EOS % 0.9 % (0-4.5); HEMATOCRIT 35.9 % (32.4-45.2); HEMOGLOBIN 12.3 GM/dL (10.7-15.3); LYMPH % 26.4 % (8-40); MCH 32.6 pg (25.7-33.7); MCHC 34.3 g/dl (32.0-36.0); MEAN CELL VOLUME 94.9 fl (80-96); MEAN PLT VOLUME 7.6 fl (7.5-11.1); MONO % 9.2 % (3.8-10.2); NEUT % 62.9 % (42.8-82.8); PLATELET COUNT 330 K/MM3 (134-434); RBC 3.78 M/mm3 (3.60-5.2); RDW 13.6 % (11.6-15.6); WHITE BLOOD COUNT 8.6 K/mm3 (4.0-10.0)
[2018-04-25 08:09] LABS: ANION GAP 6 MMOL/L (8-16); BLOOD UREA NITROGEN 12 mg/dL (7-18); CALCIUM 7.3 mg/dL (8.5-10.1); CHLORIDE 114 mmol/L (98-107); CO2 25 mmol/L (21-32); CREATININE 0.5 mg/dL (0.55-1.3); GLUCOSE,RANDOM 102 mg/dL (74-106); POTASSIUM 3.6 mmol/L (3.5-5.1); SODIUM 145 mmol/L (136-145)
[2018-04-25] MEDS: SODIUM CHLORIDE 1,000 ML IV SCH ×2 (12:00→22:11)
[2018-04-25] MEDS: ACETAMINOPHEN 1000 MG/100 ML VIAL (NON FORMULARY) IVPB PRN ×2 (12:48→17:55)
--- NOTE | 2018-04-25 12:55 | PN ---
Progress Note, Physician History of Present Illness: Continues to have RLQ pain Denies passing flatus, no BM - Current Medication List Current Medications: Active Medications Acetaminophen (Ofirmev Injection -) 1,000 mg IVPB Q6H PRN PRN Reason: PAIN LEVEL 4 - 6 Last Admin: 04/25/18 12:48 Dose: 1,000 mg Sodium Chloride (Normal Saline -) 1,000 mls @ 100 mls/hr IV [facility] Last Admin: 04/24/18 22:28 Dose: 100 mls/hr Piperacillin Sod/Tazobactam (Sod 3.375 gm/ Dextrose) 50 mls @ 100 mls/hr IVPB Q8H-IV FOREST; Protocol Last Admin: 04/25/18 11:00 Dose: 100 mls/hr Morphine Sulfate (Morphine Sulfate) 2 mg IVPUSH Q4H PRN PRN Reason: PAIN LEVEL 7 - 10 Last Admin: 04/24/18 20:15 Dose: 2 mg Ondansetron HCl (Zofran Injection) 4 mg IVPUSH Q6H PRN PRN Reason: NAUSEA AND/OR VOMITING - Objective Vital Signs: Vital Signs Temperature 98.0 F 04/25/18 04:40 Pulse Rate 70 04/25/18 04:40 Respiratory Rate 17 04/25/18 04:40 Blood Pressure 123/66 04/25/18 04:40 O2 Sat by Pulse Oximetry (%) 95 04/24/18 07:59 Constitutional: Yes: Anxious Eyes: Yes: Conjunctiva Clear Cardiovascular: Yes: Regular Rate and Rhythm Respiratory: Yes: CTA Bilaterally Gastrointestinal: Yes: Soft, Tenderness (RLQ area) Labs: CBC, BMP 04/25/18 05:40 04/25/18 05:40 INR, PTT INR 0.92 (0.83-1.09) 04/24/18 02:30 Problem List - Problems (1) Partial small bowel obstruction Assessment/Plan: FUA today continue NGT decompression OOB, GI, & DVT prophylaxis Code(s): K56.600 - PARTIAL INTESTINAL OBSTRUCTION, UNSPECIFIED TO CAUSE
--- NOTE | 2018-04-25 13:43 | PN ---
Progress Note, Physician Chief Complaint: SBO RLQ tenderness History of Present Illness: Previous notes and events review awake and alert NAD complain of RLQ pain, denies having BM but admits to passing flatus this morning NGT in place to continuous suction with 900cc dark brown colored output - Current Medication List Current Medications: Active Medications Acetaminophen (Ofirmev Injection -) 1,000 mg IVPB Q6H PRN PRN Reason: PAIN LEVEL 4 - 6 Last Admin: 04/25/18 12:48 Dose: 1,000 mg Sodium Chloride (Normal Saline -) 1,000 mls @ 100 mls/hr IV [facility] Last Admin: 04/24/18 22:28 Dose: 100 mls/hr Piperacillin Sod/Tazobactam (Sod 3.375 gm/ Dextrose) 50 mls @ 100 mls/hr IVPB Q8H-IV FOREST; Protocol Last Admin: 04/25/18 11:00 Dose: 100 mls/hr Morphine Sulfate (Morphine Sulfate) 2 mg IVPUSH Q4H PRN PRN Reason: PAIN LEVEL 7 - 10 Last Admin: 04/24/18 20:15 Dose: 2 mg Ondansetron HCl (Zofran Injection) 4 mg IVPUSH Q6H PRN PRN Reason: NAUSEA AND/OR VOMITING - Objective Vital Signs: Vital Signs Temperature 98.0 F 04/25/18 04:40 Pulse Rate 70 04/25/18 04:40 Respiratory Rate 17 04/25/18 04:40 Blood Pressure 123/66 04/25/18 04:40 O2 Sat by Pulse Oximetry (%) 95 04/24/18 07:59 Constitutional: Yes: No Distress, Calm Eyes: Yes: Conjunctiva Clear HENT: Yes: Atraumatic Cardiovascular: Yes: Regular Rate and Rhythm Respiratory: Yes: Regular, CTA Bilaterally Gastrointestinal: Yes: Soft, Hypoactive Bowel Sounds, Tenderness (RLQ and LLQ) Musculoskeletal: Yes: WNL Extremities: Yes: WNL Edema: No Neurological: Yes: Alert, Oriented Psychiatric: Yes: Alert, Oriented Labs: CBC, BMP 04/25/18 05:40 04/25/18 05:40 INR, PTT INR 0.92 (0.83-1.09) 04/24/18 02:30 Microbiology 04/24/18 06:20 Urine - Urine Clean Catch Urine Culture - Preliminary Lactose Fermenting Neg Bacilli Problem List - Problems (1) Abdominal pain Assessment/Plan: -Surgery and ID on board on board -maintain NPO status -pain management -continue IV hydration Code(s): R10.9 - UNSPECIFIED ABDOMINAL PAIN (2) Lactic acidosis Assessment/Plan: -resolved -LA 0.7 Code(s): E87.2 - ACIDOSIS (3) Leukocytosis Assessment/Plan: -resolved -current WBC 8.6 -UC positive for lactose fermenting negative bacilli -ID on board -continue zosyn Code(s): D72.829 - ELEVATED WHITE BLOOD CELL COUNT, UNSPECIFIED (4) SBO (small bowel obstruction) Assessment/Plan: -surgery and ID on board -maintain NPO status -IV hydration -NGT to continuous suction -FUA done, results pending -surgery recommend laparoscopic lysis of adhesions, patient remain undecided Code(s): K56.609 - UNSP INTESTNL OBST, UNSP TO PARTIAL VERSUS COMPLETE OBST Assessment/Plan see problem list dvt ppx
--- NOTE | 2018-04-25 17:01 | PN ---
Progress Note (short form) - Note Progress Note: still with NGT drainage Vital Signs Period Temp Pulse Resp BP Sys/Valderrama Pulse Ox Last 24 Hr 98.0 F-98.4 F 70-83 16-19 123-137/66-74 cor-rrr lungs clear abd soft,mild tenderness to palpation-suprapubic area ext no edema CBC, BMP 04/25/18 05:40 04/25/18 05:40 Microbiology 04/24/18 06:20 Urine - Urine Clean Catch Urine Culture - Preliminary Lactose Fermenting Neg Bacilli imp/reccd recurrent SBO lactic acidosis-resolved uti continue zosyn f/u cultures
--- NOTE | 2018-04-25 22:40 | CONS ---
DATE OF CONSULTATION: DATE OF DICTATION: 04/25/2018 REQUESTING PHYSICIAN: Rivera Willingham MD HISTORY: This is a 67-year-old woman who was admitted on the with acute onset of vomiting and abdominal pain. It started suddenly at 6 o'clock that evening. She has a history of recurrent small bowel obstruction. I am asked to see her because her white count on admission was 17,000 with an elevated lactic acid. When I saw her, she was resting comfortably. She had an NG tube in place draining bilious fluid, and she had abdominal discomfort. She had no further vomiting. She reported chills without any fever. She has been moving her bowels. PAST MEDICAL HISTORY: Notable for constipation, diverticulitis, diverticulosis, irritable bowel disease, osteoarthritis, and fibromyalgia. PAST SURGICAL HISTORY: She has had a hysterectomy and a tubal ligation as well as sigmoid colectomy with diverting ileostomy in June 2017 for chronic diverticulitis. The ileostomy was reversed in July. She subsequently developed a wound infection that was treated. She had recurrent small bowel obstruction the most recent being February of this year. SOCIAL HISTORY: She lives at home with her spouse. There is no history of alcohol or substance use. There is no history of any travel. ALLERGIES: She has no known drug allergies. MEDICATIONS: She takes gabapentin p.r.n. and Motrin p.r.n. FAMILY HISTORY: Notable for heart disease. Mother had colon cancer. REVIEW OF SYSTEMS: Unremarkable as per HPI. PHYSICAL EXAMINATION: Vital Signs: Temperature on exam 98.1 with a pulse of 79, blood pressure 137/72, respiratory rate 16. HEENT: She is normocephalic. Her eyes are anicteric. Neck: Supple. Lungs: Clear to auscultation. Heart: Regular rate and rhythm. Abdomen: Soft, firm. She has some midepigastric discomfort. She has some discomfort around her ileostomy scar. Extremities: Without edema. DIAGNOSTIC DATA: White count on admission was 17, repeat 11.6, hemoglobin 12.6, platelets 358, INR 0.9, BUN 12, creatinine 0.5, lactic acid 3.4. Urinalysis is negative. I spoke with when I saw her as a CAT scan had not been read, and he preliminary reported dilated small loops with stranding in the pelvis and a question of a thickened gallbladder wall. Given this and her prior history of sigmoidectomy with ileostomy followed by a reversal of the ileostomy with wound infection 2018 pseudomonas, I would suggest we obtain blood cultures and treat her empirically with piperacillin and tazobactam while awaiting the official CAT scan read and surgical evaluation. Further recommendations to follow. SEFERINO MAK M.D. MARK/[id number]
[2018-04-26] MEDS ORDERED: PIPERACILLIN/TAZOBACTAM 3.375 GM VIAL IVPB ONE ×2 (01:31→08:49)
[2018-04-26] MEDS ORDERED: DEXTROSE 5%-WATER - 50 ML IVPB ONE ×2 (01:31→08:49)
[2018-04-26] MEDS: PIPERACILLIN/TAZOB 3.375 GM 3.375 GM in DEXTROSE 5%-WATER - 50 ML IVPB SCH ×2 (01:40→09:00)
[2018-04-26] MEDS: ACETAMINOPHEN 1000 MG/100 ML VIAL (NON FORMULARY) IVPB PRN ×3 (06:43→18:52)
[2018-04-26 06:48] LABS: HEMATOCRIT 36.4 % (32.4-45.2); HEMOGLOBIN 12.3 GM/dL (10.7-15.3); MCH 31.6 pg (25.7-33.7); MCHC 33.7 g/dl (32.0-36.0); MEAN CELL VOLUME 93.9 fl (80-96); MEAN PLT VOLUME 7.7 fl (7.5-11.1); PLATELET COUNT 326 K/MM3 (134-434); RBC 3.88 M/mm3 (3.60-5.2); RDW 13.3 % (11.6-15.6); WHITE BLOOD COUNT 8.8 K/mm3 (4.0-10.0)
[2018-04-26 07:00] LABS: ALBUMIN 2.6 g/dl (3.4-5.0); ALK PHOS 76 U/L (45-117); ANION GAP 6 MMOL/L (8-16); BILIRUBIN,TOTAL 0.7 mg/dL (0.2-1); BLOOD UREA NITROGEN 9 mg/dL (7-18); CALCIUM 7.5 mg/dL (8.5-10.1); CHLORIDE 111 mmol/L (98-107); CO2 23 mmol/L (21-32); CREATININE 0.6 mg/dL (0.55-1.3); GLUCOSE,RANDOM 74 mg/dL (74-106); POTASSIUM 3.1 mmol/L (3.5-5.1); SGOT/AST 38 U/L (15-37); SGPT/ALT 11 U/L (13-61); SODIUM 140 mmol/L (136-145); TOT PROT 5.5 g/dl (6.4-8.2)
[2018-04-26] MEDS: SODIUM CHLORIDE 1,000 ML IV SCH (08:58)
--- NOTE | 2018-04-26 12:19 | PN ---
Progress Note, Physician History of Present Illness: AWAKE, ALERT IN BED C/O LOWER ABDOMINAL PAIN NGT IN PLACE, DENIES BM/ FLATUS AFEBRILE WBC IMPROVED WNL URINE C/S ESBL - Current Medication List Current Medications: Active Medications Acetaminophen (Ofirmev Injection -) 1,000 mg IVPB Q6H PRN PRN Reason: PAIN LEVEL 4 - 6 Last Admin: 04/26/18 06:43 Dose: 1,000 mg Sodium Chloride (Normal Saline -) 1,000 mls @ 100 mls/hr IV [facility] Last Admin: 04/26/18 08:58 Dose: 100 mls/hr Piperacillin Sod/Tazobactam (Sod 3.375 gm/ Dextrose) 50 mls @ 100 mls/hr IVPB Q8H-IV [facility]; Protocol Last Admin: 04/26/18 09:00 Dose: 100 mls/hr Morphine Sulfate (Morphine Sulfate) 2 mg IVPUSH Q4H PRN PRN Reason: PAIN LEVEL 7 - 10 Last Admin: 04/24/18 20:15 Dose: 2 mg Ondansetron HCl (Zofran Injection) 4 mg IVPUSH Q6H PRN PRN Reason: NAUSEA AND/OR VOMITING - Objective Vital Signs: Vital Signs Temperature 98.1 F 04/26/18 11:50 Pulse Rate 68 04/26/18 11:50 Respiratory Rate 18 04/26/18 11:50 Blood Pressure 126/73 04/26/18 11:50 O2 Sat by Pulse Oximetry (%) 95 04/24/18 07:59 Constitutional: Yes: No Distress Eyes: Yes: Conjunctiva Clear Cardiovascular: Yes: Regular Rate and Rhythm, S1, S2 Respiratory: Yes: Diminished Gastrointestinal: Yes: Normal Bowel Sounds, Soft. No: Tenderness Labs: CBC, BMP 04/26/18 06:00 04/26/18 06:00 INR, PTT INR 0.92 (0.83-1.09) 04/24/18 02:30 Assessment/Plan R/O RECURRENT BOWEL OBSTRUCTION LEUKOCYTOSIS- IMPROVED UTI ESBL SUBSTITUTE ERTAPENEM CONTACT PRECAUTIONS
--- NOTE | 2018-04-26 12:31 | PN ---
Progress Note, Physician - Current Medication List Current Medications: Active Medications Acetaminophen (Ofirmev Injection -) 1,000 mg IVPB Q6H PRN PRN Reason: PAIN LEVEL 4 - 6 Last Admin: 04/26/18 06:43 Dose: 1,000 mg Sodium Chloride (Normal Saline -) 1,000 mls @ 100 mls/hr IV [facility] Last Admin: 04/26/18 08:58 Dose: 100 mls/hr Ertapenem 1 gm/ Sodium (Chloride) 50 mls @ 100 mls/hr IVPB DAILY FOR[facility] Morphine Sulfate (Morphine Sulfate) 2 mg IVPUSH Q4H PRN PRN Reason: PAIN LEVEL 7 - 10 Last Admin: 04/24/18 20:15 Dose: 2 mg Ondansetron HCl (Zofran Injection) 4 mg IVPUSH Q6H PRN PRN Reason: NAUSEA AND/OR VOMITING - Objective Vital Signs: Vital Signs Temperature 98.1 F 04/26/18 11:50 Pulse Rate 68 04/26/18 11:50 Respiratory Rate 18 04/26/18 11:50 Blood Pressure 126/73 04/26/18 11:50 O2 Sat by Pulse Oximetry (%) 95 04/24/18 07:59 Labs: CBC, BMP 04/26/18 06:00 04/26/18 06:00 INR, PTT INR 0.92 (0.83-1.09) 04/24/18 02:30 Assessment/Plan - Problems (1) Abdominal pain Assessment/Plan: -Surgery and ID on board on board -maintain NPO status -pain management -continue IV hydration Code(s): R10.9 - UNSPECIFIED ABDOMINAL PAIN (2) Lactic acidosis Assessment/Plan: -resolved -LA 0.7 Code(s): E87.2 - ACIDOSIS (3) UTI Assessment/Plan: -ESBL -UC positive for lactose fermenting negative bacilli Microbiology 04/24/18 06:20 Urine Culture - Final Urine - Urine Clean Catch Escherichia Coli Esbl Fur Tinter 04/24/18 17:29 Blood Culture - Preliminary Blood - Peripheral Venous NO GROWTH OBTAINED AFTER 24 HOURS, INCUBATION TO CONTINUE FOR 4 DAYS. 04/24/18 17:29 Blood Culture - Preliminary Blood - Peripheral Venous NO GROWTH OBTAINED AFTER 24 HOURS, INCUBATION TO CONTINUE FOR 4 DAYS. -ID on board -ISOLATION (4) SBO (small bowel obstruction) Assessment/Plan: -surgery and ID on board -maintain NPO status -IV hydration -NGT to continuous suction -FUA done, results pending -surgery recommend laparoscopic lysis of adhesions, patient remain undecided Code(s): K56.609 - UNSP INTESTNL OBST, UNSP TO PARTIAL VERSUS COMPLETE OBST
[2018-04-26] MEDS: KCL 10 MEQ IVPB 10 MEQ/100 ML INFUS.BAG IVPB SCH ×3 (12:56→15:39)
[2018-04-26] MEDS: D5-1/2NS+20 MEQ KCL - 20 MEQ/1,000 ML INFUS.BAG IV SCH (14:02)
[2018-04-26] MEDS: ERTAPENEM SODIUM 1 GM in SODIUM CHLORIDE 50 ML IVPB SCH (14:25)
[2018-04-26] MEDS ORDERED: SODIUM PHOSPHATE/NA BIPHOS 133 ML ENEMA PR ONE (14:35)
--- NOTE | 2018-04-26 14:48 | PN ---
Progress Note, Physician History of Present Illness: Abdominal pain is now minimal Passed small amount of stool. Denies passing flatus. - Current Medication List Current Medications: Active Medications Ertapenem 1 gm/ Sodium (Chloride) 50 mls @ 100 mls/hr IVPB DAILY [facility] Last Admin: 04/26/18 14:25 Dose: 100 mls/hr Potassium Chloride/Dextrose/Sod Cl (D5-1/2ns+20 Meq Kcl -) 20 meq in 1,000 mls @ 83 mls/hr IV ASDIR [facility] Last Admin: 04/26/18 14:02 Dose: 83 mls/hr Potassium Chloride (Potassium Chloride 10 Meq Premix Ivpb -) 10 meq in 100 mls @ 100 mls/hr IVPB Q60M [facility] Stop: 04/26/18 15:44 Last Admin: 04/26/18 14:26 Dose: 100 mls/hr Morphine Sulfate (Morphine Sulfate) 2 mg IVPUSH Q4H PRN PRN Reason: PAIN LEVEL 7 - 10 Last Admin: 04/24/18 20:15 Dose: 2 mg Ondansetron HCl (Zofran Injection) 4 mg IVPUSH Q6H PRN PRN Reason: NAUSEA AND/OR VOMITING - Objective Vital Signs: Vital Signs Temperature 98.1 F 04/26/18 14:00 Pulse Rate 72 04/26/18 14:00 Respiratory Rate 20 04/26/18 14:00 Blood Pressure 145/69 04/26/18 14:00 O2 Sat by Pulse Oximetry (%) 95 04/24/18 07:59 Constitutional: Yes: No Distress Gastrointestinal: Yes: Soft, Tenderness (minimal RLQ tenderness) Labs: CBC, BMP 04/26/18 06:00 04/26/18 06:00 INR, PTT INR 0.92 (0.83-1.09) 04/24/18 02:30 - ....Imaging X-ray: Report Reviewed (no sbo), Image Reviewed Problem List - Problems (1) Partial small bowel obstruction Assessment/Plan: Slowly resolving partial SBO Fleet enema Will clamp NGT after enema Code(s): K56.600 - PARTIAL INTESTINAL OBSTRUCTION, UNSPECIFIED TO CAUSE
[2018-04-27] MEDS: D5-1/2NS+20 MEQ KCL - 20 MEQ/1,000 ML INFUS.BAG IV SCH ×2 (06:49→19:54)
[2018-04-27] MEDS: ACETAMINOPHEN 1000 MG/100 ML VIAL (NON FORMULARY) IVPB PRN (06:53)
[2018-04-27 07:16] LABS: ALBUMIN 2.8 g/dl (3.4-5.0); ALK PHOS 77 U/L (45-117); ANION GAP 7 MMOL/L (8-16); BILIRUBIN,TOTAL 0.8 mg/dL (0.2-1); BLOOD UREA NITROGEN 5 mg/dL (7-18); CALCIUM 7.4 mg/dL (8.5-10.1); CHLORIDE 109 mmol/L (98-107); CO2 24 mmol/L (21-32); CREATININE 0.4 mg/dL (0.55-1.3); GLUCOSE,RANDOM 93 mg/dL (74-106); POTASSIUM 3.2 mmol/L (3.5-5.1); SGOT/AST 10 U/L (15-37); SGPT/ALT 13 U/L (13-61); SODIUM 140 mmol/L (136-145); TOT PROT 5.8 g/dl (6.4-8.2)
[2018-04-27 07:26] LABS: BASO % 0.7 % (0-2.0); EOS % 2.5 % (0-4.5); HEMATOCRIT 36.8 % (32.4-45.2); HEMOGLOBIN 12.9 GM/dL (10.7-15.3); LYMPH % 24.8 % (8-40); MCH 32.7 pg (25.7-33.7); MCHC 35.1 g/dl (32.0-36.0); MEAN CELL VOLUME 93.2 fl (80-96); MEAN PLT VOLUME 7.6 fl (7.5-11.1); MONO % 8.9 % (3.8-10.2); NEUT % 63.1 % (42.8-82.8); PLATELET COUNT 353 K/MM3 (134-434); RBC 3.95 M/mm3 (3.60-5.2); RDW 13.1 % (11.6-15.6); WHITE BLOOD COUNT 8.2 K/mm3 (4.0-10.0)
[2018-04-27] MEDS ORDERED: PT OWN MED DRAWER 7, Y5N ONE (09:04)
--- NOTE | 2018-04-27 09:37 | PN ---
Progress Note, Physician - Current Medication List Current Medications: Active Medications Acetaminophen (Ofirmev Injection -) 1,000 mg IVPB Q6H PRN PRN Reason: PAIN Last Admin: 04/27/18 06:53 Dose: 1,000 mg Ertapenem 1 gm/ Sodium (Chloride) 50 mls @ 100 mls/hr IVPB DAILY [facility] Last Admin: 04/26/18 14:25 Dose: 100 mls/hr Potassium Chloride/Dextrose/Sod Cl (D5-1/2ns+20 Meq Kcl -) 20 meq in 1,000 mls @ 83 mls/hr IV ASDIR [facility] Last Admin: 04/27/18 06:49 Dose: 83 mls/hr Ondansetron HCl (Zofran Injection) 4 mg IVPUSH Q6H PRN PRN Reason: NAUSEA AND/OR VOMITING - Objective Vital Signs: Vital Signs Temperature 98.4 F 04/27/18 05:52 Pulse Rate 64 04/27/18 05:52 Respiratory Rate 20 04/27/18 05:52 Blood Pressure 148/79 04/27/18 05:52 O2 Sat by Pulse Oximetry (%) 98 04/26/18 21:00 Labs: CBC, BMP 04/27/18 06:30 04/27/18 06:30 INR, PTT INR 0.92 (0.83-1.09) 04/24/18 02:30
[2018-04-27] MEDS: ERTAPENEM SODIUM 1 GM in SODIUM CHLORIDE 50 ML IVPB SCH (10:10)
--- NOTE | 2018-04-27 11:49 | PN ---
Progress Note, Physician History of Present Illness: Passed flatus Had BM'S after fleet enema yesterday Denies abdominal pain - Current Medication List Current Medications: Active Medications Acetaminophen (Ofirmev Injection -) 1,000 mg IVPB Q6H PRN PRN Reason: PAIN Last Admin: 04/27/18 06:53 Dose: 1,000 mg Ertapenem 1 gm/ Sodium (Chloride) 50 mls @ 100 mls/hr IVPB DAILY [facility] Last Admin: 04/27/18 10:10 Dose: 100 mls/hr Potassium Chloride/Dextrose/Sod Cl (D5-1/2ns+20 Meq Kcl -) 20 meq in 1,000 mls @ 83 mls/hr IV [facility] Last Admin: 04/27/18 06:49 Dose: 83 mls/hr Ondansetron HCl (Zofran Injection) 4 mg IVPUSH Q6H PRN PRN Reason: NAUSEA AND/OR VOMITING - Objective Vital Signs: Vital Signs Temperature 98.4 F 04/27/18 05:52 Pulse Rate 64 04/27/18 05:52 Respiratory Rate 20 04/27/18 05:52 Blood Pressure 148/79 04/27/18 05:52 O2 Sat by Pulse Oximetry (%) 98 04/26/18 21:00 Constitutional: Yes: No Distress Gastrointestinal: Yes: Soft, Tenderness (negative) Labs: CBC, BMP 04/27/18 06:30 04/27/18 06:30 INR, PTT INR 0.92 (0.83-1.09) 04/24/18 02:30 Problem List - Problems (1) Partial small bowel obstruction Assessment/Plan: Resolved partial SBO Clamp NGTx 4 hours then D/C if residual is low (30 cc or less) clear liquid diet after NGT removal OOB and ambulate Code(s): K56.600 - PARTIAL INTESTINAL OBSTRUCTION, UNSPECIFIED TO CAUSE
--- NOTE | 2018-04-27 14:55 | PN ---
Progress Note, Physician - Current Medication List Current Medications: Active Medications Acetaminophen (Ofirmev Injection -) 1,000 mg IVPB Q6H PRN PRN Reason: PAIN Last Admin: 04/27/18 06:53 Dose: 1,000 mg Ertapenem 1 gm/ Sodium (Chloride) 50 mls @ 100 mls/hr IVPB DAILY [facility] Last Admin: 04/27/18 10:10 Dose: 100 mls/hr Potassium Chloride/Dextrose/Sod Cl (D5-1/2ns+20 Meq Kcl -) 20 meq in 1,000 mls @ 83 mls/hr IV [facility] Last Admin: 04/27/18 06:49 Dose: 83 mls/hr Ondansetron HCl (Zofran Injection) 4 mg IVPUSH Q6H PRN PRN Reason: NAUSEA AND/OR VOMITING - Objective Vital Signs: Vital Signs Temperature 98.5 F 04/27/18 11:00 Pulse Rate 66 04/27/18 11:00 Respiratory Rate 18 04/27/18 11:00 Blood Pressure 135/71 04/27/18 11:00 O2 Sat by Pulse Oximetry (%) 97 04/27/18 09:00 Cardiovascular: Yes: S1, S2 Respiratory: Yes: Regular, CTA Bilaterally Gastrointestinal: Yes: Normal Bowel Sounds, Soft Labs: CBC, BMP 04/27/18 06:30 04/27/18 06:30 INR, PTT INR 0.92 (0.83-1.09) 04/24/18 02:30 Assessment/Plan - Problems (1) Abdominal pain Assessment/Plan: -Surgery and ID on board on board -maintain NPO status -pain management -continue IV hydration Code(s): R10.9 - UNSPECIFIED ABDOMINAL PAIN (2) Lactic acidosis Assessment/Plan: -resolved -LA 0.7 Code(s): E87.2 - ACIDOSIS (3) UTI Assessment/Plan: -ESBL -UC positive for lactose fermenting negative bacilli Microbiology 04/24/18 06:20 Urine Culture - Final Urine - Urine Clean Catch Escherichia Coli 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 04/24/18 17:29 Blood Culture - Preliminary Blood - Peripheral Venous NO GROWTH OBTAINED AFTER 24 HOURS, INCUBATION TO CONTINUE FOR 4 DAYS. -ID on board -ISOLATION (4) SBO (small bowel obstruction) Assessment/Plan: -surgery and ID on board -maintain NPO status -IV hydration -NGT per surgery -FUA done, results pending -surgery recommend laparoscopic lysis of adhesions, patient remain undecided Code(s): K56.609 - UNSP INTESTNL OBST, UNSP TO PARTIAL VERSUS COMPLETE OBST
[2018-04-28] MEDS ORDERED: PT OWN MED DRAWER 7, Y5N ONE (09:51)
[2018-04-28] MEDS: D5-1/2NS+20 MEQ KCL - 20 MEQ/1,000 ML INFUS.BAG IV SCH ×2 (10:14→20:40)
[2018-04-28] MEDS: ERTAPENEM SODIUM 1 GM in SODIUM CHLORIDE 50 ML IVPB SCH (10:14)
--- NOTE | 2018-04-28 13:11 | PN ---
Progress Note, Physician Chief Complaint: SBO RLQ tenderness History of Present Illness: Previous notes and events review awake and alert NAD NGT removed, tolerating clear liquid diet - Current Medication List Current Medications: Active Medications Acetaminophen (Ofirmev Injection -) 1,000 mg IVPB Q6H PRN PRN Reason: PAIN Last Admin: 04/27/18 06:53 Dose: 1,000 mg Ertapenem 1 gm/ Sodium (Chloride) 50 mls @ 100 mls/hr IVPB DAILY [facility] Last Admin: 04/28/18 10:14 Dose: 100 mls/hr Potassium Chloride/Dextrose/Sod Cl (D5-1/2ns+20 Meq Kcl -) 20 meq in 1,000 mls @ 83 mls/hr IV [facility] Last Admin: 04/28/18 10:14 Dose: 83 mls/hr Ondansetron HCl (Zofran Injection) 4 mg IVPUSH Q6H PRN PRN Reason: NAUSEA AND/OR VOMITING - Objective Vital Signs: Vital Signs Temperature 98.7 F 04/27/18 18:00 Pulse Rate 70 04/27/18 18:00 Respiratory Rate 18 04/27/18 21:00 Blood Pressure 148/80 04/27/18 18:00 O2 Sat by Pulse Oximetry (%) 96 04/27/18 21:00 Constitutional: Yes: No Distress, Calm Eyes: Yes: Conjunctiva Clear HENT: Yes: Atraumatic Cardiovascular: Yes: Regular Rate and Rhythm Respiratory: Yes: Regular, CTA Bilaterally Gastrointestinal: Yes: Normal Bowel Sounds, Soft, Tenderness (b/l lower quadrants) Musculoskeletal: Yes: WNL Extremities: Yes: WNL Edema: No Neurological: Yes: Alert, Oriented Psychiatric: Yes: Alert, Oriented Labs: CBC, BMP 04/27/18 06:30 04/27/18 06:30 INR, PTT INR 0.92 (0.83-1.09) 04/24/18 02:30 Microbiology 04/24/18 17:29 Blood - Peripheral Venous Blood Culture - Preliminary NO GROWTH OBTAINED AFTER 72 HOURS, INCUBATION TO CONTINUE FOR 2 DAYS. 04/24/18 17:29 Blood - Peripheral Venous Blood Culture - Preliminary NO GROWTH OBTAINED AFTER 72 HOURS, INCUBATION TO CONTINUE FOR 2 DAYS. 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 Problem List - Problems (1) Abdominal pain Assessment/Plan: -Surgery and ID on board on board -tolerating clear liquid diet -pain management -continue IV hydration Code(s): R10.9 - UNSPECIFIED ABDOMINAL PAIN (2) Lactic acidosis Assessment/Plan: -resolved -LA 0.7 Code(s): E87.2 - ACIDOSIS (3) Leukocytosis Assessment/Plan: -resolved -current WBC 8.2 -UC positive for lactose fermenting negative bacilli -ID on board -continue zosyn Code(s): D72.829 - ELEVATED WHITE BLOOD CELL COUNT, UNSPECIFIED (4) SBO (small bowel obstruction) Assessment/Plan: -surgery and ID on board -tolerating clear liquid diet -IV hydration -NGT removed -FUA done and show no sign of a gross obstructive process Code(s): K56.609 - UNSP INTESTNL OBST, UNSP TO PARTIAL VERSUS COMPLETE OBST (5) Hypokalemia Assessment/Plan: -monitor K daily -continue with d5 1/2NS + 20meq KCL Code(s): E87.6 - HYPOKALEMIA Assessment/Plan see problem list dvt ppx
--- NOTE | 2018-04-28 20:25 | PN ---
Progress Note (short form) - Note Progress Note: Tolerating full liquid diet Passing flatus and denies abdominal pain Abd: soft, no tenderness A/P: partial SBO likely resolved but is still considered high risk for recurrence advance diet as tolerated in am Problem List - Problems (1) Partial small bowel obstruction Code(s): K56.600 - PARTIAL INTESTINAL OBSTRUCTION, UNSPECIFIED TO CAUSE
[2018-04-29 08:21] LABS: HEMOGLOBIN 12.8 GM/dL (10.7-15.3); MCH 32.5 pg (25.7-33.7); MCHC 34.7 g/dl (32.0-36.0); MEAN CELL VOLUME 93.5 fl (80-96); MEAN PLT VOLUME 7.4 fl (7.5-11.1); PLATELET COUNT 390 K/MM3 (134-434); RBC 3.96 M/mm3 (3.60-5.2); RDW 13.6 % (11.6-15.6); WHITE BLOOD COUNT 5.5 K/mm3 (4.0-10.0)
[2018-04-29 08:58] LABS: ALK PHOS 73 U/L (45-117); ANION GAP 5 MMOL/L (8-16); BILIRUBIN,TOTAL 0.3 mg/dL (0.2-1); BLOOD UREA NITROGEN 4 mg/dL (7-18); CALCIUM 8.2 mg/dL (8.5-10.1); CHLORIDE 114 mmol/L (98-107); CO2 24 mmol/L (21-32); CREATININE 0.4 mg/dL (0.55-1.3); GLUCOSE,RANDOM 115 mg/dL (74-106); POTASSIUM 3.9 mmol/L (3.5-5.1); SGOT/AST 12 U/L (15-37); SGPT/ALT 14 U/L (13-61); SODIUM 143 mmol/L (136-145)
[2018-04-29] MEDS: D5-1/2NS+20 MEQ KCL - 20 MEQ/1,000 ML INFUS.BAG IV SCH (09:13)
[2018-04-29] MEDS: ERTAPENEM SODIUM 1 GM in SODIUM CHLORIDE 50 ML IVPB SCH (09:32)
--- NOTE | 2018-04-29 10:54 | PN ---
Progress Note, Physician Chief Complaint: SBO UTI History of Present Illness: NAD tolerating full liquids Seen by Dr Saldaña On ertapenem IV x 4 doses - Current Medication List Current Medications: Active Medications Acetaminophen (Ofirmev Injection -) 1,000 mg IVPB Q6H PRN PRN Reason: PAIN Last Admin: 04/27/18 06:53 Dose: 1,000 mg Ertapenem 1 gm/ Sodium (Chloride) 50 mls @ 100 mls/hr IVPB DAILY [facility] Last Admin: 04/29/18 09:32 Dose: 100 mls/hr Potassium Chloride/Dextrose/Sod Cl (D5-1/2ns+20 Meq Kcl -) 20 meq in 1,000 mls @ 83 mls/hr IV [facility] Last Admin: 04/29/18 09:13 Dose: 83 mls/hr Ondansetron HCl (Zofran Injection) 4 mg IVPUSH Q6H PRN PRN Reason: NAUSEA AND/OR VOMITING - Objective Vital Signs: Vital Signs Temperature 98.4 F 04/29/18 10:00 Pulse Rate 66 04/29/18 10:00 Respiratory Rate 20 04/29/18 10:00 Blood Pressure 114/76 04/29/18 10:00 O2 Sat by Pulse Oximetry (%) 100 04/28/18 21:00 Constitutional: Yes: Well Nourished, No Distress, Calm Cardiovascular: Yes: Regular Rate and Rhythm Respiratory: Yes: Regular Gastrointestinal: Yes: Normal Bowel Sounds, Soft Genitourinary: Yes: WNL Musculoskeletal: Yes: WNL Extremities: Yes: WNL Edema: No Peripheral Pulses WNL: Yes Neurological: Yes: Alert, Oriented Psychiatric: Yes: Alert, Oriented Labs: CBC, BMP 04/29/18 07:53 04/29/18 07:53 INR, PTT INR 0.92 (0.83-1.09) 04/24/18 02:30 Problem List - Problems (1) UTI (urinary tract infection) Assessment/Plan: -UC-ESBL E coli -ID on board -Received 4 days of ertapenem -switch to PO levaquin if okay by ID Code(s): N39.0 - URINARY TRACT INFECTION, SITE NOT SPECIFIED (2) Abdominal pain Assessment/Plan: -resolved -2/2 to SBO due to anastomosis -Seen by Dr Saldaña -recurring issue -tolerating full liquid diet -advance to soft diet Code(s): R10.9 - UNSPECIFIED ABDOMINAL PAIN (3) Lactic acidosis Assessment/Plan: -resolved Code(s): E87.2 - ACIDOSIS (4) Leukocytosis Assessment/Plan: -2/2 to inflammatory response -resolved -afebrile Code(s): D72.829 - ELEVATED WHITE BLOOD CELL COUNT, UNSPECIFIED (5) Hypokalemia Assessment/Plan: -2/2 to NPO status -resolved -D/C IVF -Encourage PO intake Code(s): E87.6 - HYPOKALEMIA (6) SBO (small bowel obstruction) Assessment/Plan: -resolved, last KUB reviewed -SBO due to anastomosis -Seen by Dr Saldaña -recurring issue -tolerating full liquid diet -advance to soft diet Code(s): K56.609 - UNSP INTESTNL OBST, UNSP TO PARTIAL VERSUS COMPLETE OBST Assessment/Plan see problem list DVT prophylaxis Self ambulatory d/c if tolerating soft diet and is cleared by ID and Surgery
--- NOTE | 2018-04-29 16:50 | PN ---
Progress Note (short form) - Note Progress Note: doing well-regular diet for lunch today eating abdominal pain has resolved Vital Signs Period Temp Pulse Resp BP Sys/Valderrama Pulse Ox Last 24 Hr 97.8 F-98.4 F 61-86 18-20 114-136/76-80 98-100 cor-rrr lungs clear abd soft,nt ext no edema CBC, BMP 04/29/18 07:53 04/29/18 07:53 Microbiology 04/24/18 17:29 Blood - Peripheral Venous Blood Culture - Preliminary NO GROWTH OBTAINED AFTER 96 HOURS, INCUBATION TO CONTINUE FOR 1 DAYS. 04/24/18 17:29 Blood - Peripheral Venous Blood Culture - Preliminary NO GROWTH OBTAINED AFTER 96 HOURS, INCUBATION TO CONTINUE FOR 1 DAYS. 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
--- NOTE | 2018-04-29 17:30 | PN ---
Progress Note (short form) - Note Progress Note: Tolerated soft diet Denies abdominal pain A/P: resolved partial SBO May D/C home in am F/U at the office in 2 weeks. Problem List - Problems (1) Partial small bowel obstruction Code(s): K56.600 - PARTIAL INTESTINAL OBSTRUCTION, UNSPECIFIED TO CAUSE
[2018-04-30 09:31] VITALS: BP 127/70; PULSE 76; TEMP 98.8
[2018-04-30] MEDS: ERTAPENEM SODIUM 1 GM in SODIUM CHLORIDE 50 ML IVPB SCH (09:36)
--- NOTE | 2018-04-30 10:32 | DS ---
Physical Examination Vital Signs: Vital Signs Temperature 98.8 F 04/30/18 09:00 Pulse Rate 76 04/30/18 09:00 Respiratory Rate 20 04/30/18 09:00 Blood Pressure 127/70 04/30/18 09:00 O2 Sat by Pulse Oximetry (%) 98 04/29/18 21:00 Findings/Remarks: This is a 67 y/o woman with a PMHx of SBO, Diverticulits s/p Colostomy/ Colostomy reversal, Fibromyalgia. Who presents to the ED for generalized abdominal pain with nausea and vomiting non-bilious non bloody since 1800 last night. Patient's son who is at bedside provided HPI. Patient is primarily Qatari speaking. Per the son patient has seen her surgeon Dr. Saldaña last month for a follow up and was given Motrin 800mg prn. Per the son the patient took a dose yesterday without relief. Patient reports having soft brown BMs daily. However last night patient reports having 4 beige soft stools. Patient reports having chills without fever. Her last meal was Quinoa and Fish that her spouse had without illness. Constitutional: Yes: Well Nourished, No Distress, Calm Cardiovascular: Yes: Regular Rate and Rhythm Respiratory: Yes: Regular Gastrointestinal: Yes: Normal Bowel Sounds, Soft Musculoskeletal: Yes: WNL Extremities: Yes: WNL Edema: No Peripheral Pulses WNL: Yes Neurological: Yes: Alert, Oriented Psychiatric: Yes: Alert, Oriented Labs: CBC, BMP 04/29/18 07:53 04/29/18 07:53 Discharge Summary Reason For Visit: LEUKOCYTOSIS SMALL BOWEL OBSTRUCTION Current Active Problems Abdominal pain (Acute) Lactic acidosis (Acute) Leukocytosis (Acute) Partial small bowel obstruction (Acute) SBO (small bowel obstruction) (Acute) UTI (urinary tract infection) (Acute) Hospital Course: Laboratory Last Values WBC 5.5 K/mm3 (4.0-10.0) 04/29/18 07:53 RBC 3.96 M/mm3 (3.60-5.2) 04/29/18 07:53 Hgb 12.8 GM/dL (10.7-15.3) 04/29/18 07:53 Hct 37.0 % (32.4-45.2) 04/29/18 07:53 MCV 93.5 fl (80-96) 04/29/18 07:53 MCH 32.5 pg (25.7-33.7) 04/29/18 07:53 MCHC 34.7 g/dl (32.0-36.0) 04/29/18 07:53 RDW 13.6 % (11.6-15.6) 04/29/18 07:53 Plt Count 390 K/MM3 (134-434) 04/29/18 07:53 MPV 7.4 fl (7.5-11.1) L 04/29/18 07:53 Absolute Neuts (auto) 5.2 K/mm3 (1.5-8.0) 04/27/18 06:30 Neutrophils % 63.1 % (42.8-82.8) 04/27/18 06:30 Lymphocytes % 24.8 % (8-40) 04/27/18 06:30 Monocytes % 8.9 % (3.8-10.2) 04/27/18 06:30 Eosinophils % 2.5 % (0-4.5) D 04/27/18 06:30 Basophils % 0.7 % (0-2.0) 04/27/18 06:30 Nucleated RBC % 0 % (0-0) 04/27/18 06:30 PT with INR 10.80 SEC (9.7-13.0) 04/24/18 02:30 INR 0.92 (0.83-1.09) 04/24/18 02:30 PTT (Actin FS) 24.3 SECONDS (25.2-36.5) L 04/24/18 02:30 Sodium 143 mmol/L (136-145) 04/29/18 07:53 Potassium 3.9 mmol/L (3.5-5.1) 04/29/18 07:53 Chloride 114 mmol/L (98-107) H 04/29/18 07:53 Carbon Dioxide 24 mmol/L (21-32) 04/29/18 07:53 Anion Gap 5 MMOL/L (8-16) L 04/29/18 07:53 BUN 4 mg/dL (7-18) L 04/29/18 07:53 Creatinine 0.4 mg/dL (0.55-1.3) L 04/29/18 07:53 Creat Clearance w eGFR > 60 (>60) 04/29/18 07:53 Random Glucose 115 mg/dL (74-106) H 04/29/18 07:53 Lactic Acid 0.7 mmol/L (0.4-2.0) 04/25/18 05:40 Calcium 8.2 mg/dL (8.5-10.1) L 04/29/18 07:53 Phosphorus 4.0 mg/dL (2.5-4.9) 04/24/18 02:30 Magnesium 1.8 mg/dL (1.8-2.4) 04/24/18 02:30 Total Bilirubin 0.3 mg/dL (0.2-1) 04/29/18 07:53 AST 12 U/L (15-37) L 04/29/18 07:53 ALT 14 U/L (13-61) 04/29/18 07:53 Alkaline Phosphatase 73 U/L (45-117) 04/29/18 07:53 Troponin I < 0.02 ng/ml (0.00-0.05) 04/24/18 02:30 Total Protein 6.0 g/dl (6.4-8.2) L 04/29/18 07:53 Albumin 3.0 g/dl (3.4-5.0) L 04/29/18 07:53 Lipase 121 U/L (73-393) 04/24/18 02:30 Urine Color Straw 04/24/18 06:20 Urine Appearance Clear 04/24/18 06:20 Urine pH 7.0 (5.0-8.0) D 04/24/18 06:20 Ur Specific [place] 1.035 (1.010-1.035) 04/24/18 06:20 Urine Protein Negative (NEGATIVE) 04/24/18 06:20 Urine Glucose (UA) Negative (NEGATIVE) 04/24/18 06:20 Urine Ketones Negative (NEGATIVE) 04/24/18 06:20 Urine Blood Negative (NEGATIVE) 04/24/18 06:20 Urine Nitrite Negative (NEGATIVE) 04/24/18 06:20 Urine Bilirubin Negative (<2.0 mg/dL) 04/24/18 06:20 Urine Urobilinogen Negative mg/dL (0.2-1.0) 04/24/18 06:20 Ur Leukocyte Esterase Negative (NEGATIVE) 04/24/18 06:20 Blood Type A POSITIVE 04/24/18 02:30 Antibody Screen Negative 04/24/18 02:30 Microbiology 04/24/18 17:29 Blood - Peripheral Venous Blood Culture - Final NO GROWTH AFTER 5 DAYS INCUBATION 04/24/18 17:29 Blood - Peripheral Venous Blood Culture - Final NO GROWTH AFTER 5 DAYS INCUBATION 04/24/18 06:20 Urine - Urine Clean Catch Urine Culture - Final Escherichia Coli 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 Vital Signs Temp 98.8 F 04/30/18 09:00 Pulse 76 04/30/18 09:00 Resp 20 04/30/18 09:00 BP 127/70 04/30/18 09:00 Pulse Ox 98 04/29/18 21:00 Intake & Output 04/29/18 04/29/18 04/30/18 11:59 23:59 11:59 Intake Total 928 Balance 928 Intake: IV 498 D5-1/2NS+20 MEQ KCL - 20 498 meq In 1,000 ml @ 83 mls/ hr IV [facility] Rx#: [id number] IVPB 50 Oral 380 Other: Voiding Method Toilet Toilet # Unmeasured Voids Void 1 1 Bowel Movement No Condition: Stable - Instructions Referrals: Dragan Saldaña MD [Staff Physician] - Rivera Willingham MD [Primary Care Provider] - Disposition: HOME - Home Medications Comprehensive Discharge Medication List: Ambulatory Orders Gabapentin 300 mg PO QID PRN 04/24/18 Nitrofurantoin Monohyd/M-Cryst [Macrobid -] 100 mg PO BID #10 capsule 04/29/18
== END 2018-04-30 14:22 | disposition home or self-care (01) | DRG 389 ==
LOC: JER 01:37 → JERBED 04:14 → J6S 09:03
PROVIDERS: ADMIT Family Medicine; ATTEND Family Medicine
DX: K56.600 Partial intestinal obstruction, unspecified as to cause (principal); E87.2 Acidosis; N39.0 Urinary tract infection, site not specified; M79.7 Fibromyalgia; K57.90 Diverticulosis of intestine, part unspecified, without perforation or abscess without bleeding; R11.2 Nausea with vomiting, unspecified; D72.829 Elevated white blood cell count, unspecified; K59.00 Constipation, unspecified; M19.90 Unspecified osteoarthritis, unspecified site; B96.20 Unspecified Escherichia coli [E. coli] as the cause of diseases classified elsewhere; E87.6 Hypokalemia; E86.0 Dehydration
CPT/HCPCS: 36415; 71045-TC-FY; 74019-TC-FY; 74177-TC; 80048; 80053; 81003; 83605; 83690; 83735; 84100; 84484; 85025; 85027; 85610; 85730; 86850; 86900; 86901; 87040; 87086; 87186; 93005; 93010; 99285-25; J0131; J7030

== ENCOUNTER 2018-07-27 21:04 | Inpatient (IN) | payer OTHER ==
--- NOTE | 2018-07-27 21:57 | PDOC ---
History of Present Illness - General Stated Complaint: ABD/PAIN Time Seen by Provider: 07/27/18 21:13 - History of Present Illness Initial Comments: Connie Miner is a 67yo woman with a PMH of chronic diverticulitis s/p sigmoid colectomy and diverting ileostomy (June 2017), s/p ileostomy reversal (July 2017 ) c/b recurrent partial SBO (admitted Feb and April 2018), GERD, fibromyalgia who presents with 9/10 lower abdominal pain since earlier today. She is [place]- speaking, and her adult son is translating. Ms Miner states that she has frequent abdominal pain. The pain starts in her RLQ at her surgical incision and generalizes across the lower abdomen. Usually the pain improves with acetaminophen, but she took 2 Tylenol in the early afternoon today without improvement in her pain. She denies any abdominal bloating/distension, vomiting, diarrhea, fever/chills. She endorses constipation , though she had 3 small BM's today, as she states that she need to strain. She also says that she has mild nausea and skipped dinner today. She has been drinking extra fluids. She also endorses frequent urination, though she feels this is due to drinking a lot of water. Past History - Past Medical History Allergies/Adverse Reactions: Allergies Allergy/AdvReac Type Severity Reaction Status Date / Time No Known Drug Allergies Allergy Verified 07/27/18 21:41 Home Medications: Ambulatory Orders Omeprazole 20 mg PO DAILY 07/27/18 Anemia: Yes Asthma: No Cancer: No Cardiac Disorders: No CVA: No COPD: No CHF: No DVT: No Dementia: No Diabetes: No GI Disorders: Yes (IBS, DIVERTICULITIS) Disorders: No HTN: No Hypercholesterolemia: Yes Liver Disease: No Seizures: No Thyroid Disease: No Other medical history: Fibromyalgia - Surgical History Abdominal Surgery: Yes (sigmoid colectomy/colostomy 05/2017) Appendectomy: No Cardiac Surgery: No Cholecystectomy: No GI Surgery: Yes (reversal of colostomy 07/2017) Lung Surgery: No Neurologic Surgery: No Orthopedic Surgery: No - Immunization History Immunization Up to Date: Yes - Suicide/Smoking/Psychosocial Hx Smoking History: Never smoked Have you smoked in the past 12 months: No Information on smoking cessation initiated: No Hx Alcohol Use: No Drug/Substance Use Hx: No Substance Use Type: None Hx Substance Use Treatment: No Review of Systems - Review of Systems Comments:: General: No fevers, no chills, no weight or appetite change, no malaise HEENT: No changes in vision, no changes in hearing, no congestion, no sore throat CV: No chest pain, no palpitations, no LE edema Pulm: No SOB, no cough, no wheezing GI: See HPI : No frequency, no urgency, no dysuria Musc: No back pain, no joint swelling, no recent injury Skin: No rash, no lesions, no erythema Endo: No excessive thirst, no heat/cold intolerance Heme: No unusual bruising or bleeding, no swollen glands Neuro: No syncope, no numbness/tingling, no focal weakness Vasc: No claudication Psych: No recent change in mood, no SI or HI *Physical Exam - Vital Signs Last Vital Signs Temp Pulse Resp BP Pulse Ox 97.9 F 73 21 H 118/85 98 07/27/18 21:30 07/27/18 21:30 07/27/18 21:30 07/27/18 21:30 07/27/18 21:30 - Physical Exam Comments: General: Comfortable, no acute distress HEENT: Atraumatic, PERRL, EOMI, MMM, voice normal Cards: RRR, no murmur appreciated Pulm: Comfortable on room air, clear to auscultation bilaterally Abd: Soft, nondistended. Transverse low abdominal and RLQ surgical scars, well healed. Mild diffuse TTP across low abd. : No CVA tenderness Ext: Atraumatic. No LE edema. ROM intact. Vasc: Extremities WWP. Skin: Normal color, no rashes or lesions Neuro: A&Ox3, CN grossly intact, normal speech, motor/sensory grossly intact and symmetric Psych: Mood appropriate to situation ED Treatment Course - LABORATORY CBC & Chemistry Diagram: 07/28/18 05:15 07/28/18 05:15 - RADIOLOGY Radiology Studies Ordered: Category Date Time Status ABDOMEN FLAT & UPRIGHT [RAD] Stat Radiology 07/27/18 21:47 Ordered Medical Decision Making - Medical Decision Making 07/27/18 21:51 Connie Miner is a 67yo woman with a PMH of chronic diverticulitis s/p sigmoid colectomy and diverting ileostomy (June 2017), s/p ileostomy reversal (July 2017 ) c/b recurrent partial SBO (admitted Feb and April 2018), GERD, fibromyalgia who presents with 9/10 lower abdominal pain since earlier today. She is [place]- speaking, and her adult son is translating. Ms Miner states that she has frequent abdominal pain. The pain starts in her RLQ at her surgical incision and generalizes across the lower abdomen. Usually the pain improves with acetaminophen, but she took 2 Tylenol in the early afternoon today without improvement in her pain. She denies any abdominal bloating/distension, vomiting, diarrhea, fever/chills. She endorses constipation , though she had 3 small BM's today, as she states that she need to strain. She also says that she has mild nausea and skipped dinner today. She has been drinking extra fluids. She also endorses frequent urination, though she feels this is due to drinking a lot of water. She also reports that she has chronic constipation and was prescribed an unknown medication by Dr Saldaña, but she only takes it as needed as she sometimes has diarrhea if she takes it daily. She says that the medication has not been working well lately. - Has h/o recurrent SBO, but had 3x BM today and denying vomiting or PO intolerance. Reports chronic constipation as well as urinary frequency. Ddx includes partial SBO (not complete given BM's today), constipation, UTI, chronic pain, recurrent diverticulitis. Less likely appendicitis as pain appears to be chronic though she reports pain starts in RLQ. Unlikely to be colitis as she denies any diarrhea - CBC, CMP, mag, UA, UCx - Will start with abdominal xrays, may need CT 07/27/18 22:53 - CBC clotted, resent to lab - IV acetaminophen, IVF ordered 07/28/18 00:46 - Abd xray without significant abnormalities - CT abd/pelvis with contrast ordered for better evaluation - Labs notable for mild leukocytosis; no other significant abnormalities - Continued pain. 2mg IV morphine ordered by Dr Muñoz 07/28/18 02:14 - CT completed, reviewed with Dr Muñoz. Questionable air-fluid levels in the distal bowel but no significant distension. Diffuse bowel wall thickening. Radiology report pending. - Unlikely to need NGT as proximal bowel does not have notable dilation, unlikely to result in any clinical improvement 07/28/18 02:59 - CT read confirms distal SBO secondary to stricture - Will send microblog for admission - Consult for Dr Saldaña as he has seen her previously 07/28/18 03:09 - Pt endorsed to [facility]. Will accept to Dr Willingham's service Discussed with Dr Toni Almanza PGY1 *DC/Admit/Observation/Transfer Diagnosis at time of Disposition: SBO (small bowel obstruction) - Discharge Dispostion Condition at time of disposition: Guarded Decision to Admit order: Yes - Referrals - Patient Instructions - Post Discharge Activity
--- NOTE | 2018-07-27 22:10 | PDOC ---
Documentation entered by Jenni Virgen SCRIBE, acting as scribe for Aleena Muñoz MD. Aleena Muñoz MD: This documentation has been prepared by the Param barreto Nirvannie, SCRIBE, under my direction and personally reviewed by me in its entirety. I confirm that the documentation accurately reflects all work, treatment, procedures, and medical decision making performed by me. Attending Attestation - Resident Resident Name: Valerie Almanza - ED Attending Attestation I have performed the following: I have examined & evaluated the patient, The case was reviewed & discussed with the resident, I agree w/resident's findings & plan - HPI HPI: 07/27/18 21:47 67 yo female presents with lower abdominal pain and mild nausea that started today - Physicial Exam PE: 07/27/18 22:09 GENERAL: Well-appearing, well-nourished. No apparent distress. HEENT: Normocephalic, atraumatic. PERRL, EOM intact. CARDIOVASCULAR: Normal S1, S2. Regular rate and rhythm. PULMONARY: Clear to auscultation bilaterally. ABDOMEN: +Hypoactive bowel sounds. +8cm well-healed surgical incision scar. +LLQ tenderness. +Right mid quadrant tenderness along surgical incision scar which wraps across the lower abdomen. EXTREMITIES: Normal ROM in all four extremities. No gross deformities. SKIN: Warm, dry. No rash NEUROLOGICAL: No focal neurological deficits. - Medical Decision Making 07/27/18 22:10 in reviewing this pt's chart I read her surgeon's note from April 2018 when she was admitted for partial sbo from post op adhesions pt has a h/o diverticulitis and had a sigmoid colectomy with diverting ileostomy in June 2017 for chronic diverticulitis -there was ileostomy reversal in July 2017 -pt had recurrent partial SBO requiring hospital admissions 07/27/18 22:15 plan: cbc,comp,xray,heplock,IVF,ct scan abd/pel 07/27/18 22:41 07/28/18 01:37
[2018-07-27] MEDS ORDERED: ACETAMINOPHEN 1000 MG/100 ML VIAL (NON FORMULARY) IVPB ONE (22:47)
[2018-07-27] MEDS ORDERED: SODIUM CHLORIDE 0.9% 500 ML INFUS.BAG IV ONE (22:47)
[2018-07-27] MEDS ORDERED: ACETAMINOPHEN INJECTION 100 ML IVPB ONE (22:54)
[2018-07-27 22:58] LABS: ALBUMIN 3.4 g/dl (3.4-5.0); BILIRUBIN,TOTAL 0.4 mg/dL (0.2-1); BLOOD UREA NITROGEN 19.4 mg/dL (7-18); CALCIUM 8.6 mg/dL (8.5-10.1); CREATININE 0.6 mg/dL (0.55-1.3); MAGNESIUM 1.9 mg/dL (1.8-2.4); POTASSIUM 4.9 mmol/L (3.5-5.1); TOT PROT 6.8 g/dl (6.4-8.2)
[2018-07-27 23:04] LABS: BASO % 0.6 % (0-2.0); EOS % 1.2 % (0-4.5); HEMATOCRIT 43.2 % (32.4-45.2); HEMOGLOBIN 14.3 GM/dL (10.7-15.3); MCH 30.8 pg (25.7-33.7); MCHC 33.1 g/dl (32.0-36.0); MEAN PLT VOLUME 7.9 fl (7.5-11.1); MONO % 8.2 % (3.8-10.2); RBC 4.65 M/mm3 (3.60-5.2); RDW 13.2 % (11.6-15.6); WHITE BLOOD COUNT 12.7 K/mm3 (4.0-10.0)
[2018-07-27] MEDS ORDERED: morphine CARPU-JECT 2 MG/1 ML DISP.SYRIN IVPUSH ONE (23:50)
[2018-07-27 23:51] LABS: PH,URINE 5.5 (5.0-8.0); URINE APPEARANCE CLEAR; URINE BILIRUBIN NEGATIVE (NEGATIVE); URINE COLOR YELLOW; URINE GLUCOSE (UA) NEGATIVE (NEGATIVE); URINE KETONE NEGATIVE (NEGATIVE); URINE LEUK ESTERASE NEGATIVE (NEGATIVE); URINE NITRITE NEGATIVE (NEGATIVE); URINE PROTEIN NEGATIVE (NEGATIVE); URINE UROBILINOGEN 0.2 mg/dL (0.2-1.0)
[2018-07-27 23:53] LABS: PLATELET COUNT 356 K/MM3 (134-434); PLATELET ESTIMATE ADEQUATE
[2018-07-27] MEDS ORDERED: MORPHINE SULFATE 2 MG/ML VIAL ONE (23:59)
[2018-07-28] MEDS ORDERED: morphine CARPU-JECT 4 MG/1 ML DISP.SYRIN IVPUSH ONE (02:18)
--- NOTE | 2018-07-28 02:34 | PDOC ---
*Physical Exam - Vital Signs Last Vital Signs Temp Pulse Resp BP Pulse Ox 97.8 F 64 18 138/74 99 07/28/18 02:19 07/28/18 02:19 07/28/18 02:19 07/28/18 02:19 07/28/18 02:19 ED Treatment Course - LABORATORY CBC & Chemistry Diagram: 07/27/18 23:00 07/27/18 22:28 - ADDITIONAL ORDERS Additional order review: Laboratory Results 07/27/18 07/27/18 23:40 22:28 Sodium 140 Potassium 4.9 Chloride 108 H Carbon Dioxide 24 Anion Gap 8 BUN 19.4 H Creatinine 0.6 Est GFR (CKD-EPI)AfAm 110.08 Est GFR (CKD-EPI)NonAf 94.98 Random Glucose 115 H Calcium 8.6 Magnesium 1.9 Total Bilirubin 0.4 AST 31 ALT 14 Alkaline Phosphatase 86 Total Protein 6.8 Albumin 3.4 Urine Color Yellow Urine Appearance Clear Urine pH 5.5 D Ur Specific [place] 1.023 Urine Protein Negative Urine Glucose (UA) Negative Urine Ketones Negative Urine Blood Negative Urine Nitrite Negative Urine Bilirubin Negative Urine Urobilinogen 0.2 Ur Leukocyte Esterase Negative 07/27/18 07/27/18 23:00 22:06 RBC 4.65 Cancelled MCV 93.0 Cancelled MCHC 33.1 Cancelled RDW 13.2 Cancelled MPV 7.9 Cancelled Neutrophils % 75.0 Cancelled Lymphocytes % 15.0 D Cancelled Monocytes % 8.2 Cancelled Eosinophils % 1.2 Cancelled Basophils % 0.6 Cancelled - Medications Given in the ED: ED Medications Discontinued Medications Generic Name Dose Route Start Last Admin Trade Name Stefania PRN Reason Stop Dose Admin Acetaminophen 1,000 mg 07/27/18 22:47 07/27/18 23:07 Ofirmev Injection - IVPB 07/27/18 22:48 1,000 mg ONCE ONE Administration Morphine Sulfate 2 mg 07/27/18 23:50 07/28/18 00:07 Morphine Injection - IVPUSH 07/27/18 23:51 2 mg ONCE ONE Administration Sodium Chloride 1,000 ml 07/27/18 22:47 07/27/18 23:07 Normal Saline - IV 07/27/18 22:48 1,000 ml ONCE ONE Administration Medical Decision Making - Medical Decision Making 07/28/18 02:34 Patient Name: GA KATHLEEN THIS IS A PRELIMINARY REPORT FROM [facility] DATE OF SERVICE: 2018-07-28 01:26:59 IMAGES: [id number] EXAM: ABDOMEN \T\ PELVIS CT WITH CONTR HISTORY: Abdominal pain COMPARISON: None. FINDINGS: Lung bases are clear. The visualized cardiac chambers are normal size and configuration. Normal liver, gallbladder, pancreas, spleen, adrenal glands and kidneys. Distal small bowel is moderately inflamed and dilated to 4.2 cm. The transition point is seen at the right lower quadrant anastomosis findings most likely represent anastomotic stricture. No abscess or free air. No colonic inflammation. There is no aortic aneurysm. There is no significant retroperitoneal lymphadenopathy. The appendix is normal. Rectosigmoid anastomosis is noted. Status post hysterectomy Urinary bladder is unremarkable. There is no pelvic free fluid. No discrete pelvic lymphadenopathy is identified. IMPRESSION: Moderate inflammation and SBO of the distal small bowel secondary to a right lower quadrant anastomotic stricture. 07/28/18 02:42 Pt will be admitted for SBO *DC/Admit/Observation/Transfer Diagnosis at time of Disposition: SBO (small bowel obstruction) - Discharge Dispostion Condition at time of disposition: Guarded Decision to Admit order: Yes - Referrals Referrals: Rivera Willingham MD [Primary Care Provider] - - Patient Instructions - Post Discharge Activity
[2018-07-28] MEDS ORDERED: SODIUM CHLORIDE 1,000 ML IV SCH (03:00)
[2018-07-28] MEDS ORDERED: morphine SULFATE 4 MG/ML VIAL ONE (03:09)
--- NOTE | 2018-07-28 03:26 | HP ---
Admitting History and Physical - Primary Care Physician PCP: Rivera Willingham - Admission Chief Complaint: Abdominal Pain History of Present Illness: This is a 67 y/o woman with a PMHx of Chronic Diverticulitis s/p Sigmoid Colectomy-Diverting Ileostomy (06/2017), s/p Ilesotomy Reversal (07/2017), Recurrent SBOs (Feb,April 2018), GERD, Fibromyalgia. Who presents to the ED with her son for right lower abdominal pain and nausea. Patient is Syriac speaking, her son was at bedside and translated. Per the son the patient took Tylenol which usually helps, but during the afternoon the pain became worse. The patient reports having three small BMs yesterday. The patient denies fever, chills, cough, SOB, dizziness, COSTA, CP, palpitations, vomiting, diarrhea, constipation, dysuria. History Source: Patient, Family Member Limitations to Obtaining History: Language Barrier (Syriac) - Past Medical History Gastrointestinal: Yes: Constipation, Diverticulitis, Diverticulosis, Irritable Bowel Disease Musculoskeletal: Yes: Osteoarthritis Rheumatology: Yes: Fibromyalgia - Past Surgical History Past Surgical History: Yes: Colonoscopy (last 12/11/16 - found pandiverticulosis only), Colostomy (ileostomy), Hysterectomy, Tubal Ligation - Smoking History Smoking history: Never smoked Have you smoked in the past 12 months: No - Alcohol/Substance Use Hx Alcohol Use: No History of Substance Use: reports: None - Social History ADL: Independent History of Recent Travel: No Home Medications - Allergies Allergies/Adverse Reactions: Allergies Allergy/AdvReac Type Severity Reaction Status Date / Time No Known Drug Allergies Allergy Verified 07/27/18 21:41 - Home Medications Home Medications: Ambulatory Orders Omeprazole 20 mg PO DAILY 07/27/18 Home Medications (free text): Lactulose 20g po daily. Tylenol 650mg po Q4-6h prn Family Disease History - Family Disease History Family Disease History: Heart Disease: Father (), Brother, [place]: Mother ( colon - in [facility] now for tx, age 88) Review of Systems - Review of Systems Constitutional: reports: No Symptoms Eyes: reports: No Symptoms HENT: reports: No Symptoms Neck: reports: No Symptoms Cardiovascular: reports: No Symptoms Respiratory: reports: No Symptoms Gastrointestinal: reports: Abdominal Pain, Nausea Genitourinary: reports: No Symptoms Breasts: reports: No Symptoms Reported Musculoskeletal: reports: No Symptoms Integumentary: reports: No Symptoms Neurological: reports: No Symptoms Endocrine: reports: No Symptoms Hematology/Lymphatic: reports: No Symptoms Psychiatric: reports: No Symptoms Pain Intensity: 7 Physical Examination Vital Signs: Vital Signs Temperature 97.8 F 07/28/18 02:19 Pulse Rate 64 07/28/18 02:19 Respiratory Rate 18 07/28/18 02:19 Blood Pressure 138/74 07/28/18 02:19 O2 Sat by Pulse Oximetry (%) 99 07/28/18 02:19 Constitutional: Yes: Well Nourished, No Distress, Calm Eyes: Yes: WNL, Conjunctiva Clear, EOM Intact, PERRL HENT: Yes: WNL, Atraumatic, Normocephalic Neck: Yes: WNL, Supple, Trachea Midline Cardiovascular: Yes: WNL, Regular Rate and Rhythm, S1, S2 Respiratory: Yes: WNL, Regular, CTA Bilaterally Gastrointestinal: Yes: Soft, Hyperactive Bowel Sounds, Tenderness (generalized) , Tenderness, Epigastrium, Other (well healed surgical scars to transverse lower abdomen, RLQ). No: Hematemesis, Vomiting Renal/: Yes: WNL Breast(s): Yes: WNL Musculoskeletal: Yes: WNL Extremities: Yes: WNL Edema: No Peripheral Pulses WNL: Yes Neurological: Yes: WNL, Alert, Oriented, Cran Nerves II-XII Intact ...Motor Strength: WNL Psychiatric: Yes: WNL, Alert, Oriented Labs: CBC, BMP 07/27/18 23:00 07/27/18 22:28 Laboratory Results - last 24 hr 07/27/18 07/27/18 07/27/18 22:06 22:28 23:00 WBC Cancelled 12.7 H Corrected WBC (auto) Cancelled RBC Cancelled 4.65 Hgb Cancelled 14.3 Hct Cancelled 43.2 D MCV Cancelled 93.0 MCH Cancelled 30.8 MCHC Cancelled 33.1 RDW Cancelled 13.2 Plt Count Cancelled 356 MPV Cancelled 7.9 Absolute Neuts (auto) Cancelled 9.5 H Neutrophils % Cancelled 75.0 Lymphocytes % Cancelled 15.0 D Monocytes % Cancelled 8.2 Eosinophils % Cancelled 1.2 Basophils % Cancelled 0.6 Nucleated RBC % Cancelled 0 Platelet Estimate Cancelled Adequate Platelet Comment Cancelled Reviewed PT with INR INR Sodium 140 Potassium 4.9 Chloride 108 H Carbon Dioxide 24 Anion Gap 8 BUN 19.4 H Creatinine 0.6 Est GFR (CKD-EPI)AfAm 110.08 Est GFR (CKD-EPI)NonAf 94.98 Random Glucose 115 H Calcium 8.6 Magnesium 1.9 Total Bilirubin 0.4 AST 31 ALT 14 Alkaline Phosphatase 86 Total Protein 6.8 Albumin 3.4 Urine Color Urine Appearance Urine pH Ur Specific [place] Urine Protein Urine Glucose (UA) Urine Ketones Urine Blood Urine Nitrite Urine Bilirubin Urine Urobilinogen Ur Leukocyte Esterase 07/27/18 07/28/18 07/28/18 23:40 05:15 05:15 WBC 9.4 Corrected WBC (auto) RBC 4.09 Hgb 12.9 Hct 37.9 MCV 92.5 MCH 31.4 MCHC 33.9 RDW 13.1 Plt Count 339 MPV 7.5 Absolute Neuts (auto) 6.5 Neutrophils % 68.9 Lymphocytes % 23.0 D Monocytes % 5.8 Eosinophils % 1.7 Basophils % 0.6 Nucleated RBC % 0 Platelet Estimate Platelet Comment PT with INR 12.20 INR 1.03 Sodium Potassium Chloride Carbon Dioxide Anion Gap BUN Creatinine Est GFR (CKD-EPI)AfAm Est GFR (CKD-EPI)NonAf Random Glucose Calcium Magnesium Total Bilirubin AST ALT Alkaline Phosphatase Total Protein Albumin Urine Color Yellow Urine Appearance Clear Urine pH 5.5 D Ur Specific [place] 1.023 Urine Protein Negative Urine Glucose (UA) Negative Urine Ketones Negative Urine Blood Negative Urine Nitrite Negative Urine Bilirubin Negative Urine Urobilinogen 0.2 Ur Leukocyte Esterase Negative 07/28/18 05:15 WBC Corrected WBC (auto) RBC Hgb Hct MCV MCH MCHC RDW Plt Count MPV Absolute Neuts (auto) Neutrophils % Lymphocytes % Monocytes % Eosinophils % Basophils % Nucleated RBC % Platelet Estimate Platelet Comment PT with INR INR Sodium 140 Potassium 3.7 Chloride 110 H Carbon Dioxide 24 Anion Gap 5 L BUN 14.5 Creatinine 0.5 L Est GFR (CKD-EPI)AfAm 116.89 Est GFR (CKD-EPI)NonAf 100.85 Random Glucose 175 H Calcium 7.6 L Magnesium Total Bilirubin AST ALT Alkaline Phosphatase Total Protein Albumin Urine Color Urine Appearance Urine pH Ur Specific [place] Urine Protein Urine Glucose (UA) Urine Ketones Urine Blood Urine Nitrite Urine Bilirubin Urine Urobilinogen Ur Leukocyte Esterase Intake & Output 07/25/18 07/26/18 07/27/18 07/28/18 23:59 23:59 23:59 23:59 Weight 67.132 kg Imaging - Results Chest X-ray: Pending X-ray: Image Reviewed Cat Scan: Report Reviewed, Image Reviewed EKG: Image Reviewed (NSR Prolonged QT) Problem List - Problems (1) SBO (small bowel obstruction) Assessment/Plan: Hx Recurrent SBOs Likely due to adhesions Abd Xray image reviewed CTAP report- moderate inflammation and SBO of the distal small bowel secondary to a right lower quadrant anastomatic stricture Appreciate Surgical consult NPO Continue IVF Pain Management- Ofirmev, Morphine Sulfate will use antiemetics judiciously, secondary to prolonged QT on EKG, pt is asymptomatic at present CBC, BMP, Lactic Acid in am Monitor vitals Code(s): K56.609 - UNSP INTESTNL OBST, UNSP TO PARTIAL VERSUS COMPLETE OBST (2) Abdominal pain Assessment/Plan: See above Code(s): R10.9 - UNSPECIFIED ABDOMINAL PAIN (3) Nausea Assessment/Plan: stable asymptomatic at present Code(s): R11.0 - NAUSEA (4) Leukocytosis Assessment/Plan: Likely secondary to SBO Patient is afebrile UA- neg for UTI Monitor CBC Code(s): D72.829 - ELEVATED WHITE BLOOD CELL COUNT, UNSPECIFIED (5) HLD (hyperlipidemia) Code(s): E78.5 - HYPERLIPIDEMIA, UNSPECIFIED (6) GERD (gastroesophageal reflux disease) Assessment/Plan: stable Continue PPI Code(s): K21.9 - GASTRO-ESOPHAGEAL REFLUX DISEASE WITHOUT ESOPHAGITIS (7) Fibromyalgia Assessment/Plan: stable Tylenol prn Code(s): M79.7 - FIBROMYALGIA Assessment/Plan This is a 67 y/o woman with a PMHx of Chronic Diverticulitis s/p Sigmoid Colectomy- Diverting Ileostomy (06/2017), s/p Ilesostomy Reversal (07/2017), Recurrent SBOs (Feb,April 2018), GERD, Fibromyalgia, oA. Admitted for SBO and Leukocytosis for further evaluation of their emergent condition. Plan: See Problem List FEN D51/2NS@60ml/hr Replete lytes prn NPO DVT ppx OOB SCDs Heparin SQ Dispo: Requires Inpatient Care Visit type - Emergency Visit Emergency Visit: Yes ED Registration Date: 07/27/18 Care time: The patient presented to the Emergency Department on the above date and was hospitalized for further evaluation of their emergent condition. - New Patient This patient is new to me today: Yes Date on this admission: 07/28/18 - Critical Care Critical Care patient: No
[2018-07-28] MEDS: DEXTROSE 5%-0.45% SALINE 1,000 ML IV SCH (03:53)
[2018-07-28 05:30] LABS: BASO % 0.6 % (0-2.0); EOS % 1.7 % (0-4.5); HEMATOCRIT 37.9 % (32.4-45.2); HEMOGLOBIN 12.9 GM/dL (10.7-15.3); MCH 31.4 pg (25.7-33.7); MCHC 33.9 g/dl (32.0-36.0); MEAN CELL VOLUME 92.5 fl (80-96); MEAN PLT VOLUME 7.5 fl (7.5-11.1); MONO % 5.8 % (3.8-10.2); NEUT % 68.9 % (42.8-82.8); RBC 4.09 M/mm3 (3.60-5.2); RDW 13.1 % (11.6-15.6); WHITE BLOOD COUNT 9.4 K/mm3 (4.0-10.0)
[2018-07-28 05:39] LABS: PLATELET COUNT 339 K/MM3 (134-434)
[2018-07-28 05:43] LABS: INR 1.03 (0.83-1.09); PROTHROMBIN TIME (PATIENT) 12.2 SEC (9.7-13.0)
[2018-07-28 05:50] LABS: BLOOD UREA NITROGEN 14.5 mg/dL (7-18); CALCIUM 7.6 mg/dL (8.5-10.1); CREATININE 0.5 mg/dL (0.55-1.3); POTASSIUM 3.7 mmol/L (3.5-5.1)
[2018-07-28] MEDS ORDERED: ACETAMINOPHEN 1000 MG/100 ML VIAL (NON FORMULARY) IVPB PRN (06:01)
[2018-07-28] MEDS ORDERED: MORPHINE SULFATE 2 MG/ML VIAL IVPUSH PRN (08:00)
[2018-07-28] MEDS: HEPARIN NA (PORCINE) 5,000 UNITS/ML 1ML VIAL SQ SCH ×2 (09:30→21:25)
[2018-07-28] MEDS: PANTOPRAZOLE SODIUM 40 MG VIAL IVPUSH SCH (09:31)
--- NOTE | 2018-07-28 11:39 | EKG ---
Test Reason : Blood Pressure : / mmHG Vent. Rate : 066 BPM Atrial Rate : 066 BPM P-R Int : 136 ms QRS Dur : 080 ms QT Int : 468 ms P-R-T Axes : 034 054 061 degrees QTc Int : 490 ms NORMAL SINUS RHYTHM LOW VOLTAGE QRS PROLONGED QT ABNORMAL ECG WHEN COMPARED WITH ECG OF 24-APR-2018 03:04, PREMATURE ATRIAL COMPLEXES ARE NO LONGER PRESENT Confirmed by ANA PAULA MARTINES, TARAS ([id number]) on 07/28/2018 11:38:29 AM Referred By: Confirmed By:TARAS GOSS MD
--- NOTE | 2018-07-28 12:58 | PN ---
Progress Note, Physician Chief Complaint: SBO Abdominal Pain History of Present Illness: Previous notes and events reviewed awake and alert NAD denies having BM denies nausea, vomiting - Current Medication List Current Medications: Active Medications Acetaminophen (Ofirmev Injection -) 1,000 mg IVPB Q6H PRN PRN Reason: PAIN LEVEL 1-5 Heparin Sodium (Porcine) (Heparin -) 5,000 unit SQ BID [facility] Last Admin: 07/28/18 09:30 Dose: 5,000 unit Dextrose/Sodium Chloride (D5-1/2ns -) 1,000 mls @ 60 mls/hr IV ASDIR [facility] Last Admin: 07/28/18 03:53 Dose: 60 mls/hr Morphine Sulfate (Morphine Sulfate) 2 mg IVPUSH Q6H PRN PRN Reason: PAIN LEVEL 7 - 10 Pantoprazole Sodium (Protonix Iv) 40 mg IVPUSH DAILY [facility] Last Admin: 07/28/18 09:31 Dose: 40 mg - Objective Vital Signs: Vital Signs Temperature 97.7 F 07/28/18 09:32 Pulse Rate 67 07/28/18 09:32 Respiratory Rate 16 07/28/18 09:32 Blood Pressure 103/55 L 07/28/18 09:32 O2 Sat by Pulse Oximetry (%) 97 07/28/18 06:19 Constitutional: Yes: No Distress, Calm Eyes: Yes: Conjunctiva Clear HENT: Yes: Atraumatic Cardiovascular: Yes: Regular Rate and Rhythm Respiratory: Yes: Regular, CTA Bilaterally Gastrointestinal: Yes: Normal Bowel Sounds, Soft, Tenderness (RLQ and LLQ) Musculoskeletal: Yes: WNL Extremities: Yes: WNL Edema: No Neurological: Yes: Alert, Oriented Psychiatric: Yes: Alert, Oriented Labs: CBC, BMP 07/28/18 05:15 07/28/18 05:15 INR, PTT INR 1.03 (0.83-1.09) 07/28/18 05:15 Problem List - Problems (1) GERD (gastroesophageal reflux disease) Assessment/Plan: -Pantoprazole Code(s): K21.9 - GASTRO-ESOPHAGEAL REFLUX DISEASE WITHOUT ESOPHAGITIS (2) Nausea Assessment/Plan: -Zofran IVPB Code(s): R11.0 - NAUSEA (3) SBO (small bowel obstruction) Assessment/Plan: -Surgery and GI consult -CT scan shows findings consistent with partial SBO involving the distal ileum, the point of obstruction appears to be surgical anastamosisbetween distal ileal loops -NPO -IV hydration Code(s): K56.609 - UNSP INTESTNL OBST, UNSP TO PARTIAL VERSUS COMPLETE OBST (4) Abdominal pain Assessment/Plan: -pain control -GI consult -NPO -IV hydration Code(s): R10.9 - UNSPECIFIED ABDOMINAL PAIN Assessment/Plan see problem list dvt ppx
--- NOTE | 2018-07-28 15:30 | CON.GI ---
Consult Consult Specialty:: GI Referred by:: Medicine Reason for Consultation:: SBO - History of Present Illness Chief Complaint: RLQ pain History of Present Illness: 67F with h/o diverticulitis s/p resection with diverting ileostomy with reversal 2017, admissions for SBO 02/2018 and 04/2018, presenting for evaluation of RLQ pain. Reports last bm yesterday and passing minimal flatus. Prior admits had N/V but for this one just pain since 1-2 days. No fever/chills. CT showing SBO with possible anastomotic stricture in distal ileum. Surgery has been called. - History Source History Provided By: Patient, Medical Record Limitations to Obtaining History: No Limitations - Past Medical History Gastrointestinal: Yes: Constipation, Diverticulitis, Diverticulosis, Irritable Bowel Disease ...: No Musculoskeletal: Yes: Osteoarthritis Rheumatology: Yes: Fibromyalgia - Past Surgical History Past Surgical History: Yes: Colonoscopy (last 12/11/16 - found pandiverticulosis only), Colostomy (ileostomy), Hysterectomy, Tubal Ligation - Alcohol/Substance Use Hx Alcohol Use: No History of Substance Use: reports: None - Smoking History Smoking history: Never smoked Have you smoked in the past 12 months: No - Social History Usual Living Arrangement: Other ADL: Independent History of Recent Travel: No Home Medications - Allergies Allergies/Adverse Reactions: Allergies Allergy/AdvReac Type Severity Reaction Status Date / Time No Known Drug Allergies Allergy Verified 07/27/18 21:41 - Home Medications Home Medications: Ambulatory Orders Omeprazole 20 mg PO DAILY 07/27/18 Family Disease History - Family Disease History Family Disease History: Heart Disease: Father (), Brother, [place]: Mother ( colon - in [facility] now for tx, age 88) Review of Systems - Review of Systems Constitutional: reports: No Symptoms Eyes: reports: No Symptoms Neck: reports: No Symptoms Cardiovascular: reports: No Symptoms Respiratory: reports: No Symptoms Gastrointestinal: reports: Abdominal Pain. denies: Nausea, Vomiting Musculoskeletal: reports: No Symptoms Neurological: reports: No Symptoms Hematology/Lymphatic: reports: No Symptoms Physical Exam-GI Vital Signs: Vital Signs Temperature 97.7 F 07/28/18 09:32 Pulse Rate 67 07/28/18 09:32 Respiratory Rate 16 07/28/18 09:32 Blood Pressure 103/55 L 07/28/18 09:32 O2 Sat by Pulse Oximetry (%) 97 07/28/18 06:19 Constitutional: Yes: Well Nourished, No Distress, Calm Eyes: Yes: WNL HENT: Yes: WNL Cardiovascular: Yes: Regular Rate and Rhythm Respiratory: Yes: CTA Bilaterally ...Palpate: Yes: Soft, Tenderness (ttp in RLQ and suprapubic with guarding no rebound, mild distension) ...Rectal Exam: Yes: Deferred Musculoskeletal: Yes: WNL Extremities: Yes: WNL Neurological: Yes: Alert, Oriented Labs: CBC, BMP 07/28/18 05:15 07/28/18 05:15 INR, PTT INR 1.03 (0.83-1.09) 07/28/18 05:15 Imaging - Results Cat Scan: Report Reviewed Assessment/Plan h/o complicated diverticulitis s/p surgery now with SBO likely secondary to adhesions vs stricture of the distal ileum. Not accessible colonoscopically. Would follow up with surgery regarding operative intervention.
--- NOTE | 2018-07-28 18:21 | CONSULT ---
Consult Consult Specialty:: Surgery Reason for Consultation:: recurrent partial SBO - History of Present Illness Chief Complaint: abdominal pain History of Present Illness: 67 y.o. 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 Had robotic assisted sigmoid colectomy with diverting ileostomy in 2017. Currently has mild abdominal pain and passing flatus. Was advised laparoscopic JOHN in April 2018 but patient deferred intervention after clinical improvement. - History Source History Provided By: Patient - Past Medical History Gastrointestinal: Yes: Constipation, Diverticulitis, Diverticulosis, Irritable Bowel Disease ...: No Musculoskeletal: Yes: Osteoarthritis Rheumatology: Yes: Fibromyalgia - Past Surgical History Past Surgical History: Yes: Colonoscopy (last 12/11/16 - found pandiverticulosis only), Colostomy (ileostomy), Hysterectomy, Tubal Ligation - Alcohol/Substance Use Hx Alcohol Use: No History of Substance Use: reports: None - Smoking History Smoking history: Never smoked Have you smoked in the past 12 months: No - Social History Usual Living Arrangement: Other ADL: Independent History of Recent Travel: No Home Medications - Allergies Allergies/Adverse Reactions: Allergies Allergy/AdvReac Type Severity Reaction Status Date / Time No Known Drug Allergies Allergy Verified 07/27/18 21:41 - Home Medications Home Medications: Ambulatory Orders Omeprazole 20 mg PO DAILY 07/27/18 Family Disease History - Family Disease History Family Disease History: Heart Disease: Father (), Brother, [place]: Mother ( colon - in [facility] now for tx, age 88) Review of Systems - Review of Systems Gastrointestinal: reports: Abdominal Pain (mild) Physical Exam Vital Signs: Vital Signs Temperature 97.9 F 07/28/18 14:00 Pulse Rate 65 07/28/18 14:00 Respiratory Rate 18 07/28/18 14:00 Blood Pressure 129/60 07/28/18 14:00 O2 Sat by Pulse Oximetry (%) 96 07/28/18 09:00 Constitutional: Yes: No Distress Eyes: Yes: Conjunctiva Clear HENT: Yes: Normocephalic Neck: Yes: Supple Cardiovascular: Yes: Regular Rate and Rhythm Respiratory: Yes: CTA Bilaterally Gastrointestinal: Yes: Soft, Distention (mild), Tenderness (RLQ and suprpubic regions) ...Rectal Exam: Yes: Deferred Labs: CBC, BMP 07/28/18 05:15 07/28/18 05:15 Imaging - Results Cat Scan: Report Reviewed, Image Reviewed (recurrent partial SBO) Problem List - Problems (1) SBO (small bowel obstruction) Assessment/Plan: Recurrent partial SBO Patient is again advised laparoscopic lysis of adhesions Patient requests elective JOHN if SBO resolves during this hospital stay. F/U FUA in am. Code(s): K56.609 - UNSP INTESTNL OBST, UNSP TO PARTIAL VERSUS COMPLETE OBST
[2018-07-29] MEDS: DEXTROSE 5%-0.45% SALINE 1,000 ML IV SCH (05:12)
[2018-07-29 07:55] LABS: ALBUMIN 2.8 g/dl (3.4-5.0); BILIRUBIN,TOTAL 0.4 mg/dL (0.2-1); BLOOD UREA NITROGEN 5.7 mg/dL (7-18); CALCIUM 8.5 mg/dL (8.5-10.1); CREATININE 0.5 mg/dL (0.55-1.3); POTASSIUM 3.8 mmol/L (3.5-5.1); TOT PROT 5.5 g/dl (6.4-8.2)
[2018-07-29 08:27] LABS: HEMATOCRIT 37.8 % (32.4-45.2); HEMOGLOBIN 12.7 GM/dL (10.7-15.3); MCH 31.3 pg (25.7-33.7); MCHC 33.5 g/dl (32.0-36.0); MEAN CELL VOLUME 93.5 fl (80-96); MEAN PLT VOLUME 7.9 fl (7.5-11.1); PLATELET COUNT 324 K/MM3 (134-434); RBC 4.05 M/mm3 (3.60-5.2); WHITE BLOOD COUNT 5.8 K/mm3 (4.0-10.0)
[2018-07-29] MEDS: PANTOPRAZOLE SODIUM 40 MG VIAL IVPUSH SCH (10:27)
[2018-07-29] MEDS: HEPARIN NA (PORCINE) 5,000 UNITS/ML 1ML VIAL SQ SCH ×2 (10:28→22:53)
--- NOTE | 2018-07-29 13:25 | PN ---
Progress Note, Physician Chief Complaint: SBO Abdominal Pain History of Present Illness: Previous notes and events reviewed awake and alert NAD no reports of BM complain of lower abdominal pain - Current Medication List Current Medications: Active Medications Acetaminophen (Ofirmev Injection -) 1,000 mg IVPB Q6H PRN PRN Reason: PAIN LEVEL 1-5 Heparin Sodium (Porcine) (Heparin -) 5,000 unit SQ BID [facility] Last Admin: 07/29/18 10:28 Dose: 5,000 unit Dextrose/Sodium Chloride (D5-1/2ns -) 1,000 mls @ 60 mls/hr IV ASDIR [facility] Last Admin: 07/29/18 05:12 Dose: 60 mls/hr Morphine Sulfate (Morphine Sulfate) 2 mg IVPUSH Q6H PRN PRN Reason: PAIN LEVEL 7 - 10 Last Admin: 07/28/18 20:26 Dose: 2 mg Pantoprazole Sodium (Protonix Iv) 40 mg IVPUSH DAILY [facility] Last Admin: 07/29/18 10:27 Dose: 40 mg - Objective Vital Signs: Vital Signs Temperature 97.9 F 07/29/18 06:00 Pulse Rate 67 07/29/18 06:00 Respiratory Rate 20 07/29/18 09:00 Blood Pressure 116/64 07/29/18 06:00 O2 Sat by Pulse Oximetry (%) 96 07/29/18 09:00 Constitutional: Yes: No Distress, Calm Eyes: Yes: Conjunctiva Clear HENT: Yes: Atraumatic Cardiovascular: Yes: Regular Rate and Rhythm Respiratory: Yes: Regular, CTA Bilaterally Gastrointestinal: Yes: Normal Bowel Sounds, Soft, Tenderness (lower abdomen) Musculoskeletal: Yes: Muscle Weakness Extremities: Yes: WNL Edema: No Neurological: Yes: Alert, Oriented Psychiatric: Yes: Alert, Oriented Labs: CBC, BMP 07/29/18 06:15 07/29/18 06:15 INR, PTT INR 1.03 (0.83-1.09) 07/28/18 05:15 Microbiology 07/27/18 23:40 Urine - Urine Clean Catch Urine Culture - Final Problem List - Problems (1) GERD (gastroesophageal reflux disease) Assessment/Plan: -Pantoprazole Code(s): K21.9 - GASTRO-ESOPHAGEAL REFLUX DISEASE WITHOUT ESOPHAGITIS (2) Nausea Assessment/Plan: -Zofran IVPB Code(s): R11.0 - NAUSEA (3) SBO (small bowel obstruction) Assessment/Plan: -Surgery and GI on board -CT scan shows findings consistent with partial SBO involving the distal ileum, the point of obstruction appears to be surgical anastamosisbetween distal ileal loops -NPO -IV hydration -repeat FUA in AM shows no sign of bowel obstruction Code(s): K56.609 - UNSP INTESTNL OBST, UNSP TO PARTIAL VERSUS COMPLETE OBST (4) Abdominal pain Assessment/Plan: -pain control -GI consult -NPO -IV hydration Code(s): R10.9 - UNSPECIFIED ABDOMINAL PAIN Assessment/Plan see problem list dvt ppx
[2018-07-29] MEDS ORDERED: POLYETHYLENE GLYCOL 3350 119 GM BTL PO SCH (14:45)
[2018-07-29] MEDS ORDERED: GLYCERIN 1 RECTAL SUPPOSITORY, ADULT RC ONE (15:30)
[2018-07-29] MEDS ORDERED: PT OWN MED DRAWER 7, Y5N ONE (15:50)
--- NOTE | 2018-07-29 18:35 | PN.GI ---
GI Progress Note Subjective: AXR failed to reveal bowel obstruction. + fecal retention No vomiting Pain at RLQ incisional site - Objective Vital Signs: Vital Signs Temperature 97.4 F L 07/29/18 13:28 Pulse Rate 64 07/29/18 13:28 Respiratory Rate 14 07/29/18 13:28 Blood Pressure 120/70 07/29/18 13:28 O2 Sat by Pulse Oximetry (%) 96 07/29/18 09:00 Constitutional: Calm Eyes: No: Sclera Icterus Cardiovascular: Yes: Regular Rate and Rhythm. No: Murmur Respiratory: Yes: CTA Bilaterally Gastrointestinal Inspection: Yes: Scars (RLQ keloid scar). No: Distention ...Palpate: Yes: Soft, Tenderness (Mild TTP at site of RLQ scar) ...Percussion: No: Tympanitic ...Rectal Exam: Yes: Other (No external lesions, no masses, light brown stool, no rectal fecal impaction) Edema: No (No LE edema) Neurological: Yes: Alert Labs: CBC, BMP 07/29/18 06:15 07/29/18 06:15 INR, PTT INR 1.03 (0.83-1.09) 07/28/18 05:15 Hepatic Panel Total Bilirubin 0.4 mg/dL (0.2-1) 07/29/18 06:15 AST 10 U/L (15-37) L 07/29/18 06:15 ALT 11 U/L (13-61) L 07/29/18 06:15 Alkaline Phosphatase 77 U/L (45-117) 07/29/18 06:15 Albumin 2.8 g/dl (3.4-5.0) L 07/29/18 06:15 Problem List - Problems (1) SBO (small bowel obstruction) Assessment/Plan: Improved with conservative measures Surgical follow-up regarding timing of surgical intervention given recurrent nature of Ms. Miner's problem Increased MiraLAX to 17g BID Code(s): K56.609 - UNSP INTESTNL OBST, UNSP TO PARTIAL VERSUS COMPLETE OBST
--- NOTE | 2018-07-29 22:15 | PN ---
Progress Note (short form) - Note Progress Note: Patient has less pain. Tolerating clear liquids. Agrees to laparoscopic lysis of adhesions Will schedule for , 07/31/18 Problem List - Problems (1) SBO (small bowel obstruction) Code(s): K56.609 - UNSP INTESTNL OBST, UNSP TO PARTIAL VERSUS COMPLETE OBST
[2018-07-29] MEDS: POLYETHYLENE GLYCOL 3350 119 GM BTL PO SCH (22:54)
[2018-07-30] MEDS: DEXTROSE 5%-0.45% SALINE 1,000 ML IV SCH (05:00)
[2018-07-30 06:37] LABS: HEMATOCRIT 37.6 % (32.4-45.2); HEMOGLOBIN 12.7 GM/dL (10.7-15.3); MCH 31.2 pg (25.7-33.7); MCHC 33.6 g/dl (32.0-36.0); MEAN CELL VOLUME 92.8 fl (80-96); MEAN PLT VOLUME 7.6 fl (7.5-11.1); PLATELET COUNT 353 K/MM3 (134-434); RBC 4.06 M/mm3 (3.60-5.2); RDW 12.6 % (11.6-15.6); WHITE BLOOD COUNT 6.9 K/mm3 (4.0-10.0)
[2018-07-30 06:56] LABS: ALBUMIN 3.1 g/dl (3.4-5.0); BILIRUBIN,TOTAL 0.5 mg/dL (0.2-1); BLOOD UREA NITROGEN 4.4 mg/dL (7-18); CALCIUM 8.4 mg/dL (8.5-10.1); CREATININE 0.5 mg/dL (0.55-1.3); POTASSIUM 3.5 mmol/L (3.5-5.1); TOT PROT 5.9 g/dl (6.4-8.2)
[2018-07-30] MEDS: PANTOPRAZOLE SODIUM 40 MG VIAL IVPUSH SCH (10:55)
[2018-07-30] MEDS: HEPARIN NA (PORCINE) 5,000 UNITS/ML 1ML VIAL SQ SCH ×2 (10:55→21:39)
[2018-07-30] MEDS: POLYETHYLENE GLYCOL 3350 119 GM BTL PO SCH ×2 (10:58→21:39)
--- NOTE | 2018-07-30 14:20 | PN ---
Progress Note, Physician Chief Complaint: SBO Abdominal Pain History of Present Illness: Previous notes and events reviewed awake and alert NAD reports of BM complain of lower abdominal pain RLQ at incision site denies chest pain or SOB patient is scheduled for surgery tomorrow - Current Medication List Current Medications: Active Medications Acetaminophen (Ofirmev Injection -) 1,000 mg IVPB Q6H PRN PRN Reason: PAIN LEVEL 1-5 Heparin Sodium (Porcine) (Heparin -) 5,000 unit SQ BID [facility] Last Admin: 07/30/18 10:55 Dose: 5,000 unit Dextrose/Sodium Chloride (D5-1/2ns -) 1,000 mls @ 60 mls/hr IV [facility] Last Admin: 07/30/18 05:00 Dose: 60 mls/hr Dextrose/Sodium Chloride (D5-Ns -) 1,000 mls @ 42 mls/hr IV [facility] Morphine Sulfate (Morphine Sulfate) 2 mg IVPUSH Q6H PRN PRN Reason: PAIN LEVEL 7 - 10 Last Admin: 07/28/18 20:26 Dose: 2 mg Pantoprazole Sodium (Protonix Iv) 40 mg IVPUSH DAILY [facility] Last Admin: 07/30/18 10:55 Dose: 40 mg Polyethylene Glycol (Miralax (For Daily Use) -) 17 gm PO BID [facility] Last Admin: 07/30/18 10:58 Dose: Not Given - Objective Vital Signs: Vital Signs Temperature 97.7 F 07/30/18 13:39 Pulse Rate 61 07/30/18 13:39 Respiratory Rate 18 07/30/18 13:39 Blood Pressure 128/66 07/30/18 13:39 O2 Sat by Pulse Oximetry (%) 96 07/30/18 09:00 Constitutional: Yes: No Distress, Calm Eyes: Yes: Conjunctiva Clear HENT: Yes: Atraumatic Cardiovascular: Yes: Regular Rate and Rhythm Respiratory: Yes: Regular, CTA Bilaterally Gastrointestinal: Yes: Normal Bowel Sounds, Soft, Tenderness (RLQ at scar site) Musculoskeletal: Yes: WNL Extremities: Yes: WNL Edema: No Neurological: Yes: Alert, Oriented Psychiatric: Yes: Alert, Oriented Labs: CBC, BMP 07/30/18 05:25 07/30/18 05:25 INR, PTT INR 1.03 (0.83-1.09) 07/28/18 05:15 Microbiology 07/27/18 23:40 Urine - Urine Clean Catch Urine Culture - Final Problem List - Problems (1) GERD (gastroesophageal reflux disease) Assessment/Plan: -Pantoprazole Code(s): K21.9 - GASTRO-ESOPHAGEAL REFLUX DISEASE WITHOUT ESOPHAGITIS (2) Nausea Assessment/Plan: -Zofran IVPB Code(s): R11.0 - NAUSEA (3) SBO (small bowel obstruction) Assessment/Plan: -Surgery and GI on board -CT scan shows findings consistent with partial SBO involving the distal ileum, the point of obstruction appears to be surgical anastamosisbetween distal ileal loops -clear liquids -IV hydration -repeat FUA in AM shows no sign of bowel obstruction Code(s): K56.609 - UNSP INTESTNL OBST, UNSP TO PARTIAL VERSUS COMPLETE OBST (4) Abdominal pain Assessment/Plan: -pain control -GI and Surgery on board -patient is scheduled for OR in AM for laparoscopic lysis of adhesions -EKG and CXR for pre-op -NPO after midnight -IV hydration Code(s): R10.9 - UNSPECIFIED ABDOMINAL PAIN Assessment/Plan see problem list dvt ppx
--- NOTE | 2018-07-30 19:21 | PN ---
Progress Note, Physician Chief Complaint: abdominal pain History of Present Illness: Had BM today Continues to have mild RLQ pain - Current Medication List Current Medications: Active Medications Acetaminophen (Ofirmev Injection -) 1,000 mg IVPB Q6H PRN PRN Reason: PAIN LEVEL 1-5 Heparin Sodium (Porcine) (Heparin -) 5,000 unit SQ BID [facility] Last Admin: 07/30/18 10:55 Dose: 5,000 unit Dextrose/Sodium Chloride (D5-1/2ns -) 1,000 mls @ 60 mls/hr IV [facility] Last Admin: 07/30/18 05:00 Dose: 60 mls/hr Dextrose/Sodium Chloride (D5-Ns -) 1,000 mls @ 42 mls/hr IV [facility] Morphine Sulfate (Morphine Sulfate) 2 mg IVPUSH Q6H PRN PRN Reason: PAIN LEVEL 7 - 10 Last Admin: 07/28/18 20:26 Dose: 2 mg Pantoprazole Sodium (Protonix Iv) 40 mg IVPUSH DAILY [facility] Last Admin: 07/30/18 10:55 Dose: 40 mg Polyethylene Glycol (Miralax (For Daily Use) -) 17 gm PO BID [facility] Last Admin: 07/30/18 10:58 Dose: Not Given - Objective Vital Signs: Vital Signs Temperature 98.1 F 07/30/18 17:44 Pulse Rate 64 07/30/18 17:44 Respiratory Rate 18 07/30/18 17:44 Blood Pressure 125/80 07/30/18 17:44 O2 Sat by Pulse Oximetry (%) 96 07/30/18 09:00 Constitutional: Yes: Well Nourished, No Distress HENT: Yes: Normocephalic Neck: Yes: Supple Cardiovascular: Yes: Regular Rate and Rhythm Respiratory: Yes: CTA Bilaterally Gastrointestinal: Yes: Soft, Tenderness (mild RLQ tenderness) Labs: CBC, BMP 07/30/18 05:25 07/30/18 05:25 INR, PTT INR 1.03 (0.83-1.09) 07/28/18 05:15 Problem List - Problems (1) SBO (small bowel obstruction) Assessment/Plan: Laparoscopic lysis of adhesions, possible small bowel resection in am Risks, benefits, and alternatives to the proposed procedure D/W patient and family members at bedside Code(s): K56.609 - UNSP INTESTNL OBST, UNSP TO PARTIAL VERSUS COMPLETE OBST
--- NOTE | 2018-07-30 20:26 | PN.GI ---
GI Progress Note Subjective: no new complaints - tolerated clear liquid diet, no abdominal pain - Objective Vital Signs: Vital Signs Temperature 98.1 F 07/30/18 17:44 Pulse Rate 64 07/30/18 17:44 Respiratory Rate 18 07/30/18 17:44 Blood Pressure 125/80 07/30/18 17:44 O2 Sat by Pulse Oximetry (%) 96 07/30/18 09:00 Constitutional: Well Nourished, No Distress, Calm Eyes: Yes: WNL HENT: Yes: WNL Neck: Yes: WNL Cardiovascular: Yes: WNL, Regular Rate and Rhythm Respiratory: Yes: WNL, Regular, CTA Bilaterally Gastrointestinal Inspection: Yes: WNL ...Auscultate: Yes: Normoactive Bowel Sounds Extremities: Yes: WNL Edema: No Labs: CBC, BMP 07/30/18 05:25 07/30/18 05:25 INR, PTT INR 1.03 (0.83-1.09) 07/28/18 05:15 Problem List - Problems (1) SBO (small bowel obstruction) Assessment/Plan: - clear liquid diet - lysis of adhesions tomorrow as per surgery Code(s): K56.609 - UNSP INTESTNL OBST, UNSP TO PARTIAL VERSUS COMPLETE OBST (2) Abdominal pain Code(s): R10.9 - UNSPECIFIED ABDOMINAL PAIN
[2018-07-31] MEDS: DEXTROSE 5%-NORMAL SALINE 1,000 ML IV SCH (00:25)
[2018-07-31 08:01] LABS: ALBUMIN 3.1 g/dl (3.4-5.0); BILIRUBIN,TOTAL 0.4 mg/dL (0.2-1); BLOOD UREA NITROGEN 5.5 mg/dL (7-18); CALCIUM 8.4 mg/dL (8.5-10.1); CREATININE 0.5 mg/dL (0.55-1.3); POTASSIUM 3.9 mmol/L (3.5-5.1)
[2018-07-31 08:41] LABS: HEMATOCRIT 38.8 % (32.4-45.2); HEMOGLOBIN 12.9 GM/dL (10.7-15.3); MCH 31.2 pg (25.7-33.7); MCHC 33.3 g/dl (32.0-36.0); MEAN CELL VOLUME 93.6 fl (80-96); MEAN PLT VOLUME 7.9 fl (7.5-11.1); RBC 4.15 M/mm3 (3.60-5.2); RDW 13.1 % (11.6-15.6)
[2018-07-31] MEDS: POLYETHYLENE GLYCOL 3350 119 GM BTL PO SCH (09:02)
[2018-07-31] MEDS: PANTOPRAZOLE SODIUM 40 MG VIAL IVPUSH SCH (09:14)
[2018-07-31 09:16] LABS: PLATELET COUNT 352 K/MM3 (134-434)
--- NOTE | 2018-07-31 11:46 | EKG ---
Test Reason : Blood Pressure : / mmHG Vent. Rate : 063 BPM Atrial Rate : 063 BPM P-R Int : 148 ms QRS Dur : 084 ms QT Int : 444 ms P-R-T Axes : 026 050 058 degrees QTc Int : 454 ms NORMAL SINUS RHYTHM LOW VOLTAGE QRS BORDERLINE ECG WHEN COMPARED WITH ECG OF 28-JUL-2018 03:18, NONSPECIFIC T WAVE ABNORMALITY NO LONGER EVIDENT IN ANTERIOR LEADS Confirmed by KO MARTINES, YENI ([id number]) on 07/31/2018 11:46:19 AM Referred By: HARIS LEIGH DR Confirmed By:YENI CONNELL MD
--- NOTE | 2018-07-31 13:11 | PN ---
Progress Note, Physician Chief Complaint: NPO for OR today for lysis of adhesions - Current Medication List Current Medications: Active Medications Acetaminophen (Ofirmev Injection -) 1,000 mg IVPB Q6H PRN PRN Reason: PAIN LEVEL 1-5 Heparin Sodium (Porcine) (Heparin -) 5,000 unit SQ BID [facility] Last Admin: 07/30/18 21:39 Dose: 5,000 unit Dextrose/Sodium Chloride (D5-Ns -) 1,000 mls @ 42 mls/hr IV ASDIR [facility] Last Admin: 07/31/18 00:25 Dose: 42 mls/hr Pantoprazole Sodium (Protonix Iv) 40 mg IVPUSH DAILY [facility] Last Admin: 07/31/18 09:14 Dose: 40 mg Polyethylene Glycol (Miralax (For Daily Use) -) 17 gm PO BID [facility] Last Admin: 07/31/18 09:02 Dose: Not Given - Objective Vital Signs: Vital Signs Temperature 97.9 F 07/31/18 08:34 Pulse Rate 60 07/31/18 08:34 Respiratory Rate 16 07/31/18 08:34 Blood Pressure 133/70 07/31/18 08:34 O2 Sat by Pulse Oximetry (%) 98 07/31/18 08:35 Constitutional: Yes: Calm Cardiovascular: Yes: Regular Rate and Rhythm, S1, S2 Respiratory: Yes: CTA Bilaterally Gastrointestinal: Yes: Soft Edema: No Neurological: Yes: Alert, Oriented Labs: CBC, BMP 07/31/18 06:22 07/31/18 06:22 INR, PTT INR 1.03 (0.83-1.09) 07/28/18 05:15 Problem List - Problems (1) SBO (small bowel obstruction) Assessment/Plan: NPO for OR today ivf dvt ppx Code(s): K56.609 - UNSP INTESTNL OBST, UNSP TO PARTIAL VERSUS COMPLETE OBST (2) Retained feces Assessment/Plan: miralax bid Code(s): K59.00 - CONSTIPATION, UNSPECIFIED
[2018-07-31] MEDS ORDERED: BUPIVACAINE HCL/PF 0.5% (5MG/ML) 10 ML VIAL ONE ×2 (15:14→22:19)
[2018-07-31] MEDS ORDERED: PROMETHAZINE HCL 25 MG/1 ML VIAL IVPUSH PRN (16:24)
[2018-07-31] MEDS ORDERED: ONDANSETRON 4 MG/2 ML VIAL IVPUSH PRN (16:24)
[2018-07-31] MEDS ORDERED: PROPOFOL 20 ML ONE (16:27)
[2018-07-31] MEDS ORDERED: MIDAZOLAM HCL 2 MG/2 ML SINGLE DOSE VIAL ONE (16:28)
[2018-07-31] MEDS ORDERED: ROCURONIUM BROMIDE 50 MG/5 ML SYRINGE ONE ×2 (16:28→19:45)
[2018-07-31] MEDS ORDERED: LACTATED RINGERS SOLUTION 1,000 ML IV SCH (16:30)
[2018-07-31] MEDS ORDERED: LIDOCAINE HCL/PF 2% SDV 5ML VIAL ONE (16:31)
[2018-07-31] MEDS ORDERED: ERTAPENEM SODIUM 1 GM VIAL ONE (17:02)
[2018-07-31] MEDS ORDERED: ERTAPENEM SODIUM 1 GM VIAL IVPB ONE (17:04)
[2018-07-31] MEDS ORDERED: DEXAMETHASONE SOD PHOSPHATE 4 MG/1 ML VIAL ONE (17:06)
[2018-07-31] MEDS ORDERED: BUPIVACAINE HCL/PF (5 MG/ML) 30 ML VIAL IJ ONE ×3 (17:13→22:20)
[2018-07-31] MEDS ORDERED: DESFLURANE GAS 240 ML BOTTLE IH ONE (20:59)
[2018-07-31] MEDS ORDERED: KETOROLAC TROMETHAMINE 30 MG/1 ML VIAL ONE (21:30)
[2018-07-31] MEDS ORDERED: NEOSTIGMINE METHYLSULFATE 0.5 MG/ML - 10 ML MDV ONE (21:31)
[2018-07-31] MEDS ORDERED: GLYCOPYRROLATE 0.2 MG/1 ML VIAL ONE (21:31)
[2018-07-31] MEDS ORDERED: MORPHINE SULFATE 2 MG/ML VIAL IVPUSH PRN (23:05)
--- NOTE | 2018-07-31 23:05 | OP ---
Operative Note - Note: Operative Date: 07/31/18 Pre-Operative Diagnosis: Recurrent partial SBO Operation: attempted laparoscopic JOHN, converted to open JOHN, SB resection, and incisional hernia repair with mesh Findings: Extensive and dense omental, pelvic, and small bowel interloop adhesions multiple enterotomies at anastomotic area Implants: Phasix mesh 6 x4 inch Post-Operative Diagnosis: Other (incisonal hernia, dense posterior abdominal wall, pelvic, and interloop sb adhesions) Surgeon: Dragan Saldaña Finish Off Operator: Pascual Etienne Anesthesiologist/SADDLE CUTTER: Omkar Escamilla Anesthesia: General Specimens Removed: small bowel Estimated Blood Loss (mls): 150 Operative Report Dictated: Yes
[2018-07-31] MEDS ORDERED: SODIUM CHLORIDE 0.9% 500 ML INFUS.BAG IV ONE (23:06)
--- NOTE | 2018-07-31 23:09 | SURG ---
Surgery District [address] Reporter Note [facility] Reporter: Pascual Etienne PA-C (Suzy) Date of Service: 07/31/18 Diagnosis: Recurrent partial SBO Procedure: Attempted laparoscopic JOHN, converted to open JOHN, SB resection, and incisional hernia repair with mesh I was present for the entirety of the operative procedure. For further detail, please refer to operative report. Visit type - Case Type Case Type: Scheduled - Emergency Emergency Visit: No - New patient This patient is new to me today: Yes Date on this admission: 07/31/18 - Critical Care Critical Care patient: No
[2018-07-31] MEDS ORDERED: cefOXitin SODIUM 1 GM/10 ML PUSH (RESTRICTED TO ID) IVPUSH SCH ×2 (23:15→23:30)
[2018-07-31] MEDS ORDERED: ACETAMINOPHEN 1000 MG/100 ML VIAL (NON FORMULARY) IVPB ONE (23:15)
[2018-07-31] MEDS ORDERED: ACETAMINOPHEN INJECTION 100 ML IVPB ONE (23:23)
[2018-07-31] MEDS ORDERED: cefOXitin SODIUM 1 GM VIAL (RESTRICTED TO ID) IVPB ONE (23:30)
[2018-08-01] MEDS ORDERED: SODIUM CHLORIDE 1,000 ML IV SCH (00:30)
[2018-08-01] MEDS ORDERED: SODIUM CHLORIDE 0.9% 500 ML INFUS.BAG IV ONE (00:43)
[2018-08-01] MEDS ORDERED: PROMETHAZINE HCL 25 MG/1 ML VIAL IVPB PRN (00:43)
[2018-08-01] MEDS: POLYETHYLENE GLYCOL 3350 119 GM BTL PO SCH (00:51)
[2018-08-01] MEDS ORDERED: CEFOXITIN SODIUM 1 GM in DEXTROSE 5%-WATER - 100 ML IVPB SCH (05:30)
[2018-08-01] MEDS: cefOXitin SODIUM 1 GM/10 ML PUSH (RESTRICTED TO ID) IVPUSH SCH ×3 (05:56→15:29)
--- NOTE | 2018-08-01 07:49 | OP ---
DATE OF OPERATION: 07/31/2018 PROCEDURE: Attempted laparoscopic lysis of adhesions converted to open lysis of adhesions, small bowel resection, and incisional hernia repair with mesh. PREOPERATIVE DIAGNOSIS: Recurrent partial small bowel obstruction, intraabdominal adhesions, and incisional hernia. Additional diagnosis multiple enterotomies. SURGEON: Dragan Saldaña MD LODE MINER BLASTING: ZHENG Etienne ANESTHESIA: General endotracheal. FINDINGS ON PROCEDURE: This is a 67-year-old female who underwent attempted robotic and converted to open sigmoid resection with primary stapled end-to-end anastomosis with diverting loop ileostomy in July of 2017 and subsequently had reversal of ileostomy a few months later. Patient subsequently developed recurrent partial small bowel obstruction with possible stricture of the anastomotic side of the ileostomy in the right lower quadrant area. Patient had the 3rd hospitalization for the obstruction in April and patient was advised laparoscopic lysis of adhesions at that time. However, the patient improved and eventually deferred the proposed procedure. Patient at this time again came in with abdominal pain, nausea, and CT scan findings of partial small bowel obstruction. So, this time, patient agreed to the proposed procedure, and consent was obtained after discussing the risks, benefits, and alternatives of the procedure. DESCRIPTION OF PROCEDURE: Patient was brought to the operating room and placed in supine position. General endotracheal anesthesia was administered. A Benedict catheter was placed into the bladder. Both arms were then tucked to the side. The abdomen was prepped and draped in the usual sterile fashion. Using 0.5% Marcaine, local anesthesia was administered to the proposed incision sites. The peritoneal cavity was entered using the Optiview technique via a 5-mm left subcostal incision using a 5-mm 0-degree scope inserted in a 5-mm optical port. Pneumoperitoneum was established. The peritoneal cavity was carefully inspected and was noted to be free of inadvertent injury. Dense omental adhesions to the posterior abdominal wall at the ileostomy site was encountered, and small bowel adhesions to the posterior abdominal wall were also noted. The 4 other 5-mm ports were inserted, one at the subxiphoid region and right upper quadrant, two other ports at the left flank, and at the suprapubic area. The omental adhesions were taken down successfully. Dense interloop adhesions at the distal small bowel were also noted. Also, on further inspection, dense adhesions of the small bowel to the pelvis were noted. Attempts to take down the small bowel proved to be difficult, and during the process of the taking down of the small bowel adhesion to the ileostomy site, an incisional hernia was identified. It was then decided upon to convert the procedure to an open procedure. The Ralph-Wesley incision of the ileostomy site was used, and the keloid was excised using the scalpel blade No. 10 The incision was lengthened to about 10 cm using scalpel blade No. 10. Further dissection using Bovie cautery was done until the fascia was encountered, and this was incised as well using Bovie cautery into the incisional hernia and through the parietal peritoneum. The abdominal cavity was entered and careful lysis of the adhesions using Metzenbaum scissors was done, and due to the fibrotic adhesions of the area of the previous anastomosis to the posterior abdominal wall, 3 inadvertent enterotomies were created. This was temporarily closed with Vicryl 3-0 sutures. Careful dissection of the dense adhesions up to the pelvis from the distal small bowel was also done. The interloop adhesions were also carefully taken down using Metzenbaum scissors. The area of the anastomosis and the distal third of the ileum was noted to be mildly dilated. The terminal ileum was then traced from the ileocecal junction towards the proximal non-dilated small bowel. After all the adhesions were released, the area of the previous small bowel anastomosis was transected incorporating the enterotomies, and a segment of about 15 cm was resected. A [id number] stapled anastomosis using an Linear cutting CLAY 80 and TA stapling device was constructed. The mesenteric defect was closed with continuous Vicryl 3-0 suture. After the anastomosis was completed and deemed satisfactory, the loops of small bowel were then returned back to the peritoneal cavity. The pelvis was copiously irrigated with sterile normal saline until the return was clear. The omentum was pulled down to cover the small bowel and prevent adhesions of the small bowel to the posterior abdominal wall. The wound was closed with continuous Vicryl 0 suture for the peritoneum and continuous Prolene No. 1 suture for the fascia. A 4 x 6 inch Phasix mesh was deployed as an onlay mesh and tucked to the fascia with Vicryl 2-0 sutures. The wound was closed with interrupted Vicryl 2-0 suture for the Diana 's fascia and satinder for the skin. A No. 7 Alfredo-Simms drain was deployed over the mesh and exited via separate stab wound at the inguinal area. This was then connected to bulb suction. The port sites were closed with subcuticular Biosyn 4-0 sutures reinforced with Dermabond. The right lower quadrant wound was then covered with sterile dressing. The patient was successfully extubated and transferred to the post-anesthesia care unit in satisfactory condition. ESTIMATED BLOOD LOSS: About 150 mL. WOUND CLASS: Contaminated. The patient received 1 g of Invanz prior to the start of the procedure. Kvng [id number] MTDD
[2018-08-01 08:35] LABS: BASO % 0.1 % (0-2.0); HEMATOCRIT 37.6 % (32.4-45.2); HEMOGLOBIN 12.4 GM/dL (10.7-15.3); LYMPH % 6.1 % (8-40); MCH 30.4 pg (25.7-33.7); MCHC 32.9 g/dl (32.0-36.0); MEAN CELL VOLUME 92.4 fl (80-96); MEAN PLT VOLUME 7.7 fl (7.5-11.1); MONO % 7.7 % (3.8-10.2); NEUT % 86.1 % (42.8-82.8); PLATELET COUNT 380 K/MM3 (134-434); RBC 4.07 M/mm3 (3.60-5.2); RDW 12.9 % (11.6-15.6); WHITE BLOOD COUNT 14.9 K/mm3 (4.0-10.0)
--- NOTE | 2018-08-01 09:13 | PN ---
Progress Note (short form) - Note Progress Note: 68yo F s/p Exlap, lysis of adhesions, bowel resection POD 1. Pt seen and examined at bedside. Pt denies any n/v, fever, chills. Pt complaining of moderate abd pain. Denies BM or flatus. Last Vital Signs Temp Pulse Resp BP Pulse Ox 98.4 F 85 18 132/74 97 08/01/18 06:00 08/01/18 06:00 08/01/18 06:00 08/01/18 06:00 08/01/18 01:16 CBC, BMP 08/01/18 06:39 07/31/18 06:22 PE: Gen: A&O x3 Resp: breathing comfortably Abd: soft, nondistended, moderate diffuse tenderness, incision clean with no erythema some serousanguinous drainage. Drain in place with serosanguinous output. Problem List - Problems (1) SBO (small bowel obstruction) Assessment/Plan: Plan - continue NPO for now will consider clears maybe later in the day. - trend wbc elevation most likely reactive from surgery - IVF - GI ppx - DVT ppx - pain control Code(s): K56.609 - UNSP INTESTNL OBST, UNSP TO PARTIAL VERSUS COMPLETE OBST
[2018-08-01] MEDS ORDERED: ONDANSETRON 4 MG/2 ML VIAL IVPUSH PRN ×2 (10:00)
[2018-08-01] MEDS ORDERED: PT OWN MED DRAWER 7, Y5N ONE ×3 (11:28→12:55)
[2018-08-01] MEDS: MORPHINE SULFATE 2 MG/ML VIAL IVPUSH PRN ×2 (11:36→18:04)
[2018-08-01] MEDS: PANTOPRAZOLE SODIUM 40 MG VIAL IVPUSH SCH (11:36)
[2018-08-01] MEDS: HEPARIN NA (PORCINE) 5,000 UNITS/ML 1ML VIAL SQ SCH ×2 (11:43→21:40)
[2018-08-01] MEDS: DEXTROSE 5%-NORMAL SALINE 1,000 ML IV SCH (11:49)
--- NOTE | 2018-08-01 12:30 | PN ---
Progress Note, Physician Chief Complaint: S/P lysis of adhesions and exploratory laprotomy POD 1 complaining of abdominal pain - Current Medication List Current Medications: Active Medications Acetaminophen (Ofirmev Injection -) 1,000 mg IVPB Q6H PRN PRN Reason: PAIN LEVEL 1-5 Cefoxitin Sodium (Mefoxin (Restricted To Id) -) 1 gm IVPUSH Q6H [facility] Fentanyl (Sublimaze Injection -) 50 mcg IVPUSH [id number] PRN PRN Reason: PAIN-PACU ORDER X 4 DOSES ONLY Heparin Sodium (Porcine) (Heparin -) 5,000 unit SQ BID [facility] Last Admin: 08/01/18 11:43 Dose: Not Given Sodium Chloride (Normal Saline -) 1,000 mls @ 100 mls/hr IV ASDIR [facility] Last Admin: 08/01/18 00:49 Dose: 100 mls/hr Cefoxitin Sodium 1 gm/ (Dextrose) 100 mls @ 200 mls/hr IVPB Q6H [facility] Stop: 08/01/18 18:14 Morphine Sulfate (Morphine Sulfate) 2 mg IVPUSH Q4H PRN PRN Reason: PAIN LEVEL 7 - 10 Last Admin: 08/01/18 11:36 Dose: 2 mg Ondansetron HCl (Zofran Injection) 4 mg IVPUSH Q6H PRN PRN Reason: NAUSEA AND/OR VOMITING Pantoprazole Sodium (Protonix Iv) 40 mg IVPUSH DAILY [facility] Last Admin: 08/01/18 11:36 Dose: 40 mg Promethazine HCl (Phenergan Injection -) 12.5 mg IVPB Q6H PRN PRN Reason: NAUSEA-FOR RESCUE AFTER 15 MIN - Objective Vital Signs: Vital Signs Temperature 98.9 F 08/01/18 11:50 Pulse Rate 80 08/01/18 11:50 Respiratory Rate 18 08/01/18 11:50 Blood Pressure 132/69 08/01/18 11:50 O2 Sat by Pulse Oximetry (%) 97 08/01/18 01:16 Constitutional: Yes: Calm Cardiovascular: Yes: Regular Rate and Rhythm, S1, S2 Respiratory: Yes: CTA Bilaterally Gastrointestinal: Yes: Tenderness, Other (RLQ dressing covered drain in place with KENDRICK drain) Genitourinary: Yes: Benedict Present Edema: No Neurological: Yes: Alert, Oriented Labs: CBC, BMP 08/01/18 06:39 07/31/18 06:22 INR, PTT INR 1.03 (0.83-1.09) 07/28/18 05:15 Problem List - Problems (1) SBO (small bowel obstruction) Assessment/Plan: NPO -surgery to advance diet ivf dvt ppx pain control trend WBC count Code(s): K56.609 - UNSP INTESTNL OBST, UNSP TO PARTIAL VERSUS COMPLETE OBST
--- NOTE | 2018-08-01 12:34 | PN ---
Progress Note, Physician Chief Complaint: recurrent partail SBO History of Present Illness: s/p open JOHN, SB RESECTION, incisional hernia repair with mesh - Current Medication List Current Medications: Active Medications Acetaminophen (Ofirmev Injection -) 1,000 mg IVPB Q6H PRN PRN Reason: PAIN LEVEL 1-5 Cefoxitin Sodium (Mefoxin (Restricted To Id) -) 1 gm IVPUSH Q6H [facility] Fentanyl (Sublimaze Injection -) 50 mcg IVPUSH [id number] PRN PRN Reason: PAIN-PACU ORDER X 4 DOSES ONLY Heparin Sodium (Porcine) (Heparin -) 5,000 unit SQ BID [facility] Last Admin: 08/01/18 11:43 Dose: Not Given Cefoxitin Sodium 1 gm/ (Dextrose) 100 mls @ 200 mls/hr IVPB Q6H [facility] Stop: 08/01/18 18:14 Morphine Sulfate (Morphine Sulfate) 2 mg IVPUSH Q4H PRN PRN Reason: PAIN LEVEL 7 - 10 Last Admin: 08/01/18 11:36 Dose: 2 mg Ondansetron HCl (Zofran Injection) 4 mg IVPUSH Q6H PRN PRN Reason: NAUSEA AND/OR VOMITING Pantoprazole Sodium (Protonix Iv) 40 mg IVPUSH DAILY [facility] Last Admin: 08/01/18 11:36 Dose: 40 mg Promethazine HCl (Phenergan Injection -) 12.5 mg IVPB Q6H PRN PRN Reason: NAUSEA-FOR RESCUE AFTER 15 MIN - Objective Vital Signs: Vital Signs Temperature 98.9 F 08/01/18 11:50 Pulse Rate 80 08/01/18 11:50 Respiratory Rate 18 08/01/18 11:50 Blood Pressure 132/69 08/01/18 11:50 O2 Sat by Pulse Oximetry (%) 97 08/01/18 01:16 Constitutional: Yes: No Distress Respiratory: Yes: CTA Bilaterally Gastrointestinal: Yes: Soft Wound/Incision: Yes: Clean/Dry, Dressing Dry and Intact, Other (KENDRICK drain serosanguinous) Labs: CBC, BMP 08/01/18 06:39 07/31/18 06:22 INR, PTT INR 1.03 (0.83-1.09) 07/28/18 05:15 Problem List - Problems (1) SBO (small bowel obstruction) Assessment/Plan: PO D# 1 STABLE AND DOING WELL clear liquids OOB, IS, DVT & GI prophylaxis d/c kent Code(s): K56.609 - UNSP INTESTNL OBST, UNSP TO PARTIAL VERSUS COMPLETE OBST
[2018-08-01] MEDS: CEFOXITIN SODIUM 1 GM in DEXTROSE 5%-WATER 100 ML IVPB SCH ×2 (12:58→16:57)
[2018-08-01] MEDS: ACETAMINOPHEN 1000 MG/100 ML VIAL (NON FORMULARY) IVPB PRN ×2 (13:08→21:36)
[2018-08-01] MEDS: SODIUM CHLORIDE 1,000 ML IV SCH (13:09)
--- NOTE | 2018-08-01 14:08 | PN.GI ---
GI Progress Note Subjective: POD 1 S/P Open repair of incisional hernia with mesh and small bowel resection No flatus, + belching + abdominal pain at trochar and incisional site - Objective Vital Signs: Vital Signs Temperature 98.9 F 08/01/18 11:50 Pulse Rate 80 08/01/18 11:50 Respiratory Rate 18 08/01/18 11:50 Blood Pressure 132/69 08/01/18 11:50 O2 Sat by Pulse Oximetry (%) 97 08/01/18 01:16 Constitutional: Calm Eyes: No: Sclera Icterus Cardiovascular: Yes: Regular Rate and Rhythm Respiratory: Yes: CTA Bilaterally Gastrointestinal Inspection: Yes: Other (Trochar scars, dressing in place in right lower abdomen with KENDRICK drain in place with serosanguinous drainage.). No: Distention ...Auscultate: Yes: Normoactive Bowel Sounds ...Palpate: Yes: Soft, Tenderness (TTP mid and lower abdomen.) ...Percussion: No: Tympanitic Edema: No (No LE edema) Neurological: Yes: Alert Labs: CBC, BMP 08/01/18 06:39 07/31/18 06:22 INR, PTT INR 1.03 (0.83-1.09) 07/28/18 05:15 Hepatic Panel Total Bilirubin 0.4 mg/dL (0.2-1) 07/31/18 06:22 AST 11 U/L (15-37) L 07/31/18 06:22 ALT 11 U/L (13-61) L 07/31/18 06:22 Alkaline Phosphatase 81 U/L (45-117) 07/31/18 06:22 Albumin 3.1 g/dl (3.4-5.0) L 07/31/18 06:22 Problem List - Problems (1) SBO (small bowel obstruction) Assessment/Plan: POD 1: Incisional hernia repair, with small bowel resection Incentive spirometry Post op care per surgery Will sign off for now. I gave Ms. Wright my office card for outpatient follow- up. Recall as needed Code(s): K56.609 - UNSP INTESTNL OBST, UNSP TO PARTIAL VERSUS COMPLETE OBST
--- NOTE | 2018-08-01 14:56 | CON.ID ---
Consult Consult Specialty:: infectious diseases Referred by:: surgery Reason for Consultation:: leukocytosis. post op - Past Medical History Gastrointestinal: Yes: Constipation, Diverticulitis, Diverticulosis, Irritable Bowel Disease ...: No Musculoskeletal: Yes: Osteoarthritis Rheumatology: Yes: Fibromyalgia - Past Surgical History Past Surgical History: Yes: Colonoscopy (last 12/11/16 - found pandiverticulosis only), Colostomy (ileostomy), Hysterectomy, Tubal Ligation - Alcohol/Substance Use Hx Alcohol Use: No History of Substance Use: reports: None - Smoking History Smoking history: Never smoked Have you smoked in the past 12 months: No - Social History Usual Living Arrangement: Other ADL: Independent History of Recent Travel: No Home Medications - Allergies Allergies/Adverse Reactions: Allergies Allergy/AdvReac Type Severity Reaction Status Date / Time No Known Drug Allergies Allergy Verified 07/27/18 21:41 - Home Medications Home Medications: Ambulatory Orders Omeprazole 20 mg PO DAILY 07/27/18 Family Disease History - Family Disease History Family Disease History: Heart Disease: Father (), Brother, [place]: Mother ( colon - in [facility] now for tx, age 88) Physical Exam Vital Signs: Vital Signs Temperature 98.9 F 08/01/18 11:50 Pulse Rate 80 08/01/18 11:50 Respiratory Rate 18 08/01/18 11:50 Blood Pressure 132/69 08/01/18 11:50 O2 Sat by Pulse Oximetry (%) 95 08/01/18 11:00 Labs: CBC, BMP 08/01/18 06:39 07/31/18 06:22
--- NOTE | 2018-08-01 15:14 | PN ---
Progress Note (short form) - Note Progress Note: Anesthesia postop note 68 y/o F s/p GA for laparoscopy,, lysis of adhesions POD#1, vss, aaox3, no complaints. No anesthesia complications.
[2018-08-01] MEDS ORDERED: DEXTROSE 5%-WATER - 50 ML IVPB ONE (16:16)
[2018-08-01] MEDS ORDERED: PIPERACILLIN/TAZOBACTAM 3.375 GM VIAL IVPB ONE (16:16)
[2018-08-01] MEDS: PIPERACILLIN/TAZOB 3.375 GM 3.375 GM in DEXTROSE 5%-WATER - 50 ML IVPB SCH ×2 (16:48→17:15)
[2018-08-02] MEDS ORDERED: PIPERACILLIN/TAZOBACTAM 3.375 GM VIAL IVPB ONE ×3 (01:29→18:11)
[2018-08-02] MEDS ORDERED: DEXTROSE 5%-WATER - 50 ML IVPB ONE ×3 (01:29→18:11)
[2018-08-02] MEDS: SODIUM CHLORIDE 1,000 ML IV SCH (02:25)
[2018-08-02] MEDS: PIPERACILLIN/TAZOB 3.375 GM 3.375 GM in DEXTROSE 5%-WATER - 50 ML IVPB SCH ×3 (02:25→18:17)
[2018-08-02] MEDS: MORPHINE SULFATE 2 MG/ML VIAL IVPUSH PRN ×4 (05:33→21:15)
[2018-08-02 06:20] LABS: BASO % 0.4 % (0-2.0); EOS % 0.1 % (0-4.5); HEMATOCRIT 34.2 % (32.4-45.2); HEMOGLOBIN 11.6 GM/dL (10.7-15.3); LYMPH % 15.8 % (8-40); MCH 31.2 pg (25.7-33.7); MCHC 33.9 g/dl (32.0-36.0); MEAN CELL VOLUME 91.8 fl (80-96); MEAN PLT VOLUME 7.5 fl (7.5-11.1); NEUT % 75.7 % (42.8-82.8); PLATELET COUNT 378 K/MM3 (134-434); RBC 3.73 M/mm3 (3.60-5.2); RDW 13.2 % (11.6-15.6); WHITE BLOOD COUNT 13.4 K/mm3 (4.0-10.0)
[2018-08-02 06:38] LABS: ALBUMIN 2.6 g/dl (3.4-5.0); BLOOD UREA NITROGEN 6.9 mg/dL (7-18); CREATININE 0.6 mg/dL (0.55-1.3); POTASSIUM 3.5 mmol/L (3.5-5.1); TOT PROT 5.4 g/dl (6.4-8.2)
[2018-08-02] MEDS: HEPARIN NA (PORCINE) 5,000 UNITS/ML 1ML VIAL SQ SCH ×2 (09:31→21:15)
[2018-08-02] MEDS: PANTOPRAZOLE SODIUM 40 MG VIAL IVPUSH SCH (09:31)
--- NOTE | 2018-08-02 11:40 | PN ---
Progress Note, Physician Chief Complaint: POD #2 ASLEEP EVENTS AND NOTES REVIEWED - Current Medication List Current Medications: Active Medications Acetaminophen (Ofirmev Injection -) 1,000 mg IVPB Q6H PRN PRN Reason: PAIN LEVEL 1-5 Last Admin: 08/01/18 21:36 Dose: 1,000 mg Fentanyl (Sublimaze Injection -) 50 mcg IVPUSH [id number] PRN PRN Reason: PAIN-PACU ORDER X 4 DOSES ONLY Heparin Sodium (Porcine) (Heparin -) 5,000 unit SQ BID [facility] Last Admin: 08/02/18 09:31 Dose: 5,000 unit Sodium Chloride (Normal Saline -) 1,000 mls @ 75 mls/hr IV ASDIR [facility] Last Admin: 08/02/18 02:25 Dose: 75 mls/hr Piperacillin Sod/Tazobactam (Sod 3.375 gm/ Dextrose) 50 mls @ 100 mls/hr IVPB Q8H-[facility]; Protocol Last Admin: 08/02/18 09:31 Dose: 100 mls/hr Morphine Sulfate (Morphine Sulfate) 2 mg IVPUSH Q4H PRN PRN Reason: PAIN LEVEL 7 - 10 Last Admin: 08/02/18 09:35 Dose: 2 mg Ondansetron HCl (Zofran Injection) 4 mg IVPUSH Q6H PRN PRN Reason: NAUSEA AND/OR VOMITING Pantoprazole Sodium (Protonix Iv) 40 mg IVPUSH DAILY [facility] Last Admin: 08/02/18 09:31 Dose: 40 mg Promethazine HCl (Phenergan Injection -) 12.5 mg IVPB Q6H PRN PRN Reason: NAUSEA-FOR RESCUE AFTER 15 MIN - Objective Vital Signs: Vital Signs Temperature 98.0 F 08/02/18 09:00 Pulse Rate 82 08/02/18 09:00 Respiratory Rate 17 08/02/18 09:00 Blood Pressure 141/78 08/02/18 09:00 O2 Sat by Pulse Oximetry (%) 95 08/01/18 21:00 Constitutional: Yes: No Distress Cardiovascular: Yes: Regular Rate and Rhythm Respiratory: Yes: WNL Gastrointestinal: Yes: Soft, Tenderness Genitourinary: Yes: Other Edema: No Labs: CBC, BMP 08/02/18 05:35 08/02/18 05:35 INR, PTT INR 1.03 (0.83-1.09) 07/28/18 05:15 Problem List - Problems (1) GERD (gastroesophageal reflux disease) Code(s): K21.9 - GASTRO-ESOPHAGEAL REFLUX DISEASE WITHOUT ESOPHAGITIS (2) SBO (small bowel obstruction) Code(s): K56.609 - UNSP INTESTNL OBST, UNSP TO PARTIAL VERSUS COMPLETE OBST (3) Fibromyalgia Code(s): M79.7 - FIBROMYALGIA Assessment/Plan POD #2 ASLEEP AND COMFORTABLE ON CLEAR DIET SURGERY F/U APPRECIATED OOB TO CHAIR DVT PROPHYLAXIS WILL MONITOR LABS INCENTIVE SPIROMETRY
--- NOTE | 2018-08-02 12:01 | PN ---
Progress Note, Physician Chief Complaint: recurrent partail SBO History of Present Illness: POD # 2 Passed flatus Denies nausea, tolerating clear liquids - Current Medication List Current Medications: Active Medications Acetaminophen (Ofirmev Injection -) 1,000 mg IVPB Q6H PRN PRN Reason: PAIN LEVEL 1-5 Last Admin: 08/01/18 21:36 Dose: 1,000 mg Fentanyl (Sublimaze Injection -) 50 mcg IVPUSH [id number] PRN PRN Reason: PAIN-PACU ORDER X 4 DOSES ONLY Heparin Sodium (Porcine) (Heparin -) 5,000 unit SQ BID [facility] Last Admin: 08/02/18 09:31 Dose: 5,000 unit Piperacillin Sod/Tazobactam (Sod 3.375 gm/ Dextrose) 50 mls @ 100 mls/hr IVPB Q8H-[facility]; Protocol Last Admin: 08/02/18 09:31 Dose: 100 mls/hr Potassium Chloride/Dextrose/Sod Cl (D5-1/2ns+20 Meq Kcl -) 20 meq in 1,000 mls @ 42 mls/hr IV ASDIR [facility] Morphine Sulfate (Morphine Sulfate) 2 mg IVPUSH Q4H PRN PRN Reason: PAIN LEVEL 7 - 10 Last Admin: 08/02/18 09:35 Dose: 2 mg Ondansetron HCl (Zofran Injection) 4 mg IVPUSH Q6H PRN PRN Reason: NAUSEA AND/OR VOMITING Pantoprazole Sodium (Protonix Iv) 40 mg IVPUSH DAILY [facility] Last Admin: 08/02/18 09:31 Dose: 40 mg Promethazine HCl (Phenergan Injection -) 12.5 mg IVPB Q6H PRN PRN Reason: NAUSEA-FOR RESCUE AFTER 15 MIN - Objective Vital Signs: Vital Signs Temperature 98.0 F 08/02/18 09:00 Pulse Rate 82 08/02/18 09:00 Respiratory Rate 17 08/02/18 09:00 Blood Pressure 141/78 08/02/18 09:00 O2 Sat by Pulse Oximetry (%) 95 08/01/18 21:00 Gastrointestinal: Yes: Soft, Tenderness (minimal incisional tenderness) Labs: CBC, BMP 08/02/18 05:35 08/02/18 05:35 INR, PTT INR 1.03 (0.83-1.09) 07/28/18 05:15 Problem List - Problems (1) SBO (small bowel obstruction) Assessment/Plan: early return of GI function advance to full liquids continue KENDRICK drain OOB, IS, DVT & GI prophylaxis Code(s): K56.609 - UNSP INTESTNL OBST, UNSP TO PARTIAL VERSUS COMPLETE OBST
--- NOTE | 2018-08-02 14:15 | PN ---
Progress Note, Physician History of Present Illness: patient stable no new issues - Current Medication List Current Medications: Active Medications Acetaminophen (Ofirmev Injection -) 1,000 mg IVPB Q6H PRN PRN Reason: PAIN LEVEL 1-5 Last Admin: 08/01/18 21:36 Dose: 1,000 mg Fentanyl (Sublimaze Injection -) 50 mcg IVPUSH [id number] PRN PRN Reason: PAIN-PACU ORDER X 4 DOSES ONLY Heparin Sodium (Porcine) (Heparin -) 5,000 unit SQ BID [facility] Last Admin: 08/02/18 09:31 Dose: 5,000 unit Piperacillin Sod/Tazobactam (Sod 3.375 gm/ Dextrose) 50 mls @ 100 mls/hr IVPB Q8H-[facility]; Protocol Last Admin: 08/02/18 09:31 Dose: 100 mls/hr Potassium Chloride/Dextrose/Sod Cl (D5-1/2ns+20 Meq Kcl -) 20 meq in 1,000 mls @ 42 mls/hr IV ASDIR [facility] Morphine Sulfate (Morphine Sulfate) 2 mg IVPUSH Q4H PRN PRN Reason: PAIN LEVEL 7 - 10 Last Admin: 08/02/18 09:35 Dose: 2 mg Ondansetron HCl (Zofran Injection) 4 mg IVPUSH Q6H PRN PRN Reason: NAUSEA AND/OR VOMITING Pantoprazole Sodium (Protonix Iv) 40 mg IVPUSH DAILY [facility] Last Admin: 08/02/18 09:31 Dose: 40 mg Promethazine HCl (Phenergan Injection -) 12.5 mg IVPB Q6H PRN PRN Reason: NAUSEA-FOR RESCUE AFTER 15 MIN - Objective Vital Signs: Vital Signs Temperature 98.0 F 08/02/18 09:00 Pulse Rate 82 08/02/18 09:00 Respiratory Rate 17 08/02/18 09:00 Blood Pressure 141/78 08/02/18 09:00 O2 Sat by Pulse Oximetry (%) 95 08/01/18 21:00 Constitutional: Yes: No Distress, Calm Respiratory: Yes: Regular Gastrointestinal: Yes: Normal Bowel Sounds, Soft Musculoskeletal: Yes: WNL Extremities: Yes: WNL Labs: CBC, BMP 08/02/18 05:35 08/02/18 05:35 INR, PTT INR 1.03 (0.83-1.09) 07/28/18 05:15 Assessment/Plan Problem List - Problems (1) GERD (gastroesophageal reflux disease) Code(s): K21.9 - GASTRO-ESOPHAGEAL REFLUX DISEASE WITHOUT ESOPHAGITIS (2) SBO (small bowel obstruction) Code(s): K56.609 - UNSP INTESTNL OBST, UNSP TO PARTIAL VERSUS COMPLETE OBST (3) Fibromyalgia Code(s): M79.7 - FIBROMYALGIA 4 leukocytosis plan continue current mgmt monitor wbc
[2018-08-02] MEDS: D5-1/2NS+20 MEQ KCL - 20 MEQ/1,000 ML INFUS.BAG IV SCH (15:09)
[2018-08-02] MEDS ORDERED: SIMETHICONE 80 MG TAB.CHEW (FP) PO PRN (17:42)
[2018-08-03] MEDS ORDERED: PIPERACILLIN/TAZOBACTAM 3.375 GM VIAL IVPB ONE ×3 (01:05→17:14)
[2018-08-03] MEDS ORDERED: DEXTROSE 5%-WATER - 50 ML IVPB ONE ×3 (01:05→17:14)
[2018-08-03] MEDS: MORPHINE SULFATE 2 MG/ML VIAL IVPUSH PRN ×3 (01:18→21:06)
[2018-08-03] MEDS: PIPERACILLIN/TAZOB 3.375 GM 3.375 GM in DEXTROSE 5%-WATER - 50 ML IVPB SCH ×3 (01:18→17:39)
[2018-08-03 05:57] LABS: HEMATOCRIT 30.3 % (32.4-45.2); HEMOGLOBIN 10.1 GM/dL (10.7-15.3); MCHC 33.4 g/dl (32.0-36.0); MEAN CELL VOLUME 92.9 fl (80-96); MEAN PLT VOLUME 7.6 fl (7.5-11.1); PLATELET COUNT 336 K/MM3 (134-434); RBC 3.27 M/mm3 (3.60-5.2); RDW 13.1 % (11.6-15.6); WHITE BLOOD COUNT 10.3 K/mm3 (4.0-10.0)
[2018-08-03 06:22] LABS: ALBUMIN 2.2 g/dl (3.4-5.0); BILIRUBIN,TOTAL 0.7 mg/dL (0.2-1); BLOOD UREA NITROGEN 4.6 mg/dL (7-18); CALCIUM 7.7 mg/dL (8.5-10.1); CREATININE 0.4 mg/dL (0.55-1.3); TOT PROT 4.8 g/dl (6.4-8.2)
[2018-08-03] MEDS: PANTOPRAZOLE SODIUM 40 MG VIAL IVPUSH SCH (10:42)
[2018-08-03] MEDS: ACETAMINOPHEN 1000 MG/100 ML VIAL (NON FORMULARY) IVPB PRN (10:43)
[2018-08-03] MEDS: HEPARIN NA (PORCINE) 5,000 UNITS/ML 1ML VIAL SQ SCH ×2 (10:44→21:05)
--- NOTE | 2018-08-03 12:19 | PN ---
Progress Note, Physician Chief Complaint: AWAKE ALERT EATING LUNCH SLOWLY NO FEVER OR CHILLS NO BM YET - Current Medication List Current Medications: Active Medications Acetaminophen (Ofirmev Injection -) 1,000 mg IVPB Q6H PRN PRN Reason: PAIN LEVEL 1-5 Last Admin: 08/03/18 10:43 Dose: 1,000 mg Fentanyl (Sublimaze Injection -) 50 mcg IVPUSH [id number] PRN PRN Reason: PAIN-PACU ORDER X 4 DOSES ONLY Heparin Sodium (Porcine) (Heparin -) 5,000 unit SQ BID [facility] Last Admin: 08/03/18 10:44 Dose: 5,000 unit Piperacillin Sod/Tazobactam (Sod 3.375 gm/ Dextrose) 50 mls @ 100 mls/hr IVPB Q8H-[facility]; Protocol Last Admin: 08/03/18 10:42 Dose: 100 mls/hr Potassium Chloride/Dextrose/Sod Cl (D5-1/2ns+20 Meq Kcl -) 20 meq in 1,000 mls @ 42 mls/hr IV ASDIR [facility] Last Admin: 08/02/18 15:09 Dose: 42 mls/hr Morphine Sulfate (Morphine Sulfate) 2 mg IVPUSH Q4H PRN PRN Reason: PAIN LEVEL 7 - 10 Last Admin: 08/03/18 01:18 Dose: 2 mg Ondansetron HCl (Zofran Injection) 4 mg IVPUSH Q6H PRN PRN Reason: NAUSEA AND/OR VOMITING Last Admin: 08/02/18 21:15 Dose: 4 mg Pantoprazole Sodium (Protonix Iv) 40 mg IVPUSH DAILY [facility] Last Admin: 08/03/18 10:42 Dose: 40 mg Potassium Chloride (K-Dur -) 20 meq PO DAILY [facility] Promethazine HCl (Phenergan Injection -) 12.5 mg IVPB Q6H PRN PRN Reason: NAUSEA-FOR RESCUE AFTER 15 MIN - Objective Vital Signs: Vital Signs Temperature 98.4 F 08/03/18 06:00 Pulse Rate 78 08/03/18 06:00 Respiratory Rate 18 08/03/18 06:00 Blood Pressure 117/63 08/03/18 06:00 O2 Sat by Pulse Oximetry (%) 94 L 08/02/18 21:00 Constitutional: Yes: Mild Distress Eyes: Yes: WNL HENT: Yes: WNL, Tonsillar Exudate Cardiovascular: Yes: Regular Rate and Rhythm Respiratory: Yes: WNL Gastrointestinal: Yes: Tenderness Genitourinary: Yes: WNL Musculoskeletal: Yes: Muscle Weakness Extremities: Yes: WNL Edema: No Peripheral Pulses WNL: Yes Integumentary: Yes: WNL Wound/Incision: Yes: Clean/Dry Neurological: Yes: WNL ...Motor Strength: WNL Psychiatric: Yes: WNL Labs: CBC, BMP 08/03/18 05:20 08/03/18 05:20 INR, PTT INR 1.03 (0.83-1.09) 07/28/18 05:15 Problem List - Problems (1) GERD (gastroesophageal reflux disease) Code(s): K21.9 - GASTRO-ESOPHAGEAL REFLUX DISEASE WITHOUT ESOPHAGITIS (2) SBO (small bowel obstruction) Code(s): K56.609 - UNSP INTESTNL OBST, UNSP TO PARTIAL VERSUS COMPLETE OBST (3) Fibromyalgia Code(s): M79.7 - FIBROMYALGIA Assessment/Plan POD #3 ASLEEP AND COMFORTABLE ON REG DIET REPLETE KCL WITH FLUIDS AND PO SURGERY F/U APPRECIATED OOB TO CHAIR DVT PROPHYLAXIS WILL MONITOR LABS INCENTIVE SPIROMETRY
--- NOTE | 2018-08-03 13:37 | PN ---
Progress Note, Physician - Current Medication List Current Medications: Active Medications Acetaminophen (Ofirmev Injection -) 1,000 mg IVPB Q6H PRN PRN Reason: PAIN LEVEL 1-5 Last Admin: 08/03/18 10:43 Dose: 1,000 mg Fentanyl (Sublimaze Injection -) 50 mcg IVPUSH [id number] PRN PRN Reason: PAIN-PACU ORDER X 4 DOSES ONLY Heparin Sodium (Porcine) (Heparin -) 5,000 unit SQ BID [facility] Last Admin: 08/03/18 10:44 Dose: 5,000 unit Piperacillin Sod/Tazobactam (Sod 3.375 gm/ Dextrose) 50 mls @ 100 mls/hr IVPB Q8H-[facility]; Protocol Last Admin: 08/03/18 10:42 Dose: 100 mls/hr Potassium Chloride/Dextrose/Sod Cl (D5-1/2ns+20 Meq Kcl -) 20 meq in 1,000 mls @ 42 mls/hr IV [facility] Last Admin: 08/02/18 15:09 Dose: 42 mls/hr Morphine Sulfate (Morphine Sulfate) 2 mg IVPUSH Q4H PRN PRN Reason: PAIN LEVEL 7 - 10 Last Admin: 08/03/18 01:18 Dose: 2 mg Ondansetron HCl (Zofran Injection) 4 mg IVPUSH Q6H PRN PRN Reason: NAUSEA AND/OR VOMITING Last Admin: 08/02/18 21:15 Dose: 4 mg Pantoprazole Sodium (Protonix Iv) 40 mg IVPUSH DAILY [facility] Last Admin: 08/03/18 10:42 Dose: 40 mg Potassium Chloride (K-Dur -) 20 meq PO DAILY [facility] Promethazine HCl (Phenergan Injection -) 12.5 mg IVPB Q6H PRN PRN Reason: NAUSEA-FOR RESCUE AFTER 15 MIN - Objective Vital Signs: Vital Signs Temperature 98.6 F 08/03/18 10:00 Pulse Rate 78 08/03/18 10:00 Respiratory Rate 18 08/03/18 10:00 Blood Pressure 136/66 08/03/18 10:00 O2 Sat by Pulse Oximetry (%) 94 L 08/03/18 10:00 Labs: CBC, BMP 08/03/18 05:20 08/03/18 05:20 INR, PTT INR 1.03 (0.83-1.09) 07/28/18 05:15
[2018-08-03] MEDS: POTASSIUM CHLORIDE TABS 10 MEQ TABLET.ER (FP) PO SCH (14:30)
[2018-08-03] MEDS: D5-1/2NS+20 MEQ KCL - 20 MEQ/1,000 ML INFUS.BAG IV SCH ×2 (14:30→16:30)
[2018-08-04] MEDS ORDERED: DEXTROSE 5%-WATER - 50 ML IVPB ONE ×3 (02:00→17:05)
[2018-08-04] MEDS ORDERED: PIPERACILLIN/TAZOBACTAM 3.375 GM VIAL IVPB ONE ×3 (02:00→17:04)
[2018-08-04] MEDS: PIPERACILLIN/TAZOB 3.375 GM 3.375 GM in DEXTROSE 5%-WATER - 50 ML IVPB SCH ×3 (02:30→17:16)
[2018-08-04] MEDS: MORPHINE SULFATE 2 MG/ML VIAL IVPUSH PRN (06:08)
[2018-08-04 06:51] LABS: HEMATOCRIT 32.7 % (32.4-45.2); MCH 31.3 pg (25.7-33.7); MCHC 33.7 g/dl (32.0-36.0); MEAN CELL VOLUME 92.7 fl (80-96); MEAN PLT VOLUME 7.7 fl (7.5-11.1); RBC 3.52 M/mm3 (3.60-5.2); WHITE BLOOD COUNT 8.3 K/mm3 (4.0-10.0)
[2018-08-04 07:18] LABS: BLOOD UREA NITROGEN 3.2 mg/dL (7-18); CALCIUM 7.9 mg/dL (8.5-10.1); CREATININE 0.4 mg/dL (0.55-1.3); POTASSIUM 3.4 mmol/L (3.5-5.1)
[2018-08-04 08:25] LABS: PLATELET COUNT 420 K/MM3 (134-434)
--- NOTE | 2018-08-04 09:18 | PN ---
Progress Note (short form) - Note Progress Note: POD # 4 Had multiple BM'S C/O LLQ "gas" pains Afebrile, VSS Abd: soft, mild LLQ tenderness, wound dry and intact, minimal serous drainage A/P: IMPROVED d/c KENDRICK - done D/C planning F/U at office on August 19, 2018 3 pm for staple removal Problem List - Problems (1) SBO (small bowel obstruction) Code(s): K56.609 - UNSP INTESTNL OBST, UNSP TO PARTIAL VERSUS COMPLETE OBST
[2018-08-04] MEDS ORDERED: PT OWN MED DRAWER 7, Y5N ONE (10:26)
--- NOTE | 2018-08-04 10:27 | PN ---
Progress Note (short form) - Note Progress Note: 68yo F s/p JOHN, Small bowel resection, hernia repair. Pt seen and examined at bedside. Pt reports 2 BM since yesterday. Pt tolerating regular food and ambulating well. Pt complains of some Lt abd pain. Denies n/v, fever, chills. Last Vital Signs Temp Pulse Resp BP Pulse Ox 97.9 F 74 16 139/70 96 08/04/18 06:00 08/04/18 06:00 08/04/18 06:00 08/04/18 06:00 08/03/18 21:00 CBC, BMP 08/04/18 05:50 08/04/18 05:50 PE: Gen: A&O x3 Resp: breathing comfortably Abd: soft, nondistended, Mild Lt abd pain, drain in place with serosanguinous drainage. Output: 60ml Problem List - Problems (1) SBO (small bowel obstruction) Assessment/Plan: Plan -pt appears to be doing well, drain removed at bedside by Dr. Saldaña -pt cleared from surgical standpoint for discharge -pt follow up with Dr. Saldaña as outpatient in 1 week Code(s): K56.609 - UNSP INTESTNL OBST, UNSP TO PARTIAL VERSUS COMPLETE OBST
[2018-08-04] MEDS: PANTOPRAZOLE SODIUM 40 MG VIAL IVPUSH SCH (10:30)
[2018-08-04] MEDS: POTASSIUM CHLORIDE TABS 10 MEQ TABLET.ER (FP) PO SCH (10:30)
[2018-08-04] MEDS: HEPARIN NA (PORCINE) 5,000 UNITS/ML 1ML VIAL SQ SCH ×2 (10:30→21:12)
--- NOTE | 2018-08-04 10:42 | PN ---
Progress Note, Physician History of Present Illness: stable no complaints doing well wbc has normalized - Current Medication List Current Medications: Active Medications Acetaminophen (Ofirmev Injection -) 1,000 mg IVPB Q6H PRN PRN Reason: PAIN LEVEL 1-5 Last Admin: 08/03/18 10:43 Dose: 1,000 mg Fentanyl (Sublimaze Injection -) 50 mcg IVPUSH [id number] PRN PRN Reason: PAIN-PACU ORDER X 4 DOSES ONLY Heparin Sodium (Porcine) (Heparin -) 5,000 unit SQ BID [facility] Last Admin: 08/04/18 10:30 Dose: 5,000 unit Piperacillin Sod/Tazobactam (Sod 3.375 gm/ Dextrose) 50 mls @ 100 mls/hr IVPB Q8H-[facility]; Protocol Last Admin: 08/04/18 10:30 Dose: 100 mls/hr Potassium Chloride/Dextrose/Sod Cl (D5-1/2ns+20 Meq Kcl -) 20 meq in 1,000 mls @ 42 mls/hr IV ASDIR [facility] Last Admin: 08/03/18 16:30 Dose: 42 mls/hr Morphine Sulfate (Morphine Sulfate) 2 mg IVPUSH Q4H PRN PRN Reason: PAIN LEVEL 7 - 10 Last Admin: 08/04/18 06:08 Dose: 2 mg Ondansetron HCl (Zofran Injection) 4 mg IVPUSH Q6H PRN PRN Reason: NAUSEA AND/OR VOMITING Last Admin: 08/02/18 21:15 Dose: 4 mg Pantoprazole Sodium (Protonix Iv) 40 mg IVPUSH DAILY [facility] Last Admin: 08/04/18 10:30 Dose: 40 mg Potassium Chloride (K-Dur -) 20 meq PO DAILY [facility] Last Admin: 08/04/18 10:30 Dose: 20 meq Promethazine HCl (Phenergan Injection -) 12.5 mg IVPB Q6H PRN PRN Reason: NAUSEA-FOR RESCUE AFTER 15 MIN - Objective Vital Signs: Vital Signs Temperature 97.9 F 08/04/18 06:00 Pulse Rate 74 08/04/18 06:00 Respiratory Rate 16 08/04/18 06:00 Blood Pressure 139/70 08/04/18 06:00 O2 Sat by Pulse Oximetry (%) 96 08/03/18 21:00 Constitutional: Yes: No Distress, Calm Cardiovascular: Yes: Regular Rate and Rhythm Respiratory: Yes: Regular, CTA Bilaterally Gastrointestinal: Yes: Normal Bowel Sounds, Soft Musculoskeletal: Yes: WNL Extremities: Yes: WNL Neurological: Yes: Alert, Oriented Psychiatric: Yes: Alert, Oriented Labs: CBC, BMP 08/04/18 05:50 08/04/18 05:50 INR, PTT INR 1.03 (0.83-1.09) 07/28/18 05:15 Assessment/Plan Problem List - Problems (1) GERD (gastroesophageal reflux disease) Code(s): K21.9 - GASTRO-ESOPHAGEAL REFLUX DISEASE WITHOUT ESOPHAGITIS (2) SBO (small bowel obstruction) Code(s): K56.609 - UNSP INTESTNL OBST, UNSP TO PARTIAL VERSUS COMPLETE OBST (3) Fibromyalgia Code(s): M79.7 - FIBROMYALGIA 4 leukocytosis plan continue current mgmt monitor wbc can stop abx' rest as per the team
--- NOTE | 2018-08-04 12:20 | DS ---
Physical Examination Vital Signs: Vital Signs Temperature 97.9 F 08/04/18 06:00 Pulse Rate 74 08/04/18 06:00 Respiratory Rate 16 08/04/18 06:00 Blood Pressure 139/70 08/04/18 06:00 O2 Sat by Pulse Oximetry (%) 96 08/03/18 21:00 Constitutional: Yes: Calm Cardiovascular: Yes: Regular Rate and Rhythm, S1, S2 Respiratory: Yes: CTA Bilaterally Gastrointestinal: Yes: Soft, Other (RLQ dressing) Neurological: Yes: Alert, Oriented Labs: CBC, BMP 08/04/18 05:50 08/04/18 05:50 Discharge Summary Reason For Visit: SMALL BOWEL OBSTRUCTION Current Active Problems GERD (gastroesophageal reflux disease) (Acute) HLD (hyperlipidemia) (Acute) Nausea (Acute) Retained feces (Acute) SBO (small bowel obstruction) (Acute) Hospital Course: CP: Rivera Willingham - Admission Chief Complaint: Abdominal Pain History of Present Illness: This is a 67 y/o woman with a PMHx of Chronic Diverticulitis s/p Sigmoid Colectomy-Diverting Ileostomy (06/2017), s/p Ilesotomy Reversal (07/2017), Recurrent SBOs (Feb, April 2018), GERD, Fibromyalgia. Who presents to the ED with her son for right lower abdominal pain and nausea. Patient is Filipino speaking, her son was at bedside and translated. Per the son the patient took Tylenol which usually helps, but during the afternoon the pain became worse. The patient reports having three small BMs yesterday. The patient denies fever, chills, cough, SOB, dizziness, COSTA, CP, palpitations, vomiting, diarrhea, constipation, dysuria. SBO obstruction s/p lysis of adhesion small bowel resection hernia repair on got iv abx now stopped tolerating soft diet KENDRICK drain removed Condition: Guarded - Instructions Diet, Activity, Other Instructions: Dr Saldaña Discharge Instructions Dear GA WANG, Post Operative Instructions Physical activity Resume your normal everyday activity as tolerated no heavy lifting or exercise until seen by your surgeon. You may walk unlimited amounts of and climb stairs. You may resume driving the car when you feel safe and comfortable behind the wheel and are no longer taking narcotic pain medications. Wound care If you have a bandage, leave it on, and keep dry for 72 hours. After that time discard the outer bandage. You may shower ONLY if you have no drain in place and the incision the drain came through is completely CLOSED. If your drain was removed before you left the hospital and the incision where the drain came through is CLOSED then you may shower. When showering allow soap and water to run over the incision, do NOT scrub the incision. No tub baths, no pools, no oceans, etc until cleared by your surgeon. DO NOT submerge the incision in water as this can lead to infection. Pat the incision dry well after showering. Monitor the incision daily for any redness or drainage. If you notice any redness or drainage please call your surgeon immediately. Diet There are no dietary restrictions. Eat healthy, high-fiber foods. Drink 6 to 8 glasses of liquid each day. This will assist in keeping your bowels are regular. Pain management You may take Tylenol (Acetaminophen) for mild pain. Do not exceed 3g (3000mg) in 24 hours as this can lead to liver damage/failure. Any pain prescription medication ordered should be taken as prescribed for moderate to severe pain. Do not take additional Tylenol (Acetaminophen) if your prescription pain medication contains Tylenol (Acetaminophen)/ Call Dr. Saldaña for any of the following: Severe pain not relieved by medication Fever of 101 or higher Excessive bleeding or drainage on dressing Inability to urinate Call the office at [phone] for an appointment in seven days. Disposition: HOME - Home Medications Comprehensive Discharge Medication List: Ambulatory Orders Omeprazole 20 mg PO DAILY 07/27/18
[2018-08-04] MEDS ORDERED: MORPHINE SULFATE 2 MG/ML VIAL IVPUSH ONE (12:22)
[2018-08-04] MEDS: D5-1/2NS+20 MEQ KCL - 20 MEQ/1,000 ML INFUS.BAG IV SCH (12:29)
[2018-08-04 14:35] VITALS: BMI 28.7
--- NOTE | 2018-08-04 17:14 | PATH ---
Surgical Pathology Report Patient Name: GA WANG [facility]. Rec. #: [id number] /Age/Gender: 1950 (Age: 68) / F Account: [id number] Location: 4 SO PEDS/ADOL Taken: 07/31/2018 Received: 08/01/2018 Reported: 08/04/2018 Physicians: Kvng Styles M.D. Specimen(s) Received PORTION OF SMALL BOWEL Clinical History Small bowel obstruction Final Diagnosis PORTION OF SMALL BOWEL, RESECTION: SEGMENT OF SMALL BOWEL WITH PATCHY MUCOSAL ISCHEMIC CHANGES, VASCULAR CONGESTION, EDEMA, AND ACUTE INFLAMMATION. CHANGES OF PRIOR ANASTOMOSIS AND DENSE FIBROUS ADHESIONS PRESENT. SURGICAL MARGINS ARE VIABLE. Electronically Signed Ling Garner M.D. Gross Description Received in formalin labeled "portion of small bowel," is a 10 cm in length portion of small bowel with 2 stapled mucosal margins and moderate attached warren-intestinal adipose tissue. The serosa is callaway-cason with a focal outpouching and adhesions. There is a purple suture on the serosal portion of the area with outpouching. Sectioning reveals a staple line through this outpouching, consistent with previous anastomosis site. The mucosa is callaway-red with normal folds. No mucosal masses are identified. Steam Turbine Operator sections are submitted in cassettes as follows: 1-2-jmmeklekovdy stapled mucosal margins; 8-8-ehoxaytd from area of purple suture; 1-8-exlgqtko from outpouching/ previous anastomosis site; 8-uninvolved operations representative bowel. /08/01/2018 [facility]08/01/2018
[2018-08-04] MEDS: oxyCODONE HCL 5 MG TABLET PO PRN (21:12)
[2018-08-05] MEDS ORDERED: PIPERACILLIN/TAZOBACTAM 3.375 GM VIAL IVPB ONE ×2 (01:03→10:06)
[2018-08-05] MEDS ORDERED: DEXTROSE 5%-WATER - 50 ML IVPB ONE ×2 (01:04→10:06)
[2018-08-05] MEDS: PIPERACILLIN/TAZOB 3.375 GM 3.375 GM in DEXTROSE 5%-WATER - 50 ML IVPB SCH ×2 (01:06→10:20)
[2018-08-05] MEDS: ACETAMINOPHEN 1000 MG/100 ML VIAL (NON FORMULARY) IVPB PRN (01:16)
--- NOTE | 2018-08-05 08:17 | PN ---
Progress Note (short form) - Note Progress Note: POD 5, s/p attempted laparoscopic JOHN, converted to open JOHN, SB resection, and incisional hernia repair with mesh Pt seen and examined. States she is doing well. Tolerating soft diet. Has been oob without issue. Voiding. Passing flatus, had BM x 2, soft. Denies cp/sob, n/v /d, calf pain. Vital Signs Temp 98.0 F 08/05/18 06:00 Pulse 67 08/05/18 06:00 Resp 18 08/05/18 06:00 BP 114/76 08/05/18 06:00 Pulse Ox 98 08/04/18 21:00 Intake & Output 08/04/18 08/04/18 08/05/18 11:59 23:59 11:59 Intake Total 344 Output Total 20 Balance 324 Weight 152 lb Intake: IV 294 D5-1/2NS+20 MEQ KCL - 20 294 meq In 1,000 ml @ 42 mls/ hr IV [facility] Rx#: [id number] IVPB 50 Output: Drainage 20 Right Lower Abdomen 20 Other: Voiding Method Toilet Toilet # Unmeasured Voids Void 1 1 1 Bowel Movement Yes # Bowel Movements 1 Height 5 ft 1 in Body Mass Index (BMI) 28.7 CBC, BMP 08/04/18 05:50 08/04/18 05:50 Gen: awake, alert, nad Resp: unlabored on RA Abdo: soft, nt/nd, port sites x 5 healing well with dermabond in place, incision c/d/i, no erythema or drainage. Gwendolyn in place. A/P: 68 y/o F w/ PMHx Chronic Diverticulitis s/p Sigmoid Colectomy- Diverting Ileostomy (06/2017), s/p Ilesostomy Reversal (07/2017), Recurrent SBOs (Feb,April 2018), GERD, Fibromyalgia, OA, admitted 07/27 with SBO, now POD 5, s/p attempted laparoscopic JOHN, converted to open JOHN, SB resection, and incisional hernia repair with mesh. Doing well this morning. Passing flatus, BM x 2 yesterday. Tolerating soft diet. -Planned for d/c later today -D/C instructions reviewed with pt at length message sent to Dr Saldaña regarding above
[2018-08-05] MEDS: POTASSIUM CHLORIDE TABS 10 MEQ TABLET.ER (FP) PO SCH (10:20)
[2018-08-05] MEDS: PANTOPRAZOLE SODIUM 40 MG VIAL IVPUSH SCH (10:20)
[2018-08-05] MEDS: HEPARIN NA (PORCINE) 5,000 UNITS/ML 1ML VIAL SQ SCH (10:20)
[2018-08-05] MEDS: oxyCODONE HCL 5 MG TABLET PO PRN (13:11)
--- NOTE | 2018-08-05 16:04 | PN ---
Progress Note, Physician History of Present Illness: patient stable no new issues - Current Medication List Current Medications: Active Medications Heparin Sodium (Porcine) (Heparin -) 5,000 unit SQ BID [facility] Last Admin: 08/05/18 10:20 Dose: 5,000 unit Ondansetron HCl (Zofran Injection) 4 mg IVPUSH Q6H PRN PRN Reason: NAUSEA AND/OR VOMITING Last Admin: 08/02/18 21:15 Dose: 4 mg Oxycodone HCl (Roxicodone -) 5 mg PO Q6H PRN PRN Reason: PAIN LEVEL 7 - 10 Last Admin: 08/05/18 13:11 Dose: 5 mg Pantoprazole Sodium (Protonix Iv) 40 mg IVPUSH DAILY [facility] Last Admin: 08/05/18 10:20 Dose: 40 mg Potassium Chloride (K-Dur -) 20 meq PO DAILY [facility] Last Admin: 08/05/18 10:20 Dose: 20 meq Promethazine HCl (Phenergan Injection -) 12.5 mg IVPB Q6H PRN PRN Reason: NAUSEA-FOR RESCUE AFTER 15 MIN - Objective Vital Signs: Vital Signs Temperature 98.1 F 08/05/18 08:47 Pulse Rate 66 08/05/18 08:47 Respiratory Rate 18 08/05/18 08:47 Blood Pressure 115/70 08/05/18 08:47 O2 Sat by Pulse Oximetry (%) 98 08/05/18 08:47 Constitutional: Yes: No Distress, Calm Cardiovascular: Yes: Regular Rate and Rhythm Respiratory: Yes: Regular, CTA Bilaterally Gastrointestinal: Yes: Normal Bowel Sounds, Soft Musculoskeletal: Yes: WNL Extremities: Yes: WNL Neurological: Yes: Alert, Oriented Psychiatric: Yes: Alert, Oriented Labs: CBC, BMP 08/04/18 05:50 08/04/18 05:50 INR, PTT INR 1.03 (0.83-1.09) 07/28/18 05:15 Assessment/Plan Problem List - Problems (1) GERD (gastroesophageal reflux disease) Code(s): K21.9 - GASTRO-ESOPHAGEAL REFLUX DISEASE WITHOUT ESOPHAGITIS (2) SBO (small bowel obstruction) Code(s): K56.609 - UNSP INTESTNL OBST, UNSP TO PARTIAL VERSUS COMPLETE OBST (3) Fibromyalgia Code(s): M79.7 - FIBROMYALGIA 4 leukocytosis plan continue current mgmt rest as per the team
--- NOTE | 2018-08-05 17:54 | PN ---
Progress Note, Physician Chief Complaint: SBO Abdominal Pain History of Present Illness: Previous notes and events reviewed awake and alert NAD patient to be discharged home - Current Medication List Current Medications: Active Medications Heparin Sodium (Porcine) (Heparin -) 5,000 unit SQ BID [facility] Last Admin: 08/05/18 10:20 Dose: 5,000 unit Ondansetron HCl (Zofran Injection) 4 mg IVPUSH Q6H PRN PRN Reason: NAUSEA AND/OR VOMITING Last Admin: 08/02/18 21:15 Dose: 4 mg Oxycodone HCl (Roxicodone -) 5 mg PO Q6H PRN PRN Reason: PAIN LEVEL 7 - 10 Last Admin: 08/05/18 13:11 Dose: 5 mg Pantoprazole Sodium (Protonix Iv) 40 mg IVPUSH DAILY [facility] Last Admin: 08/05/18 10:20 Dose: 40 mg Potassium Chloride (K-Dur -) 20 meq PO DAILY [facility] Last Admin: 08/05/18 10:20 Dose: 20 meq Promethazine HCl (Phenergan Injection -) 12.5 mg IVPB Q6H PRN PRN Reason: NAUSEA-FOR RESCUE AFTER 15 MIN - Objective Vital Signs: Vital Signs Temperature 98.4 F 08/05/18 14:00 Pulse Rate 72 08/05/18 14:00 Respiratory Rate 18 08/05/18 14:00 Blood Pressure 121/68 08/05/18 14:00 O2 Sat by Pulse Oximetry (%) 98 08/05/18 08:47 Constitutional: Yes: No Distress, Calm Eyes: Yes: Conjunctiva Clear HENT: Yes: Atraumatic Cardiovascular: Yes: Regular Rate and Rhythm Respiratory: Yes: Regular, CTA Bilaterally Gastrointestinal: Yes: Normal Bowel Sounds, Soft, Tenderness (surgical site) Musculoskeletal: Yes: Muscle Weakness Extremities: Yes: WNL Edema: No Wound/Incision: Yes: Dressing Dry and Intact Neurological: Yes: Alert, Oriented Psychiatric: Yes: Alert, Oriented Labs: CBC, BMP 08/04/18 05:50 08/04/18 05:50 INR, PTT INR 1.03 (0.83-1.09) 07/28/18 05:15 Problem List - Problems (1) GERD (gastroesophageal reflux disease) Assessment/Plan: -Pantoprazole Code(s): K21.9 - GASTRO-ESOPHAGEAL REFLUX DISEASE WITHOUT ESOPHAGITIS (2) Nausea Assessment/Plan: -resolved Code(s): R11.0 - NAUSEA (3) SBO (small bowel obstruction) Assessment/Plan: -Surgery and GI on board -CT scan shows findings consistent with partial SBO involving the distal ileum, the point of obstruction appears to be surgical anastamosisbetween distal ileal loops -tolerating diet -repeat FUA shows no sign of bowel obstruction Code(s): K56.609 - UNSP INTESTNL OBST, UNSP TO PARTIAL VERSUS COMPLETE OBST (4) Abdominal pain Assessment/Plan: -pain control -GI and Surgery on board -s/pr laparoscopic lysis of adhesions--to follow up with Surgery as outpatient Code(s): R10.9 - UNSPECIFIED ABDOMINAL PAIN Assessment/Plan see problem list
[2018-08-05 17:55] VITALS: BP 130/72; PULSE 74; TEMP 97.4
== END 2018-08-05 19:22 | disposition home or self-care (01) | DRG 330 ==
LOC: JER 21:04 → JERBED 07-28 03:11 → J4S 07-28 05:31
PROVIDERS: ADMIT Family Medicine; ATTEND Family Medicine
PROC: 0DNW0ZZ Release Peritoneum, Open Approach (ICD-10-PCS; 2018-07-31)
PROC: 0WUF0JZ Supplement Abdominal Wall with Synthetic Substitute, Open Approach (ICD-10-PCS; 2018-07-31)
PROC: 8E0W0CZ Robotic Assisted Procedure of Trunk Region, Open Approach (ICD-10-PCS; 2018-07-31)
PROC: 0DN80ZZ Release Small Intestine, Open Approach (ICD-10-PCS; principal; 2018-07-31 16:00)
PROC: 0DBB0ZZ Excision of Ileum, Open Approach (ICD-10-PCS; 2018-07-31 16:00)
DX: K91.31 Postprocedural partial intestinal obstruction (principal); K43.0 Incisional hernia with obstruction, without gangrene; E78.5 Hyperlipidemia, unspecified; N99.4 Postprocedural pelvic peritoneal adhesions; K21.9 Gastro-esophageal reflux disease without esophagitis; K59.00 Constipation, unspecified; M79.7 Fibromyalgia; D72.829 Elevated white blood cell count, unspecified; K57.90 Diverticulosis of intestine, part unspecified, without perforation or abscess without bleeding; K58.9 Irritable bowel syndrome, unspecified; R11.0 Nausea; Z53.31 Laparoscopic surgical procedure converted to open procedure
CPT/HCPCS: 36415; 71045-TC-FY; 74018-TC-FY; 74019-TC-FY; 74177-TC; 80048; 80053; 81003; 83735; 85025; 85027; 85610; 86850; 86900; 86901; 87086; 88307-TC; 93005; 93010; 94760; 97116-GP; 97161-GP; 99284-25; J0131; J1644; J7030

== ENCOUNTER 2018-08-08 18:54 | Inpatient (IN) | payer OTHER ==
--- NOTE | 2018-08-08 19:02 | PDOC ---
Rapid Medical Evaluation Medical Evaluation: Allergies Allergy/AdvReac Type Severity Reaction Status Date / Time No Known Drug Allergies Allergy Verified 07/27/18 21:41 08/08/18 19:02 I have performed a brief in-person evaluation of this patient. The patient presents with a chief complaint of: Worsening diffuse abd pain w/ n/ v, unable to nilsa po. No constipation, BRBPR, diarrhea, f/c. Pt s/p recent surgery for SBO 07/31 at [facility]. Also w/ h/o chronic diverticulitis s/p multiple surgeries, including recurrent SBOs, GERD, fibromyalgia Pertinent physical exam findings:ill larry and pale I have ordered the following:labs The patient will proceed to the ED for further evaluation. 08/08/18 19:07 Discharge Disposition - Diagnosis Abdominal pain Qualifiers: Abdominal location: unspecified location Qualified Code(s): R10.9 - Unspecified abdominal pain - Referrals - Patient Instructions - Post Discharge Activity
[2018-08-08] MEDS ORDERED: SODIUM CHLORIDE 1,000 ML IV STA (19:12)
[2018-08-08] MEDS ORDERED: ONDANSETRON 4 MG/2 ML VIAL IVPUSH ONE (19:12)
[2018-08-08] MEDS ORDERED: ONDANSETRON 4 MG/2 ML VIAL ONE (20:09)
--- NOTE | 2018-08-08 20:09 | PDOC ---
History of Present Illness - General Chief Complaint: Pain Stated Complaint: ABD PAIN Time Seen by Provider: 08/08/18 19:06 - History of Present Illness Initial Comments: 08/08/18 20:08 68 y/o woman with a PMHx of Chronic Diverticulitis s/p Sigmoid Colectomy- Diverting Ileostomy (06/2017), s/p Ilesotomy Reversal (07/2017), Recurrent SBOs ( Feb,April 2018), GERD, Fibromyalgia, SBO obstruction s/p lysis of adhesion small bowel resection hernia repair on 07/31, presenting with 10/10 abdominal pain, nausea since this morning. She hasn't been able to pass gas since yesterday. Last bowel movement was yesterday afternoon. She states that she has been feeling pain since she was discharged with mild nausea but no vomiting but that this morning the pain was exacerbated and was unable to eat this morning. She felt a lot of acid reflux throughout the day. Son is at bedside, states that his mother is looking much more pale than usual. Patient has an appointment with surgeon Dr. aSldaña on August 19. Denies pain or drainage around surgical wound. Past History - Past Medical History Allergies/Adverse Reactions: Allergies Allergy/AdvReac Type Severity Reaction Status Date / Time No Known Drug Allergies Allergy Verified 08/08/18 19:11 Home Medications: Ambulatory Orders Omeprazole 20 mg PO DAILY 07/27/18 oxyCODONE HCL [Roxicodone -] 5 mg PO Q6H PRN #10 tablet MDD 3 08/04/18 Anemia: Yes Asthma: No Cancer: No Cardiac Disorders: No CVA: No COPD: No CHF: No DVT: No Dementia: No Diabetes: No GI Disorders: Yes (IBS, DIVERTICULITIS) Disorders: No HTN: No Hypercholesterolemia: Yes Liver Disease: No Seizures: No Thyroid Disease: No - Surgical History Abdominal Surgery: Yes (sigmoid colectomy/colostomy 05/2017) Appendectomy: No Cardiac Surgery: No Cholecystectomy: No GI Surgery: Yes (reversal of colostomy 07/2017) Lung Surgery: No Neurologic Surgery: No Orthopedic Surgery: No - Immunization History Immunization Up to Date: Yes - Suicide/Smoking/Psychosocial Hx Smoking History: Never smoked Have you smoked in the past 12 months: No Hx Alcohol Use: No Drug/Substance Use Hx: No Substance Use Type: None Hx Substance Use Treatment: No Review of Systems - Review of Systems Able to Perform ROS?: Yes Is the patient limited Setswana proficient: No Constitutional: Yes: Loss of Appetite. No: Chills, Diaphoresis, Fever HEENTM: No: Symptoms Reported Respiratory: No: Symptoms reported Cardiac (ROS): No: Symptoms Reported ABD/GI: Yes: See HPI : No: Symptoms Reported Musculoskeletal: No: Symptoms Reported Integumentary: No: Symptoms Reported All Other Systems: Reviewed and Negative *Physical Exam - Vital Signs Last Vital Signs Temp Pulse Resp BP Pulse Ox 97.6 F 87 18 133/78 100 08/08/18 19:09 08/08/18 19:09 08/08/18 19:09 08/08/18 19:09 08/08/18 19:09 - Physical Exam General Appearance: Yes: Nourished, Appropriately Dressed, Mild Distress HEENT: positive: EOMI, JERMAIN, Normal ENT Inspection Respiratory/Chest: positive: Lungs Clear, Normal Breath Sounds. negative: Chest Tender, Respiratory Distress Cardiovascular: positive: Regular Rhythm, Regular Rate, S1, S2 Gastrointestinal/Abdominal: positive: Tender (over epigastric area. well healing surgical scar, satinder in place. No erythema or discharge. ), Flat, Soft. negative: Normal Bowel Sounds (high pitch bowel sounds), Protuberent, Distended Extremity: positive: Normal Capillary Refill, Normal Inspection, Normal Range of Motion Integumentary: negative: Normal Color (pale ) Neurologic: positive: Fully Oriented, Alert, Normal Mood/Affect, Normal Response ED Treatment Course - LABORATORY CBC & Chemistry Diagram: 08/08/18 20:21 08/08/18 20:21 Medical Decision Making - Medical Decision Making 08/08/18 21:42 68F with pmh of SBO POD 8 presenting with 10/10 abdominal pain and unable to pass gas. This seems likely to be a recurrent SBO problem vs surgical complication, perforation vs sepsis (although unlikely with normal vitals) vs mesenteric ischemia. Will get preop labs and repeat Ct abdomen/pelvis with IV contrast. 08/09/18 01:58 IMPRESSION: High-grade SBO with is diffuse mesenteric edema and small amount of ascites but no free air. Questionable 6.5 cm left upper anterior pelvic early abscess formation versus peritonitis. Multiple inflamed small bowel loops could indicate postoperative infection. Transition point not clearly identified. Suspected 2.9 cm right anterior abdominal wall intramuscular abscess. 08/09/18 02:[address] Valencia who will see the patient. Patient refuses NG tube placement at this time until she known when will come do the surgery. Patient's expectations are currently being managed. 08/09/18 04:08 NG tube placed without difficulty. Patient admitted to med/surg. *DC/Admit/Observation/Transfer Diagnosis at time of Disposition: Abdominal pain Qualifiers: Abdominal location: unspecified location Qualified Code(s): R10.9 - Unspecified abdominal pain - Discharge Dispostion Decision to Admit order: Yes - Referrals - Patient Instructions - Post Discharge Activity
[2018-08-08] MEDS ORDERED: morphine CARPU-JECT 2 MG/1 ML DISP.SYRIN IVPUSH ONE ×2 (20:20→22:37)
--- NOTE | 2018-08-08 20:52 | PDOC ---
Documentation entered by Garrick Perla SCRIBE, acting as scribe for Aury Perea MD. Aury Perea MD: This documentation has been prepared by the Pan barreto Daniel, SCRIBE, under my direction and personally reviewed by me in its entirety. I confirm that the documentation accurately reflects all work, treatment, procedures, and medical decision making performed by me. Attending Attestation - Resident Resident Name: Rich [place] - ED Attending Attestation I have performed the following: I have examined & evaluated the patient, The case was reviewed & discussed with the resident, I agree w/resident's findings & plan - HPI HPI: 08/08/18 20:41 The patient is a 68 year old female with a past medical history of chronic diverticulitis s/p sigmoid colectomy and diverting ileostomy (May 2017), s/p ileostomy reversal (July 2017) c/b recurrent partial SBO (admitted Feb and April 2018), GERD, and fibromyalgia here today for evaluation of epigastric pain. The patient reports that she woke up with epigastric pain that was 10/10 in severity and also notes an inability to pass gas and abdominal distention. Patients son notes that she had diarrhea yesterday and had soup to eat yesterday and only coffee today. Patient denies headache, lightheadedness. Denies fever, chills. Denies chest pain, shortness of breath. Denies nausea, vomiting. Allergies: NKDA PCP: Rivera Willingham Surgeon: Dragan Saldaña - Physicial Exam PE: 08/08/18 20:44 GENERAL: Awake, alert, and fully oriented, in no acute distress HEAD: No signs of trauma EYES: PERRLA, EOMI, sclera anicteric, conjunctiva clear ENT: Auricles normal inspection, hearing grossly normal, nares patent, oropharynx clear without exudates. Moist mucosa NECK: Normal ROM, supple, no lymphadenopathy, JVD, or masses LUNGS: Breath sounds equal, clear to auscultation bilaterally. No wheezes, and no crackles HEART: Regular rate and rhythm, normal S1 and S2, no murmurs, rubs or gallops ABDOMEN: +high pitched bowel sounds. +abdomen diffusely tender with guarding. Soft, nontender. No rebound. No masses. No flank pain. EXTREMITIES: Normal range of motion, no edema. No clubbing or cyanosis. No cords, erythema, or tenderness NEUROLOGICAL: Cranial nerves II through XII grossly intact. Normal speech, normal gait SKIN: Warm, Dry, normal turgor, no rashes or lesions noted. - Medical Decision Making 08/08/18 20:36 Pt developed distention of her abd pelvis and gassy pain. No BM today. Last BM yesterday, diarrhea. Pt has no fever or chills. Pt was here on July 28 for similar episode. At that time CT was read as a possible stricture at the ileoileal anastomosis; 05/2017 pt had a ileostomy bag placed. 07/2017, she had the reversal. We will repeat a CT scan today to eval for repeat bowel obstruction/SBO. 08/08/18 20:45 08/08/18 21:24 platelet count is elevated; cbc otherwise unremarkable 08/08/18 21:59 All serum labs are normal; pt has UA that has 4+ ketonuria; she will receive a 2nd L of normal saline. 08/08/18 22:38 Lactic acid is normal x 2 08/09/18 01:00 Patient Name: GA WANG THIS IS A PRELIMINARY REPORT FROM [facility] COORDINATOR DATE OF SERVICE: 2018-08-08 22:56:25 IMAGES: [id number] EXAM: ABDOMEN \T\ PELVIS CT WITH CONTR HISTORY: Rule out SBO COMPARISON: 07/28/18 FINDINGS: Lung bases are clear. The visualized cardiac chambers are normal size and configuration. Normal liver, gallbladder, pancreas, spleen, adrenal glands and kidneys. There is a high-grade small bowel obstruction, with small bowel dilated to 4.1 cm. Multiple inflamed small bowel loops are noted in the lower abdomen and upper pelvis, possibly postoperative infection. Patient has undergone interval surgery with an old rectosigmoid anastomosis an old right lower quadrant enteroenteric anastomosis. Multifocal mesenteric edema is noted. There is a small amount of ascites. There is peritoneal enhancement and possible early fluid loculation in the anterior upper left pelvis with a potential 6.5 x 1.6 x 6.2 cm abscess, although the fluid may not be loculated and peritonitis is also considered. No intraperitoneal abscess or free air. Transition point is not clearly identified. Right abdominal wall soft tissue edema is noted and there is a probable 3.0 x 2.0 x 0.9 cm intramuscular abscess. There is no aortic aneurysm. There is no significant retroperitoneal lymphadenopathy. The appendix is normal. Status post hysterectomy Urinary bladder is unremarkable. No discrete pelvic lymphadenopathy is identified. IMPRESSION: High-grade SBO with is diffuse mesenteric edema and small amount of ascites but no free air. Questionable 6.5 cm left upper anterior pelvic early abscess formation versus peritonitis. Multiple inflamed small bowel loops could indicate postoperative infection. Transition point not clearly identified. Suspected 2.9 cm right anterior abdominal wall intramuscular abscess. 08/09/18 01:42 Dr. Valencia of surg is aware of the pateint. Messages left with Surgeon Bobby; family tells us that Dr. Bobby is on vacation.
[2018-08-08] MEDS ORDERED: MORPHINE SULFATE 2 MG/ML VIAL ONE ×2 (21:01→22:58)
[2018-08-08 21:03] LABS: BASO % 0.4 % (0-2.0); EOS % 2.2 % (0-4.5); HEMATOCRIT 39.3 % (32.4-45.2); HEMOGLOBIN 12.8 GM/dL (10.7-15.3); LYMPH % 15.8 % (8-40); MCH 30.7 pg (25.7-33.7); MCHC 32.7 g/dl (32.0-36.0); MEAN CELL VOLUME 93.9 fl (80-96); MEAN PLT VOLUME 7.4 fl (7.5-11.1); MONO % 7.6 % (3.8-10.2); PLATELET COUNT 639 K/MM3 (134-434); RBC 4.18 M/mm3 (3.60-5.2); RDW 13.3 % (11.6-15.6); WHITE BLOOD COUNT 11.8 K/mm3 (4.0-10.0)
[2018-08-08 21:16] LABS: INR 1.03 (0.83-1.09); PROTHROMBIN TIME (PATIENT) 12.2 SEC (9.7-13.0)
[2018-08-08] MEDS ORDERED: FAMOTIDINE 20 MG/50 ML IVPB 20 MG/50 ML MG IVPB ONE ×2 (21:25→21:59)
[2018-08-08 21:31] LABS: EPI CELLS 8.6 /HPF (0-5/HPF); HYALINE CASTS 3 /lpf (0-8); URINE APPEARANCE CLEAR; URINE BACTERIA 0.7 /hpf (NEGATIVE); URINE BILIRUBIN NEGATIVE (NEGATIVE); URINE COLOR YELLOW; URINE GLUCOSE (UA) NEGATIVE (NEGATIVE); URINE KETONE 4+ (NEGATIVE); URINE LEUK ESTERASE NEGATIVE (NEGATIVE); URINE NITRITE NEGATIVE (NEGATIVE); URINE PROTEIN 1+ (NEGATIVE); URINE RBC 5 /hpf (0-4); URINE WBC 2 /hpf (0-5)
[2018-08-08 21:42] LABS: ALBUMIN 3.1 g/dl (3.4-5.0); ALK PHOS 90 U/L (45-117); ANION GAP 12 MMOL/L (8-16); BILIRUBIN,TOTAL 0.6 mg/dL (0.2-1); BLOOD UREA NITROGEN 8.1 mg/dL (7-18); CHLORIDE 106 mmol/L (98-107); CO2 23 mmol/L (21-32); CREATININE 0.4 mg/dL (0.55-1.3); GLUCOSE,RANDOM 115 mg/dL (74-106); LIPASE 128 U/L (73-393); POTASSIUM 3.4 mmol/L (3.5-5.1); SGOT/AST 14 U/L (15-37); SGPT/ALT 13 U/L (13-61); SODIUM 141 mmol/L (136-145); TOT PROT 6.4 g/dl (6.4-8.2)
[2018-08-08] MEDS ORDERED: SODIUM CHLORIDE 0.9% 500 ML INFUS.BAG IV ONE (21:58)
[2018-08-09] MEDS ORDERED: morphine CARPU-JECT 2 MG/1 ML DISP.SYRIN IVPUSH ONE (04:09)
[2018-08-09] MEDS ORDERED: MORPHINE SULFATE 2 MG/ML VIAL ONE (04:11)
[2018-08-09 06:06] LABS: BLOOD UREA NITROGEN 7.7 mg/dL (7-18); CALCIUM 8.2 mg/dL (8.5-10.1); CREATININE 0.4 mg/dL (0.55-1.3); POTASSIUM 3.3 mmol/L (3.5-5.1)
[2018-08-09 06:12] LABS: BASO % 0.3 % (0-2.0); HEMATOCRIT 34.6 % (32.4-45.2); HEMOGLOBIN 11.7 GM/dL (10.7-15.3); LYMPH % 18.3 % (8-40); MCH 31.4 pg (25.7-33.7); MCHC 33.9 g/dl (32.0-36.0); MEAN CELL VOLUME 92.7 fl (80-96); MEAN PLT VOLUME 7.3 fl (7.5-11.1); MONO % 7.2 % (3.8-10.2); NEUT % 71.2 % (42.8-82.8); PLATELET COUNT 664 K/MM3 (134-434); RBC 3.73 M/mm3 (3.60-5.2); RDW 13.4 % (11.6-15.6); WHITE BLOOD COUNT 9.1 K/mm3 (4.0-10.0)
--- NOTE | 2018-08-09 06:51 | HP ---
Admitting History and Physical - Primary Care Physician PCP: Rivera Willingham - Admission Chief Complaint: Abdominal Pain, Nausea, Vomiting History of Present Illness: This is a 68 y/o woman with a significant medical history of Multiple SBOs, s/p Sigmoid Colectomy and diverting Ileostomy 05/2017, s/p Ileostomy reversal (07/2017 ), s/p open lysis of adhesions, small bowel resection and incisional, hernia repair with mesh 07/31/18. Who presents to the ED with abdominal pain and constipation. Patient is Somali speaking, her son was at the bedside and translated. The patient reports having intermittent epigastric pain with N/V. Patient reports having decreased appetite and feeling dehydrated. Patient reports the pain became worse yesterday not relieved with pain medication. Patient denies fever, chills, cough, SOB, CP, palpitation, diarrhea, dysuria. History Source: Patient, Family Member Limitations to Obtaining History: Language Barrier (Somali) - Past Medical History Gastrointestinal: Yes: Constipation, Diverticulitis, Diverticulosis, Irritable Bowel Disease Heme/Onc: Yes: Anemia Musculoskeletal: Yes: Osteoarthritis Rheumatology: Yes: Fibromyalgia - Past Surgical History Past Surgical History: Yes: Colonoscopy (last 12/11/16 - found pandiverticulosis only), Colostomy (ileostomy), Hysterectomy, Tubal Ligation - Smoking History Smoking history: Never smoked Have you smoked in the past 12 months: No - Alcohol/Substance Use Hx Alcohol Use: No History of Substance Use: reports: None - Social History Usual Living Arrangement: Yes: With Child ADL: Independent History of Recent Travel: No Home Medications - Allergies Allergies/Adverse Reactions: Allergies Allergy/AdvReac Type Severity Reaction Status Date / Time No Known Drug Allergies Allergy Verified 08/08/18 19:11 - Home Medications Home Medications: Ambulatory Orders Omeprazole 20 mg PO DAILY 07/27/18 oxyCODONE HCL [Roxicodone -] 5 mg PO Q6H PRN #10 tablet MDD 3 08/04/18 Family Disease History - Family Disease History Family Disease History: Heart Disease: Father (), Brother, [place]: Mother ( colon - in [facility] now for tx, age 88) Review of Systems - Review of Systems Constitutional: reports: Loss of Appetite Eyes: reports: No Symptoms HENT: reports: No Symptoms Neck: reports: No Symptoms Cardiovascular: reports: No Symptoms Respiratory: reports: No Symptoms Gastrointestinal: reports: Abdominal Pain, Constipation, Nausea, Vomiting Genitourinary: reports: No Symptoms Breasts: reports: No Symptoms Reported Musculoskeletal: reports: No Symptoms Integumentary: reports: No Symptoms Neurological: reports: No Symptoms Endocrine: reports: No Symptoms Hematology/Lymphatic: reports: No Symptoms Psychiatric: reports: No Symptoms Pain Intensity: 6 Physical Examination Vital Signs: Vital Signs Temperature 98.3 F 08/09/18 05:52 Pulse Rate 77 08/09/18 05:52 Respiratory Rate 17 08/09/18 05:52 Blood Pressure 123/66 08/09/18 05:52 O2 Sat by Pulse Oximetry (%) 96 08/09/18 05:52 Constitutional: Yes: Mild Distress, Obese Eyes: Yes: WNL, Conjunctiva Clear, EOM Intact, PERRL HENT: Yes: WNL, Atraumatic, Normocephalic Neck: Yes: WNL, Supple, Trachea Midline Cardiovascular: Yes: Regular Rate and Rhythm, S1, S2 Respiratory: Yes: WNL, Regular, CTA Bilaterally Gastrointestinal: Yes: Hypoactive Bowel Sounds, Tenderness, Tenderness, Epigastrium Renal/: Yes: WNL Breast(s): Yes: WNL Musculoskeletal: Yes: WNL Extremities: Yes: WNL Edema: No Peripheral Pulses WNL: Yes Neurological: Yes: WNL, Alert, Oriented, Cran Nerves II-XII Intact ...Motor Strength: WNL Psychiatric: Yes: WNL, Alert, Oriented Labs: CBC, BMP 08/09/18 05:25 08/09/18 05:25 Laboratory Results - last 24 hr 08/08/18 08/08/18 08/08/18 19:05 20:21 20:21 WBC 11.8 H RBC 4.18 Hgb 12.8 Hct 39.3 D MCV 93.9 MCH 30.7 MCHC 32.7 RDW 13.3 Plt Count 639 H D MPV 7.4 L Absolute Neuts (auto) 8.7 H Neutrophils % 74.0 Lymphocytes % 15.8 Monocytes % 7.6 Eosinophils % 2.2 D Basophils % 0.4 Nucleated RBC % 0 PT with INR INR Sodium 141 Potassium 3.4 L Chloride 106 Carbon Dioxide 23 Anion Gap 12 BUN 8.1 Creatinine 0.4 L Est GFR (CKD-EPI)AfAm 124.91 Est GFR (CKD-EPI)NonAf 107.78 Random Glucose 115 H Lactic Acid Calcium 9.0 Total Bilirubin 0.6 AST 14 L ALT 13 Alkaline Phosphatase 90 Creatine Kinase 43 Troponin I < 0.02 Total Protein 6.4 Albumin 3.1 L Lipase 128 Urine Color Yellow Urine Appearance Clear Urine pH 6.0 Ur Specific Laurel 1.026 Urine Protein 1+ H Urine Glucose (UA) Negative Urine Ketones 4+ H Urine Blood Negative Urine Nitrite Negative Urine Bilirubin Negative Urine Urobilinogen 1.0 Ur Leukocyte Esterase Negative Urine WBC (Auto) 2 Urine RBC (Auto) 5 Urine Casts (Auto) 3 U Epithel Cells (Auto) 8.6 Urine Bacteria (Auto) 0.7 Blood Type Antibody Screen 08/08/18 08/08/18 08/08/18 20:21 20:21 21:20 WBC RBC Hgb Hct MCV MCH MCHC RDW Plt Count MPV Absolute Neuts (auto) Neutrophils % Lymphocytes % Monocytes % Eosinophils % Basophils % Nucleated RBC % PT with INR 12.20 INR 1.03 Sodium Potassium Chloride Carbon Dioxide Anion Gap BUN Creatinine Est GFR (CKD-EPI)AfAm Est GFR (CKD-EPI)NonAf Random Glucose Lactic Acid 0.8 Calcium Total Bilirubin AST ALT Alkaline Phosphatase Creatine Kinase Troponin I Total Protein Albumin Lipase Urine Color Urine Appearance Urine pH Ur Specific Laurel Urine Protein Urine Glucose (UA) Urine Ketones Urine Blood Urine Nitrite Urine Bilirubin Urine Urobilinogen Ur Leukocyte Esterase Urine WBC (Auto) Urine RBC (Auto) Urine Casts (Auto) U Epithel Cells (Auto) Urine Bacteria (Auto) Blood Type A POSITIVE Antibody Screen Negative 08/08/18 08/09/18 08/09/18 21:59 05:25 05:25 WBC 9.1 RBC 3.73 Hgb 11.7 Hct 34.6 MCV 92.7 MCH 31.4 MCHC 33.9 RDW 13.4 Plt Count 664 H MPV 7.3 L Absolute Neuts (auto) 6.5 Neutrophils % 71.2 Lymphocytes % 18.3 Monocytes % 7.2 Eosinophils % 3.0 Basophils % 0.3 Nucleated RBC % 0 PT with INR INR Sodium 142 Potassium 3.3 L Chloride 110 H Carbon Dioxide 25 Anion Gap 6 L BUN 7.7 Creatinine 0.4 L Est GFR (CKD-EPI)AfAm 124.91 Est GFR (CKD-EPI)NonAf 107.78 Random Glucose 111 H Lactic Acid 0.5 Calcium 8.2 L Total Bilirubin AST ALT Alkaline Phosphatase Creatine Kinase Troponin I Total Protein Albumin Lipase Urine Color Urine Appearance Urine pH Ur Specific Laurel Urine Protein Urine Glucose (UA) Urine Ketones Urine Blood Urine Nitrite Urine Bilirubin Urine Urobilinogen Ur Leukocyte Esterase Urine WBC (Auto) Urine RBC (Auto) Urine Casts (Auto) U Epithel Cells (Auto) Urine Bacteria (Auto) Blood Type Antibody Screen Intake & Output 08/06/18 08/07/18 08/08/18 08/09/18 23:59 23:59 23:59 23:59 Weight 68.492 kg Imaging - Results Chest X-ray: Pending Cat Scan: Report Reviewed, Image Reviewed EKG: Pending Problem List - Problems (1) SBO (small bowel obstruction) Assessment/Plan: post-op bowel obstruction Likely secondary to Adhesions CTAP- High grade SBO, diffuse mesenteric edema ? abscess 2.9cm, 6.5cm left upper anterior pelvic early abscess formation Appreciate Surgical Consult- per ED resident discussed with Dr. Pillai, who is aware. NPO NGT placed in ED IVF Empiric ABX Zofran Morphine Sulfate prn Appreciate ID consult no leukocytosis, no left shift Lactate neg x2 Monitor CBC Monitor vitals Code(s): K56.609 - UNSP INTESTNL OBST, UNSP TO PARTIAL VERSUS COMPLETE OBST (2) Abdominal pain Assessment/Plan: See above Code(s): R10.9 - UNSPECIFIED ABDOMINAL PAIN Qualifiers: Abdominal location: unspecified location Qualified Code(s): R10.9 - Unspecified abdominal pain (3) Nausea and vomiting Assessment/Plan: See above Code(s): R11.2 - NAUSEA WITH VOMITING, UNSPECIFIED Qualifiers: (4) Fibromyalgia Assessment/Plan: Hold meds secondary to NPO Code(s): M79.7 - FIBROMYALGIA (5) GERD (gastroesophageal reflux disease) Assessment/Plan: PPI Code(s): K21.9 - GASTRO-ESOPHAGEAL REFLUX DISEASE WITHOUT ESOPHAGITIS (6) HLD (hyperlipidemia) Assessment/Plan: Hold secondary to NPO Code(s): E78.5 - HYPERLIPIDEMIA, UNSPECIFIED (7) Irritable bowel syndrome with constipation Assessment/Plan: Will continue to monitor and treat with interventions accordingly Code(s): K58.1 - IRRITABLE BOWEL SYNDROME WITH CONSTIPATION Assessment/Plan This is a 68 y/o woman admitted for SBO with Abscess for further evaluation of their emergent condition. Plan: See Problem List FEN D51/2NS@60ml/hr Replete lytes prn NPO DVT ppx OOB SCDs Heparin SQ Dispo: Requires Inpatient Care Visit type - Emergency Visit Emergency Visit: Yes ED Registration Date: 08/08/18 Care time: The patient presented to the Emergency Department on the above date and was hospitalized for further evaluation of their emergent condition. - New Patient This patient is new to me today: Yes Date on this admission: 08/09/18 - Critical Care Critical Care patient: No
--- NOTE | 2018-08-09 07:24 | CONSULT ---
Consult Consult Specialty:: General Surgery Reason for Consultation:: sbo - History of Present Illness Chief Complaint: abdominal pain History of Present Illness: 68 yo woman with a significant medical history of Multiple SBOs, s/p Sigmoid Colectomy and diverting Ileostomy 05/2017, s/p Ileostomy reversal (07/2017), s/p open lysis of adhesions, small bowel resection and incisional, hernia repair with mesh 07/31/[address] Franklin Who presents to the ED with abdominal pain and constipation. Patient is Latvian speaking, her son was at the bedside and translated. The patient reports having intermittent epigastric pain with N/V. Patient reports having decreased appetite and feeling dehydrated. We were called to assess when he could not be reached. - History Source History Provided By: Patient, Medical Record Limitations to Obtaining History: No Limitations - Past Medical History Gastrointestinal: Yes: Constipation, Diverticulitis, Diverticulosis, Irritable Bowel Disease Musculoskeletal: Yes: Osteoarthritis Rheumatology: Yes: Fibromyalgia - Past Surgical History Past Surgical History: Yes: AAA Repair, Carotid Endarterectomy, Colonoscopy ( last 12/11/16 - found pandiverticulosis only), Colostomy (ileostomy), Hysterectomy, Tubal Ligation - Alcohol/Substance Use Hx Alcohol Use: No History of Substance Use: reports: None - Smoking History Smoking history: Never smoked Have you smoked in the past 12 months: No - Social History Usual Living Arrangement: Other ADL: Independent History of Recent Travel: No Home Medications - Allergies Allergies/Adverse Reactions: Allergies Allergy/AdvReac Type Severity Reaction Status Date / Time No Known Drug Allergies Allergy Verified 08/08/18 19:11 - Home Medications Home Medications: Ambulatory Orders Omeprazole 20 mg PO DAILY 07/27/18 oxyCODONE HCL [Roxicodone -] 5 mg PO Q6H PRN #10 tablet MDD 3 08/04/18 Family Disease History - Family Disease History Family Disease History: Heart Disease: Father (), Brother, [place]: Mother ( colon - in [facility] now for tx, age 88) Review of Systems - Review of Systems Constitutional: denies: Chills, Fever Eyes: denies: Blind Spots, Recent Change in Vision, Other HENT: denies: Mouth Swelling Neck: denies: Decreased ROM, Pain on Movement Cardiovascular: denies: Chest Pain, Palpitations Respiratory: denies: Cough, SOB Gastrointestinal: reports: Abdominal Pain, Bloating, Constipation. denies: Diarrhea Genitourinary: denies: Discharge, Dysuria, Flank Pain Breasts: reports: No Symptoms Reported. denies: Pain Musculoskeletal: denies: Back Pain, Crepitus, Muscle Pain Integumentary: denies: Blister, Lesions Neurological: denies: Seizure, Syncope Endocrine: denies: Unexplained Weight Gain, Unexplained Weight Loss Hematology/Lymphatic: denies: Easily Bruised, Excessive Bleeding Psychiatric: denies: Anxiety, Depression Physical Exam Vital Signs: Vital Signs Temperature 98.3 F 08/09/18 05:52 Pulse Rate 77 08/09/18 05:52 Respiratory Rate 17 08/09/18 05:52 Blood Pressure 123/66 08/09/18 05:52 O2 Sat by Pulse Oximetry (%) 96 08/09/18 05:52 Constitutional: Yes: Well Nourished, No Distress, Calm Eyes: Yes: Conjunctiva Clear, EOM Intact HENT: Yes: Atraumatic, Normocephalic Neck: Yes: Supple, Trachea Midline Cardiovascular: Yes: Regular Rate and Rhythm, S1, S2 Respiratory: Yes: Regular, CTA Bilaterally Gastrointestinal: Yes: Normal Bowel Sounds, Soft, Distention. No: Rectal Bleeding, Tenderness, Tenderness, Epigastrium, Tenderness, Rebound ...Rectal Exam: Yes: Hemorrhoids/External, Hemorrhoids/Internal, Sphincter Tone Normal Renal/: No: CVA Tenderness - Left, CVA Tenderness - Right Breast(s): No: Gynecomastia, Mass Musculoskeletal: No: Muscle Pain, Muscle Weakness Extremities: No: Cool, Cyanosis Edema: No Peripheral Pulses WNL: Yes Integumentary: No: Incision, Jaundice Wound/Incision: Yes: Clean/Dry, Well Approximated, Gwendolyn Intact Neurological: Yes: Alert, Oriented Psychiatric: Yes: Alert, Oriented Labs: CBC, BMP 08/09/18 05:25 08/09/18 05:25 Imaging - Results Cat Scan: Report Reviewed, Image Reviewed Problem List - Problems (1) SBO (small bowel obstruction) Assessment/Plan: 68 yo female with SBO/ ileus in the perioperative period, suggested on imaging. No acute surgical intervention at this time Strict NPO and IVF hydration NGT Decompression will follow Keep scheduled followup with Dr. Saldaña on 08/20/18 Thank you for the opportunity to participate in the care of this patient. Code(s): K56.609 - UNSP INTESTNL OBST, UNSP TO PARTIAL VERSUS COMPLETE OBST (2) Abdominal pain Code(s): R10.9 - UNSPECIFIED ABDOMINAL PAIN Qualifiers: Abdominal location: generalized Qualified Code(s): R10.84 - Generalized abdominal pain (3) GERD (gastroesophageal reflux disease) Code(s): K21.9 - GASTRO-ESOPHAGEAL REFLUX DISEASE WITHOUT ESOPHAGITIS (4) HLD (hyperlipidemia) Code(s): E78.5 - HYPERLIPIDEMIA, UNSPECIFIED (5) Nausea and vomiting Code(s): R11.2 - NAUSEA WITH VOMITING, UNSPECIFIED Qualifiers: (6) UTI (urinary tract infection) Code(s): N39.0 - URINARY TRACT INFECTION, SITE NOT SPECIFIED
[2018-08-09] MEDS ORDERED: ONDANSETRON 4 MG/2 ML VIAL IVPUSH PRN (07:50)
[2018-08-09] MEDS: DEXTROSE 5%-0.45% SALINE 1,000 ML IV SCH (08:40)
[2018-08-09] MEDS ORDERED: ERTAPENEM SODIUM 1 GM in SODIUM CHLORIDE 50 ML IVPB ONE (09:00)
[2018-08-09] MEDS ORDERED: KCL 10 MEQ IVPB 10 MEQ/100 ML INFUS.BAG IVPB SCH (09:00)
[2018-08-09] MEDS: MORPHINE SULFATE 2 MG/ML VIAL IVPUSH PRN ×2 (11:28→16:20)
--- NOTE | 2018-08-09 12:19 | PN ---
Progress Note (short form) - Note Progress Note: ID CONSULT DICTATED RECURRENT BOWEL OBSTRUCTION ? ABSCESS HX ESBL AWAIT C/S SURGICAL EVALUATION EMPIRIC ERTAPENEM
--- NOTE | 2018-08-09 12:48 | EKG ---
Test Reason : Blood Pressure : / mmHG Vent. Rate : 082 BPM Atrial Rate : 082 BPM P-R Int : 120 ms QRS Dur : 078 ms QT Int : 410 ms P-R-T Axes : 043 085 077 degrees QTc Int : 479 ms NORMAL SINUS RHYTHM NONSPECIFIC ST AND T WAVE ABNORMALITY ABNORMAL ECG WHEN COMPARED WITH ECG OF 30-JUL-2018 15:18, NO SIGNIFICANT CHANGE WAS FOUND Confirmed by JOHNNA BHATT MD ([id number]) on 08/09/2018 12:47:45 PM Referred By: Confirmed By:JOHNNA BHATT MD
--- NOTE | 2018-08-09 12:50 | CONS ---
DATE OF CONSULTATION: DATE OF DICTATION: 08/09/2018 INFECTIOUS DISEASE CONSULTATION HISTORY OF PRESENT ILLNESS: The patient is a 68-year-old female with a history of recurrent bowel obstruction evaluated for possible intraabdominal abscess. The patient was admitted to the hospital on August 08, 2018, after presenting with recurrent diffuse abdominal pain associated with nausea and vomiting. A CAT scan of the abdomen and pelvis was obtained. Preliminary report shows a high-grade small-bowel obstruction with dilated small bowel, multiple inflamed small-bowel loops in the lower abdomen and upper pelvis, multifocal mesenteric edema, small amount of ascites, possible early fluid loculation in the anterior upper left pelvis with potential abscess. There was also right abdominal wall soft tissue edema and probable intramuscular abscess. Cultures were obtained. She was empirically treated with ertapenem. Surgical evaluation is pending. At the present time she is awake and alert. She complains of abdominal pain. She is lying still in bed with an NG tube in place. She denies any nausea, vomiting. She has not had a bowel movement. She has been afebrile with a slightly elevated white blood cell count. PAST MEDICAL HISTORY: Positive for multiple episodes of small-bowel obstruction. She is status post sigmoid colectomy and diverting ileostomy in May 2017 followed by reversal in July 2017. She has had a history of open lysis of adhesions for small-bowel obstruction, small-bowel resection and an incisional hernia repair with mesh most recently in July of this year. Past medical history also includes diverticulitis, gastroesophageal reflux, fibromyalgia. PAST SURGICAL HISTORY: Abdominal surgeries as above, hysterectomy, tubal ligation. ALLERGIES: No known allergies. MEDICATIONS: Include ertapenem, morphine, Pepcid. SOCIAL HISTORY: She resides at home in the community. She is a nonsmoker, nondrinker. SYSTEMS REVIEW: Neurologic: No loss of consciousness, seizure activity or focal weakness. Cardiac: Negative chest pain or palpitations. Respiratory: Negative cough or sputum production. Gastrointestinal: As per HPI. Genitourinary: Negative for urinary tract infection. LABORATORY DATA: White count on admission 11.8, presently 9.1, hematocrit 34.6, platelet count 664. BUN 7, creatinine 0.4. Urinalysis: Two white cells. Blood cultures are pending. Previous cultures notable for ESBL in the urine in April of this year. PHYSICAL EXAMINATION:General: She is in moderate distress secondary to abdominal pain. Vital Signs: Temperature 97.9, blood pressure 107/45, pulse 74, regular, respirations 16 per minute. HEENT: Sclerae are anicteric. NG tube is in place. Cardiac: Heart sounds S1, S2. Lungs: Clear. Abdomen: No appreciable bowel sounds. Abdomen is slightly distended, diffusely tender. Extremities: Negative for edema. IMPRESSION: 1. Recurrent bowel obstruction. 2. Rule out intraabdominal abscesses. 3. History of extended-spectrum beta-lactamase in the urine. RECOMMENDATIONS: Await cultures. Surgical evaluation. Empiric antibiotic coverage with ertapenem. Contact precautions. Will follow. Thank you for the kind referral. JOHNNA DESAI M.D. [id number]
[2018-08-09 18:21] VITALS: BMI 29.2
--- NOTE | 2018-08-09 19:13 | PN ---
Progress Note, Physician Chief Complaint: Abdominal Pain SBO History of Present Illness: Previous notes and events reviewed awake and alert NAD NGT to LCS < 100cc dark contents complain of abdominal pain denies BM or passing flatus - Current Medication List Current Medications: Active Medications Heparin Sodium (Porcine) (Heparin -) 5,000 unit SQ BID [facility] Dextrose/Sodium Chloride (D5-1/2ns -) 1,000 mls @ 60 mls/hr IV ASDIR [facility] Last Admin: 08/09/18 08:40 Dose: 60 mls/hr Ertapenem 1 gm/ Sodium (Chloride) 50 mls @ 100 mls/hr IVPB DAILY [facility] Morphine Sulfate (Morphine Sulfate) 2 mg IVPUSH Q4H PRN PRN Reason: PAIN LEVEL 7 - 10 Last Admin: 08/09/18 16:20 Dose: 2 mg Ondansetron HCl (Zofran Injection) 4 mg IVPUSH Q6H PRN PRN Reason: NAUSEA AND/OR VOMITING - Objective Vital Signs: Vital Signs Temperature 98.2 F 08/09/18 18:13 Pulse Rate 74 08/09/18 18:13 Respiratory Rate 18 08/09/18 18:13 Blood Pressure 133/66 08/09/18 18:13 O2 Sat by Pulse Oximetry (%) 97 08/09/18 07:49 Constitutional: Yes: No Distress, Calm Eyes: Yes: Conjunctiva Clear HENT: Yes: Atraumatic Cardiovascular: Yes: Regular Rate and Rhythm Respiratory: Yes: Regular, CTA Bilaterally Gastrointestinal: Yes: Normal Bowel Sounds, Soft Musculoskeletal: Yes: Muscle Weakness Extremities: Yes: WNL Edema: No Neurological: Yes: Alert, Oriented Psychiatric: Yes: Alert, Oriented Labs: CBC, BMP 08/09/18 05:25 08/09/18 05:25 INR, PTT INR 1.03 (0.83-1.09) 08/08/18 20:21 Problem List - Problems (1) Abdominal pain Assessment/Plan: -pending Abdominal CT scan official read -pain control -GI and Surgery on board -ID on board -no leukocytosis -afebrile -NPO -IV hydration -Ertapenem -ID on board Code(s): R10.9 - UNSPECIFIED ABDOMINAL PAIN Qualifiers: Abdominal location: generalized Qualified Code(s): R10.84 - Generalized abdominal pain (2) GERD (gastroesophageal reflux disease) Assessment/Plan: -pantoprazole Code(s): K21.9 - GASTRO-ESOPHAGEAL REFLUX DISEASE WITHOUT ESOPHAGITIS (3) HLD (hyperlipidemia) Code(s): E78.5 - HYPERLIPIDEMIA, UNSPECIFIED (4) SBO (small bowel obstruction) Assessment/Plan: -pending Abdominal CT scan official read -pain control -GI and Surgery on board -ID on board -no leukocytosis -afebrile -NPO -IV hydration -Ertapenem -ID on board Code(s): K56.609 - UNSP INTESTNL OBST, UNSP TO PARTIAL VERSUS COMPLETE OBST Assessment/Plan see problem list dvt ppx
[2018-08-09] MEDS: ACETAMINOPHEN 1000 MG/100 ML VIAL (NON FORMULARY) IVPB PRN (20:50)
[2018-08-09] MEDS: HEPARIN NA (PORCINE) 5,000 UNITS/ML 1ML VIAL SQ SCH (22:59)
--- NOTE | 2018-08-10 07:18 | PN ---
Progress Note, Physician Chief Complaint: AWAKE ALERT EVENTS AND NOTES REVIEWED ADMITTED FOR SBO DENIES FEVER OR CHLLS - Current Medication List Current Medications: Active Medications Acetaminophen (Ofirmev Injection -) 1,000 mg IVPB Q6H PRN PRN Reason: PAIN LEVEL 6-10 Last Admin: 08/09/18 20:50 Dose: 1,000 mg Heparin Sodium (Porcine) (Heparin -) 5,000 unit SQ BID [facility] Last Admin: 08/09/18 22:59 Dose: 5,000 unit Dextrose/Sodium Chloride (D5-1/2ns -) 1,000 mls @ 60 mls/hr IV [facility]IR [facility] Last Admin: 08/09/18 08:40 Dose: 60 mls/hr Ertapenem 1 gm/ Sodium (Chloride) 50 mls @ 100 mls/hr IVPB DAILY [facility] Morphine Sulfate (Morphine Sulfate) 2 mg IVPUSH Q4H PRN PRN Reason: PAIN LEVEL 7 - 10 Last Admin: 08/09/18 16:20 Dose: 2 mg Ondansetron HCl (Zofran Injection) 4 mg IVPUSH Q6H PRN PRN Reason: NAUSEA AND/OR VOMITING Pantoprazole Sodium (Protonix Iv) 40 mg IVPUSH DAILY [facility] - Objective Vital Signs: Vital Signs Temperature 98.4 F 08/10/18 06:00 Pulse Rate 83 08/10/18 06:00 Respiratory Rate 18 08/10/18 06:00 Blood Pressure 112/68 08/10/18 06:00 O2 Sat by Pulse Oximetry (%) 97 08/09/18 07:49 Constitutional: Yes: Mild Distress Eyes: Yes: WNL HENT: Yes: WNL Neck: Yes: WNL Cardiovascular: Yes: WNL Respiratory: Yes: WNL Gastrointestinal: Yes: Soft, Tenderness Genitourinary: Yes: WNL Musculoskeletal: Yes: Muscle Weakness Extremities: Yes: WNL Edema: No Peripheral Pulses WNL: Yes Integumentary: Yes: WNL Wound/Incision: Yes: Clean/Dry Neurological: Yes: WNL ...Motor Strength: WNL Psychiatric: Yes: WNL Labs: CBC, BMP 08/09/18 05:25 08/09/18 05:25 INR, PTT INR 1.03 (0.83-1.09) 08/08/18 20:21 Problem List - Problems (1) Abdominal pain Code(s): R10.9 - UNSPECIFIED ABDOMINAL PAIN Qualifiers: Abdominal location: generalized Qualified Code(s): R10.84 - Generalized abdominal pain (2) Fibromyalgia Code(s): M79.7 - FIBROMYALGIA (3) GERD (gastroesophageal reflux disease) Code(s): K21.9 - GASTRO-ESOPHAGEAL REFLUX DISEASE WITHOUT ESOPHAGITIS (4) Hypokalemia Code(s): E87.6 - HYPOKALEMIA (5) LLQ abdominal pain Code(s): R10.32 - LEFT LOWER QUADRANT PAIN (6) SBO (small bowel obstruction) Code(s): K56.609 - UNSP INTESTNL OBST, UNSP TO PARTIAL VERSUS COMPLETE OBST (7) Surgical abdomen Code(s): R10.0 - ACUTE ABDOMEN Assessment/Plan SURGICAL EVAL APPRECIATED CONTINUE NGT FOR BOWEL DECOMPRESSION PAIN MEDS IV NPO ID F/U ON ABX ERTAPENEM OOB TO CHAIR
[2018-08-10 08:17] LABS: HEMATOCRIT 33.1 % (32.4-45.2); HEMOGLOBIN 10.9 GM/dL (10.7-15.3); MCH 30.5 pg (25.7-33.7); MCHC 32.9 g/dl (32.0-36.0); MEAN CELL VOLUME 92.8 fl (80-96); MEAN PLT VOLUME 7.4 fl (7.5-11.1); PLATELET COUNT 659 K/MM3 (134-434); RBC 3.56 M/mm3 (3.60-5.2); RDW 13.4 % (11.6-15.6); WHITE BLOOD COUNT 7.8 K/mm3 (4.0-10.0)
[2018-08-10 08:42] LABS: ALBUMIN 2.6 g/dl (3.4-5.0); BILIRUBIN,TOTAL 0.4 mg/dL (0.2-1); BLOOD UREA NITROGEN 6.6 mg/dL (7-18); CALCIUM 8.2 mg/dL (8.5-10.1); CREATININE 0.3 mg/dL (0.55-1.3); POTASSIUM 3.3 mmol/L (3.5-5.1); TOT PROT 5.5 g/dl (6.4-8.2)
[2018-08-10] MEDS: MORPHINE SULFATE 2 MG/ML VIAL IVPUSH PRN ×2 (09:04→14:59)
--- NOTE | 2018-08-10 09:31 | PN ---
Progress Note, Physician History of Present Illness: 68 yo woman with a significant medical history of Multiple SBOs, s/p Sigmoid Colectomy and diverting Ileostomy 05/2017, s/p Ileostomy reversal (07/2017), s/p open lysis of adhesions, small bowel resection and incisional, hernia repair with mesh 07/31/[address] Saldaña. Overnight she had a large BM which was cleaned up during the night count. Abdominal pain has since resolved and NGT output is scant. - Current Medication List Current Medications: Active Medications Acetaminophen (Ofirmev Injection -) 1,000 mg IVPB Q6H PRN PRN Reason: PAIN LEVEL 6-10 Last Admin: 08/09/18 20:50 Dose: 1,000 mg Heparin Sodium (Porcine) (Heparin -) 5,000 unit SQ BID [facility] Last Admin: 08/09/18 22:59 Dose: 5,000 unit Dextrose/Sodium Chloride (D5-1/2ns -) 1,000 mls @ 60 mls/hr IV ASDIR [facility] Last Admin: 08/09/18 08:40 Dose: 60 mls/hr Ertapenem 1 gm/ Sodium (Chloride) 50 mls @ 100 mls/hr IVPB DAILY [facility] Morphine Sulfate (Morphine Sulfate) 2 mg IVPUSH Q4H PRN PRN Reason: PAIN LEVEL 7 - 10 Last Admin: 08/10/18 09:04 Dose: 2 mg Ondansetron HCl (Zofran Injection) 4 mg IVPUSH Q6H PRN PRN Reason: NAUSEA AND/OR VOMITING Pantoprazole Sodium (Protonix Iv) 40 mg IVPUSH DAILY [facility] - Objective Vital Signs: Vital Signs Temperature 98.4 F 08/10/18 06:00 Pulse Rate 83 08/10/18 06:00 Respiratory Rate 18 08/10/18 06:00 Blood Pressure 112/68 08/10/18 06:00 O2 Sat by Pulse Oximetry (%) 97 08/09/18 07:49 Vital Signs Period Temp Pulse Resp BP Sys/Valderrama Pulse Ox Last 24 Hr 98.2 F-99.1 F 73-83 18-20 112-152/64-69 Intake & Output 08/09/18 08/10/18 08/10/18 23:59 07:59 15:59 Intake Total 760 410 Output Total 100 Balance 660 410 Weight 150 lb Intake: IV 710 360 D5-1/2Ns - 1,000 ml @ 60 710 360 mls/hr IV ASDIR [facility] Rx#: [id number] IVPB 50 50 Output: Gastric Drainage 100 Other: Voiding Method Toilet Bowel Movement YES (Night) Height 5 ft Body Mass Index (BMI) 29.2 Weight Measurement Method Built [facility] Constitutional: Yes: Well Nourished, No Distress, Calm Eyes: Yes: Conjunctiva Clear, EOM Intact HENT: Yes: Atraumatic, Normocephalic Neck: Yes: Supple, Trachea Midline Cardiovascular: Yes: Regular Rate and Rhythm, S1, S2 Respiratory: Yes: Regular, CTA Bilaterally Gastrointestinal: Yes: Normal Bowel Sounds, Soft, Abdomen, Obese. No: Tenderness, Tenderness, Epigastrium, Tenderness, Rebound ...Rectal Exam: Yes: Deferred Genitourinary: No: CVA Tenderness - Left, CVA Tenderness - Right Breast(s): No: Breast Implants, Dimpling Musculoskeletal: No: Muscle Pain, Muscle Weakness Extremities: No: Cool, Cyanosis Edema: No Peripheral Pulses WNL: Yes Integumentary: No: Incision, Jaundice Wound/Incision: Yes: Clean/Dry, Well Approximated, Gwendolyn Intact Neurological: Yes: Alert, Oriented Psychiatric: Yes: Alert, Oriented Labs: CBC, BMP 08/10/18 07:15 08/10/18 07:15 INR, PTT INR 1.03 (0.83-1.09) 08/08/18 20:21 Problem List - Problems (1) SBO (small bowel obstruction) Assessment/Plan: 68 yo female with SBO/ ileus in the perioperative period, suggested on imaging. Resolved SBO/ ileus. No acute surgical intervention at this time. IVF hydration d/c NGT clear liquids, advance as tolerated Keep scheduled followup with Dr. Saldaña on 08/20/18 Please recall surgery as needed Code(s): K56.609 - UNSP INTESTNL OBST, UNSP TO PARTIAL VERSUS COMPLETE OBST (2) Abdominal pain Code(s): R10.9 - UNSPECIFIED ABDOMINAL PAIN Qualifiers: Abdominal location: generalized Qualified Code(s): R10.84 - Generalized abdominal pain (3) GERD (gastroesophageal reflux disease) Code(s): K21.9 - GASTRO-ESOPHAGEAL REFLUX DISEASE WITHOUT ESOPHAGITIS (4) HLD (hyperlipidemia) Code(s): E78.5 - HYPERLIPIDEMIA, UNSPECIFIED (5) Nausea and vomiting Code(s): R11.2 - NAUSEA WITH VOMITING, UNSPECIFIED Qualifiers: (6) UTI (urinary tract infection) Code(s): N39.0 - URINARY TRACT INFECTION, SITE NOT SPECIFIED
[2018-08-10] MEDS: ERTAPENEM SODIUM 1 GM in SODIUM CHLORIDE 50 ML IVPB SCH (10:47)
[2018-08-10] MEDS: PANTOPRAZOLE SODIUM 40 MG VIAL IVPUSH SCH (10:48)
[2018-08-10] MEDS: HEPARIN NA (PORCINE) 5,000 UNITS/ML 1ML VIAL SQ SCH ×2 (10:48→22:15)
[2018-08-10] MEDS ORDERED: POLYETHYLENE GLYCOL 3350 119 GM BTL PO ONE (14:45)
[2018-08-10] MEDS: ACETAMINOPHEN 1000 MG/100 ML VIAL (NON FORMULARY) IVPB PRN (20:30)
[2018-08-11 07:27] LABS: HEMATOCRIT 32.3 % (32.4-45.2); HEMOGLOBIN 10.8 GM/dL (10.7-15.3); MCH 30.7 pg (25.7-33.7); MCHC 33.4 g/dl (32.0-36.0); MEAN PLT VOLUME 7.3 fl (7.5-11.1); PLATELET COUNT 663 K/MM3 (134-434); RBC 3.51 M/mm3 (3.60-5.2); RDW 13.3 % (11.6-15.6); WHITE BLOOD COUNT 6.3 K/mm3 (4.0-10.0)
--- NOTE | 2018-08-11 07:43 | PN ---
Progress Note, Physician Chief Complaint: AWAKE ALERT DEBIES FEVER OR CHILLS NO BM LAST NIGHT TOLERATING LIQUIDS C/O BLOATING AND FLATULENCE - Current Medication List Current Medications: Active Medications Acetaminophen (Ofirmev Injection -) 1,000 mg IVPB Q6H PRN PRN Reason: PAIN LEVEL 6-10 Last Admin: 08/10/18 20:30 Dose: 1,000 mg Heparin Sodium (Porcine) (Heparin -) 5,000 unit SQ BID [facility] Last Admin: 08/10/18 22:15 Dose: 5,000 unit Dextrose/Sodium Chloride (D5-1/2ns -) 1,000 mls @ 60 mls/hr IV ASDIR [facility] Last Admin: 08/09/18 08:40 Dose: 60 mls/hr Ertapenem 1 gm/ Sodium (Chloride) 50 mls @ 100 mls/hr IVPB DAILY [facility] Last Admin: 08/10/18 10:47 Dose: 100 mls/hr Morphine Sulfate (Morphine Sulfate) 2 mg IVPUSH Q4H PRN PRN Reason: PAIN LEVEL 7 - 10 Last Admin: 08/10/18 14:59 Dose: 2 mg Ondansetron HCl (Zofran Injection) 4 mg IVPUSH Q6H PRN PRN Reason: NAUSEA AND/OR VOMITING Last Admin: 08/10/18 15:07 Dose: 4 mg Pantoprazole Sodium (Protonix Iv) 40 mg IVPUSH DAILY [facility] Last Admin: 08/10/18 10:48 Dose: 40 mg Polyethylene Glycol (Miralax (For Daily Use) -) 17 gm PO DAILY [facility] Simethicone (Mylicon -) 80 mg PO Q4H PRN PRN Reason: GAS - Objective Vital Signs: Vital Signs Temperature 98.8 F 08/11/18 07:05 Pulse Rate 64 08/11/18 07:05 Respiratory Rate 20 08/11/18 07:05 Blood Pressure 126/60 08/11/18 07:05 O2 Sat by Pulse Oximetry (%) 97 08/09/18 07:49 Constitutional: Yes: Mild Distress Eyes: Yes: WNL HENT: Yes: WNL Neck: Yes: WNL Cardiovascular: Yes: Regular Rate and Rhythm Respiratory: Yes: WNL Gastrointestinal: Yes: Soft, Distention Genitourinary: Yes: WNL Musculoskeletal: Yes: WNL Extremities: Yes: WNL Edema: No Peripheral Pulses WNL: Yes Integumentary: Yes: WNL Wound/Incision: Yes: Clean/Dry Neurological: Yes: WNL ...Motor Strength: WNL Psychiatric: Yes: Other Labs: INR, PTT INR 1.03 (0.83-1.09) 08/08/18 20:21 Problem List - Problems (1) Abdominal pain Code(s): R10.9 - UNSPECIFIED ABDOMINAL PAIN Qualifiers: Abdominal location: generalized Qualified Code(s): R10.84 - Generalized abdominal pain (2) Fibromyalgia Code(s): M79.7 - FIBROMYALGIA (3) GERD (gastroesophageal reflux disease) Code(s): K21.9 - GASTRO-ESOPHAGEAL REFLUX DISEASE WITHOUT ESOPHAGITIS (4) Hypokalemia Code(s): E87.6 - HYPOKALEMIA (5) LLQ abdominal pain Code(s): R10.32 - LEFT LOWER QUADRANT PAIN (6) SBO (small bowel obstruction) Code(s): K56.609 - UNSP INTESTNL OBST, UNSP TO PARTIAL VERSUS COMPLETE OBST (7) Surgical abdomen Code(s): R10.0 - ACUTE ABDOMEN Assessment/Plan SURGICAL EVAL APPRECIATED BY [employer] ASK DR BRAUN GO TO SEE PATIENT NGT DISCONTINUED FOR BOWEL DECOMPRESSION PAIN MEDS CHANGE TO PO CLEAR LIQUIDS ADVANCE TO FULL LIQUID PER SURGERY ID F/U ON ABX ERTAPENEM OOB TO CHAIR STARTING ANTIDEPRESSANT ZOLOFT 25MG DAILY
[2018-08-11 07:51] LABS: CALCIUM 8.6 mg/dL (8.5-10.1); CREATININE 0.3 mg/dL (0.55-1.3); MAGNESIUM 2.2 mg/dL (1.8-2.4); POTASSIUM 3.4 mmol/L (3.5-5.1)
[2018-08-11] MEDS: DEXTROSE 5%-0.45% SALINE 1,000 ML IV SCH ×3 (08:00→18:48)
[2018-08-11 08:16] LABS: BLOOD UREA NITROGEN 2.1 mg/dL (7-18)
[2018-08-11] MEDS ORDERED: SIMETHICONE 80 MG TAB.CHEW (FP) PO PRN (08:17)
[2018-08-11] MEDS ORDERED: PT OWN MED DRAWER 7, Y5N ONE ×2 (08:45→09:39)
[2018-08-11] MEDS: HEPARIN NA (PORCINE) 5,000 UNITS/ML 1ML VIAL SQ SCH ×2 (09:57→22:51)
[2018-08-11] MEDS: PANTOPRAZOLE SODIUM 40 MG VIAL IVPUSH SCH (09:57)
[2018-08-11] MEDS: SERTRALINE HCL 25 MG TABLET (FP) PO SCH (10:01)
[2018-08-11] MEDS: ERTAPENEM SODIUM 1 GM in SODIUM CHLORIDE 50 ML IVPB SCH (10:51)
[2018-08-11] MEDS: POLYETHYLENE GLYCOL 3350 119 GM BTL PO SCH (10:52)
[2018-08-11] MEDS: MORPHINE SULFATE 2 MG/ML VIAL IVPUSH PRN ×2 (11:51→17:46)
--- NOTE | 2018-08-11 13:36 | CON.GI ---
Consult Consult Specialty:: GI Referred by:: Medicine Reason for Consultation:: gas/bloat - History of Present Illness Chief Complaint: abdominal pain History of Present Illness: 68F h/o ileostomy with reversal 2018, recent hx of JOHN, SBR and incisional hernia repair with mesh 07/31/[address] Saldaña, presenting for epigastric pain with nausea. Found to have SBO and managed conservatively, NGT now removed. Is now passing gas and had a bm this morning. GI consulted for gas and bloating. Patient reports excessive gas, whenever she drinks any clear liquid she feels gas, epigastric pain and nausea. PPI has not helped. Primary team has ordered simethicone but pt has not yet received. Is scared to go home because of this pain. No evidence of GI bleeding. - History Source History Provided By: Patient Limitations to Obtaining History: No Limitations - Past Medical History Gastrointestinal: Yes: Constipation, Diverticulitis, Diverticulosis, Irritable Bowel Disease Musculoskeletal: Yes: Osteoarthritis Rheumatology: Yes: Fibromyalgia - Past Surgical History Past Surgical History: Yes: AAA Repair, Carotid Endarterectomy, Colonoscopy ( last 12/11/16 - found pandiverticulosis only), Colostomy (ileostomy), Hysterectomy, Tubal Ligation - Alcohol/Substance Use Hx Alcohol Use: No History of Substance Use: reports: None - Smoking History Smoking history: Never smoked Have you smoked in the past 12 months: No - Social History Usual Living Arrangement: Other ADL: Independent History of Recent Travel: No Home Medications - Allergies Allergies/Adverse Reactions: Allergies Allergy/AdvReac Type Severity Reaction Status Date / Time No Known Drug Allergies Allergy Verified 08/08/18 19:11 - Home Medications Home Medications: Ambulatory Orders Omeprazole 20 mg PO DAILY 07/27/18 oxyCODONE HCL [Roxicodone -] 5 mg PO Q6H PRN #10 tablet MDD 3 08/04/18 Family Disease History - Family Disease History Family Disease History: Heart Disease: Father (), Brother, [place]: Mother ( colon - in [facility] now for tx, age 88) Review of Systems - Review of Systems Constitutional: reports: No Symptoms Eyes: reports: No Symptoms Cardiovascular: reports: No Symptoms Respiratory: reports: No Symptoms Gastrointestinal: reports: Abdominal Pain, Bloating, Nausea. denies: Rectal Bleeding, Vomiting Blood Musculoskeletal: reports: No Symptoms Neurological: reports: No Symptoms Hematology/Lymphatic: reports: No Symptoms Physical Exam-GI Vital Signs: Vital Signs Temperature 98.8 F 08/11/18 07:05 Pulse Rate 64 08/11/18 07:05 Respiratory Rate 20 08/11/18 07:05 Blood Pressure 126/60 08/11/18 07:05 O2 Sat by Pulse Oximetry (%) 97 08/09/18 07:49 Constitutional: Yes: Well Nourished, No Distress Eyes: Yes: Conjunctiva Clear HENT: Yes: Atraumatic, Normocephalic Cardiovascular: Yes: Regular Rate and Rhythm Respiratory: Yes: CTA Bilaterally Gastrointestinal Inspection: Yes: Other (healing laparoscopy sites, RLQ incision with satinder, c/d/i) ...Palpate: Yes: Tenderness, Epigastium. No: Tenderness, Rebound ...Percussion: Yes: Tympanitic ...Rectal Exam: Yes: Deferred Edema: No Wound/Incision: Yes: Clean/Dry, Well Approximated Neurological: Yes: Oriented Labs: CBC, BMP 08/11/18 06:27 08/11/18 06:27 INR, PTT INR 1.03 (0.83-1.09) 08/08/18 20:21 Imaging - Results Cat Scan: Report Reviewed Assessment/Plan Small bowel obstruction, recently post-op, ? intra-abdominal abscesses Seemed to be improving until last night/today, patient reporting pain and nausea with clear liquid intake Agree with trial of simethicone Serial abdominal exams OOB to chair, PT If no significant improvement over the next 72 hours, consider repeat CT to assess for worsening abscesses, ? if anything to be drained
--- NOTE | 2018-08-12 07:49 | PN ---
Progress Note, Physician Chief Complaint: AWAKE ALERT +BM LAST NIGHT DENIES HEMATOCHEZIA NO FEVER NO CHILLS +BLOATING - Current Medication List Current Medications: Active Medications Acetaminophen (Ofirmev Injection -) 1,000 mg IVPB Q6H PRN PRN Reason: PAIN LEVEL 6-10 Last Admin: 08/10/18 20:30 Dose: 1,000 mg Heparin Sodium (Porcine) (Heparin -) 5,000 unit SQ BID [facility] Last Admin: 08/11/18 22:51 Dose: 5,000 unit Dextrose/Sodium Chloride (D5-1/2ns -) 1,000 mls @ 60 mls/hr IV ASDIR [facility] Last Admin: 08/11/18 18:48 Dose: Not Given Ertapenem 1 gm/ Sodium (Chloride) 50 mls @ 100 mls/hr IVPB DAILY [facility] Last Admin: 08/11/18 10:51 Dose: 100 mls/hr Morphine Sulfate (Morphine Sulfate) 2 mg IVPUSH Q4H PRN PRN Reason: PAIN LEVEL 7 - 10 Last Admin: 08/11/18 17:46 Dose: 2 mg Ondansetron HCl (Zofran Injection) 4 mg IVPUSH Q6H PRN PRN Reason: NAUSEA AND/OR VOMITING Last Admin: 08/10/18 15:07 Dose: 4 mg Pantoprazole Sodium (Protonix Iv) 40 mg IVPUSH DAILY [facility] Last Admin: 08/11/18 09:57 Dose: 40 mg Polyethylene Glycol (Miralax (For Daily Use) -) 17 gm PO DAILY [facility] Last Admin: 08/11/18 10:52 Dose: 17 gm Potassium Chloride (K-Dur -) 10 meq PO DAILY [facility] Sertraline HCl (Zoloft -) 25 mg PO DAILY [facility] Last Admin: 08/11/18 10:01 Dose: 25 mg Simethicone (Mylicon -) 80 mg PO Q4H [facility] - Objective Vital Signs: Vital Signs Temperature 98.1 F 08/12/18 06:00 Pulse Rate 71 08/12/18 06:00 Respiratory Rate 20 08/12/18 06:00 Blood Pressure 131/67 08/12/18 06:00 O2 Sat by Pulse Oximetry (%) 97 08/09/18 07:49 Constitutional: Yes: Mild Distress Eyes: Yes: WNL HENT: Yes: WNL Neck: Yes: WNL Cardiovascular: Yes: WNL Respiratory: Yes: WNL Gastrointestinal: Yes: Soft, Distention Genitourinary: Yes: WNL Musculoskeletal: Yes: WNL Extremities: Yes: WNL Edema: No Peripheral Pulses WNL: Yes Integumentary: Yes: WNL Wound/Incision: Yes: Clean/Dry Neurological: Yes: WNL ...Motor Strength: WNL Psychiatric: Yes: WNL Labs: CBC, BMP 08/11/18 06:27 08/11/18 06:27 INR, PTT INR 1.03 (0.83-1.09) 08/08/18 20:21 Problem List - Problems (1) Abdominal pain Code(s): R10.9 - UNSPECIFIED ABDOMINAL PAIN Qualifiers: Abdominal location: generalized Qualified Code(s): R10.84 - Generalized abdominal pain (2) Fibromyalgia Code(s): M79.7 - FIBROMYALGIA (3) GERD (gastroesophageal reflux disease) Code(s): K21.9 - GASTRO-ESOPHAGEAL REFLUX DISEASE WITHOUT ESOPHAGITIS (4) Hypokalemia Code(s): E87.6 - HYPOKALEMIA (5) LLQ abdominal pain Code(s): R10.32 - LEFT LOWER QUADRANT PAIN (6) SBO (small bowel obstruction) Code(s): K56.609 - UNSP INTESTNL OBST, UNSP TO PARTIAL VERSUS COMPLETE OBST (7) Surgical abdomen Code(s): R10.0 - ACUTE ABDOMEN Assessment/Plan SURGICAL EVAL APPRECIATED BY [employer] ASK DR BRAUN GO TO SEE PATIENT (SURGEON ON RECORD) NGT DISCONTINUED FOR BOWEL DECOMPRESSION PAIN MEDS CHANGE TO PO CLEAR LIQUIDS ADVANCE TO FULL LIQUID PER SURGERY ID F/U ON ABX ERTAPENEM OOB TO CHAIR STARTING ANTIDEPRESSANT ZOLOFT 25MG DAILY SIMETHICONE PO
[2018-08-12] MEDS: DEXTROSE 5%-0.45% SALINE 1,000 ML IV SCH (08:00)
[2018-08-12] MEDS ORDERED: SIMETHICONE 80 MG TAB.CHEW (FP) PO SCH (08:00)
[2018-08-12] MEDS ORDERED: PT OWN MED DRAWER 7, Y5N ONE (08:30)
[2018-08-12] MEDS: ACETAMINOPHEN 1000 MG/100 ML VIAL (NON FORMULARY) IVPB PRN ×2 (08:51→21:43)
[2018-08-12] MEDS: SIMETHICONE 80 MG TAB.CHEW (FP) PO SCH ×4 (08:52→23:22)
[2018-08-12] MEDS: ERTAPENEM SODIUM 1 GM in SODIUM CHLORIDE 50 ML IVPB SCH (09:26)
[2018-08-12] MEDS: POTASSIUM CHLORIDE TABS 10 MEQ TABLET.ER (FP) PO SCH (09:28)
[2018-08-12] MEDS: PANTOPRAZOLE SODIUM 40 MG VIAL IVPUSH SCH (09:28)
[2018-08-12] MEDS: HEPARIN NA (PORCINE) 5,000 UNITS/ML 1ML VIAL SQ SCH ×2 (09:28→21:43)
[2018-08-12] MEDS: SERTRALINE HCL 25 MG TABLET (FP) PO SCH (09:29)
[2018-08-12] MEDS: POLYETHYLENE GLYCOL 3350 119 GM BTL PO SCH (10:44)
--- NOTE | 2018-08-12 11:05 | CONSULT ---
Consult Consult Specialty:: Surgery Reason for Consultation:: Intestinal obstruction , post operative. - History of Present Illness History of Present Illness: Called this morning , covering for Dr. Franklin Postop . s/p laparoscopic assiste low anterior resection , on 07/31/2018. Post op day11. Says she had a small bowel movement yesterday , but is unable to eat. She is nauseous, - History Source History Provided By: Patient - Past Medical History Gastrointestinal: Yes: Constipation, Diverticulitis, Diverticulosis, Irritable Bowel Disease Musculoskeletal: Yes: Osteoarthritis Rheumatology: Yes: Fibromyalgia - Past Surgical History Past Surgical History: Yes: AAA Repair, Carotid Endarterectomy, Colonoscopy ( last 12/11/16 - found pandiverticulosis only), Colostomy (ileostomy), Hysterectomy, Tubal Ligation - Alcohol/Substance Use Hx Alcohol Use: No History of Substance Use: reports: None - Smoking History Smoking history: Never smoked Have you smoked in the past 12 months: No - Social History Usual Living Arrangement: Other ADL: Independent History of Recent Travel: No Home Medications - Allergies Allergies/Adverse Reactions: Allergies Allergy/AdvReac Type Severity Reaction Status Date / Time No Known Drug Allergies Allergy Verified 08/08/18 19:11 - Home Medications Home Medications: Ambulatory Orders Omeprazole 20 mg PO DAILY 07/27/18 oxyCODONE HCL [Roxicodone -] 5 mg PO Q6H PRN #10 tablet MDD 3 08/04/18 Family Disease History - Family Disease History Family Disease History: Heart Disease: Father (), Brother, [place]: Mother ( colon - in [facility] now for dc, age 88) Physical Exam Vital Signs: Vital Signs Temperature 98.1 F 08/12/18 06:00 Pulse Rate 71 08/12/18 06:00 Respiratory Rate 20 08/12/18 06:00 Blood Pressure 131/67 08/12/18 06:00 O2 Sat by Pulse Oximetry (%) 97 08/09/18 07:49 Gastrointestinal: Yes: Other (mildly tender, not focal, no wound infection, Gwendolyn intact.) Labs: CBC, BMP 08/11/18 06:27 08/11/18 06:27 Imaging - Results X-ray: Report Reviewed (Small intestinal obstruction), Image Reviewed Problem List - Problems (1) Postoperative intestinal obstruction Code(s): K91.30 - POSTPROC INTESTINAL OBST, UNSP TO PARTIAL VERSUS COMPLETE Qualifiers: Intestinal obstruction extent: partial Qualified Code(s): K91.31 - Postprocedural partial intestinal obstruction Assessment/Plan patient was explained, that she has intestinal obstruction and needs NG tube placed , with drainage of air and intestinal contents. Follow up abdominal X- ray. repeat labs.
--- NOTE | 2018-08-12 12:55 | PN.GI ---
GI Progress Note Subjective: No vomiting today CT on admission c/w distal SBO and fluid collection near surgical site. Evaluated by surgery Dr. Nesbitt today. AXR performed today. Small BM this monring - Objective Vital Signs: Vital Signs Temperature 98.1 F 08/12/18 06:00 Pulse Rate 71 08/12/18 06:00 Respiratory Rate 20 08/12/18 06:00 Blood Pressure 131/67 08/12/18 06:00 O2 Sat by Pulse Oximetry (%) 97 08/09/18 07:49 Constitutional: Calm Eyes: No: Sclera Icterus Cardiovascular: Yes: Regular Rate and Rhythm. No: Murmur Respiratory: Yes: CTA Bilaterally Gastrointestinal Inspection: Yes: Scars (rlq surgical scar with satinder). No: Distention ...Auscultate: Yes: Normoactive Bowel Sounds ...Palpate: Yes: Tenderness (mild TTP lower abdomen) ...Percussion: No: Tympanitic Edema: No (No LE edemaq) Neurological: Yes: Alert Labs: CBC, BMP 08/11/18 06:27 08/11/18 06:27 INR, PTT INR 1.03 (0.83-1.09) 08/08/18 20:21 - ....Imaging X-ray: Image Reviewed (dilated small bowel loops. Not read yet) Problem List - Problems (1) SBO (small bowel obstruction) Assessment/Plan: Patient being followed by surgery Follow-up AXR and surgery recommendations Code(s): K56.609 - UNSP INTESTNL OBST, UNSP TO PARTIAL VERSUS COMPLETE OBST
[2018-08-13] MEDS: SIMETHICONE 80 MG TAB.CHEW (FP) PO SCH ×6 (03:14→22:11)
[2018-08-13] MEDS ORDERED: PT OWN MED DRAWER 7, Y5N ONE ×2 (06:24→22:20)
[2018-08-13 06:56] LABS: CALCIUM 8.5 mg/dL (8.5-10.1); CREATININE 0.3 mg/dL (0.55-1.3); MAGNESIUM 2.3 mg/dL (1.8-2.4); POTASSIUM 3.2 mmol/L (3.5-5.1)
[2018-08-13 07:04] LABS: BLOOD UREA NITROGEN 2.2 mg/dL (7-18)
[2018-08-13 09:28] LABS: HEMATOCRIT 32.7 % (32.4-45.2); HEMOGLOBIN 10.9 GM/dL (10.7-15.3); MCH 30.8 pg (25.7-33.7); MCHC 33.3 g/dl (32.0-36.0); MEAN CELL VOLUME 92.5 fl (80-96); MEAN PLT VOLUME 7.4 fl (7.5-11.1); PLATELET COUNT 750 K/MM3 (134-434); RBC 3.53 M/mm3 (3.60-5.2); RDW 13.2 % (11.6-15.6); WHITE BLOOD COUNT 5.7 K/mm3 (4.0-10.0)
[2018-08-13] MEDS: DEXTROSE 5%-0.45% SALINE 1,000 ML IV SCH (09:47)
[2018-08-13] MEDS: ERTAPENEM SODIUM 1 GM in SODIUM CHLORIDE 50 ML IVPB SCH (09:48)
[2018-08-13] MEDS: POTASSIUM CHLORIDE TABS 10 MEQ TABLET.ER (FP) PO SCH (09:48)
[2018-08-13] MEDS: HEPARIN NA (PORCINE) 5,000 UNITS/ML 1ML VIAL SQ SCH ×2 (09:48→22:10)
[2018-08-13] MEDS: SERTRALINE HCL 25 MG TABLET (FP) PO SCH (09:49)
[2018-08-13] MEDS: PANTOPRAZOLE SODIUM 40 MG VIAL IVPUSH SCH (09:49)
--- NOTE | 2018-08-13 09:53 | PN ---
Progress Note, Physician Chief Complaint: AWAKE ALERT DENIES FEVER/NAUSEA OR VOMITING - Current Medication List Current Medications: Active Medications Heparin Sodium (Porcine) (Heparin -) 5,000 unit SQ BID [facility] Last Admin: 08/13/18 09:48 Dose: 5,000 unit Dextrose/Sodium Chloride (D5-1/2ns -) 1,000 mls @ 60 mls/hr IV ASDIR [facility] Last Admin: 08/13/18 09:47 Dose: Not Given Ertapenem 1 gm/ Sodium (Chloride) 50 mls @ 100 mls/hr IVPB DAILY [facility] Last Admin: 08/13/18 09:48 Dose: 100 mls/hr Potassium Chloride (Potassium Chloride 10 Meq Premix Ivpb -) 10 meq in 100 mls @ 100 mls/hr IVPB Q60M [facility] Stop: 08/13/18 10:59 Ondansetron HCl (Zofran Injection) 4 mg IVPUSH Q6H PRN PRN Reason: NAUSEA AND/OR VOMITING Last Admin: 08/10/18 15:07 Dose: 4 mg Pantoprazole Sodium (Protonix Iv) 40 mg IVPUSH DAILY [facility] Last Admin: 08/13/18 09:49 Dose: 40 mg Potassium Chloride (K-Dur -) 10 meq PO DAILY [facility] Last Admin: 08/13/18 09:48 Dose: 10 meq Sertraline HCl (Zoloft -) 25 mg PO DAILY [facility] Last Admin: 08/13/18 09:49 Dose: 25 mg Simethicone (Mylicon -) 80 mg PO Q4HPO [facility] Last Admin: 08/13/18 09:48 Dose: 80 mg - Objective Vital Signs: Vital Signs Temperature 98.2 F 08/13/18 06:00 Pulse Rate 69 08/13/18 06:00 Respiratory Rate 18 08/13/18 06:00 Blood Pressure 138/74 08/13/18 06:00 O2 Sat by Pulse Oximetry (%) 97 08/09/18 07:49 Constitutional: Yes: Mild Distress Eyes: Yes: WNL HENT: Yes: WNL Neck: Yes: WNL Cardiovascular: Yes: Regular Rate and Rhythm Respiratory: Yes: WNL Gastrointestinal: Yes: Tenderness Genitourinary: Yes: WNL Musculoskeletal: Yes: WNL Extremities: Yes: WNL Edema: No Integumentary: Yes: WNL Wound/Incision: Yes: Clean/Dry Neurological: Yes: WNL ...Motor Strength: WNL Psychiatric: Yes: WNL Labs: CBC, BMP 08/13/18 05:37 08/13/18 05:37 INR, PTT INR 1.03 (0.83-1.09) 08/08/18 20:21 Problem List - Problems (1) Abdominal pain Code(s): R10.9 - UNSPECIFIED ABDOMINAL PAIN Qualifiers: Abdominal location: generalized Qualified Code(s): R10.84 - Generalized abdominal pain (2) Fibromyalgia Code(s): M79.7 - FIBROMYALGIA (3) GERD (gastroesophageal reflux disease) Code(s): K21.9 - GASTRO-ESOPHAGEAL REFLUX DISEASE WITHOUT ESOPHAGITIS (4) Hypokalemia Code(s): E87.6 - HYPOKALEMIA (5) LLQ abdominal pain Code(s): R10.32 - LEFT LOWER QUADRANT PAIN (6) SBO (small bowel obstruction) Code(s): K56.609 - UNSP INTESTNL OBST, UNSP TO PARTIAL VERSUS COMPLETE OBST (7) Surgical abdomen Code(s): R10.0 - ACUTE ABDOMEN Assessment/Plan GI ABD SURGERY NOTE REVIEWED NPO IVF REFUSING NGT REPEAT ABD XRAY IN AM DVT PROPHYLAXIS
[2018-08-13] MEDS ORDERED: KCL 10 MEQ IVPB 10 MEQ/100 ML INFUS.BAG IVPB SCH (10:30)
[2018-08-13] MEDS: D5-1/2NS+10 MEQ KCL - 10 MEQ/1,000 ML INFUS.BAG IV SCH (12:42)
--- NOTE | 2018-08-13 13:02 | PN ---
Progress Note, Physician - Current Medication List Current Medications: Active Medications Heparin Sodium (Porcine) (Heparin -) 5,000 unit SQ BID [facility] Last Admin: 08/13/18 09:48 Dose: 5,000 unit Ertapenem 1 gm/ Sodium (Chloride) 50 mls @ 100 mls/hr IVPB DAILY [facility] Last Admin: 08/13/18 09:48 Dose: 100 mls/hr Potassium Chloride/Dextrose/Sod Cl (D5-1/2ns+10 Meq Kcl -) 10 meq in 1,000 mls @ 60 mls/hr IV ASDIR [facility] Last Admin: 08/13/18 12:42 Dose: 60 mls/hr Ondansetron HCl (Zofran Injection) 4 mg IVPUSH Q6H PRN PRN Reason: NAUSEA AND/OR VOMITING Last Admin: 08/10/18 15:07 Dose: 4 mg Pantoprazole Sodium (Protonix Iv) 40 mg IVPUSH DAILY [facility] Last Admin: 08/13/18 09:49 Dose: 40 mg Potassium Chloride (K-Dur -) 10 meq PO DAILY [facility] Last Admin: 08/13/18 09:48 Dose: 10 meq Sertraline HCl (Zoloft -) 25 mg PO DAILY [facility] Last Admin: 08/13/18 09:49 Dose: 25 mg Simethicone (Mylicon -) 80 mg PO Q4HPO [facility] Last Admin: 08/13/18 09:48 Dose: 80 mg - Objective Vital Signs: Vital Signs Temperature 98.2 F 08/13/18 06:00 Pulse Rate 69 08/13/18 06:00 Respiratory Rate 18 08/13/18 06:00 Blood Pressure 138/74 08/13/18 06:00 O2 Sat by Pulse Oximetry (%) 97 08/09/18 07:49 Labs: CBC, BMP 08/13/18 05:37 08/13/18 05:37 INR, PTT INR 1.03 (0.83-1.09) 08/08/18 20:21 Problem List - Problems (1) Postoperative intestinal obstruction Code(s): K91.30 - POSTPROC INTESTINAL OBST, UNSP TO PARTIAL VERSUS COMPLETE Qualifiers: Intestinal obstruction extent: partial Qualified Code(s): K91.31 - Postprocedural partial intestinal obstruction Assessment/Plan Surgery: patient still feels "gassy" , with some abdominal pain. Abdomen is soft , mildly distended. Abdominal x-ray still shows signs of intestinal obstruction with some air in the colon. patient and her daughter , were informed and made aware of the presence of small intestinal obstruction , and treatment with nasogastric tube placement , and decompression of the bowel , in treatment and possible relief of intestinal obstruction. She has refused NG decompression. Disscussed with the primary team.\\ Continue NPO, and follow up abdominal X- ray.
--- NOTE | 2018-08-13 17:33 | PN.GI ---
GI Progress Note Subjective: feeling better - denies abdominal pain ; she has been having multiple bowel movements today and +flatuce. no nausea or vomiting - Objective Vital Signs: Vital Signs Temperature 98.5 F 08/13/18 17:13 Pulse Rate 74 08/13/18 17:13 Respiratory Rate 18 08/13/18 17:13 Blood Pressure 128/62 08/13/18 17:13 O2 Sat by Pulse Oximetry (%) 98 08/13/18 09:00 Constitutional: Well Nourished, No Distress, Calm Eyes: Yes: WNL HENT: Yes: WNL Neck: Yes: WNL Cardiovascular: Yes: Regular Rate and Rhythm Respiratory: Yes: Regular, CTA Bilaterally Gastrointestinal Inspection: Yes: WNL ...Auscultate: Yes: Normoactive Bowel Sounds ...Palpate: Yes: Other (not tender) Extremities: Yes: WNL Edema: No Labs: CBC, BMP 08/13/18 05:37 08/13/18 05:37 INR, PTT INR 1.03 (0.83-1.09) 08/08/18 20:21 Problem List - Problems (1) Abdominal pain Assessment/Plan: axr reviewed - resolving sbo clinically and on imaging study REC: trial of clear liquid diet replete electrolytes ; monitor chemistry ambulate avoid narcotics monitor abdominal exam will f/u Code(s): R10.9 - UNSPECIFIED ABDOMINAL PAIN Qualifiers: Abdominal location: generalized Qualified Code(s): R10.84 - Generalized abdominal pain
[2018-08-14] MEDS: SIMETHICONE 80 MG TAB.CHEW (FP) PO SCH ×6 (01:53→21:37)
[2018-08-14 07:40] LABS: CALCIUM 8.4 mg/dL (8.5-10.1); CREATININE 0.3 mg/dL (0.55-1.3); POTASSIUM 3.3 mmol/L (3.5-5.1)
[2018-08-14 07:47] LABS: BLOOD UREA NITROGEN 1.9 mg/dL (7-18)
--- NOTE | 2018-08-14 09:21 | PN ---
Progress Note, Physician - Current Medication List Current Medications: Active Medications Heparin Sodium (Porcine) (Heparin -) 5,000 unit SQ BID [facility] Last Admin: 08/13/18 22:10 Dose: 5,000 unit Ertapenem 1 gm/ Sodium (Chloride) 50 mls @ 100 mls/hr IVPB DAILY [facility] Last Admin: 08/13/18 09:48 Dose: 100 mls/hr Potassium Chloride/Dextrose/Sod Cl (D5-1/2ns+10 Meq Kcl -) 10 meq in 1,000 mls @ 60 mls/hr IV ASDIR [facility] Last Admin: 08/13/18 12:42 Dose: 60 mls/hr Ondansetron HCl (Zofran Injection) 4 mg IVPUSH Q6H PRN PRN Reason: NAUSEA AND/OR VOMITING Last Admin: 08/10/18 15:07 Dose: 4 mg Pantoprazole Sodium (Protonix Iv) 40 mg IVPUSH DAILY [facility] Last Admin: 08/13/18 09:49 Dose: 40 mg Potassium Chloride (K-Dur -) 10 meq PO DAILY [facility] Last Admin: 08/13/18 09:48 Dose: 10 meq Sertraline HCl (Zoloft -) 25 mg PO DAILY [facility] Last Admin: 08/13/18 09:49 Dose: 25 mg Simethicone (Mylicon -) 80 mg PO Q4HPO [facility] Last Admin: 08/14/18 05:41 Dose: 80 mg - Objective Vital Signs: Vital Signs Temperature 98.2 F 08/14/18 05:00 Pulse Rate 63 08/14/18 05:00 Respiratory Rate 18 08/14/18 05:00 Blood Pressure 138/73 08/14/18 05:00 O2 Sat by Pulse Oximetry (%) 98 08/13/18 21:00 Labs: CBC, BMP 08/13/18 05:37 08/14/18 06:00 INR, PTT INR 1.03 (0.83-1.09) 08/08/18 20:21 Problem List - Problems (1) Postoperative intestinal obstruction Code(s): K91.30 - POSTPROC INTESTINAL OBST, UNSP TO PARTIAL VERSUS COMPLETE Qualifiers: Intestinal obstruction extent: partial Qualified Code(s): K91.31 - Postprocedural partial intestinal obstruction Assessment/Plan Surgery: Patient is feeling better , has no abdominal pain. She has had a few episodes of diarrhea (4). Abdomen is soft, probably relieved of intestinal obstruction , clinically. She is on her way to abdominal X-ray. She has tolerated liquids.
[2018-08-14] MEDS: ERTAPENEM SODIUM 1 GM in SODIUM CHLORIDE 50 ML IVPB SCH (10:19)
[2018-08-14] MEDS: HEPARIN NA (PORCINE) 5,000 UNITS/ML 1ML VIAL SQ SCH ×2 (10:20→21:37)
[2018-08-14] MEDS: D5-1/2NS+10 MEQ KCL - 10 MEQ/1,000 ML INFUS.BAG IV SCH (10:20)
[2018-08-14] MEDS: POTASSIUM CHLORIDE TABS 10 MEQ TABLET.ER (FP) PO SCH (10:20)
[2018-08-14] MEDS: SERTRALINE HCL 25 MG TABLET (FP) PO SCH (10:20)
[2018-08-14] MEDS: PANTOPRAZOLE SODIUM 40 MG VIAL IVPUSH SCH (10:20)
--- NOTE | 2018-08-14 10:27 | PN ---
Progress Note, Physician Chief Complaint: AWAKE ALERT FEELING BETTER +DIARRHEA NOT EATING SOLID FOOD XRAY RESULTS TODAY PENDING - Current Medication List Current Medications: Active Medications Heparin Sodium (Porcine) (Heparin -) 5,000 unit SQ BID [facility] Last Admin: 08/14/18 10:20 Dose: 5,000 unit Ertapenem 1 gm/ Sodium (Chloride) 50 mls @ 100 mls/hr IVPB DAILY [facility] Last Admin: 08/14/18 10:19 Dose: 100 mls/hr Potassium Chloride/Dextrose/Sod Cl (D5-1/2ns+10 Meq Kcl -) 10 meq in 1,000 mls @ 60 mls/hr IV ASDIR [facility] Last Admin: 08/14/18 10:20 Dose: 60 mls/hr Potassium Chloride (Potassium Chloride 10 Meq Premix Ivpb -) 10 meq in 100 mls @ 100 mls/hr IVPB Q60M [facility] Stop: 08/14/18 11:29 Ondansetron HCl (Zofran Injection) 4 mg IVPUSH Q6H PRN PRN Reason: NAUSEA AND/OR VOMITING Last Admin: 08/10/18 15:07 Dose: 4 mg Pantoprazole Sodium (Protonix Iv) 40 mg IVPUSH DAILY [facility] Last Admin: 08/14/18 10:20 Dose: 40 mg Potassium Chloride (K-Dur -) 10 meq PO DAILY [facility] Last Admin: 08/14/18 10:20 Dose: 10 meq Sertraline HCl (Zoloft -) 25 mg PO DAILY [facility] Last Admin: 08/14/18 10:20 Dose: 25 mg Simethicone (Mylicon -) 80 mg PO Q4HPO [facility] Last Admin: 08/14/18 10:20 Dose: 80 mg - Objective Vital Signs: Vital Signs Temperature 98.2 F 08/14/18 05:00 Pulse Rate 63 08/14/18 05:00 Respiratory Rate 18 08/14/18 05:00 Blood Pressure 138/73 08/14/18 05:00 O2 Sat by Pulse Oximetry (%) 98 08/13/18 21:00 Constitutional: Yes: Mild Distress Eyes: Yes: WNL HENT: Yes: WNL Neck: Yes: WNL Cardiovascular: Yes: Regular Rate and Rhythm Respiratory: Yes: WNL Gastrointestinal: Yes: Soft Genitourinary: Yes: WNL Musculoskeletal: Yes: WNL Edema: No Peripheral Pulses WNL: Yes Integumentary: Yes: WNL Wound/Incision: Yes: Clean/Dry Neurological: Yes: WNL ...Motor Strength: WNL Psychiatric: Yes: WNL Labs: CBC, BMP 08/13/18 05:37 08/14/18 06:00 INR, PTT INR 1.03 (0.83-1.09) 08/08/18 20:21 Problem List - Problems (1) Abdominal pain Code(s): R10.9 - UNSPECIFIED ABDOMINAL PAIN Qualifiers: Abdominal location: generalized Qualified Code(s): R10.84 - Generalized abdominal pain (2) Fibromyalgia Code(s): M79.7 - FIBROMYALGIA (3) GERD (gastroesophageal reflux disease) Code(s): K21.9 - GASTRO-ESOPHAGEAL REFLUX DISEASE WITHOUT ESOPHAGITIS (4) Hypokalemia Code(s): E87.6 - HYPOKALEMIA (5) LLQ abdominal pain Code(s): R10.32 - LEFT LOWER QUADRANT PAIN (6) SBO (small bowel obstruction) Code(s): K56.609 - UNSP INTESTNL OBST, UNSP TO PARTIAL VERSUS COMPLETE OBST (7) Surgical abdomen Code(s): R10.0 - ACUTE ABDOMEN Assessment/Plan ADVANCE TO FULL LIQUID LACTOSE FREE DIET MONITOR LABS CORRECT KCL OOB TO CHAIR SURGERY F/U APPRECIATED CHANGE MEDS TO PO IMPROVING DAILY
[2018-08-14] MEDS ORDERED: POTASSIUM CHLORIDE TABS 20 MEQ TABLET.ER (FP) PO SCH (10:28)
[2018-08-14] MEDS ORDERED: KCL 10 MEQ IVPB 10 MEQ/100 ML INFUS.BAG IVPB SCH (10:30)
--- NOTE | 2018-08-14 14:21 | PN ---
Progress Note, Physician History of Present Illness: AWAKE , ALERT IN BED NO C/O ABDOMINAL PAIN TOLERATING DIET LOOSE STOOL REPORTED AFEBRILE WBC WNL - Current Medication List Current Medications: Active Medications Heparin Sodium (Porcine) (Heparin -) 5,000 unit SQ BID [facility] Last Admin: 08/14/18 10:20 Dose: 5,000 unit Potassium Chloride/Dextrose/Sod Cl (D5-1/2ns+10 Meq Kcl -) 10 meq in 1,000 mls @ 60 mls/hr IV ASDIR [facility] Last Admin: 08/14/18 10:20 Dose: 60 mls/hr Ondansetron HCl (Zofran Injection) 4 mg IVPUSH Q6H PRN PRN Reason: NAUSEA AND/OR VOMITING Last Admin: 08/10/18 15:07 Dose: 4 mg Potassium Chloride (K-Dur -) 20 meq PO DAILY [facility] Ranitidine HCl (Zantac -) 150 mg PO BID [facility] Sertraline HCl (Zoloft -) 25 mg PO DAILY [facility] Last Admin: 08/14/18 10:20 Dose: 25 mg Simethicone (Mylicon -) 80 mg PO Q4HPO [facility] Last Admin: 08/14/18 10:20 Dose: 80 mg - Objective Vital Signs: Vital Signs Temperature 98.4 F 08/14/18 11:00 Pulse Rate 70 08/14/18 11:00 Respiratory Rate 18 08/14/18 11:00 Blood Pressure 137/64 08/14/18 11:00 O2 Sat by Pulse Oximetry (%) 98 08/14/18 09:00 Constitutional: Yes: No Distress Eyes: Yes: Conjunctiva Clear Cardiovascular: Yes: Regular Rate and Rhythm, S1, S2 Respiratory: Yes: CTA Bilaterally Gastrointestinal: Yes: Normal Bowel Sounds, Soft, Other (SURGICAL WOUND WITH BING IN PLACE). No: Tenderness Edema: No Labs: CBC, BMP 08/13/18 05:37 08/14/18 06:00 INR, PTT INR 1.03 (0.83-1.09) 08/08/18 20:21 Assessment/Plan RECURRENT BOWEL OBSTRUCTION RESOLVED AFEBRILE, NORMAL WBC BC (-) CT SCAN REVIEWED WITH RADIOLOGIST FLUID COLLECTIONS LIKELY REPRESENT POST OPERATIVE SEROMAS OBSERVE OFF ANTIBIOTICS
--- NOTE | 2018-08-14 17:36 | PN.GI ---
GI Progress Note Subjective: Comaplains of diarrhea No vomiting AXR: improved appearance of bowel loops - Objective Vital Signs: Vital Signs Temperature 98.7 F 08/14/18 17:03 Pulse Rate 69 08/14/18 17:03 Respiratory Rate 18 08/14/18 17:03 Blood Pressure 118/79 08/14/18 17:03 O2 Sat by Pulse Oximetry (%) 98 08/14/18 09:00 Constitutional: Calm Eyes: No: Sclera Icterus Cardiovascular: Yes: Regular Rate and Rhythm Respiratory: Yes: CTA Bilaterally Gastrointestinal Inspection: Yes: Scars (RLQ scar with satinder). No: Distention ...Auscultate: Yes: Normoactive Bowel Sounds ...Palpate: Yes: Soft, Tenderness (Tenderness at incision site) ...Percussion: No: Tympanitic Edema: No (No LE edema) Neurological: Yes: Alert Labs: CBC, BMP 08/13/18 05:37 08/14/18 06:00 INR, PTT INR 1.03 (0.83-1.09) 08/08/18 20:21 Hepatic Panel Total Bilirubin 0.4 mg/dL (0.2-1) 08/10/18 07:15 AST 10 U/L (15-37) L 08/10/18 07:15 ALT 9 U/L (13-61) L 08/10/18 07:15 Alkaline Phosphatase 79 U/L (45-117) 08/10/18 07:15 Albumin 2.6 g/dl (3.4-5.0) L 08/10/18 07:15 Problem List - Problems (1) SBO (small bowel obstruction) Assessment/Plan: Clinically improved Loos BM's likely representing resolving SBO. If continued diarrhea, Stool for C. Diff Diet as tolerated / as per surgery Recall as needed. Will sign off Code(s): K56.609 - UNSP INTESTNL OBST, UNSP TO PARTIAL VERSUS COMPLETE OBST
[2018-08-14] MEDS: RANITIDINE HCL 150 MG TABLET (FP) PO SCH (21:37)
[2018-08-15] MEDS: SIMETHICONE 80 MG TAB.CHEW (FP) PO SCH ×6 (02:28→18:19)
[2018-08-15] MEDS: D5-1/2NS+10 MEQ KCL - 10 MEQ/1,000 ML INFUS.BAG IV SCH (05:44)
[2018-08-15 07:49] LABS: CALCIUM 8.5 mg/dL (8.5-10.1); CREATININE 0.3 mg/dL (0.55-1.3); MAGNESIUM 2.1 mg/dL (1.8-2.4); POTASSIUM 3.3 mmol/L (3.5-5.1)
[2018-08-15 07:59] LABS: BLOOD UREA NITROGEN 2.1 mg/dL (7-18)
[2018-08-15] MEDS ORDERED: POTASSIUM CHLORIDE TABS 20 MEQ TABLET.ER (FP) PO ONE (09:00)
--- NOTE | 2018-08-15 10:09 | DS ---
Physical Examination Vital Signs: Vital Signs Temperature 98.8 F 08/15/18 06:49 Pulse Rate 80 08/15/18 06:49 Respiratory Rate 20 08/15/18 06:49 Blood Pressure 164/80 08/15/18 06:49 O2 Sat by Pulse Oximetry (%) 98 08/14/18 21:00 Findings/Remarks: awake alert feeling better Constitutional: Yes: No Distress Eyes: Yes: WNL HENT: Yes: WNL Neck: Yes: WNL Cardiovascular: Yes: WNL Respiratory: Yes: WNL Gastrointestinal: Yes: WNL ...Rectal Exam: Yes: WNL Renal/: Yes: WNL Musculoskeletal: Yes: WNL Extremities: Yes: WNL Edema: No Peripheral Pulses WNL: Yes Integumentary: Yes: WNL Wound/Incision: Yes: Clean/Dry Neurological: Yes: WNL ...Motor Strength: WNL Psychiatric: Yes: WNL Labs: CBC, BMP 08/13/18 05:37 08/15/18 06:51 Discharge Summary Reason For Visit: SMALL BOWEL OBSTRUCTION Current Active Problems Abdominal pain (Acute) Postoperative intestinal obstruction (Acute) Procedures: Principal: ct scan/xrays Hospital Course: acute on chronic sbo, treated with supportive care, npo, ivf, meds, replaced electrolytes, feels better tolerating meals Condition: Good - Instructions Diet, Activity, Other Instructions: see dr tony bhatia 1 week lactose free diet Referrals: Rivera Willingham MD [Primary Care Provider] - Disposition: HOME - Home Medications Comprehensive Discharge Medication List: Ambulatory Orders Potassium Chloride [K-Dur -] 10 meq PO DAILY #10 tablet.er 08/15/18 Ranitidine [Zantac -] 150 mg PO BID #60 tablet 08/15/18 Sertraline HCl [Zoloft -] 25 mg PO DAILY #30 tablet 08/15/18 Simethicone [Mylicon -] 80 mg PO Q4HPO #90 tab.chew 08/15/18
[2018-08-15] MEDS ORDERED: PT OWN MED DRAWER 7, Y5N ONE (11:31)
[2018-08-15] MEDS: RANITIDINE HCL 150 MG TABLET (FP) PO SCH (11:47)
[2018-08-15] MEDS: SERTRALINE HCL 25 MG TABLET (FP) PO SCH (11:47)
[2018-08-15] MEDS: HEPARIN NA (PORCINE) 5,000 UNITS/ML 1ML VIAL SQ SCH (11:48)
[2018-08-15 17:28] VITALS: BP 130/74; PULSE 75; TEMP 98.3
== END 2018-08-15 19:12 | disposition home or self-care (01) | DRG 389 ==
LOC: JER 18:54 → JERBED 08-09 03:28 → J8W 08-09 09:52
PROVIDERS: ADMIT Family Medicine; ATTEND Family Medicine
DX: K91.31 Postprocedural partial intestinal obstruction (principal); K91.872 Postprocedural seroma of a digestive system organ or structure following a digestive system procedure; E87.6 Hypokalemia; Y83.9 Surgical procedure, unspecified as the cause of abnormal reaction of the patient, or of later complication, without mention of misadventure at the time of the procedure; K58.1 Irritable bowel syndrome with constipation; K21.9 Gastro-esophageal reflux disease without esophagitis; M79.7 Fibromyalgia; K57.30 Diverticulosis of large intestine without perforation or abscess without bleeding; D64.9 Anemia, unspecified; Z90.49 Acquired absence of other specified parts of digestive tract; Z93.2 Ileostomy status; M19.90 Unspecified osteoarthritis, unspecified site
CPT/HCPCS: 36415; 71045-TC-FY; 74018-TC-FY; 74019-TC-FY; 74177-TC; 80048; 80053; 81003; 82550; 83605; 83690; 83735; 84484; 85025; 85027; 85610; 86850; 86900; 86901; 87040; 93005; 93010; 99285-25; J0131; J1644; J7030

== ENCOUNTER 2020-04-19 21:55 | Emergency (ER) | payer OTHER ==
[2020-04-19 22:03] VITALS: BP 153/79; PULSE 85; TEMP 97.7; BMI 28.3
[2020-04-19] MEDS ORDERED: ONDANSETRON 4 MG/2 ML VIAL IVPUSH ONE (22:31)
[2020-04-19] MEDS ORDERED: ACETAMINOPHEN INJECTION 100 ML IVPB ONE (22:31)
[2020-04-19] MEDS ORDERED: ACETAMINOPHEN 1000 MG/100 ML VIAL (NON FORMULARY) IVPB ONE (22:31)
[2020-04-19] MEDS ORDERED: ONDANSETRON 4 MG/2 ML VIAL ONE (22:32)
[2020-04-19 22:39] LABS: BASO % 0.5 % (0-2.0); HEMATOCRIT 44.1 % (32.4-45.2); LYMPH % 7.2 % (8-40); MCH 31.5 pg (25.7-33.7); MCHC 34.1 g/dl (32.0-36.0); MEAN CELL VOLUME 92.4 fl (80-96); MEAN PLT VOLUME 7.9 fl (7.5-11.1); MONO % 4.9 % (3.8-10.2); NEUT % 87.4 % (42.8-82.8); PLATELET COUNT 394 K/MM3 (134-434); RBC 4.77 M/mm3 (3.60-5.2); RDW 12.7 % (11.6-15.6); WHITE BLOOD COUNT 16.6 K/mm3 (4.0-10.8)
[2020-04-19] MEDS ORDERED: LACTATED RINGERS SOLUTION 1,000 ML/1,000 ML INFUS.BAG IV STA (22:39)
[2020-04-19 22:49] LABS: EPITHELIAL CELLS FEW /hpf
[2020-04-19 22:52] LABS: BILIRUBIN,TOTAL 0.5 mg/dl (0.2-1); CALCIUM 9.3 mg/dl (8.5-10); CREATININE 0.6 mg/dl (0.55-1.3); TOT PROT 7.2 g/dl (6.4-8.2)
== END 2020-04-20 00:56 | disposition home or self-care (01) ==
LOC: FER 21:55
PROC: 3E0333Z Introduction of Anti-inflammatory into Peripheral Vein, Percutaneous Approach (ICD-10-PCS; principal; 2020-04-19)
PROC: 3E033GC Introduction of Other Therapeutic Substance into Peripheral Vein, Percutaneous Approach (ICD-10-PCS; 2020-04-19)
DX: R10.13 Epigastric pain (principal)
CPT/HCPCS: 36415; 74177-TC; 80053; 81003; 81015; 83690; 84484; 85025; 87086; 93005; 96374; 96375; 99285-25; C9803; J0131; Q9967; U0003

== ENCOUNTER 2020-10-28 04:37 | Day surgery (SDC) | payer OTHER ==
[2020-10-26 11:42] VITALS: BMI 29.2
[2020-10-28] MEDS ORDERED: BUPIVACAINE LIPOSOME/PF (EXPAREL) 266 MG/20 ML VIAL ONE (09:35)
[2020-10-28] MEDS ORDERED: BUPIVACAINE HCL/PF 0.5% (5MG/ML) 10 ML VIAL ONE (09:36)
[2020-10-28] MEDS ORDERED: MIDAZOLAM HCL 2 MG/2 ML SINGLE DOSE VIAL ONE ×3 (09:37→10:05)
[2020-10-28] MEDS ORDERED: ROCURONIUM BROMIDE 50 MG/5 ML SYRINGE ONE (10:05)
[2020-10-28] MEDS ORDERED: fentaNYL CITRATE 250 MCG/5 ML VIAL ONE (10:05)
[2020-10-28] MEDS ORDERED: PROPOFOL 20 ML ONE (10:05)
[2020-10-28] MEDS ORDERED: LIDOCAINE HCL/PF 2% SDV 5ML VIAL ONE (10:16)
[2020-10-28] MEDS ORDERED: ceFAZolin SODIUM 1 GM VIAL IVPB ONE (10:58)
[2020-10-28] MEDS ORDERED: GLYCOPYRROLATE 0.2 MG/1 ML VIAL ONE (12:36)
[2020-10-28] MEDS ORDERED: NEOSTIGMINE METHYLSULFATE 0.5 MG/ML - 10 ML MDV ONE (12:36)
[2020-10-28] MEDS ORDERED: ONDANSETRON 4 MG/2 ML VIAL IVPUSH PRN (13:12)
[2020-10-28] MEDS ORDERED: oxyCODONE HCL 5 MG TABLET PO PRN ×2 (13:12)
[2020-10-28] MEDS ORDERED: LACTATED RINGERS SOLUTION 1,000 ML IV SCH (13:15)
[2020-10-28 18:00] VITALS: BP 129/62; PULSE 71; TEMP 97.9
== END 2020-10-28 17:45 | disposition home or self-care (01) ==
LOC: JASU-SURG 04:37
PROVIDERS: ATTEND Surgery
PROC: 0WUF4JZ Supplement Abdominal Wall with Synthetic Substitute, Percutaneous Endoscopic Approach (ICD-10-PCS; principal; 2020-10-28 10:00)
DX: K43.2 Incisional hernia without obstruction or gangrene (principal)
CPT/HCPCS: 94760

== ENCOUNTER 2020-11-07 15:56 | Emergency (ER) | payer OTHER ==
[2020-11-07 16:14] VITALS: BP 156/76; PULSE 67; TEMP 99.2; BMI 29.2
[2020-11-07] MEDS ORDERED: METHOCARBAMOL 750 MG TAB PO ONE (16:33)
[2020-11-07] MEDS ORDERED: ACETAMINOPHEN 500 MG TABLET (FP) PO ONE (16:33)
[2020-11-07] MEDS ORDERED: LIDOCAINE 5% TOPICAL PATCH TP ONE (16:34)
[2020-11-07] MEDS ORDERED: ACETAMINOPHEN 500 MG TABLET (FP) ONE (16:41)
[2020-11-07] MEDS ORDERED: LIDOCAINE 5% TOPICAL PATCH ONE (16:41)
[2020-11-07] MEDS ORDERED: METHOCARBAMOL 500 MG TABLET ONE (16:41)
[2020-11-07] MEDS ORDERED: LIDOCAINE PATCH REMOVAL MC SCH (22:00)
== END 2020-11-07 17:53 | disposition home or self-care (01) ==
LOC: FER 15:56
DX: M54.31 Sciatica, right side (principal); M54.5 Low back pain
CPT/HCPCS: 72100-TC-FY; 99283-25

== ENCOUNTER 2022-07-10 04:48 | Day surgery (SDC) | payer OTHER ==
[2022-07-05 16:10] VITALS: BMI 27.3
[2022-07-10 10:51] VITALS: TEMP 98
[2022-07-10 12:49] VITALS: BP 109/50; PULSE 61; RESP 19
== END 2022-07-10 12:56 | disposition home or self-care (01) ==
LOC: JASU-ENDO 04:48
PROVIDERS: ATTEND Internal Medicine Gastroenterology
PROC: 0DBL8ZX Excision of Transverse Colon, Via Natural or Artificial Opening Endoscopic, Diagnostic (ICD-10-PCS; 2022-07-10)
PROC: 0DBN8ZX Excision of Sigmoid Colon, Via Natural or Artificial Opening Endoscopic, Diagnostic (ICD-10-PCS; 2022-07-10)
PROC: 0DBF8ZX Excision of Right Large Intestine, Via Natural or Artificial Opening Endoscopic, Diagnostic (ICD-10-PCS; 2022-07-10)
PROC: 0DBB8ZX Excision of Ileum, Via Natural or Artificial Opening Endoscopic, Diagnostic (ICD-10-PCS; 2022-07-10)
PROC: 0DBM8ZX Excision of Descending Colon, Via Natural or Artificial Opening Endoscopic, Diagnostic (ICD-10-PCS; principal; 2022-07-10 12:00)
DX: K57.20 Diverticulitis of large intestine with perforation and abscess without bleeding (principal); K64.8 Other hemorrhoids
CPT/HCPCS: 88305-TC

== ENCOUNTER 2022-11-29 04:24 | Day surgery (SDC) | payer OTHER ==
[2022-11-23 14:00] VITALS: BMI 28.5
[2022-11-29 11:01] VITALS: TEMP 98
[2022-11-29 13:10] VITALS: BP 129/63; PULSE 66; RESP 18
== END 2022-11-29 13:10 | disposition home or self-care (01) ==
LOC: JASU-ENDO 04:24
PROVIDERS: ATTEND Internal Medicine Gastroenterology
PROC: 0DB78ZX Excision of Stomach, Pylorus, Via Natural or Artificial Opening Endoscopic, Diagnostic (ICD-10-PCS; 2022-11-29)
PROC: 0DB98ZX Excision of Duodenum, Via Natural or Artificial Opening Endoscopic, Diagnostic (ICD-10-PCS; principal; 2022-11-29 11:45)
DX: K29.50 Unspecified chronic gastritis without bleeding (principal)
CPT/HCPCS: 88305-TC

== ENCOUNTER 2023-01-16 17:09 | Emergency (ER) | payer OTHER ==
[2023-01-16 17:24] VITALS: BP 141/52; PULSE 71; RESP 18; TEMP 97.7; BMI 292.1
== END 2023-01-16 21:20 | disposition left against medical advice (07) ==
LOC: JER 17:09
DX: H92.01 Otalgia, right ear (principal); R42 Dizziness and giddiness; R26.81 Unsteadiness on feet; H53.8 Other visual disturbances
CPT/HCPCS: 93005; 93010; 99283-25

== ENCOUNTER 2023-03-09 19:49 | Emergency (ER) | payer OTHER ==
[2023-03-09 19:59] VITALS: BP 170/52; PULSE 65; RESP 16; TEMP 97.8; BMI 29.2
[2023-03-09] MEDS ORDERED: ACETAMINOPHEN 1000 MG/100 ML BAG IVPB ONE (20:52)
[2023-03-09] MEDS ORDERED: ACETAMINOPHEN INJECTION 100 ML IVPB ONE (20:55)
[2023-03-09] MEDS ORDERED: IOHEXOL 180 MG/1 ML ML IT ONE (20:56)
[2023-03-09 21:00] LABS: HEMATOCRIT 43.7 % (32.4-45.2); HEMOGLOBIN 14.8 G/dL (10.7-15.3); MCH 32.5 pg (25.7-33.7); MCHC 33.9 g/dl (32.0-36.0); MEAN CELL VOLUME 95.9 fl (80-96); MEAN PLT VOLUME 7.4 fl (7.5-11.1); PLATELET COUNT 347.5 10^3/uL (134-434); RBC 4.56 10^6/uL (3.60-5.2); RDW 13.7 % (11.6-15.6)
[2023-03-09 21:29] LABS: ALBUMIN 3.9 g/dl (3.4-5.0); BILIRUBIN,TOTAL 0.4 mg/dl (0.2-1); CALCIUM 8.8 mg/dl (8.5-10.1); CREATININE 0.8 mg/dl (0.6-1.3); POTASSIUM 4.1 mmol/L (3.5-5.1); TOT PROT 6.3 g/dl (6.4-8.2)
[2023-03-09] MEDS ORDERED: MAG HYDROX/AL HYDROX/SIMETH 30 ML UNIT-DOSE CUP PO ONE (21:56)
[2023-03-09] MEDS ORDERED: MAG HYDROX/AL HYDROX/SIMETH 30 ML UNIT-DOSE CUP ONE (21:58)
[2023-03-09] MEDS ORDERED: BISACODYL 10 MG SUPP.RECT PR ONE (22:06)
[2023-03-09] MEDS ORDERED: BISACODYL 10 MG SUPP.RECT ONE (22:07)
== END 2023-03-09 22:40 | disposition home or self-care (01) ==
LOC: FER 19:49
PROC: 3E033NZ Introduction of Analgesics, Hypnotics, Sedatives into Peripheral Vein, Percutaneous Approach (ICD-10-PCS; principal; 2023-03-09)
DX: R10.13 Epigastric pain (principal); K59.00 Constipation, unspecified; R11.0 Nausea
CPT/HCPCS: 36415; 71046-TC-FY; 74019-TC-FY; 80053; 84484; 85025; 96374; 99284-25

== ENCOUNTER 2023-06-26 23:23 | Emergency (ER) | payer OTHER ==
[2023-06-26 23:43] VITALS: RESP 17; BMI 28.3
[2023-06-27] MEDS ORDERED: ACETAMINOPHEN 1000 MG/100 ML BAG IVPB ONE (00:22)
[2023-06-27] MEDS ORDERED: ACETAMINOPHEN INJECTION 100 ML IVPB ONE ×2 (00:35→04:38)
[2023-06-27] MEDS: ACETAMINOPHEN 1000 MG/100 ML BAG IVPB ONE ×2 (00:40→04:47)
[2023-06-27] MEDS: SODIUM CHLORIDE 500 ML IV STA ×2 (00:40→04:48)
[2023-06-27 01:06] LABS: BASO % 0.7 % (0-2.0); EOS % 1.8 % (0-4.5); HEMATOCRIT 40.2 % (32.4-45.2); HEMOGLOBIN 13.8 GM/dL (10.7-15.3); LYMPH % 32.9 % (8-40); MCH 32.8 pg (25.7-33.7); MCHC 34.5 g/dl (32.0-36.0); MEAN CELL VOLUME 95.3 fl (80-96); MEAN PLT VOLUME 7.6 fl (7.5-11.1); MONO % 8.3 % (3.8-10.2); NEUT % 56.3 % (42.8-82.8); PLATELET COUNT 322 10^3/uL (134-434); RBC 4.22 M/mm3 (3.60-5.2); RDW 13.3 % (11.6-15.6); WHITE BLOOD COUNT 9.1 K/mm3 (4.0-10.0)
[2023-06-27 01:23] LABS: POTASSIUM 4.1 mmol/L (3.5-5.1)
[2023-06-27 01:26] LABS: ALBUMIN 3.5 g/dl (3.4-5.0); BLOOD UREA NITROGEN 13.1 mg/dL (7-18)
[2023-06-27 01:29] LABS: CREATININE 0.7 mg/dL (0.55-1.3)
[2023-06-27 01:31] LABS: BILIRUBIN,TOTAL 0.5 mg/dL (0.2-1); TOT PROT 6.8 g/dl (6.4-8.2)
[2023-06-27] MEDS ORDERED: PIPERACILLIN/TAZOBACTAM 3.375 GM VIAL IVPB ONE (05:24)
[2023-06-27] MEDS: PIPERACILLIN/TAZOB 3.375 GM 3.375 GM in DEXTROSE 5%-WATER - 50 ML IVPB ONE (05:31)
[2023-06-27 05:53] VITALS: BP 153/72; PULSE 58; TEMP 97.8
== END 2023-06-27 07:26 | disposition left against medical advice (07) ==
LOC: FER 23:23
PROC: 3E033GC Introduction of Other Therapeutic Substance into Peripheral Vein, Percutaneous Approach (ICD-10-PCS; principal; 2023-06-27)
PROC: 3E03329 Introduction of Other Anti-infective into Peripheral Vein, Percutaneous Approach (ICD-10-PCS; 2023-06-27)
PROC: 3E030NZ Introduction of Analgesics, Hypnotics, Sedatives into Peripheral Vein, Open Approach (ICD-10-PCS; 2023-06-27)
PROC: 3E030NZ Introduction of Analgesics, Hypnotics, Sedatives into Peripheral Vein, Open Approach (ICD-10-PCS; 2023-06-27)
PROC: 3E0337Z Introduction of Electrolytic and Water Balance Substance into Peripheral Vein, Percutaneous Approach (ICD-10-PCS; 2023-06-27)
PROC: 3E0337Z Introduction of Electrolytic and Water Balance Substance into Peripheral Vein, Percutaneous Approach (ICD-10-PCS; 2023-06-27)
DX: K57.32 Diverticulitis of large intestine without perforation or abscess without bleeding (principal); R11.0 Nausea; R10.31 Right lower quadrant pain
CPT/HCPCS: 36415; 74019-TC-FY; 74177-TC; 80053; 83605; 85025; 99285-25; J0131; Q9967

== ENCOUNTER 2023-07-01 14:17 | Emergency (ER) | payer OTHER ==
[2023-07-01 14:32] VITALS: RESP 16; TEMP 98; BMI 28.0
[2023-07-01] MEDS ORDERED: ACETAMINOPHEN INJECTION 100 ML IVPB ONE (14:55)
[2023-07-01] MEDS: ACETAMINOPHEN 1000 MG/100 ML BAG IVPB ONE (15:15)
[2023-07-01] MEDS: SODIUM CHLORIDE 1,000 ML IV STA (15:15)
[2023-07-01 15:55] LABS: HEMATOCRIT 41.3 % (32.4-45.2); HEMOGLOBIN 13.6 G/dL (10.7-15.3); MCH 31.9 pg (25.7-33.7); MCHC 32.9 g/dl (32.0-36.0); MEAN CELL VOLUME 96.9 fl (80-96); PLATELET COUNT 309.6 10^3/uL (134-434); RBC 4.26 10^6/uL (3.60-5.2); RDW 13.5 % (11.6-15.6); WHITE BLOOD COUNT 6.3 10^3/uL (4.0-10.8)
[2023-07-01 16:10] LABS: INR 1.01 (0.83-1.09); PROTHROMBIN TIME (PATIENT) 11.5 SEC (9.7-13.0)
[2023-07-01 16:19] LABS: ALBUMIN 4.2 g/dl (3.4-5.0); BILIRUBIN,TOTAL 0.4 mg/dl (0.2-1); CALCIUM 9.6 mg/dl (8.5-10.1); CREATININE 0.5 mg/dl (0.6-1.3); POTASSIUM 3.9 mmol/L (3.5-5.1); TOT PROT 6.3 g/dl (6.4-8.2)
[2023-07-01 16:36] LABS: PLATELET ESTIMATE ADEQUATE
[2023-07-01 16:39] LABS: URIC ACID CRYSTALS FEW /hpf (NONE SEEN)
[2023-07-01 18:42] VITALS: BP 133/61; PULSE 58
== END 2023-07-01 18:47 | disposition home or self-care (01) ==
LOC: FER 14:17
PROC: 3E033NZ Introduction of Analgesics, Hypnotics, Sedatives into Peripheral Vein, Percutaneous Approach (ICD-10-PCS; principal; 2023-07-01)
PROC: 3E0337Z Introduction of Electrolytic and Water Balance Substance into Peripheral Vein, Percutaneous Approach (ICD-10-PCS; 2023-07-01)
DX: R10.32 Left lower quadrant pain (principal)
CPT/HCPCS: 36415; 74177-TC; 80053; 81003; 81015; 83690; 85027; 85610; 86850; 86900; 86901; 87086; 96361; 96374; 99285-25; J0131; Q9967